=== PATIENT | male | born 1955 | race Caucasian/White ===

== ENCOUNTER 2023-04-10 15:31 | Inpatient (IN) | payer MEDICARE, SELFPAY ==
--- NOTE | ~2023-04-10 | CT_ITS ---
EXAMINATION: CT CHEST, ABDOMEN AND PELVIS WITHOUT CONTRAST CLINICAL INFORMATION: Reason for Exam diarrhea, urinary frequency, dyspnea. COMPARISON: Chest radiograph done on 04/10/2023. TECHNIQUE: Multidetector volumetric imaging was performed from the thoracic inlet through the pubic symphysis without intravenous contrast. Oral contrast: No Sagittal and coronal reformatted images were obtained on the technologist workstation. This CT examination was performed using dose optimization techniques as appropriate, variously including the following: *Automated exposure control. *Adjustment of mA and/or kV according to patient size (this includes techniques or standardized protocols for targeted exams where dose is matched to indication/reason for exam; i.e. extremities or head). *Use of iterative reconstruction technique. Total exam dose-length product 635 mGy-cm FINDINGS: LUNG: Mild emphysematous disease predominantly at both upper lobes. Superimposed linear peribronchiolar airspace disease is noted at right lower lobe of the lung, most consistent with pneumonia. The remainder of the lung thompson otherwise appear clear. The tracheobronchial tree is patent. PLEURA: No pleural effusion or pneumothorax. MEDIASTINUM: Normal heart size. No pericardial effusion. No hilar or mediastinal lymphadenopathy. Small air pocket is noted at the level of the thoracic inlet abutting the right posterior wall of the trachea, may represent a small tracheal diverticulum/paratracheal air cyst (8:5). VASCULAR: No thoracic aortic aneurysm. CHEST WALL/AXILLA: No axillary or internal mammary lymphadenopathy. LIVER, GALLBLADDER AND BILIARY TREE: The liver is normal in size, shape, and attenuation. No focal hepatic lesion or biliary ductal dilatation is present. The gallbladder is unremarkable with no evidence of radiopaque gallstones, gallbladder wall thickening, or obvious pericholecystic inflammatory changes. PANCREAS: Focal calcification is noted at the head of the pancreas (212:7), may represent parenchymal versus vascular calcification. No evidence of any pancreatic ductal dilatation or discrete mass. SPLEEN: Normal size. No focal lesion. ADRENAL GLANDS: Both adrenal glands shows mild diffuse thickening and appears hypodense, suggestive of hyperplastic changes without evidence of any discrete mass. KIDNEYS AND URETERS: The kidneys are normal in size, shape, and attenuation. No hydronephrosis, hydroureter, or calculi. Intrarenal arterial calcifications are present. GASTROINTESTINAL TRACT: Small sliding hiatal hernia is seen. Colonic diverticulosis related changes are present predominantly within the left-sided colon without any CT features of superimposed acute diverticulitis. Normal appendix. ABDOMINAL WALL: No significant hernia is appreciated. LYMPHOVASCULAR STRUCTURES: No lymphadenopathy. Atherosclerotic calcification of the aorta and its branches. BLADDER: No focal mass or wall thickening seen. No bladder calculi. PELVIC VISCERA: Unremarkable. OSSEOUS STRUCTURES: Moderate diffuse osteopenia. Mild compression deformity of superior endplate of T4 vertebral body, of indeterminate etiology and chronicity.. CT/CT abdomen pelvis wo IV con IMPRESSION: 1. The CT scan of the chest shows mild emphysematous disease and superimposed linear peribronchiolar airspace disease at right lower lobe of the lung, most consistent with evolving pneumonia. 2. Small sliding hiatal hernia and bilateral mild thickening of the adrenal gland showing features most consistent with hyperplastic adrenal and colonic diverticulosis without any CT features of superimposed acute diverticulitis or superimposed acute colitis. 3. Moderate diffuse osteopenia and mild compression deformity of superior endplate of T4 vertebral body, of indeterminate etiology and chronicity.
--- NOTE | ~2023-04-10 | XR_ITS ---
EXAMINATION: XR CHEST CLINICAL INFORMATION: Reason for Exam Right posterior chest R/O number COMPARISON: Chest radiograph 07/27/2018 TECHNIQUE: One view of the chest FINDINGS: Lines and tubes: None. Emphysema. Bronchial wall thickening can be seen with a small airways process such as asthma or atypical/viral infection. No pleural effusion. No pneumothorax. Unchanged cardiomediastinal silhouette. XR/XR chest 1V IMPRESSION: 1. Emphysema. 2. Bronchial wall thickening can be seen with a small airways process such as asthma or atypical/viral infection.
[2023-04-10 15:47] VITALS: BP 167/93; BP 172/80; PULSE 95; PULSE 98; RESP 18; TEMP 36.9; O2SAT 88; O2SAT 93; BMI 21.9
--- NOTE | 2023-04-10 16:09 | ED_ITS ---
HPI - General Adult General Chief complaint: General Medical Stated complaint: BOWEL INCONTINENCE Time Seen by Provider: 04/10/23 16:09 Source: patient Mode of arrival: EMS Limitations: no limitations History of Present Illness HPI narrative: 68-year-old male history of COPD, pneumonia and ETOH use disorder who presents emergency department for evaluation frequent urinating and incontinence of stool when he urinates. He states this is been happening 2 to 3 times a day for the past 3 weeks. He states that this morning he again had to urinate and became incontinent therefore he came to emergency department for evaluation. He complains of frequency but no dysuria. He is not incontinent of urine but states that he is incontinent of stool and defecates when he urinates. He states that the stool is watery and brown, he denies any blood in the stool. He has not been on antibiotics recently. He states that over the last 3 weeks he has been experiencing right posterior chest pain which is intermittent worse with coughing and with breathing. He has a cough which is productive of clear thick sputum. He feels short of breath at rest and with exertion. Patient continues to smoke 1 pack of cigarettes per day for 54 years. He also states that he uses crack cocaine and last smoked crack cocaine 1 week prior. He denied fever, chills, rhinorrhea, sore throat, nausea or vomiting. He has a cough which is productive of clear sputum, shortness of breath at rest and with exertion, he denies bloody stools or dark tarry stools. Related Data Allergies Allergy/AdvReac Type Severity Reaction Status Date / Time No Known Allergies Allergy Verified 04/10/23 15:46 Review of Systems 2 Review of Systems: Yes all other systems are reviewed and are negative [facility] Past Medical History [facility] Narrative: Past medical history: COPD, tobacco use disorder, pneumonia. Social history: He states that he lives with friends. Smokes 1 pack of cigarettes per day times 54 years. He drinks 3-424 oz beers per day. He uses crack cocaine and he last use crack cocaine 1 week prior. Medical History Pneumonia Asthma Alcohol dependence Social History Patient Tobacco Use Status: Tobacco use Unknown Smoked in Last 30 Days: Yes Use of substances other than those prescribed or required for medical reasons: No Advance Directives: No Physical Exam ED Vital Signs: Vital Signs - 24 hr 04/10/23 15:47 04/10/23 18:00 04/10/23 19:09 Temperature 98.5 F 98.1 F Pulse Rate 95 88 94 Respiratory Rate 18 22 H 26 H Blood Pressure 167/93 H 146/79 H 151/86 H Pulse Oximetry 88 L 91 L 81 L Oxygen Delivery Method Room Air Nasal Cannula Room Air Oxygen Flow Rate 04/10/23 19:23 04/10/23 23:18 Temperature 98.2 F Pulse Rate 91 91 Respiratory Rate 22 H 18 Blood Pressure 112/71 Pulse Oximetry 94 Oxygen Delivery Method Room Air Nasal Cannula Oxygen Flow Rate 4 BMI result Body Mass Index 21.9 Vital signs revealed elevated blood pressure of 167/93 and a low O2 saturation of 88% on room air Exam: General: Awake, alert , disheveled, cooperative, answers all questions appropriately Head: Normocephalic, atraumatic EENT: PERRL, Lids normal, sclera normal, conjunctiva normal, nose normal , ears normal, throat without erythema or exudates Neck: Supple, no adenopathy, no trachea midline or C-spine tenderness Lung: Diminished breath sounds but bilaterally symmetric,, no wheezing, rales or rhonchi Chest: symmetric movement, nontender Heart: regular rate and rhythm, normal S1, S2 no murmurs or rubs Abdomen: soft, non-tender, nondistended, normal bowel sounds Rectal: Patient does have some small external hemorrhoids that were nontender, he does have skin breakdown perirectal secondary to his diarrhea but no sacral ulcers. Stool was loose, brown and Hemoccult negative on my testing Back: no vertebral tenderness, no CVAT Extremities: no deformities, moves all extremities symmetrically Neuro: Awake, alert, oriented, normal speech, cranial nerves intact, moves all extremities symmetrically Psych: Pleasant, cooperative Medications Administered Generic Name Dose Route Start Last Admin Trade Name Freq PRN Reason Stop Dose Admin Enoxaparin Sodium 40 mg 04/10/23 22:00 04/10/23 22:02 Enoxaparin Sodium 40 Mg/0.4 Ml Syringe SUBCUT 40 mg Q24H VLADIMIR Administration Famotidine 20 mg 04/10/23 21:30 04/10/23 22:02 Famotidine 20 Mg Tablet PO 20 mg BID VLADIMIR Administration Azithromycin 500 mg/ Sodium 250 mls @ 125 mls/hr 04/10/23 22:00 04/11/23 00:00 Chloride IV Infused Q24H VLADIMIR Infusion Ceftriaxone Sodium 1 gm/ 50 mls @ 100 mls/hr 04/10/23 23:00 04/11/23 00:42 Sodium Chloride IV Infused Q24H VLADIMIR Infusion Phenobarbital Sodium 214 mg 04/10/23 23:00 04/10/23 23:25 Phenobarbital Sodium 130 Mg/Ml Vial Im Q3hx2 IM 04/11/23 02:01 214 mg Q3H VLADIMIR Administration Sodium Chloride 3 ml 04/11/23 00:00 04/11/23 00:07 0.9 % Sodium Chloride Flush 3 Ml Syringe IVFLUSH Not Given QSHIFT VLDAIMIR Sodium Chloride 3 ml 04/11/23 00:00 04/11/23 00:07 0.9 % Sodium Chloride Flush 3 Ml Syringe IVFLUSH Not Given QSHIFT VLADIMIR Discontinued Medications Generic Name Dose Route Start Last Admin Trade Name Danielq PRN Reason Stop Dose Admin Acetaminophen 975 mg 04/10/23 19:38 04/10/23 19:49 Acetaminophen 325 Mg Tablet PO 04/10/23 19:39 975 mg ONCE STA Administration Albuterol Sulfate 5 mg/ 0 mg 04/10/23 19:19 04/10/23 19:22 Albuterol/Ipratropium 3 ml INHALE 04/10/23 19:20 2.5 each ONCE ONE Administration Sodium Chloride 1,000 mls @ 999 mls/hr 04/10/23 16:18 04/10/23 18:20 Ns IV 04/10/23 17:18 Infused .Q1H1M STA Infusion Magnesium Hydroxide 15 ml 04/10/23 21:12 04/10/23 22:01 Milk Of Magnesia 30 Ml Oral.Susp PO 04/10/23 21:13 15 ml ONCE ONE Administration Methylprednisolone Sodium Succinate 125 mg 04/10/23 19:07 04/10/23 19:17 Methylprednisolone Sod Succ 125 Mg/2 Ml Vial IVPUSH 04/10/23 19:08 125 mg ONCE ONE Administration Phenobarbital Sodium 286 mg 04/10/23 19:15 04/10/23 19:51 Phenobarbital Sodium 130 Mg/Ml Im Once IM 04/10/23 19:16 286 mg ONCE ONE Administration Polyethylene Glycol 17 gm 04/10/23 21:15 04/10/23 22:01 Polyethylene Glycol 3350 17 Gm Powd.Pack PO 17 gm DAILY VLADIMIR Administration Medical Decision Making Medical Decision Making [facility] Narrative: 68-year-old male history of COPD, pneumonia and ETOH use disorder who presents emergency department for evaluation frequent urinating and incontinence of stool when he urinates with symptoms current 2 to 3 times a day for 3 weeks. He denied in the bloody stools or dark tarry stools. He also complained of right posterior chest pain which is intermittent worse with coughing and with breathing. He has a cough which is productive of clear thick sputum. Vital signs did reveal O2 saturation of 88% on room air-he does not use home oxygen Patient's breath sounds are diminished bilateral with no rales rhonchi or wheezing initially. Following evaluation was ordered: CBC, CMP, PT/INR, PTT, D-dimer CK, lactic acid, lipase, blood cultures x2, troponin, BNP, urinalysis, VBG, urinalysis, occult stool, COVID, RSV, influenza, blood cultures x2, chest x-ray one view 18:58 Patient's laboratory evaluation did reveal low sodium and low chloride but this is secondary to his alcohol use disorder patient's coags including the D-dimer were normal. LFTs were normal. Patient's chest x-ray did not reveal any acute findings. High sensitive troponin I was detectable at 4.6 but not elevated. BNP was elevated 166-this is most likely secondary to COPD. Twelve EKG was unremarkable. I do not have a clear etiology for the patient's urinary frequency and diarrhea but it may be related to his alcohol use disorder Patient complains of increased shortness of breath and does have wheezing chest x-ray on my interpretation was no acute disease consistent with COPD. Patient's hypoxic has gotten worse with O2 saturation of 82% on room air, he was placed on oxygen via nasal cannula. Hypoxia is caused by COPD and not by an infectious process. I ordered Solu-Medrol 125 mg IV, bronchial dilator protocol and phenobarbital protocol. At this time, I do not think that his hypoxia is due to sepsis and is related to his COPD. I will discuss admission with the covering hospitalist. 19:05 Patient was discussed with the covering hospitalist, Dr. Sood patient will be admitted for further management Differential Diagnosis Differential Diagnoses: The differential diagnosis associated with the presentation includes 18:58 Differential diagnosis includes was not limited to urinary tract infection, pneumonia, C diff, his infectious diarrhea, cardiac ischemia, myocardial infarction, CHF, alcohol related disease Admission/Observation Consideration of admission/observation: Escalation of care including admission/observation considered Consult Healthcare Provider Management of the patient was discussed with: Hospitalist Lab Data MDM Lab Attestation statement: I reviewed the patient's lab results. My interpretation patient's laboratory evaluation is as follows: CBC was normal. Sodium low 127 and chloride low 90-this is most likely secondary to his alcohol use disorder. LFTs were normal. Lipase was not elevated. COVID-19, influenza and RSV were negative . venous blood gas revealed a normal pH of 7.42 normal CO2 of 44. Occult stool was negative. Urinalysis was negative. Urine tox screen was negative. Alcohol was 49. 04/10/23 17:19 04/10/23 22:50 Labs: Lab Results 04/10/23 04/10/23 04/10/23 Range/Units 16:55 16:56 16:57 WBC (4.8-10.8) X10*3/uL RBC (4.60-5.80) X10*6/uL Hgb (14.0-18.0) g/dl Hct (42.0-52.0) % MCV (80.0-98.0) fL MCH (27.0-33.0) pg MCHC (31.0-36.0) g/dl RDW (11.0-16.0) % Plt Count (160-400) X10*3/uL MPV (9.4-12.4) fL Immature Gran % (Auto) (0.0-0.4) % Neut % (Auto) (45-73) % Lymph % (Auto) (20-40) % Archuleta % (Auto) (2-11) % Eos % (Auto) (0-4) % Baso % (Auto) (0-2) % Lymph # (Auto) (1.2-4.9) X10*3/uL [place] # (Auto) (0.1-1.2) X10*3/uL Eos # (Auto) (0.0-0.4) X10*3/uL Baso # (Auto) (0.0-0.2) X10*3/uL Abs Immat Gran (auto) (0.00-0.03) X10*3/uL Absolute Neuts (auto) (2.0-8.3) x10*3/uL Absolute Nucleated RBC (0.0-0.012) X10*3/uL Nucleated RBC % (auto) (0.0-0.2) /100WBC PT (11.1-13.3) SEC INR (0.9-1.1) APTT (26.0-36.4) SEC D-Dimer High Sensitivty NG/ML VBG pH (7.32-7.43) VBG pCO2 mmHg VBG pO2 mmHg VBG HCO3 (22-26) mmol/L VBG O2 Saturation % VBG Base Excess mmol/L Sodium (135-145) mmol/L Potassium (3.3-5.1) mmol/L Chloride (96-108) mmol/L Carbon Dioxide (22-29) mmol/L Anion Gap (12-20) BUN (9-16) mg/dL Creatinine (0.5-1.4) mg/dL Estim Creat Clear Calc Estimated GFR Random Glucose (60-115) mg/dL Lactic Acid 1.7 (0.5-2.0) mmol/L Calcium (8.4-10.2) mg/dL Magnesium (1.6-2.6) mg/dL Total Bilirubin (0.0-1.0) mg/dL AST (5-37) U/L ALT (0-40) U/L Alkaline Phosphatase (39-117) U/L Total Creatine Kinase (38-174) U/L Troponin I High Sens (<3.5-35.0) ng/L B-Natriuretic Peptide (<100) pg/mL Total Protein (6.5-8.0) g/dL Albumin (3.5-5.0) g/dL Lipase (8-78) U/L Urine Color Yellow Urine Appearance Clear Urine pH 6.0 (5.0-9.0) Ur Specific Clarence 1.015 (1.005-1.025) Urine Protein Negative (Neg-Trace) mg/dL Urine Glucose (UA) Negative (Negative) mg/dL Urine Ketones Negative (Negative) mg/dL Urine Blood Negative (Negative) Urine Nitrite Negative (Negative) Ur Leukocyte Esterase Negative (Negative) Stool Occult Blood NEGATIVE (NEGATIVE) Urine Opiates Screen Not Detected (Not Detect) Urine Fentanyl Screen Not Detected (Not Detect) Ur Barbiturates Screen Not Detected (Not Detect) Ur Phencyclidine Scrn Not Detected (Not Detect) Ur Amphetamines Screen Not Detected (Not Detect) U Benzodiazepines Scrn Not Detected (Not Detect) Urine Cocaine Screen Not Detected (Not Detect) U Marijuana (THC) Screen Not Detected (Not Detect) Ethyl Alcohol mg/dL Influenza Type A (PCR) NEGATIVE (Negative) Influenza Type B (PCR) NEGATIVE (Negative) RSV RNA Qual (PCR) NEGATIVE (Negative) SARS-CoV-2 RNA (RT-PCR) NEGATIVE (Negative) 04/10/23 04/10/23 04/10/23 Range/Units 17:14 17:16 17:19 WBC 9.2 (4.8-10.8) X10*3/uL RBC 5.39 (4.60-5.80) X10*6/uL Hgb 15.7 (14.0-18.0) g/dl Hct 46.8 (42.0-52.0) % MCV 86.8 (80.0-98.0) fL MCH 29.1 (27.0-33.0) pg MCHC 33.5 (31.0-36.0) g/dl RDW 13.2 (11.0-16.0) % Plt Count 301 (160-400) X10*3/uL MPV 8.1 L (9.4-12.4) fL Immature Gran % (Auto) 0.3 (0.0-0.4) % Neut % (Auto) 69.7 (45-73) % Lymph % (Auto) 20.6 (20-40) % Archuleta % (Auto) 8.2 (2-11) % Eos % (Auto) 0.4 (0-4) % Baso % (Auto) 0.8 (0-2) % Lymph # (Auto) 1.9 (1.2-4.9) X10*3/uL [place] # (Auto) 0.8 (0.1-1.2) X10*3/uL Eos # (Auto) 0.0 (0.0-0.4) X10*3/uL Baso # (Auto) 0.1 (0.0-0.2) X10*3/uL Abs Immat Gran (auto) 0.03 (0.00-0.03) X10*3/uL Absolute Neuts (auto) 6.4 (2.0-8.3) x10*3/uL Absolute Nucleated RBC 0.000 (0.0-0.012) X10*3/uL Nucleated RBC % (auto) 0.0 (0.0-0.2) /100WBC PT 10.1 L (11.1-13.3) SEC INR 0.8 L (0.9-1.1) APTT 37.1 H (26.0-36.4) SEC D-Dimer High Sensitivty < 150 NG/ML VBG pH (7.32-7.43) VBG pCO2 mmHg VBG pO2 mmHg VBG HCO3 (22-26) mmol/L VBG O2 Saturation % VBG Base Excess mmol/L Sodium 127 L (135-145) mmol/L Potassium 4.9 (3.3-5.1) mmol/L Chloride 90 L (96-108) mmol/L Carbon Dioxide 27 (22-29) mmol/L Anion Gap 15 (12-20) BUN 3 L (9-16) mg/dL Creatinine 0.74 (0.5-1.4) mg/dL Estim Creat Clear Calc 78.3 Estimated GFR > 60 Random Glucose 85 (60-115) mg/dL Lactic Acid (0.5-2.0) mmol/L Calcium 9.3 (8.4-10.2) mg/dL Magnesium 2.2 (1.6-2.6) mg/dL Total Bilirubin 0.3 (0.0-1.0) mg/dL AST 26 (5-37) U/L ALT 11 (0-40) U/L Alkaline Phosphatase 86 (39-117) U/L Total Creatine Kinase 113 (38-174) U/L Troponin I High Sens 4.6 (<3.5-35.0) ng/L B-Natriuretic Peptide 166 H (<100) pg/mL Total Protein 7.6 (6.5-8.0) g/dL Albumin 3.7 (3.5-5.0) g/dL Lipase 26 (8-78) U/L Urine Color Urine Appearance Urine pH (5.0-9.0) Ur Specific Clarence (1.005-1.025) Urine Protein (Neg-Trace) mg/dL Urine Glucose (UA) (Negative) mg/dL Urine Ketones (Negative) mg/dL Urine Blood (Negative) Urine Nitrite (Negative) Ur Leukocyte Esterase (Negative) Stool Occult Blood (NEGATIVE) Urine Opiates Screen (Not Detect) Urine Fentanyl Screen (Not Detect) Ur Barbiturates Screen (Not Detect) Ur Phencyclidine Scrn (Not Detect) Ur Amphetamines Screen (Not Detect) U Benzodiazepines Scrn (Not Detect) Urine Cocaine Screen (Not Detect) U Marijuana (THC) Screen (Not Detect) Ethyl Alcohol 49 mg/dL Influenza Type A (PCR) (Negative) Influenza Type B (PCR) (Negative) RSV RNA Qual (PCR) (Negative) SARS-CoV-2 RNA (RT-PCR) (Negative) 04/10/23 04/10/23 Range/Units 17:22 22:50 WBC (4.8-10.8) X10*3/uL RBC (4.60-5.80) X10*6/uL Hgb (14.0-18.0) g/dl Hct (42.0-52.0) % MCV (80.0-98.0) fL MCH (27.0-33.0) pg MCHC (31.0-36.0) g/dl RDW (11.0-16.0) % Plt Count (160-400) X10*3/uL MPV (9.4-12.4) fL Immature Gran % (Auto) (0.0-0.4) % Neut % (Auto) (45-73) % Lymph % (Auto) (20-40) % Archule[place] % (Auto) (2-11) % Eos % (Auto) (0-4) % Baso % (Auto) (0-2) % Lymph # (Auto) (1.2-4.9) X10*3/uL [place] # (Auto) (0.1-1.2) X10*3/uL Eos # (Auto) (0.0-0.4) X10*3/uL Baso # (Auto) (0.0-0.2) X10*3/uL Abs Immat Gran (auto) (0.00-0.03) X10*3/uL Absolute Neuts (auto) (2.0-8.3) x10*3/uL Absolute Nucleated RBC (0.0-0.012) X10*3/uL Nucleated RBC % (auto) (0.0-0.2) /100WBC PT (11.1-13.3) SEC INR (0.9-1.1) APTT (26.0-36.4) SEC D-Dimer High Sensitivty NG/ML VBG pH 7.42 (7.32-7.43) VBG pCO2 44 mmHg VBG pO2 43 mmHg VBG HCO3 29 H (22-26) mmol/L VBG O2 Saturation 79.0 % VBG Base Excess 4.0 mmol/L Sodium 132 L (135-145) mmol/L Potassium (3.3-5.1) mmol/L Chloride (96-108) mmol/L Carbon Dioxide (22-29) mmol/L Anion Gap (12-20) BUN (9-16) mg/dL Creatinine (0.5-1.4) mg/dL Estim Creat Clear Calc Estimated GFR Random Glucose (60-115) mg/dL Lactic Acid (0.5-2.0) mmol/L Calcium (8.4-10.2) mg/dL Magnesium (1.6-2.6) mg/dL Total Bilirubin (0.0-1.0) mg/dL AST (5-37) U/L ALT (0-40) U/L Alkaline Phosphatase (39-117) U/L Total Creatine Kinase (38-174) U/L Troponin I High Sens (<3.5-35.0) ng/L B-Natriuretic Peptide (<100) pg/mL Total Protein (6.5-8.0) g/dL Albumin (3.5-5.0) g/dL Lipase (8-78) U/L Urine Color Urine Appearance Urine pH (5.0-9.0) Ur Specific Clarence (1.005-1.025) Urine Protein (Neg-Trace) mg/dL Urine Glucose (UA) (Negative) mg/dL Urine Ketones (Negative) mg/dL Urine Blood (Negative) Urine Nitrite (Negative) Ur Leukocyte Esterase (Negative) Stool Occult Blood (NEGATIVE) Urine Opiates Screen (Not Detect) Urine Fentanyl Screen (Not Detect) Ur Barbiturates Screen (Not Detect) Ur Phencyclidine Scrn (Not Detect) Ur Amphetamines Screen (Not Detect) U Benzodiazepines Scrn (Not Detect) Urine Cocaine Screen (Not Detect) U Marijuana (THC) Screen (Not Detect) Ethyl Alcohol mg/dL Influenza Type A (PCR) (Negative) Influenza Type B (PCR) (Negative) RSV RNA Qual (PCR) (Negative) SARS-CoV-2 RNA (RT-PCR) (Negative) Independent Interpretation I performed an independent interpretation of an: Plain X-Ray Interpretation: My interpretation patient's one-view chest x-ray is as follows: COPD changes, no acute infiltrate My interpretation of the patient's 12 EKG done at 16:36 hours is as follows: Normal sinus rhythm with a rate of 96, normal MD interval, QRS duration QTC interval, no ST segment elevation, no ST segment depression, no significant T- wave abnormalities, no PACs, no PVCs-this is a normal EKG. Radiology Impression Discussion of test interpretation with radiology: I have reviewed the radiologist's reading. Radiologist Impression: XR chest 1V IMPRESSION: 1. Emphysema. 2. Bronchial wall thickening can be seen with a small airways process such as asthma or atypical/viral infection. Dictated By: Mireya De La Fuente MD Critical Care Time Critical Care Time Critical Care Time: Yes Total Critical Care Time: 45 Attestation: Critical Care: The patient was critically ill with a high probability of imminent or life threatening deterioration. I spent greater than 30 minutes of discontinuous time evaluating the patient,delivering critical care at the bedside, discussing and evaluating pertinent data with consultants. Critical care time does not include time spent performing separately billable procedures or teaching. Total time spent performing critical care was 45 minutes. Discharge Plan Discharge Patient Disposition: Admitted As Inpatient
--- NOTE | 2023-04-10 16:18 | ECG_ITS ---
Test Reason : PAIN Blood Pressure : / mmHG Vent. Rate : 096 BPM Atrial Rate : 096 BPM P-R Int : 118 ms QRS Dur : 070 ms QT Int : 354 ms P-R-T Axes : 078 076 076 degrees QTc Int : 447 ms Normal sinus rhythm Normal ECG When compared with ECG of 27-JUL-2018 18:08, No significant changes seen Referred By: Betito Oro Electronically Signed By:LEONID JARQUIN MD
[2023-04-10 17:07] LABS: OBS Int Ctl Valid YES; OBS1 NEGATIVE (NEGATIVE)
[2023-04-10 17:08] LABS: Appearance Urine Clear; Color Urine Yellow; Glucose Urine UA Negative (Negative); Leukocyte Esterase Urine Negative (Negative); Nitrite Urine Negative (Negative); Specific Gravity - Urine 1.015 (1.005-1.025); Urine Blood Negative (Negative); Urine Ketones Negative (Negative); Urine Protein Negative (Neg-Trace)
[2023-04-10 17:15] LABS: Amphetamine Screen Urine Not Detected (Not Detect); Barbiturates, Urine Not Detected (Not Detect); Benzodiazepines Screen Urine Not Detected (Not Detect); Cannabinoid Screen Urine Not Detected (Not Detect); Cocaine Screen Urine Not Detected (Not Detect); Fentanyl, urine Not Detected (Not Detect); Opiate Screen Urine Not Detected (Not Detect); Phencyclidine Screen Urine Not Detected (Not Detect)
[2023-04-10 17:17] LABS: Lactic Acid 1.7 mmol/L (0.5-2.0)
[2023-04-10] MEDS: 0.9 % Sodium Chloride 1,000 ML 999 ML IV (17:19)
[2023-04-10 17:25] LABS: Basophils Absolute Auto 0.1 X10*3/uL (0.0-0.2); Basophils Percent Auto 0.8 % (0-2); Eosinophils Percent Auto 0.4 % (0-4); Hematocrit 46.8 % (42.0-52.0); Hemoglobin 15.7 g/dl (14.0-18.0); Imm Gran Abs Auto 0.03 X10*3/uL (0.00-0.03); Imm Gran Pct Auto 0.3 % (0.0-0.4); Lymphocytes Absolute Auto 1.9 X10*3/uL (1.2-4.9); Lymphocytes Percent Auto 20.6 % (20-40); Mean Corpuscular HGB Conc 33.5 g/dl (31.0-36.0); Mean Corpuscular Hemoglobin 29.1 pg (27.0-33.0); Mean Corpuscular Volume 86.8 fL (80.0-98.0); Mean Platelet Volume 8.1 fL (9.4-12.4); Monocytes Absolute Auto 0.8 X10*3/uL (0.1-1.2); Monocytes Percent Auto 8.2 % (2-11); Neutrophils Absolute Auto 6.4 x10*3/uL (2.0-8.3); Neutrophils Percent Auto 69.7 % (45-73); Platelet Count 301 X10*3/uL (160-400); Red Blood Count 5.39 X10*6/uL (4.60-5.80); Red Cell Distribution Width 13.2 % (11.0-16.0); White Blood Count 9.2 X10*3/uL (4.8-10.8)
[2023-04-10 17:29] LABS: MANUAL DIFF FLAG NO
[2023-04-10 17:29] LABS: VBG HCO3 29 mmol/L (22-26); VBG pCO2 44 mmHg; VBG pH 7.42 (7.32-7.43); VBG pO2 43 mmHg
[2023-04-10 17:31] LABS: INTERNATIONAL NORM RATIO 0.8 (0.9-1.1); Prothrombin Time 10.1 SEC (11.1-13.3)
[2023-04-10 17:33] LABS: Partial Thromboplastin Time 37.1 SEC (26.0-36.4)
[2023-04-10 17:39] LABS: Influenza A PCR NEGATIVE (Negative); Influenza B PCR NEGATIVE (Negative); Resp Syncy Virus RNA Qual PCR NEGATIVE (Negative); SARS COV2 PCR INHOUSE NEGATIVE (Negative)
--- NOTE | 2023-04-10 17:40 | PC.NURSE ---
patient a&ox2, monitoring manager applied-nsr, iv inserted, labs drawn, bc drawn, nasal swab performed, cxr performed, vss, call garcia within reach, will continue to monitor
[2023-04-10 17:51] LABS: Alanine Aminotransferase 11 U/L (0-40); Albumin Level 3.7 g/dL (3.5-5.0); Alkaline Phosphatase 86 U/L (39-117); Anion Gap 15 (12-20); Aspartate Amino Transferase 26 U/L (5-37); B Type Natriuretic Peptide 166 pg/mL (<100); Bilirubin Total 0.3 mg/dL (0.0-1.0); Blood Urea Nitrogen 3 mg/dL (9-16); Calcium 9.3 mg/dL (8.4-10.2); Carbon Dioxide 27 mmol/L (22-29); Chloride 90 mmol/L (96-108); Creatinine Clr Calc Pharmacy 78.3; Estimated Glomerular Filt Rate > 60; Ethanol 49 mg/dL; Glucose Random 85 mg/dL (60-115); Lipase 26 U/L (8-78); Potassium 4.9 mmol/L (3.3-5.1); Sodium 127 mmol/L (135-145); Total Protein 7.6 g/dL (6.5-8.0)
[2023-04-10 17:51] LABS: Venous Blood Gas Refer to POC result
[2023-04-10 17:53] LABS: Troponin-I High Sensitivity 4.6 ng/L (<3.5-35.0)
[2023-04-10 18:00] VITALS: BP 146/79; PULSE 88; RESP 22; TEMP 36.7; O2SAT 91
[2023-04-10 18:08] LABS: D Dimer High Sensitivity < 150 NG/ML
--- NOTE | 2023-04-10 18:22 | PC.NURSE ---
patient a&ox3, cardiac monitor technician nsr 80s, vitals currently stable, call garcia within reach, will continue to monitor
[2023-04-10 19:09] VITALS: BP 151/86; PULSE 94; RESP 26; O2SAT 81
[2023-04-10] MEDS: methylPREDNISolone Sod Succ 125 MG/2 ML VIAL IVPUSH (19:17)
[2023-04-10] MEDS: Albuterol Sulfate 5 MG, Albuterol/Iprat 2.5/0.5MG 3 ML 3 ML INHALE (19:22)
[2023-04-10 19:23] VITALS: PULSE 91; RESP 22; O2SAT 97
[2023-04-10] MEDS: Acetaminophen 325 MG TABLET 975 MG PO (19:49)
[2023-04-10] MEDS: PHENobarbitaL sodium 130 MG/ML IM ONCE 286 MG IM (19:51)
--- NOTE | 2023-04-10 20:12 | P.HPHOSP_ITS ---
<Statement entered by Codey Sood MD - 04/13/23 19:18> Pt seen examined at bedside. I agree with the findings of the PA note findings and A&P for full H&P please see below History of Present Illness Date of Service: 04/10/23 Attending physician on admission: Codey Sood Chief Complaint: Incontinent of stool while urinating Pt is a 68-year-old male with a PMH significant for?COPD and alcohol use disorder who presents to the ED with?occasional incontinence of stool while urinating for the past 3 weeks. Patient states symptoms mostly occur in the morning and can occur 2-3 times daily. Describes stool as liquid. No hematochezia or melena. Denies nausea, vomiting, fever, chills, abdominal pain. Notes has experienced increased SOB, BRENNAN, and cough past 2-3 weeks occasionally productive of clear sputum. Is not on home O2 or any inhalers. Was diagnosed with COPD 4 years prior during his last admission to the hospital but never followed up with PCP or pulmonology. In fact, pt states he hasn't seen a PCP for a yearly physical since he was a kid 50+ years ago. Patient also admits to drinking daily from the moment he wakes up to when he goes to sleep. States his hands usually shake in the morning when he wakes up. Also admits to occasional crack cocaine use with last use 1 week ago. Patient apparently lives with roommates in an apartment, and he states he spends almost all day, every day just sitting in his chair smoking, drinking, and watching TV. In the ED pt was afebrile with elevated heart rate as high as 95, tachypnea to 26, and hypertensive as high as 167/93, satting as low as 81% on RA. Labs were significant for sodium of 127 and chloride 90 (same as labs on 07/27/2018), BPH mildly elevated 166, ethyl alcohol levels 49. Lactic acid WNL 1.7. Hepatic function WNL. Lipase WNL at 26. Troponin detectable but WNL at 4.6. No leukocytosis. Stable H&H of 15.7/46.8. D-dimer negative. VBG pH 7.42. UA negative for UTI. Stool negative for occult blood. Patient tested negative for influenza type a and B, RSV, COVID. CXR showed emphysema and bronchial wall thickening suggestive of asthma and or atypical/viral infection. CT? EKG demonstrated normal sinus rhythm without evidence of significant ST elevations or depressions. Pt was treated with IVF, Solu-Medrol, DuoNebs, acetaminophen, and started on phenobarb protocol. Pt will be admitted to the hospital for treatment and further evaluation of acute hypoxic respiratory failure in the setting of COPD exacerbation as well as acute alcohol withdrawal. Review of Systems 2 Review of Systems: Increased Shortness of breath, dyspnea with exertion Chronic cough Occasional incontinence of stool while urinating Daily morning upper extremity tremors Denies chest pain/pressure, palpitations No fever, chills, nausea, vomiting, abdominal pain PMFSH Medical History Pneumonia Asthma Alcohol dependence Smoked in Last 30 Days: Yes Use of substances other than those prescribed or required for medical reasons: No Advance Directives: No Meds Allergies Allergy/AdvReac Type Severity Reaction Status Date / Time No Known Allergies Allergy Verified 04/10/23 15:46 Active Medications: Current Medications Pharmacy Consult (Consult Rx Etoh Phenob Im/Po) 1 each MISCELLANE ONCE PRN; Protocol PRN Reason: Consult order Phenobarbital (Phenobarbital 15 Mg Tablet) 45 mg PO BID [facility] Stop: 04/12/23 21:01 Phenobarbital (Phenobarbital 30 Mg Tablet) 30 mg PO BID [facility] Stop: 04/14/23 21:01 Phenobarbital (Phenobarbital 15 Mg Tablet) 15 mg PO DAILY [facility] Stop: 04/16/23 09:01 Phenobarbital Sodium (Phenobarbital Sodium 130 Mg/Ml Vial Im Q3hx2) 214 mg IM Q3H [facility] Stop: 04/11/23 02:01 Physical Exam 2 Vital Signs and Narrative: Vital Signs: Last Vital Signs Temp 98.1 F 04/10/23 18:00 Pulse 91 04/10/23: Resp 22 H 04/10/23 19: BP 151/86 H 04/10/23 19:09 Pulse Ox 81 L 04/10/23 19:09 O2 Del Method Room Air 04/10/23 19:09 BMI result Body Mass Index 21.9 Constitutional: Alert, cachectic, disheveled, in no acute distress. Mental Status: Oriented to person, place and time. Eyes: Pupils are equal, round, and reactive to light. Ear, Nose, and Throat: Oropharynx clear, mucous membranes moist. Ears and nose without deformities. Trachea midline. Poor dentition. Respiratory: Clear to auscultation bilaterally though diminished bilaterally. No wheezing, rales, or rhonchi. Cardiovascular: S1, S2, tachy. No murmurs, rubs, or gallops. Gastrointestinal: Abdomen soft, non-tender, non-distended. Normal bowel sounds. Neurologic: Cranial nerves II-XII are grossly intact bilaterally. No focal neurological deficits. Moves all extremities spontaneously. Moderate upper extremity tremors noted. Skin: Warm, dry. Extremities: Trace bilateral edema. Psychiatric: Normal mood and affect. Results Labs 04/10/23 17:19 04/10/23 17:16 Labs: Laboratory Results - last 24 hr 04/10/23 04/10/23 04/10/23 16:55 16:56 16:57 MCV MCH MCHC RDW Plt Count MPV Immature Gran % (Auto) Neut % (Auto) Lymph % (Auto) Archer % (Auto) Eos % (Auto) Baso % (Auto) Lymph # (Auto) Archer # (Auto) Eos # (Auto) Baso # (Auto) Abs Immat Gran (auto) Absolute Neuts (auto) Absolute Nucleated RBC Nucleated RBC % (auto) PT INR APTT D-Dimer High Sensitivty VBG pH VBG pCO2 VBG pO2 VBG HCO3 VBG O2 Saturation VBG Base Excess Anion Gap Estim Creat Clear Calc Estimated GFR Random Glucose Lactic Acid 1.7 Calcium Total Bilirubin AST ALT Alkaline Phosphatase Total Creatine Kinase B-Natriuretic Peptide Total Protein Albumin Lipase Urine Color Yellow Urine Appearance Clear Urine pH 6.0 Ur Specific [place] 1.015 Urine Protein Negative Urine Glucose (UA) Negative Urine Ketones Negative Urine Blood Negative Urine Nitrite Negative Ur Leukocyte Esterase Negative Stool Occult Blood NEGATIVE Urine Opiates Screen Not Detected Urine Fentanyl Screen Not Detected Ur Barbiturates Screen Not Detected Ur Phencyclidine Scrn Not Detected Ur Amphetamines Screen Not Detected U Benzodiazepines Scrn Not Detected Urine Cocaine Screen Not Detected U Marijuana (THC) Screen Not Detected Ethyl Alcohol Influenza Type A (PCR) NEGATIVE Influenza Type B (PCR) NEGATIVE RSV RNA Qual (PCR) NEGATIVE SARS-CoV-2 RNA (RT-PCR) NEGATIVE 04/10/23 04/10/23 04/10/23 17:16 17:19 17:22 MCV 86.8 MCH 29.1 MCHC 33.5 RDW 13.2 Plt Count 301 MPV 8.1 L Immature Gran % (Auto) 0.3 Neut % (Auto) 69.7 Lymph % (Auto) 20.6 Archer % (Auto) 8.2 Eos % (Auto) 0.4 Baso % (Auto) 0.8 Lymph # (Auto) 1.9 Archer # (Auto) 0.8 Eos # (Auto) 0.0 Baso # (Auto) 0.1 Abs Immat Gran (auto) 0.03 Absolute Neuts (auto) 6.4 Absolute Nucleated RBC 0.000 Nucleated RBC % (auto) 0.0 PT 10.1 L INR 0.8 L APTT 37.1 H D-Dimer High Sensitivty < 150 VBG pH 7.42 VBG pCO2 44 VBG pO2 43 VBG HCO3 29 H VBG O2 Saturation 79.0 VBG Base Excess 4.0 Anion Gap 15 Estim Creat Clear Calc 78.3 Estimated GFR > 60 Random Glucose 85 Lactic Acid Calcium 9.3 Total Bilirubin 0.3 AST 26 ALT 11 Alkaline Phosphatase 86 Total Creatine Kinase 113 B-Natriuretic Peptide 166 H Total Protein 7.6 Albumin 3.7 Lipase 26 Urine Color Urine Appearance Urine pH Ur Specific [place] Urine Protein Urine Glucose (UA) Urine Ketones Urine Blood Urine Nitrite Ur Leukocyte Esterase Stool Occult Blood Urine Opiates Screen Urine Fentanyl Screen Ur Barbiturates Screen Ur Phencyclidine Scrn Ur Amphetamines Screen U Benzodiazepines Scrn Urine Cocaine Screen U Marijuana (THC) Screen Ethyl Alcohol 49 Influenza Type A (PCR) Influenza Type B (PCR) RSV RNA Qual (PCR) SARS-CoV-2 RNA (RT-PCR) Imaging Radiologist's Impressions: Impressions Chest X-Ray 04/10/23 17:03 IMPRESSION: 1. Emphysema. 2. Bronchial wall thickening can be seen with a small airways process such as asthma or atypical/viral infection. Assessment and Plan (1) Alcohol withdrawal: Status: Acute (2) Acute hypoxic respiratory failure: Status: Acute (3) COPD exacerbation: Status: Acute Plan Pt is a 68-year-old male with a PMH significant for?COPD and alcohol use disorder who presents to the ED with?occasional incontinence of stool while urinating for the past 3 weeks. Pt will be admitted to the hospital for treatment and further evaluation of acute hypoxic respiratory failure in the setting of COPD exacerbation as well as acute alcohol withdrawal. Acute hypoxic respiratory failure in the setting of COPD exacerbation Patient satting at 82% on RA, not on home O2 Smokes 1-pack daily x50+ years Patient initially diagnosed with COPD at time of last presentation to the ED in July of 2018, has not followed up outpatient or seen a clinician since Will treat with Solu-Medrol, DuoNebs, and azithromycin, started 04/10/2023 Titrate supplemental O2 >90, wean as tolerated Acute alcohol withdrawal Moderate upper extremity tremors, pt drinks daily from time he gets up to when he goes to sleep Patient started on phenobarb protocol in ED Continue Phenobarb protocol Daily multivitamin, folic acid, Thiamine Famotidine 20 mg p.o. Follow Mag wyatt, SEB CIWA scale Addiction medicine consult Monitor on telemetry Pneumonia CT of chest linear peribronchial airspace disease at right lower lobe of lung most consistent with evolving pneumonia Patient meets sepsis criteria: Tachycardia, tachypnea; lactic acid WNL at 1.7, drawn less than 6 hours ago Patient received IV fluids in the ED Will treat with ceftriaxone, azithromycin, started 04/10/2023 Hyponatremia Patient's sodium 127 at time of presentation Possibly chronic, patient's sodium also 127 over 4 years prior on 07/27/2018 Patient received 1 L of NS in ED Will check sodium levels again, and start on gentle NS if warranted Follow BMP Constipation Patient complaining of occasional incontinence of liquid stool when urinates for the past 3-4 weeks, possibly secondary to constipation CT of abd and pelvis show significant amount of stool in the colon Will give 1 dose of milk of magnesia now Will treat with MiraLax scheduled daily Nicotine dependence NRT: patch Smoking cessation counseled Full Code Attending:?Dr. Sood DVT Prophylaxis: Lovenox Pt will require a hospitalization of at least two nights for treatment of?acute hypoxic respiratory failure in setting of COPD exacerbation and acute alcohol withdrawal. Patient be treated with breathing treatments, IV steroids, phenobarb, and close monitoring. Quality Stroke Does the patient have a stroke diagnosis?: No VTE Prior VTE?: No VTE Risk Level:: Medical - moderate - high VTE Device Contraindication: Treatment Not Indicated VTE Drug Contraindication: N/A - Med Ordered
[2023-04-10 20:47] LABS: Magnesium 2.2 mg/dL (1.6-2.6)
--- NOTE | 2023-04-10 20:58 | PC.NURSE ---
Pt medicated per phenobarbital protocol. Pyxis had me pull 3 vials of medication. 2 vials had excess medication which totaled to the ordered dose. I did not have to open the third vial. Wasted the medication in the pyxis with Adri STRAUSS. I then called pharmacy as to what to do with the unopened vial. Romeo from pharmacy stated to bring vial back to pharmacy and it can be returned to stock. Spoke mahsa MARTIN as well and she agreed to the plan. Medication handed to pharmacy by this RN at approx 20:35.
--- NOTE | 2023-04-10 21:29 | PC.NURSE ---
Pt cleaned and given new linens. Condom catheter applied as pt struggles to control his bladder. Pt resting comfortably at this time.
[2023-04-10] MEDS: Milk of Magnesia 30 ML ORAL.SUSP 15 ML PO (22:01)
[2023-04-10] MEDS: polyethylene glycoL 3350 17 GM POWD.PACK PO (22:01)
[2023-04-10] MEDS: Enoxaparin Sodium 40 MG/0.4 ML SYRINGE SUBCUT (22:02)
[2023-04-10] MEDS: Famotidine 20 MG TABLET PO (22:02)
[2023-04-10] MEDS: Azithromycin 500 MG in 0.9 % Sodium Chloride 250 ML 125 MG IV (22:03)
[2023-04-10 23:01] LABS: Sodium 132 mmol/L (135-145)
[2023-04-10 23:18] VITALS: BP 112/71; PULSE 91; RESP 18; TEMP 36.8; O2SAT 94
[2023-04-10] MEDS: PHENobarbitaL sodium 130 MG/ML VIAL IM Q3Hx2 214 MG IM (23:25)
[2023-04-10] MEDS: cefTRIAXone sodium 1 GM in 0.9 % Sodium Chloride 50 ML IV (23:59)
[2023-04-11] VITALS (8 sets, daily range): BP systolic 102–160; BP diastolic 53–97; PULSE 80–108; RESP 15–20; TEMP 36.3–36.6; O2SAT 92–98; BMI 21.6
[2023-04-11] MEDS: PHENobarbitaL sodium 130 MG/ML VIAL IM Q3Hx2 214 MG IM (02:19)
[2023-04-11 06:27] LABS: Anion Gap 13 (12-20); Blood Urea Nitrogen 6 mg/dL (9-16); Calcium 8.6 mg/dL (8.4-10.2); Carbon Dioxide 29 mmol/L (22-29); Chloride 97 mmol/L (96-108); Creatinine Clr Calc Pharmacy 69.8; Estimated Glomerular Filt Rate > 60; Glucose Random 147 mg/dL (60-115); Magnesium 2.4 mg/dL (1.6-2.6); Potassium 5.3 mmol/L (3.3-5.1); Sodium 134 mmol/L (135-145)
--- NOTE | 2023-04-11 07:28 | PHA.MEDREC ---
Pharmacy Consult ? Medication Reconciliation Pharmacy has completed the medication reconciliation.
[2023-04-11] MEDS: polyethylene glycoL 3350 17 GM POWD.PACK PO (09:10)
[2023-04-11] MEDS: PHENobarbitaL 15 MG TABLET 45 MG PO ×2 (09:10→20:49)
[2023-04-11] MEDS: Thiamine HCL 100 MG TABLET PO (09:10)
[2023-04-11] MEDS: Famotidine 20 MG TABLET PO ×2 (09:11→19:19)
[2023-04-11] MEDS: methylPREDNISolone Sod Succ 40 MG/ML VIAL IVPUSH ×2 (09:11→19:19)
[2023-04-11] MEDS: Folic Acid 1 MG TABLET PO (09:11)
[2023-04-11] MEDS: Nicotine 21 MG PATCH.TD24 TRANSDERMA (09:11)
[2023-04-11] MEDS: Multivitamin TABLET 1 TAB PO (09:11)
[2023-04-11] MEDS: 0.9 % Sodium Chloride Flush 3 ML SYRINGE IVFLUSH ×3 (09:12→23:03)
--- NOTE | 2023-04-11 09:36 | P.PNIM_ITS ---
Subjective Subjective Date of Service: 04/11/23 Interval History: sob, jittery Physical Exam 2 Vital Signs: Vital Signs: Last Vital Signs Temp 97.8 F 04/11/23 06:02 Pulse 80 04/11/23 06:02 Resp 16 04/11/23 06:02 BP 160/97 H 04/11/23 06:02 Pulse Ox 93 04/11/23 06:02 O2 Del Method Room Air 04/11/23 06:02 O2 Flow Rate 4 04/10/23 23:18 BMI result Body Mass Index 21.9 General: AO X 3, no acute distress Resp: wheezes bilateral, no accessory muscles used CVS: S1,S2,RRR GI: soft, non tender, non distended Neuro: motor grossly intact, tremor Psych: appropriate affect, appropriate insight Objective Data Active Medications Acetaminophen (Acetaminophen 325 Mg Tablet) 650 mg PO Q6H PRN PRN Reason: Pain, Mild (Pain Scale 1-3) Albuterol/Ipratropium (Albuterol/Iprat 2.5/0.5mg 3 Ml Ampul.Neb) 3 ml INHALE RQ4H WHILE AWAKE [facility] Last Admin: 04/11/23 07:50 Dose: Not Given Documented By: JIN Non-Admin Reason: Patient Asleep Docusate Sodium (Docusate Sodium 100 Mg Capsule) 100 mg PO DAILY PRN PRN Reason: Constipation Enoxaparin Sodium (Enoxaparin Sodium 40 Mg/0.4 Ml Syringe) 40 mg SUBCUT Q24H [facility] Last Admin: 04/10/23 22:02 Dose: 40 mg Documented By: ROSE Famotidine (Famotidine 20 Mg Tablet) 20 mg PO BID [facility] Last Admin: 04/11/23 09:11 Dose: 20 mg Documented By: SATHYA Folic Acid (Folic Acid 1 Mg Tablet) 1 mg PO DAILY [facility] Stop: 04/14/23 08:59 Last Admin: 04/11/23 09:11 Dose: 1 mg Documented By: SATHYA Azithromycin 500 mg/ Sodium (Chloride) 250 mls @ 125 mls/hr IV Q24H [facility] Last Infusion: 04/11/23 00:00 Dose: Infused Documented By: ROSE Ceftriaxone Sodium 1 gm/ (Sodium Chloride) 50 mls @ 100 mls/hr IV Q24H [facility] Last Infusion: 04/11/23 00:42 Dose: Infused Documented By: ROSE Methylprednisolone Sodium Succinate (Methylprednisolone Sod Succ 40 Mg/Ml Vial) 40 mg IVPUSH Q12H [facility] Last Admin: 04/11/23 09:11 Dose: 40 mg Documented By: SATHYA Multivitamins/Vitamin C (Multivitamin Tablet) 1 tab PO DAILY [facility] Stop: 04/14/23 08:59 Last Admin: 04/11/23 09:11 Dose: 1 tab Documented By: SATHYA Nicotine (Nicotine 21 Mg Patch.Td24) 21 mg TRANSDERMA DAILY [facility] Last Admin: 04/11/23 09:11 Dose: 21 mg Documented By: SATHYA Ondansetron HCl (Ondansetron Hcl 4 Mg/2 Ml Vial) 4 mg IVPUSH Q8H PRN PRN Reason: Nausea and Vomiting Pharmacy Consult (Consult Rx Etoh Phenob Im/Po) 1 each MISCELLANE ONCE PRN; Protocol PRN Reason: Consult order Phenobarbital (Phenobarbital 15 Mg Tablet) 45 mg PO BID [facility] Stop: 04/12/23 21:01 Last Admin: 04/11/23 09:10 Dose: 45 mg Documented By: SATHYA Phenobarbital (Phenobarbital 30 Mg Tablet) 30 mg PO BID [facility] Stop: 04/14/23 21:01 Phenobarbital (Phenobarbital 15 Mg Tablet) 15 mg PO DAILY [facility] Stop: 04/16/23 09:01 Polyethylene Glycol (Polyethylene Glycol 3350 17 Gm Powd.Pack) 17 gm PO DAILY [facility] Last Admin: 04/11/23 09:10 Dose: 17 gm Documented By: SATHYA Sodium Chloride (0.9 % Sodium Chloride Flush 3 Ml Syringe) [facility] Last Admin: 04/11/23 09:12 Dose: 3 ml Documented By: SATHYA Sodium Chloride (0.9 % Sodium Chloride Flush 3 Ml Syringe) 3 ml IVFLUSH [facility] Last Admin: 04/11/23 09:12 Dose: 3 ml Documented By: SATHYA Thiamine HCl (Thiamine Hcl 100 Mg Tablet) 100 mg PO DAILY [facility] Stop: 04/14/23 08:59 Last Admin: 04/11/23 09:10 Dose: 100 mg Documented By: SATHYA Labs 04/10/23 17:19 04/11/23 05:55 Labs: Laboratory Results - last 24 hr 04/10/23 04/10/23 04/10/23 16:55 16:56 16:57 MCV MCH MCHC RDW Plt Count MPV Immature Gran % (Auto) Neut % (Auto) Lymph % (Auto) Hale % (Auto) Eos % (Auto) Baso % (Auto) Lymph # (Auto) Hale # (Auto) Eos # (Auto) Baso # (Auto) Abs Immat Gran (auto) Absolute Neuts (auto) Absolute Nucleated RBC Nucleated RBC % (auto) Hold Purple Top PT INR APTT D-Dimer High Sensitivty VBG pH VBG pCO2 VBG pO2 VBG HCO3 VBG O2 Saturation VBG Base Excess Anion Gap Estim Creat Clear Calc Estimated GFR Random Glucose Lactic Acid 1.7 Calcium Magnesium Total Bilirubin AST ALT Alkaline Phosphatase Total Creatine Kinase B-Natriuretic Peptide Total Protein Albumin Lipase Urine Color Yellow Urine Appearance Clear Urine pH 6.0 Ur Specific [place] 1.015 Urine Protein Negative Urine Glucose (UA) Negative Urine Ketones Negative Urine Blood Negative Urine Nitrite Negative Ur Leukocyte Esterase Negative Stool Occult Blood NEGATIVE Urine Opiates Screen Not Detected Urine Fentanyl Screen Not Detected Ur Barbiturates Screen Not Detected Ur Phencyclidine Scrn Not Detected Ur Amphetamines Screen Not Detected U Benzodiazepines Scrn Not Detected Urine Cocaine Screen Not Detected U Marijuana (THC) Screen Not Detected Ethyl Alcohol Influenza Type A (PCR) NEGATIVE Influenza Type B (PCR) NEGATIVE RSV RNA Qual (PCR) NEGATIVE SARS-CoV-2 RNA (RT-PCR) NEGATIVE 04/10/23 04/10/23 04/10/23 17:16 17:19 17:22 MCV 86.8 MCH 29.1 MCHC 33.5 RDW 13.2 Plt Count 301 MPV 8.1 L Immature Gran % (Auto) 0.3 Neut % (Auto) 69.7 Lymph % (Auto) 20.6 Hale % (Auto) 8.2 Eos % (Auto) 0.4 Baso % (Auto) 0.8 Lymph # (Auto) 1.9 Hale # (Auto) 0.8 Eos # (Auto) 0.0 Baso # (Auto) 0.1 Abs Immat Gran (auto) 0.03 Absolute Neuts (auto) 6.4 Absolute Nucleated RBC 0.000 Nucleated RBC % (auto) 0.0 Hold Purple Top PT 10.1 L INR 0.8 L APTT 37.1 H D-Dimer High Sensitivty < 150 VBG pH 7.42 VBG pCO2 44 VBG pO2 43 VBG HCO3 29 H VBG O2 Saturation 79.0 VBG Base Excess 4.0 Anion Gap 15 Estim Creat Clear Calc 78.3 Estimated GFR > 60 Random Glucose 85 Lactic Acid Calcium 9.3 Magnesium 2.2 Total Bilirubin 0.3 AST 26 ALT 11 Alkaline Phosphatase 86 Total Creatine Kinase 113 B-Natriuretic Peptide 166 H Total Protein 7.6 Albumin 3.7 Lipase 26 Urine Color Urine Appearance Urine pH Ur Specific [place] Urine Protein Urine Glucose (UA) Urine Ketones Urine Blood Urine Nitrite Ur Leukocyte Esterase Stool Occult Blood Urine Opiates Screen Urine Fentanyl Screen Ur Barbiturates Screen Ur Phencyclidine Scrn Ur Amphetamines Screen U Benzodiazepines Scrn Urine Cocaine Screen U Marijuana (THC) Screen Ethyl Alcohol 49 Influenza Type A (PCR) Influenza Type B (PCR) RSV RNA Qual (PCR) SARS-CoV-2 RNA (RT-PCR) 04/11/23 05:55 MCV MCH MCHC RDW Plt Count MPV Immature Gran % (Auto) Neut % (Auto) Lymph % (Auto) Hale % (Auto) Eos % (Auto) Baso % (Auto) Lymph # (Auto) Hale # (Auto) Eos # (Auto) Baso # (Auto) Abs Immat Gran (auto) Absolute Neuts (auto) Absolute Nucleated RBC Nucleated RBC % (auto) Hold Purple Top SEE NOTE PT INR APTT D-Dimer High Sensitivty VBG pH VBG pCO2 VBG pO2 VBG HCO3 VBG O2 Saturation VBG Base Excess Anion Gap 13 Estim Creat Clear Calc 69.8 Estimated GFR > 60 Random Glucose 147 H Lactic Acid Calcium 8.6 D Magnesium 2.4 Total Bilirubin AST ALT Alkaline Phosphatase Total Creatine Kinase B-Natriuretic Peptide Total Protein Albumin Lipase Urine Color Urine Appearance Urine pH Ur Specific [place] Urine Protein Urine Glucose (UA) Urine Ketones Urine Blood Urine Nitrite Ur Leukocyte Esterase Stool Occult Blood Urine Opiates Screen Urine Fentanyl Screen Ur Barbiturates Screen Ur Phencyclidine Scrn Ur Amphetamines Screen U Benzodiazepines Scrn Urine Cocaine Screen U Marijuana (THC) Screen Ethyl Alcohol Influenza Type A (PCR) Influenza Type B (PCR) RSV RNA Qual (PCR) SARS-CoV-2 RNA (RT-PCR) Assessment and Plan (1) COPD exacerbation: Status: Acute Plan 68M PMH COPD, etoh dependence presented with sob Acute hypoxic respiratory failure secondary to COPD with acute decompensation IV steroids, bronchodilators, azithromycin, wean O2 as tolerated Alcohol dependence with withdrawal Phenobarb, CIWA Possible pneumonia Continue ceftriaxone, azithromycin Hyponatremia Resolved DVT prophylaxis Lovenox Full code Reason continue hospitalization: Active withdrawal Quality Stroke Does the patient have a stroke diagnosis?: No VTE Prior VTE?: No VTE Risk Level:: Medical - moderate - high VTE Device Contraindication: Treatment Not Indicated VTE Drug Contraindication: N/A - Med Ordered
--- NOTE | 2023-04-11 09:52 | MHC.CM.PN ---
IMM DELIVERED. PATIENT FROM HOME/APARTMENT WITH ROOMMATE. AMBULATES WITH [facility] PR[facility]. INDEPENDENT WITH ADL'S. NO SERVICES. +ETOH/DRUG USE - WILL NEED RECOVERY TEAM EVAL. PATIENT IS AGREEABLE TO THIS. + THRIVE - RESOURCE GUIDE GIVEN. DCP: HOME SELF CARE VIA LYFT VS RECOVERY TEAM INTERVENTION. CM WILL CONTINUE TO FOLLOW.
--- NOTE | 2023-04-11 10:24 | PC.NURSE ---
fleet technician reached out to this RN regarding C-diff stool panel that has been pending since yesterday. Provider notified; Provider would still like stool sample to be collected with any loose stools produced by pt.
[2023-04-11] MEDS: Albuterol/Iprat 2.5/0.5MG 3 ML AMPUL.NEB INHALE ×3 (10:33→19:06)
--- NOTE | 2023-04-11 15:32 | PC.NURSE ---
+ blood cultures reported to this RN from lab; Provider notified.
--- NOTE | 2023-04-11 19:24 | PC.NURSE ---
Pt is resting on stretcher, respirations even and unlabored, skin pwd, no apparent distress. Patient completed breathing treatment, medications administered per JUL. Now getting ready to sleep
--- NOTE | 2023-04-11 19:45 | PC.NURSE ---
Attempted report, nurse not available 1939
--- NOTE | 2023-04-11 20:07 | PC.NURSE ---
Kendall texted RN for report, no answer at this time
[2023-04-11] MEDS: Azithromycin 500 MG in 0.9 % Sodium Chloride 250 ML 125 MG IV (20:50)
[2023-04-11] MEDS: cefTRIAXone sodium 1 GM in 0.9 % Sodium Chloride 50 ML IV (22:58)
[2023-04-11] MEDS: Enoxaparin Sodium 40 MG/0.4 ML SYRINGE SUBCUT (23:01)
--- NOTE | 2023-04-11 23:06 | PC.NURSE ---
PT TO MED TELE FROM ER IN NO ACUTE DISTRESS. HE IS ALERT AND ORIENTED EXCEPT TO YEAR. THOUGHT IT WAS 2019. FOLLOWS COMMANDS. PIVOTED FROM STRETCHER TO BED. ABLE TO BEAR OWN WEIGHT. SLIGHTLY WEAK BUT ABLE TO PIVOT WITH 1 ASSIST. LUNGS ARE VERY DIMINISHED. O2 SAT LOW TO MID 90'S ON O2 AT 2L VIA NC. INCONTINENT OF URINE ON STRETCHER FROM ER TO FLOOR. ADMISSION ASSESSMENT DONE.
[2023-04-12] VITALS (9 sets, daily range): BP systolic 110–156; BP diastolic 62–84; PULSE 20–109; RESP 16–101; TEMP 36.2–36.8; O2SAT 92–96
[2023-04-12] MEDS: 0.9 % Sodium Chloride Flush 3 ML SYRINGE IVFLUSH ×5 (00:03→16:32)
[2023-04-12 06:56] LABS: Hematocrit 42.5 % (42.0-52.0); Hemoglobin 13.8 g/dl (14.0-18.0); Mean Corpuscular HGB Conc 32.5 g/dl (31.0-36.0); Mean Corpuscular Hemoglobin 29.1 pg (27.0-33.0); Mean Corpuscular Volume 89.7 fL (80.0-98.0); Mean Platelet Volume 8.7 fL (9.4-12.4); Platelet Count 305 X10*3/uL (160-400); Red Blood Count 4.74 X10*6/uL (4.60-5.80); Red Cell Distribution Width 13.8 % (11.0-16.0)
[2023-04-12 07:20] LABS: Anion Gap 9 (12-20); Blood Urea Nitrogen 10 mg/dL (9-16); Calcium 8.4 mg/dL (8.4-10.2); Carbon Dioxide 34 mmol/L (22-29); Chloride 96 mmol/L (96-108); Creatinine Clr Calc Pharmacy 80.7; Estimated Glomerular Filt Rate > 60; Glucose Fasting 125 mg/dL (60-99); Glucose Random 125 mg/dL (60-115); Magnesium 2.3 mg/dL (1.6-2.6); Potassium 4.8 mmol/L (3.3-5.1); Sodium 134 mmol/L (135-145)
[2023-04-12] MEDS: Albuterol/Iprat 2.5/0.5MG 3 ML AMPUL.NEB INHALE ×3 (07:24→19:04)
[2023-04-12] MEDS: methylPREDNISolone Sod Succ 40 MG/ML VIAL IVPUSH ×2 (07:39→20:43)
[2023-04-12] MEDS: Thiamine HCL 100 MG TABLET PO (07:42)
[2023-04-12] MEDS: Multivitamin TABLET 1 TAB PO (07:42)
[2023-04-12] MEDS: Folic Acid 1 MG TABLET PO (07:42)
[2023-04-12] MEDS: Famotidine 20 MG TABLET PO ×2 (07:42→20:43)
[2023-04-12] MEDS: polyethylene glycoL 3350 17 GM POWD.PACK PO (07:43)
[2023-04-12] MEDS: PHENobarbitaL 15 MG TABLET 45 MG PO ×2 (07:46→20:43)
--- NOTE | 2023-04-12 08:53 | P.PNIM_ITS ---
Subjective Subjective Date of Service: 04/12/23 Interval History: sob Physical Exam 2 Vital Signs: Vital Signs: Last Vital Signs Temp 97.2 F 04/12/23 07:44 Pulse 83 04/12/23 07:55 Resp 16 04/12/23 07:55 BP 119/72 04/12/23 08:07 Pulse Ox 93 04/12/23 07:44 O2 Del Method Nasal Cannula 04/12/23 07:44 O2 Flow Rate 2 04/12/23 07:44 BMI result Body Mass Index 21.6 General: AO X 3, no acute distress Resp: wheezes bilateral, no accessory muscles used CVS: S1,S2,RRR GI: soft, non tender, non distended Neuro: motor grossly intact, tremor Psych: appropriate affect, appropriate insight Objective Data Active Medications Acetaminophen (Acetaminophen 325 Mg Tablet) 650 mg PO Q6H PRN PRN Reason: Pain, Mild (Pain Scale 1-3) Albuterol/Ipratropium (Albuterol/Iprat 2.5/0.5mg 3 Ml Ampul.Neb) 3 ml INHALE RQ4H WHILE AWAKE [facility] Last Admin: 04/12/23 07:24 Dose: 3 ml Documented By: JIN Docusate Sodium (Docusate Sodium 100 Mg Capsule) 100 mg PO DAILY PRN PRN Reason: Constipation Enoxaparin Sodium (Enoxaparin Sodium 40 Mg/0.4 Ml Syringe) 40 mg SUBCUT Q24H [facility] Last Admin: 04/11/23 23:01 Dose: 40 mg Documented By: JOSH Famotidine (Famotidine 20 Mg Tablet) 20 mg PO BID [facility] Last Admin: 04/12/23 07:42 Dose: 20 mg Documented By: AMARA Folic Acid (Folic Acid 1 Mg Tablet) 1 mg PO DAILY [facility] Stop: 04/14/23 08:59 Last Admin: 04/12/23 07:42 Dose: 1 mg Documented By: AMARA Azithromycin 500 mg/ Sodium (Chloride) 250 mls @ 125 mls/hr IV Q24H [facility] Last Infusion: 04/11/23 23:06 Dose: Infused Documented By: JOSH Ceftriaxone Sodium 1 gm/ (Sodium Chloride) 50 mls @ 100 mls/hr IV Q24H [facility] Last Infusion: 04/12/23 00:05 Dose: Infused Documented By: SIMRAN Methylprednisolone Sodium Succinate (Methylprednisolone Sod Succ 40 Mg/Ml Vial) 40 mg IVPUSH Q12H [facility] Last Admin: 04/12/23 07:39 Dose: 40 mg Documented By: AMARA Multivitamins/Vitamin C (Multivitamin Tablet) 1 tab PO DAILY [facility] Stop: 04/14/23 08:59 Last Admin: 04/12/23 07:42 Dose: 1 tab Documented By: AMARA Nicotine (Nicotine 21 Mg Patch.Td24) 21 mg TRANSDERMA DAILY [facility] Last Admin: 04/11/23 09:11 Dose: 21 mg Documented By: SATHYA Ondansetron HCl (Ondansetron Hcl 4 Mg/2 Ml Vial) 4 mg IVPUSH Q8H PRN PRN Reason: Nausea and Vomiting Pharmacy Consult (Consult Rx Etoh Phenob Im/Po) 1 each MISCELLANE ONCE PRN; Protocol PRN Reason: Consult order Phenobarbital (Phenobarbital 15 Mg Tablet) 45 mg PO BID [facility] Stop: 04/12/23 21:01 Last Admin: 04/12/23 07:46 Dose: 45 mg Documented By: AMARA Phenobarbital (Phenobarbital 30 Mg Tablet) 30 mg PO BID [facility] Stop: 04/14/23 21:01 Phenobarbital (Phenobarbital 15 Mg Tablet) 15 mg PO DAILY [facility] Stop: 04/16/23 09:01 Polyethylene Glycol (Polyethylene Glycol 3350 17 Gm Powd.Pack) 17 gm PO DAILY [facility] Last Admin: 04/12/23 07:43 Dose: 17 gm Documented By: AMARA Sodium Chloride (0.9 % Sodium Chloride Flush 3 Ml Syringe) 3 ml IVFLUSH [facility] Last Admin: 04/12/23 07:48 Dose: 3 ml Documented By: AMARA Sodium Chloride (0.9 % Sodium Chloride Flush 3 Ml Syringe) [facility] Last Admin: 04/12/23 07:48 Dose: 3 ml Documented By: AMARA Thiamine HCl (Thiamine Hcl 100 Mg Tablet) 100 mg PO DAILY [facility] Stop: 04/14/23 08:59 Last Admin: 04/12/23 07:42 Dose: 100 mg Documented By: AMARA Labs 04/12/23 06:28 04/12/23 06:28 Labs: Laboratory Results - last 24 hr 04/12/23 06:28 MCV 89.7 MCH 29.1 MCHC 32.5 RDW 13.8 Plt Count 305 MPV 8.7 L Absolute Nucleated RBC 0.000 Nucleated RBC % (auto) 0.0 Anion Gap 9 L Estim Creat Clear Calc 80.7 Estimated GFR > 60 Random Glucose 125 H Fasting Glucose 125 H Calcium 8.4 Magnesium 2.3 Microbiology Microbiology Results: Microbiology 04/10/23 17:14 Blood Culture - Final Blood - Venous Coag negative Staphylococcus 04/10/23 16:57 Blood Culture - Preliminary Blood - Venous No growth after 24 hours. Assessment and Plan (1) COPD exacerbation: Status: Acute Plan 68M PMH COPD, etoh dependence presented with sob Acute hypoxic respiratory failure secondary to COPD with acute decompensation IV steroids, bronchodilators, azithromycin, wean O2 as tolerated Alcohol dependence with withdrawal Phenobarb, CIWA Possible pneumonia Continue ceftriaxone, azithromycin Hyponatremia Resolved DVT prophylaxis Lovenox Full code Reason continue hospitalization: Active withdrawal Quality Stroke Does the patient have a stroke diagnosis?: No VTE Prior VTE?: No VTE Risk Level:: Medical - moderate - high VTE Device Contraindication: Treatment Not Indicated VTE Drug Contraindication: N/A - Med Ordered
[2023-04-12] MEDS: Acetaminophen 325 MG TABLET 650 MG PO (12:54)
[2023-04-12] MEDS: guaiFENesin 200 MG/10 ML 10 ML LIQUID PO (13:24)
--- NOTE | 2023-04-12 13:32 | MHC.RECOVRN ---
Met with pt in 445 after consult placed to Addiction Medicine for alcohol use. Per triage note, pt comes from home/lives with a friend had defecated himself multiple times and has been incontinent x2 weeks, pt chronic etoh- drinking 1/2 case of 24 oz cans per day, also 1.5 pk smoker, pt c/o productive cough, lungs diminished throughout. Upon ED evaluation, pt admitted for COPD exacerbation, hypoxia, and tx of alcohol withdrawal. Pt sitting in bed, awake, alert, easily engages in conversation, slightly tremulous but appears comfortable otherwise. Pt reports alcohol use, 3-4 24 ounce beers daily, unsure how long he has been drinking that amount. Pt reports ATS admissions x3, denies other tx for AUD. In regards to current alcohol use, pt states I look forward to it every day. Pt is not interested in reducing or abstaining at this time. Pt provided with written recovery resources/information as well as t/w contact information if he would like to speak about alcohol use further. Denies questions or concerns.
[2023-04-12] MEDS: PHENobarbitaL sodium 130 MG/ML VIAL 65 MG IM (17:00)
[2023-04-12] MEDS: Azithromycin 500 MG in 0.9 % Sodium Chloride 250 ML 125 MG IV (20:42)
[2023-04-12] MEDS: Enoxaparin Sodium 40 MG/0.4 ML SYRINGE SUBCUT (20:43)
[2023-04-13] VITALS (10 sets, daily range): BP systolic 132–164; BP diastolic 75–95; PULSE 81–97; RESP 16–21; TEMP 36.3–36.9; O2SAT 89–99
[2023-04-13] MEDS: cefTRIAXone sodium 1 GM in 0.9 % Sodium Chloride 50 ML IV ×2 (00:20→23:19)
[2023-04-13 07:51] LABS: Anion Gap 11 (12-20); Blood Urea Nitrogen 12 mg/dL (9-16); Calcium 8.3 mg/dL (8.4-10.2); Carbon Dioxide 34 mmol/L (22-29); Chloride 97 mmol/L (96-108); Creatinine Clr Calc Pharmacy 81.9; Estimated Glomerular Filt Rate > 60; Glucose Random 101 mg/dL (60-115); Magnesium 2.3 mg/dL (1.6-2.6); Potassium 4.5 mmol/L (3.3-5.1); Sodium 137 mmol/L (135-145)
[2023-04-13] MEDS: methylPREDNISolone Sod Succ 40 MG/ML VIAL IVPUSH ×2 (07:52→19:52)
[2023-04-13] MEDS: 0.9 % Sodium Chloride Flush 3 ML SYRINGE IVFLUSH ×5 (07:53→19:53)
[2023-04-13] MEDS: PHENobarbitaL 30 MG TABLET PO ×2 (07:54→19:52)
[2023-04-13] MEDS: polyethylene glycoL 3350 17 GM POWD.PACK PO (07:54)
[2023-04-13] MEDS: Thiamine HCL 100 MG TABLET PO (07:55)
[2023-04-13] MEDS: Famotidine 20 MG TABLET PO ×2 (07:55→19:52)
[2023-04-13] MEDS: Folic Acid 1 MG TABLET PO (07:56)
[2023-04-13] MEDS: Multivitamin TABLET 1 TAB PO (07:57)
[2023-04-13] MEDS: Acetaminophen 325 MG TABLET 650 MG PO ×2 (08:00→16:17)
--- NOTE | 2023-04-13 08:41 | P.PNIM_ITS ---
Subjective Subjective Date of Service: 04/13/23 Interval History: sob Physical Exam 2 Vital Signs: Vital Signs: Last Vital Signs Temp 97.4 F 04/13/23 07:16 Pulse 81 04/13/23 07:16 Resp 18 04/13/23 07:16 BP 136/75 04/13/23 07:29 Pulse Ox 95 04/13/23 07:16 O2 Del Method Nasal Cannula 04/13/23 07:16 O2 Flow Rate 2 04/13/23 04:00 BMI result Body Mass Index 21.6 General: AO X 3, no acute distress Resp: wheezes bilateral, no accessory muscles used CVS: S1,S2,RRR GI: soft, non tender, non distended Neuro: motor grossly intact, tremor Psych: appropriate affect, appropriate insight Objective Data Active Medications Acetaminophen (Acetaminophen 325 Mg Tablet) 650 mg PO Q6H PRN PRN Reason: Pain, Mild (Pain Scale 1-3) Last Admin: 04/13/23 08:00 Dose: 650 mg Documented By: AMARA Albuterol/Ipratropium (Albuterol/Iprat 2.5/0.5mg 3 Ml Ampul.Neb) 3 ml INHALE RQ4H WHILE AWAKE [facility] Last Admin: 04/12/23 19:04 Dose: 3 ml Documented By: ESTELA Docusate Sodium (Docusate Sodium 100 Mg Capsule) 100 mg PO DAILY PRN PRN Reason: Constipation Enoxaparin Sodium (Enoxaparin Sodium 40 Mg/0.4 Ml Syringe) 40 mg SUBCUT Q24H [facility] Last Admin: 04/12/23 20:43 Dose: 40 mg Documented By: BUTCH Famotidine (Famotidine 20 Mg Tablet) 20 mg PO BID [facility] Last Admin: 04/13/23 07:55 Dose: 20 mg Documented By: AMARA Folic Acid (Folic Acid 1 Mg Tablet) 1 mg PO DAILY [facility] Stop: 04/14/23 08:59 Last Admin: 04/13/23 07:56 Dose: 1 mg Documented By: AMARA Guaifenesin (Guaifenesin 200 Mg/10 Ml 10 Ml Liquid) 10 ml PO Q4H PRN PRN Reason: Cough Last Admin: 04/12/23 13:24 Dose: 10 ml Documented By: AMARA Azithromycin 500 mg/ Sodium (Chloride) 250 mls @ 125 mls/hr IV Q24H [facility] Last Infusion: 04/12/23 23:02 Dose: Infused Documented By: BUTCH Ceftriaxone Sodium 1 gm/ (Sodium Chloride) 50 mls @ 100 mls/hr IV Q24H [facility] Last Infusion: 04/13/23 01:04 Dose: Infused Documented By: BUTCH Methylprednisolone Sodium Succinate (Methylprednisolone Sod Succ 40 Mg/Ml Vial) 40 mg IVPUSH Q12H [facility] Last Admin: 04/13/23 07:52 Dose: 40 mg Documented By: AMARA Multivitamins/Vitamin C (Multivitamin Tablet) 1 tab PO DAILY [facility] Stop: 04/14/23 08:59 Last Admin: 04/13/23 07:57 Dose: 1 tab Documented By: AMARA Nicotine (Nicotine 21 Mg Patch.Td24) 21 mg TRANSDERMA DAILY [facility] Last Admin: 04/13/23 07:54 Dose: Not Given Documented By: AMARA Non-Admin Reason: Patient Refused Ondansetron HCl (Ondansetron Hcl 4 Mg/2 Ml Vial) 4 mg IVPUSH Q8H PRN PRN Reason: Nausea and Vomiting Pharmacy Consult (Consult Rx Etoh Phenob Im/Po) 1 each MISCELLANE ONCE PRN; Protocol PRN Reason: Consult order Phenobarbital (Phenobarbital 30 Mg Tablet) 30 mg PO BID [facility] Stop: 04/14/23 21:01 Last Admin: 04/13/23 07:54 Dose: 30 mg Documented By: AMARA Phenobarbital (Phenobarbital 15 Mg Tablet) 15 mg PO DAILY [facility] Stop: 04/16/23 09:01 Polyethylene Glycol (Polyethylene Glycol 3350 17 Gm Powd.Pack) 17 gm PO DAILY [facility] Last Admin: 04/13/23 07:54 Dose: 17 gm Documented By: AMARA Sodium Chloride (0.9 % Sodium Chloride Flush 3 Ml Syringe) 3 ml IVFLUSH QSHIFT [facility] Last Admin: 04/13/23 07:53 Dose: 3 ml Documented By: AMARA Sodium Chloride (0.9 % Sodium Chloride Flush 3 Ml Syringe) 3 ml IVFLUSH QSHIFT [facility] Last Admin: 04/13/23 07:53 Dose: 3 ml Documented By: AMARA Thiamine HCl (Thiamine Hcl 100 Mg Tablet) 100 mg PO DAILY [facility] Stop: 04/14/23 08:59 Last Admin: 04/13/23 07:55 Dose: 100 mg Documented By: AMARA Labs 04/12/23 06:28 04/13/23 06:31 Labs: Laboratory Results - last 24 hr 04/13/23 06:31 Anion Gap 11 L Estim Creat Clear Calc 81.9 Estimated GFR > 60 Random Glucose 101 Calcium 8.3 L Magnesium 2.3 Microbiology Microbiology Results: Microbiology 04/10/23 16:57 Blood Culture - Preliminary Blood - Venous No growth after 48 hours. 04/10/23 17:14 Blood Culture - Final Blood - Venous Coag negative Staphylococcus Assessment and Plan (1) COPD exacerbation: Status: Acute Plan 68M PMH COPD, etoh dependence presented with sob Acute hypoxic respiratory failure secondary to COPD with acute decompensation improving, continue IV steroids, bronchodilators, azithromycin, wean O2 as tolerated Alcohol dependence with withdrawal still with tremor, required extra phenobarb dose 04/12, continue Phenobarb, CIWA Possible pneumonia Continue ceftriaxone, azithromycin Hyponatremia Resolved DVT prophylaxis Lovenox Full code Reason continue hospitalization: Active withdrawal Quality Stroke Does the patient have a stroke diagnosis?: No VTE Prior VTE?: No VTE Risk Level:: Medical - moderate - high VTE Device Contraindication: Treatment Not Indicated VTE Drug Contraindication: N/A - Med Ordered
[2023-04-13] MEDS: Albuterol/Iprat 2.5/0.5MG 3 ML AMPUL.NEB INHALE ×3 (10:59→20:41)
[2023-04-13] MEDS: guaiFENesin 200 MG/10 ML 10 ML LIQUID PO (19:52)
[2023-04-13] MEDS: Azithromycin 500 MG in 0.9 % Sodium Chloride 250 ML 125 MG IV (21:06)
[2023-04-13] MEDS: Enoxaparin Sodium 40 MG/0.4 ML SYRINGE SUBCUT (23:19)
[2023-04-14] VITALS (12 sets, daily range): BP systolic 107–184; BP diastolic 59–98; PULSE 82–175; RESP 18–24; TEMP 36–37; O2SAT 90–94
--- NOTE | 2023-04-14 | ECG_ITS ---
Test Reason : Rapid a fib Blood Pressure : / mmHG Vent. Rate : 096 BPM Atrial Rate : 096 BPM P-R Int : 112 ms QRS Dur : 080 ms QT Int : 344 ms P-R-T Axes : 066 064 068 degrees QTc Int : 434 ms Sinus rhythm with Premature atrial complexes Nonspecific ST abnormality Abnormal ECG When compared with ECG of 10-APR-2023 16:36, Premature atrial complexes are now Present Referred By: Ole Borjas Electronically Signed By:LEONID JARUQIN MD
--- NOTE | 2023-04-14 | ECG_ITS ---
Test Reason : afib Blood Pressure : / mmHG Vent. Rate : 178 BPM Atrial Rate : 000 BPM P-R Int : 000 ms QRS Dur : 066 ms QT Int : 220 ms P-R-T Axes : 000 060 067 degrees QTc Int : 378 ms Atrial fibrillation with rapid ventricular response Nonspecific ST abnormality Abnormal ECG When compared with ECG of 14-APR-2023 12:36, Atrial fibrillation has replaced Sinus rhythm Vent. rate has increased BY [address] now depressed in Inferior leads ST now depressed in Anterolateral leads Referred By: Ole Borjas Electronically Signed By:LEONID JARQUIN MD
--- NOTE | 2023-04-14 07:00 | CA_ITS ---
Transthoracic Echocardiogram Patient (Last, First, Middle): Heriberto Cho, Gender: Male Date of : 1955 Age: 68 Procedure Date: 04/14/2023 Procedure Type: Transthoracic Echocardiogram [place] [facility] [place]: 165.1 cm Weight: 58.97 kg BSA: 1.65 m2 Heart Rate: bpm BP: 166 / 95 mmHg Vice President Education: Referring MD: Ole Borjas MD Deodorizer Operator: Jatin Riggs MD Symptoms: afib Study Quality: Technically Difficult ECG Rhythm: Sinus Conclusions: - 1. Technically limited study due to off axis views and limited endocardial definition 2. Normal LV ejection fraction 60 65% with impaired relaxation filling pattern 3. Limited visualization cardiac valves with cardiac valvular Dopplers within normal limits Findings Left Ventricle The left ventricle was not well visualized. The left ventricular systolic function is normal. The visually estimated ejection fraction is between 60 65%. Regional wall motion abnormalities can not be excluded due to suboptimal endocardial definition. Spectral Doppler is indicative of an impaired relaxation filling pattern. E/E prime ratio is between 8 and 15 consistent with indeterminate filling pressures. Right Ventricle The right ventricle was not well visualized. Atria The left atrium was not well visualized. Interatrial shunt cannot be excluded. The right atrium was not well visualized. Aortic Valve The aortic valve was not well visualized. There is no aortic valve stenosis. There is no aortic valve regurgitation. Mitral Valve The mitral valve was not well visualized. There is no mitral valve regurgitation. There is no mitral valve stenosis. Pulmonic Valve The pulmonic valve was not well visualized. There is trace pulmonic valve regurgitation. Tricuspid Valve The tricuspid valve was not well visualized. There is trace tricuspid valve regurgitation. The right ventricular systolic pressure is normal. Normal right atrial pressure. Great Vessels The aorta was not well visualized. The pulmonary artery was not well visualized. Venous The inferior vena cava is normal in size and collapses greater than 50% with inspiration. Pericardium/Pleural The pericardium was not well visualized. Prior Study Comparison No prior study available for comparison. Measurements 2D Linear Measurements IVSd: 1.06 0.6-0.9/0.6-1.0 cm LVIDd: 3.84 3.9-5.3/4.2-5.9 cm LVIDd Index: 2.33 2.4-3.2/2.2-3.1 cm/m2 LVIDs: 2.65 2.0-3.6 cm LVPWd: 1.09 0.7-1.1 cm Ao Root: 3.30 2.1-3.5 cm LA Diam: 3.40 2.7-3.8/3.0-4.0 cm LAIDs Index: 2.06 1.5-2.3 cm/m2 LV Mass: 164.63 67-162/88-224 g LV Mass Index: 99.78 43-95/49-115 g/m2 LVOT Diam: 2.00 3.0+(-)1.3 cm 2D Systolic Function EF 4C: 57.80 >55% EF 2C: 66.60 >55% EF BiP: 61.60 >55% Mitral Valve MV Pk E: 0.46 MV PK A: 0.86 MV Decel Time: 125.00 E/A: 0.50 E'Lateral: 4.46 E'Medial: 5.33 E/E' Med: 8.70 E/E' Lat: 10.40 PHT: 37.00 MVA PHT: 5.95 Decel Platte: 3.70 Aortic Valve AoV Pk Omar: 0.95 AoV Mn Omar: 0.59 AoV VTI: 0.19 AoV Pk Grad: 4.00 Aov Mn Grad: 2.00 KEI Cont.VTI: 2.56 LVOT LVOT Pk Omar: 0.73 LVOT Mn Omar: 0.46 LVOT VTI: 0.15 LVOT Pk Grad: 2.00 LVOT Mn Grad: 1.00 LVOT Diam: 2.00 LVOT Area: 3.14 Diastolic Function MV Pk E: 0.46 MV Pk A: 0.86 E/A: 0.50 E'Medial: 5.33 E/E' Med: 8.70 E' Laterial: 4.46 E/E' Lat: 10.40 Right Ventricle TAPSE (mm): 23.00 TVS' Omar: 18.00 Tricuspid Valve TR Pk Omar: 1.49 TR Pk Grad: 9.00 RA Press: 3.00 RVSP: 12.00 Great Vessels Aorta Ao Root-2D: 3.30 2.0-3.7 cm Ao Asc: 3.40 2.1-3.4 cm Pulmonary Valve PV Pk Omar: 0.77 Peak PV Grad: 2.00 Updated in Other Vendor System with Status of Final Jatin Riggs MD electronically signed on 04/14/2023 3:56:47 PM with status of Final
[2023-04-14] MEDS: 0.9 % Sodium Chloride Flush 3 ML SYRINGE IVFLUSH ×6 (08:58→22:44)
[2023-04-14] MEDS: methylPREDNISolone Sod Succ 40 MG/ML VIAL IVPUSH ×2 (08:58→20:23)
[2023-04-14] MEDS: PHENobarbitaL 30 MG TABLET PO ×2 (08:58→20:22)
[2023-04-14] MEDS: Famotidine 20 MG TABLET PO ×2 (08:58→20:22)
[2023-04-14] MEDS: Nicotine 21 MG PATCH.TD24 TRANSDERMA (08:58)
[2023-04-14] MEDS: polyethylene glycoL 3350 17 GM POWD.PACK PO (08:59)
--- NOTE | 2023-04-14 10:18 | P.EN_ITS ---
Event Note Date of Service: 04/14/23 Event Note: Addiction consult placed for Alcohol use Seen by residential tech on 04/12. Patient precontemplation stage of change. Declines any intervention Time Spent With Patient Time: Total time managing care of this patient today ____ minutes.
--- NOTE | 2023-04-14 10:27 | P.PNIM_ITS ---
Subjective Subjective Date of Service: 04/14/23 Interval History: sob, tremulous but wants to go home Physical Exam 2 Vital Signs: Vital Signs: Last Vital Signs Temp 97.6 F 04/14/23 07:17 Pulse 82 04/14/23 07:17 Resp 18 04/14/23 07:17 BP 166/95 H 04/14/23 07:17 Pulse Ox 92 04/14/23 07:17 O2 Del Method Room Air 04/14/23 07:17 O2 Flow Rate 2 04/14/23 03:42 BMI result Body Mass Index 21.6 General: AO X 3, no acute distress Resp: wheezes bilateral, no accessory muscles used CVS: S1,S2,RRR GI: soft, non tender, non distended Neuro: motor grossly intact, tremor Psych: appropriate affect, appropriate insight Objective Data Active Medications Acetaminophen (Acetaminophen 325 Mg Tablet) 650 mg PO Q6H PRN PRN Reason: Pain, Mild (Pain Scale 1-3) Last Admin: 04/13/23 16:17 Dose: 650 mg Documented By: AMARA Albuterol/Ipratropium (Albuterol/Iprat 2.5/0.5mg 3 Ml Ampul.Neb) 3 ml INHALE RQ4H WHILE AWAKE [facility] Last Admin: 04/14/23 07:45 Dose: Not Given Documented By: ZULEMA Non-Admin Reason: pt verbally abusive to rt Docusate Sodium (Docusate Sodium 100 Mg Capsule) 100 mg PO DAILY PRN PRN Reason: Constipation Enoxaparin Sodium (Enoxaparin Sodium 40 Mg/0.4 Ml Syringe) 40 mg SUBCUT Q24H [facility] Last Admin: 04/13/23 23:19 Dose: 40 mg Documented By: OBED Famotidine (Famotidine 20 Mg Tablet) 20 mg PO BID [facility] Last Admin: 04/14/23 08:58 Dose: 20 mg Documented By: LEE Guaifenesin (Guaifenesin 200 Mg/10 Ml 10 Ml Liquid) 10 ml PO Q4H PRN PRN Reason: Cough Last Admin: 04/13/23 19:52 Dose: 10 ml Documented By: OBED Azithromycin 500 mg/ Sodium (Chloride) 250 mls @ 125 mls/hr IV Q24H [facility] Last Infusion: 04/13/23 23:06 Dose: Infused Documented By: OBED Ceftriaxone Sodium 1 gm/ (Sodium Chloride) 50 mls @ 100 mls/hr IV Q24H [facility] Last Infusion: 04/13/23 23:49 Dose: Infused Documented By: OBED Methylprednisolone Sodium Succinate (Methylprednisolone Sod Succ 40 Mg/Ml Vial) 40 mg IVPUSH Q12H [facility] Last Admin: 04/14/23 08:58 Dose: 40 mg Documented By: LEE Nicotine (Nicotine 21 Mg Patch.Td24) 21 mg TRANSDERMA DAILY [facility] Last Admin: 04/14/23 08:58 Dose: 21 mg Documented By: LEE Ondansetron HCl (Ondansetron Hcl 4 Mg/2 Ml Vial) 4 mg IVPUSH Q8H PRN PRN Reason: Nausea and Vomiting Pharmacy Consult (Consult Rx Etoh Phenob Im/Po) 1 each MISCELLANE ONCE PRN; Protocol PRN Reason: Consult order Phenobarbital (Phenobarbital 30 Mg Tablet) 30 mg PO BID [facility] Stop: 04/14/23 21:01 Last Admin: 04/14/23 08:58 Dose: 30 mg Documented By: LEE Phenobarbital (Phenobarbital 15 Mg Tablet) 15 mg PO DAILY [facility] Stop: 04/16/23 09:01 Polyethylene Glycol (Polyethylene Glycol 3350 17 Gm Powd.Pack) 17 gm PO DAILY [facility] Last Admin: 04/14/23 08:59 Dose: 17 gm Documented By: LEE Sodium Chloride (0.9 % Sodium Chloride Flush 3 Ml Syringe) 3 ml IVFLUSH QSHIFT [facility] Last Admin: 04/14/23 08:58 Dose: 3 ml Documented By: LEE Sodium Chloride (0.9 % Sodium Chloride Flush 3 Ml Syringe) 3 ml IVFLUSH QSHIFT [facility] Last Admin: 04/14/23 09:03 Dose: 3 ml Documented By: LEE Labs 04/12/23 06:28 04/13/23 06:31 Assessment and Plan (1) COPD exacerbation: Status: Acute Plan 68M PMH COPD, etoh dependence presented with sob Acute hypoxic respiratory failure secondary to COPD with acute decompensation improving but still with wheezing, continue IV steroids, bronchodilators, azithromycin, on room air at rest Alcohol dependence with withdrawal still with tremor, required extra phenobarb dose 04/12, continue Phenobarb, CIWA intermittent tachyarrythmia ?brief afib vs MAT monitor Possible pneumonia Continue ceftriaxone, azithromycin Hyponatremia Resolved DVT prophylaxis Lovenox Full code Reason continue hospitalization: Active withdrawal Quality Stroke Does the patient have a stroke diagnosis?: No VTE Prior VTE?: No VTE Risk Level:: Medical - moderate - high VTE Device Contraindication: Treatment Not Indicated VTE Drug Contraindication: N/A - Med Ordered
--- NOTE | 2023-04-14 10:49 | MHC.CM.PN ---
Per ROUNDS discussion, Patient will need a home O2 eval prior to dc. Patient did go into A-Fib with [facility] and has not yet been medically cleared for dc. Home vs Recovery Team intervention(ETOH) is the tentative plan and CM will continue to follow.
[2023-04-14] MEDS: Albuterol/Iprat 2.5/0.5MG 3 ML AMPUL.NEB INHALE ×2 (12:11→19:46)
--- NOTE | 2023-04-14 12:37 | ECG_ITS ---
Test Reason : afib Blood Pressure : / mmHG Vent. Rate : 098 BPM Atrial Rate : 098 BPM P-R Int : 108 ms QRS Dur : 072 ms QT Int : 334 ms P-R-T Axes : 059 061 068 degrees QTc Int : 426 ms Sinus rhythm with short PA with Premature atrial complexes Nonspecific ST abnormality Abnormal ECG When compared with ECG of 14-APR-2023 10:06, No significant change was found Referred By: Ole Borjas Electronically Signed By:LEONID JARQUIN MD
--- NOTE | 2023-04-14 16:03 | ECG_ITS ---
Test Reason : afib Blood Pressure : / mmHG Vent. Rate : 192 BPM Atrial Rate : 178 BPM P-R Int : 000 ms QRS Dur : 068 ms QT Int : 264 ms P-R-T Axes : 000 061 054 degrees QTc Int : 472 ms Atrial fibrillation with occasional Premature ventricular complexes or aberrantcy Nonspecific ST abnormality Abnormal ECG Premature ventricular complexes are new Referred By: Ole Borjas Electronically Signed By:LEONID JARQUIN MD
[2023-04-14] MEDS: dilTIAZem HCL 50 MG/10 ML VIAL 10 MG IVPUSH (16:09)
[2023-04-14] MEDS: 0.9 % Sodium Chloride 500 ML IV (16:09)
[2023-04-14] MEDS: Acetaminophen 325 MG TABLET 650 MG PO (16:18)
[2023-04-14] MEDS: guaiFENesin 200 MG/10 ML 10 ML LIQUID PO (20:22)
[2023-04-14] MEDS: Azithromycin 500 MG in 0.9 % Sodium Chloride 250 ML 125 MG IV (20:22)
[2023-04-14] MEDS: Enoxaparin Sodium 40 MG/0.4 ML SYRINGE SUBCUT (20:23)
[2023-04-14] MEDS: cefTRIAXone sodium 1 GM in 0.9 % Sodium Chloride 50 ML IV (22:44)
[2023-04-15] VITALS (9 sets, daily range): BP systolic 144–166; BP diastolic 82–92; PULSE 79–107; RESP 16–18; TEMP 36.7–36.8; O2SAT 85–97
[2023-04-15] MEDS: Albuterol/Iprat 2.5/0.5MG 3 ML AMPUL.NEB INHALE ×3 (08:31→15:57)
[2023-04-15] MEDS: Nicotine 21 MG PATCH.TD24 TRANSDERMA (08:52)
[2023-04-15] MEDS: Acetaminophen 325 MG TABLET 650 MG PO ×2 (08:53→16:46)
[2023-04-15] MEDS: 0.9 % Sodium Chloride Flush 3 ML SYRINGE IVFLUSH ×3 (08:53→16:46)
[2023-04-15] MEDS: methylPREDNISolone Sod Succ 40 MG/ML VIAL IVPUSH (08:53)
[2023-04-15] MEDS: polyethylene glycoL 3350 17 GM POWD.PACK PO (08:54)
[2023-04-15] MEDS: PHENobarbitaL 15 MG TABLET PO (08:54)
[2023-04-15] MEDS: Famotidine 20 MG TABLET PO (08:54)
--- NOTE | 2023-04-15 11:02 | P.DS_ITS ---
DS: Providers Provider Date of Service: 04/15/23 Date of admission: 04/10/23 22:44 Primary care physician: None Physician Consults: 04/10/23 21:26 Addiction Medicine Routine Consulting Provider: Addiction Covering Reason for consultation: Alcohol withdrawal DS: Diagnosis Discharge Diagnosis (1) COPD exacerbation: Status: Acute DS: Summary Hospital Course Hospital Course: from initial hpi: 68-year-old male with a PMH significant for COPD and alcohol use disorder who presents to the ED with occasional incontinence of stool while urinating for the past 3 weeks. Patient states symptoms mostly occur in the morning and can occur 2-3 times daily. Describes stool as liquid. No hematochezia or melena. Denies nausea, vomiting, fever, chills, abdominal pain. Notes has experienced increased SOB, BRENNAN, and cough past 2-3 weeks occasionally productive of clear sputum. Is not on home O2 or any inhalers. Was diagnosed with COPD 4 years prior during his last admission to the hospital but never followed up with PCP or pulmonology. In fact, pt states he hasn't seen a PCP for a yearly physical since he was a kid 50+ years ago. Patient also admits to drinking daily from the moment he wakes up to when he goes to sleep. States his hands usually shake in the morning when he wakes up. Also admits to occasional crack cocaine use with last use 1 week ago. Patient apparently lives with roommates in an apartment, and he states he spends almost all day, every day just sitting in his chair smoking, drinking, and watching TV. In the ED pt was afebrile with elevated heart rate as high as 95, tachypnea to 26, and hypertensive as high as 167/93, satting as low as 81% on RA. Labs were significant for sodium of 127 and chloride 90 (same as labs on 07/27/2018), BPH mildly elevated 166, ethyl alcohol levels 49. Lactic acid WNL 1.7. Hepatic function WNL. Lipase WNL at 26. Troponin detectable but WNL at 4.6. No leukocytosis. Stable H&H of 15.7/46.8. D-dimer negative. VBG pH 7.42. UA negative for UTI. Stool negative for occult blood. Patient tested negative for influenza type a and B, RSV, COVID. CXR showed emphysema and bronchial wall thickening suggestive of asthma and or atypical/viral infection. CT EKG demonstrated normal sinus rhythm without evidence of significant ST elevations or depressions. Pt was treated with IVF, Solu-Medrol, DuoNebs, acetaminophen, and started on phenobarb protocol. Pt will be admitted to the hospital for treatment and further evaluation of acute hypoxic respiratory failure in the setting of COPD exacerbation as well as acute alcohol withdrawal. hospital course: Patient was admitted for acute hypoxic respiratory failure secondary to COPD with acute decompensation. He was treated with IV steroids, DuoNebs, azithromycin. Shortness of breath significantly improved. Wheezing improved. On discharge he was noted to require 1 L at rest and 3 L with ambulation, he will be sent home with home oxygen. He will be discharged on 5 more days of pete thromycin and prednisone. For alcohol dependence with withdrawal he was treated with phenobarbital and withdrawal symptoms improved. Patient had intermittent brief episodes of atrial fibrillation. Likely related to withdrawal and COPD exacerbation, will avoid specific treatment for now, patient poor candidate for anticoagulation due to alcohol use and risk for falls and bleeds. Possible pneumonia patient was treated ceftriaxone azithromycin. For hyponatremia due to alcohol this resolved. Time Attestation Discharge coordination time: Greater than 30 minutes Quality: Safe Use of Opioids Does Pt have an Active Cancer Diagnosis on the Problem List?: No Quality: Stroke Does the patient have a stroke diagnosis?: No Physical Exam Vital Signs: Vital Signs: Last Vital Signs Temp 98.3 F 04/15/23 07:21 Pulse 80 04/15/23 08:43 Resp 16 04/15/23 08:43 BP 166/90 H 04/15/23 07:21 Pulse Ox 92 04/15/23 07:21 O2 Del Method Nasal Cannula 04/15/23 07:21 O2 Flow Rate 1 04/15/23 07:21 BMI result Body Mass Index 21.6 General: AO X 3, no acute distress Resp: poor air movement bilateral, no accessory muscles used CVS: S1,S2,RRR GI: soft, non tender, non distended Neuro: motor grossly intact, alert, mild tremor Psych: appropriate affect, appropriate insight DS: Data Data Completed and Pending Labs on day of discharge: Preliminary micro results at discharge 04/10/23 16:57 Blood Culture - Preliminary Blood - Venous No growth after 48 hours. Discharge Plan Discharge Anticipated Discharge Date/Time: 04/14/23 10:06 Patient Disposition: Home, Self-Care Discharge Diagnosis: copd, etoh Referrals: Physician,None [Primary Care Provider] - 1 Week Discharge Medications: New prednisone 20 mg tablet 40 mg PO DAILY Qty: 10 0RF azithromycin 500 mg tablet 500 mg PO DAILY 5 Days Qty: 5 0RF Discharge Orders: Discharge Order (Routine); Ordered 04/15/23 Ordered By: Ole Borjas Diet: Advance to usual diet Activity on Discharge: As tolerated Stand Alone Forms: Patient Portal Discharge page Care Plan Goals: recovery Health Concerns: etoh, copd, Plan of Treatment: no etoh, stop smoking, 5 days prednsione and azithro, follow up with a doctor, no smoking near oxygen Assessment: see above
--- NOTE | 2023-04-15 11:16 | MHC.CM.PN ---
Patient has been medically cleared for dc to home today, self care. CM met with Patient at bedside and addressed IMM with him(original was given to Patient and a copy has been placed on the chart). Per Patient, his Friend will provide transportation to home. RT has arranged for Patient's new home O2.
--- NOTE | 2023-04-15 12:57 | MHC.CM.PN ---
Patient will dc to home with new O2 today at 5PM, via [place].
== END 2023-04-15 17:48 | disposition home or self-care (01) | DRG 193 ==
LOC: HO.ED 04-11 01:39 → HO.EDOVER 04-11 02:08 → HO.IMC 04-11 19:32
PROVIDERS: Admitting Provider Student in an Organized Health Care Education/Training Program; Emergency Provider Emergency Medicine Emergency Medical Services; Visit Provider Internal Medicine
DX: J18.9 Pneumonia, unspecified organism (principal); J96.01 Acute respiratory failure with hypoxia; J44.0 Chronic obstructive pulmonary disease with (acute) lower respiratory infection; F10.239 Alcohol dependence with withdrawal, unspecified; J44.1 Chronic obstructive pulmonary disease with (acute) exacerbation; K59.00 Constipation, unspecified; F17.210 Nicotine dependence, cigarettes, uncomplicated; Z20.822 Contact with and (suspected) exposure to COVID-19; Y90.2 Blood alcohol level of 40-59 mg/100 ml; E78.1 Pure hyperglyceridemia; Z71.6 Tobacco abuse counseling
CPT/HCPCS: 0241U; 36415; 71045; 71250; 74176; 80048; 80053; 80307; 81003; 82272; 82550; 82803; 83605; 83690; 83735; 83880; 84295; 84484; 85025; 85027; 85379; 85610; 85730; 87040; 87147; 87205; 93005; 93306; 94640; 99285; J0456; J0696; J1650; J2560; J2920; J2930

== ENCOUNTER 2023-04-10 22:44 | Outpatient (BNV) | payer MEDICARE, SELFPAY | END 2023-04-14 07:00 | PROVIDERS: Admitting Provider Student in an Organized Health Care Education/Training Program; Emergency Provider Emergency Medicine Emergency Medical Services; Visit Provider Internal Medicine Cardiovascular Disease | DX: I48.91 Unspecified atrial fibrillation (principal) | CPT/HCPCS: 93306 ==

== ENCOUNTER → 2023-04-10 22:44 | Outpatient (BNV) | payer MEDICARE, SELFPAY | PROVIDERS: Admitting Provider Student in an Organized Health Care Education/Training Program; Emergency Provider Emergency Medicine Emergency Medical Services; Visit Provider Internal Medicine | DX: J44.1 Chronic obstructive pulmonary disease with (acute) exacerbation (principal) | CPT/HCPCS: 99223; 99232; 99233; 99239 ==

== ENCOUNTER 2023-07-19 | Inpatient (IN) | payer MEDICARE, OTHER, SELFPAY ==
[2023-07-19] VITALS (18 sets, daily range): BP systolic 81–155; BP diastolic 57–96; PULSE 72–190; RESP 14–35; TEMP 36–36.6; O2SAT 84–99; BMI 20.9
--- NOTE | 2023-07-19 | ECG_ITS ---
Test Reason : TACYCARDIA Blood Pressure : / mmHG Vent. Rate : 139 BPM Atrial Rate : 366 BPM P-R Int : 000 ms QRS Dur : 070 ms QT Int : 314 ms P-R-T Axes : 000 066 049 degrees QTc Int : 477 ms Atrial fibrillation with rapid ventricular response Abnormal ECG When compared with ECG of 19-JUL-2023 00:23, Rhythm change Referred By: Jignesh Ding Electronically Signed By:RADU HENDERSON
--- NOTE | ~2023-07-19 | XR_ITS ---
EXAMINATION: XR CHEST CLINICAL INFORMATION: Shortness of breath COMPARISON: Previous chest x-ray 07/19/2023 TECHNIQUE: Frontal view of the chest was obtained. FINDINGS: No significant abnormality is noted involving the heart, lungs, mediastinum, bony thorax or soft tissues. XR/XR chest 1V IMPRESSION: Unremarkable examination.
--- NOTE | ~2023-07-19 | XR_ITS ---
EXAMINATION: XR CHEST CLINICAL INFORMATION: Shortness of breath COMPARISON: 04/10/2023 TECHNIQUE: Frontal view of the chest was obtained. FINDINGS: The lungs are clear with no focal consolidation. No evidence of pneumothorax, pulmonary edema, or pleural effusions. Cardiac size is within normal limits. Calcification is present at the aortic arch. No acute osseous findings are seen. XR/XR chest 1V IMPRESSION: No acute cardiopulmonary findings.
--- NOTE | 2023-07-19 00:08 | ED.GENADULT ---
HPI - General Adult General Chief complaint: Failure to Thrive Stated complaint: WEAK,UNABLE TO GET UP X4 DAYS,INCONT BOWEL/URINE Time Seen by Provider: 07/19/23 00:01 Source: patient and EMS Mode of arrival: EMS Limitations: no limitations History of Present Illness HPI narrative: Patient with COPD alcohol use disorder on oxygen 1-3 L as needed brought by EMS for patient not able to take care of himself for last 3 days has not eaten any food lying in the bed saturating 91% at room air on arrival patient is status does not have any food at home and he can not take care of himself patient is confused at his baseline alert oriented x2 came in unkept condition salt in urine and stool Related Data Home Medications Medication Instructions Recorded Confirmed No Known Home Meds 07/19/23 07/19/23 Allergies Allergy/AdvReac Type Severity Reaction Status Date / Time No Known Allergies Allergy Verified 07/19/23 00:08 Review of Systems Review of Systems: Yes all other systems are reviewed and are negative [facility] Past Medical History Medical History Pneumonia Asthma Alcohol dependence Social History Social History Household Members: Other Household Members Other:: 3 ROOMATES Housing: House Do you presently have visiting nurse or other home services: No Alcohol intake: former Patient Tobacco Use Status: Former Tobacco user Tobacco use type: Cigarette Cigarette Packs Per Day: 1 Cigarettes Per Day: 55 Smoked in Last 30 Days: No Use of substances other than those prescribed or required for medical reasons: No Substance Use Type: Crack/Cocaine Advance Directives: No Advance Directives Information Provided: Yes Nutrition Risks: No Nutritional Risk service: No Physical Exam ED Vital Signs: Vital Signs - 24 hr 07/19/23 00:09 07/19/23 00:48 07/19/23 00:58 Temperature 97.6 F Pulse Rate 120 H 104 H Respiratory Rate 18 20 Blood Pressure 136/83 Pulse Oximetry 94 87 L Oxygen Delivery Method Room Air Room Air Oxygen Flow Rate 07/19/23 02:36 07/19/23 04:12 07/19/23 04:23 Temperature 97.9 F Pulse Rate 92 158 H 103 H Respiratory Rate 14 19 17 Blood Pressure 136/90 H 151/89 H 144/75 H Pulse Oximetry 93 97 95 Oxygen Delivery Method Nasal Cannula Nasal Cannula Nasal Cannula Oxygen Flow Rate 2 2 07/19/23 04:23 Temperature Pulse Rate Respiratory Rate Blood Pressure Pulse Oximetry 94 Oxygen Delivery Method Nasal Cannula Oxygen Flow Rate BMI result Body Mass Index 20.9 Appearance: Alert. Oriented X2. No acute distress. Emaciated Soiled in urine and stool unkept condition Eyes: Pallor+ ENT: Pharynx normal. Oral Mucosa dry Neck: Normal inspection. Neck supple. CVS: Normal heart rate and rhythm. Pulses normal. Respiratory: No respiratory distress. Equal air entry bilateral, bilateral prolonged expiration no rales Abdomen: Soft and nontender. Bowel sounds are present, no mass palpable, no CVA tenderness Skin: Skin warm and dry. Normal skin color. Normal skin turgor. Extremities: No lower extremity edema. No calf tenderness Neuro: Oriented X 3. No motor deficit. Medications Administered Generic Name Dose Route Start Last Admin Trade Name Freq PRN Reason Stop Dose Admin Enoxaparin Sodium 40 mg 07/19/23 05:00 07/19/23 05:15 Enoxaparin Sodium 40 Mg/0.4 Ml Syringe SUBCUT 40 mg Q24H VLADIMIR Administration Discontinued Medications Generic Name Dose Route Start Last Admin Trade Name Freq PRN Reason Stop Dose Admin Albuterol/Ipratropium 3 ml 07/19/23 00:36 07/19/23 00:47 Albuterol/Iprat 2.5/0.5mg 3 Ml Ampul.Neb INHALE 07/19/23 00:37 3 ml ONCE ONE Administration Aspirin 81 mg 07/19/23 04:15 07/19/23 04:28 Aspirin 81 Mg Tab.Chew PO 07/19/23 04:16 81 mg ONCE ONE Administration Diltiazem HCl 20 mg 07/19/23 04:09 07/19/23 04:16 Diltiazem Hcl 50 Mg/10 Ml Vial IVPUSH 07/19/23 04:10 20 mg STAT STA Administration Sodium Chloride 1,000 mls @ 999 mls/hr 07/19/23 00:12 07/19/23 01:50 Ns IV 07/19/23 01:12 Infused .Q1H1M ONE Infusion Sodium Chloride 1,000 mls @ 999 mls/hr 07/19/23 02:26 07/19/23 04:17 Ns IV 07/19/23 03:26 Infused .Q1H1M ONE Infusion Medical Decision Making Medical Decision Making [facility] Narrative: Patient with failure to thrive with stable labs confused at baseline no signs of trauma will get case management for placement, IV fluids were given 4 am patient noted to be tachycardia in 150s does have history of AFib/MAT in 04/10 when he was admitted Patient received IV Cardizem had normal sinus rhythm for short time return to atrial flutter/fib. Was given aspirin chads vascular score of 1 Differential Diagnosis Differential Diagnoses: The differential diagnosis associated with the presentation includes Metabolic encephalopathy/failure to thrive/COPD Admission/Observation Consideration of admission/observation: Escalation of care including admission/observation considered Consult Healthcare Provider Management of the patient was discussed with: Hospitalist Lab Data [facility] Lab Attestation statement: I reviewed the patient's lab results. 07/19/23 05:10 07/19/23 05:10 Labs: Lab Results 07/19/23 07/19/23 07/19/23 Range/Units 00:23 00:32 00:38 WBC 11.9 H (4.8-10.8) X10*3/uL RBC 6.21 H D (4.60-5.80) X10*6/uL Hgb 17.9 D (14.0-18.0) g/dl Hct 54.3 H D (42.0-52.0) % MCV 87.4 (80.0-98.0) fL MCH 28.8 (27.0-33.0) pg MCHC 33.0 (31.0-36.0) g/dl RDW 11.9 (11.0-16.0) % Plt Count 371 (160-400) X10*3/uL MPV 8.2 L (9.4-12.4) fL Immature Gran % (Auto) 0.5 H (0.0-0.4) % Neut % (Auto) 71.8 (45-73) % Lymph % (Auto) 15.8 L (20-40) % [place] % (Auto) 10.0 (2-11) % Eos % (Auto) 1.1 (0-4) % Baso % (Auto) 0.8 (0-2) % Lymph # (Auto) 1.9 (1.2-4.9) X10*3/uL [place] # (Auto) 1.2 (0.1-1.2) X10*3/uL Eos # (Auto) 0.1 (0.0-0.4) X10*3/uL Baso # (Auto) 0.1 (0.0-0.2) X10*3/uL Abs Immat Gran (auto) 0.06 H (0.00-0.03) X10*3/uL Absolute Neuts (auto) 8.5 H (2.0-8.3) x10*3/uL Absolute Nucleated RBC 0.000 (0.0-0.012) X10*3/uL Nucleated RBC % (auto) 0.0 (0.0-0.2) /100WBC VBG pH 7.38 (7.32-7.43) VBG pCO2 57 mmHg VBG pO2 36 mmHg VBG HCO3 34 H (22-26) mmol/L VBG O2 Saturation 50.0 % VBG Base Excess 6.5 mmol/L Sodium 137 (135-145) mmol/L Potassium 4.3 (3.3-5.1) mmol/L Chloride 87 L (96-108) mmol/L Carbon Dioxide 35 H (22-29) mmol/L Anion Gap 19 (12-20) BUN 19 H (9-16) mg/dL Creatinine 0.90 (0.5-1.4) mg/dL Estim Creat Clear Calc 57.6 Estimated GFR > 60 Random Glucose 107 (60-115) mg/dL Calcium 10.2 D (8.4-10.2) mg/dL Magnesium 2.2 (1.6-2.6) mg/dL Total Bilirubin 0.5 (0.0-1.0) mg/dL AST 21 (5-37) U/L ALT 18 (0-40) U/L Alkaline Phosphatase 81 (39-117) U/L Total Creatine Kinase 38 (38-174) U/L Troponin I High Sens 32.2 D (<3.5-35.0) ng/L Total Protein 7.9 (6.5-8.0) g/dL Albumin 4.0 (3.5-5.0) g/dL Urine Color Urine Appearance Urine pH (5.0-9.0) Ur Specific [place] (1.005-1.025) Urine Protein (Neg-Trace) mg/dL Urine Glucose (UA) (Negative) mg/dL Urine Ketones (Negative) mg/dL Urine Blood (Negative) Urine Nitrite (Negative) Ur Leukocyte Esterase (Negative) Urine Opiates Screen (Not Detect) Urine Fentanyl Screen (Not Detect) Ur Barbiturates Screen (Not Detect) Ur Phencyclidine Scrn (Not Detect) Ur Amphetamines Screen (Not Detect) U Benzodiazepines Scrn (Not Detect) Urine Cocaine Screen (Not Detect) U Marijuana (THC) Screen (Not Detect) Ethyl Alcohol < 10 mg/dL COVID-19 (YASMIN) Negative (Negative) COVID-19 Clin Com See Note 07/19/23 Range/Units 02:51 WBC (4.8-10.8) X10*3/uL RBC (4.60-5.80) X10*6/uL Hgb (14.0-18.0) g/dl Hct (42.0-52.0) % MCV (80.0-98.0) fL MCH (27.0-33.0) pg MCHC (31.0-36.0) g/dl RDW (11.0-16.0) % Plt Count (160-400) X10*3/uL MPV (9.4-12.4) fL Immature Gran % (Auto) (0.0-0.4) % Neut % (Auto) (45-73) % Lymph % (Auto) (20-40) % [place] % (Auto) (2-11) % Eos % (Auto) (0-4) % Baso % (Auto) (0-2) % Lymph # (Auto) (1.2-4.9) X10*3/uL [place] # (Auto) (0.1-1.2) X10*3/uL Eos # (Auto) (0.0-0.4) X10*3/uL Baso # (Auto) (0.0-0.2) X10*3/uL Abs Immat Gran (auto) (0.00-0.03) X10*3/uL Absolute Neuts (auto) (2.0-8.3) x10*3/uL Absolute Nucleated RBC (0.0-0.012) X10*3/uL Nucleated RBC % (auto) (0.0-0.2) /100WBC VBG pH (7.32-7.43) VBG pCO2 mmHg VBG pO2 mmHg VBG HCO3 (22-26) mmol/L VBG O2 Saturation % VBG Base Excess mmol/L Sodium (135-145) mmol/L Potassium (3.3-5.1) mmol/L Chloride (96-108) mmol/L Carbon Dioxide (22-29) mmol/L Anion Gap (12-20) BUN (9-16) mg/dL Creatinine (0.5-1.4) mg/dL Estim Creat Clear Calc Estimated GFR Random Glucose (60-115) mg/dL Calcium (8.4-10.2) mg/dL Magnesium (1.6-2.6) mg/dL Total Bilirubin (0.0-1.0) mg/dL AST (5-37) U/L ALT (0-40) U/L Alkaline Phosphatase (39-117) U/L Total Creatine Kinase (38-174) U/L Troponin I High Sens (<3.5-35.0) ng/L Total Protein (6.5-8.0) g/dL Albumin (3.5-5.0) g/dL Urine Color Dark Yellow Urine Appearance Clear Urine pH 6.0 (5.0-9.0) Ur Specific [place] 1.020 (1.005-1.025) Urine Protein Trace (Neg-Trace) mg/dL Urine Glucose (UA) Negative (Negative) mg/dL Urine Ketones 40 (Negative) mg/dL Urine Blood Negative (Negative) Urine Nitrite Negative (Negative) Ur Leukocyte Esterase Negative (Negative) Urine Opiates Screen Not Detected (Not Detect) Urine Fentanyl Screen Not Detected (Not Detect) Ur Barbiturates Screen Not Detected (Not Detect) Ur Phencyclidine Scrn POSITIVE H (Not Detect) Ur Amphetamines Screen Not Detected (Not Detect) U Benzodiazepines Scrn Not Detected (Not Detect) Urine Cocaine Screen Not Detected (Not Detect) U Marijuana (THC) Screen Not Detected (Not Detect) Ethyl Alcohol mg/dL COVID-19 (YASMIN) (Negative) COVID-19 Clin Com Independent Interpretation I performed an independent interpretation of an: EKG and Plain X-Ray Interpretation: Sinus tachycardia with heart rate 123 beats per minute biatrial enlargement no acute ST T wave changes no acute ischemia Radiology Impression Discussion of test interpretation with radiology: I have reviewed the radiologist's reading. Critical Care Time Critical Care Time Critical Care Time: Yes Total Critical Care Time: 60 Attestation: The patient was critically ill with a high probability of imminent or life threatening deterioration. I spent greater than 65???minutes of discontinuous time evaluating the patient,delivering critical care at the bedside, discussing and evaluating pertinent data with consultants. Critical care time does not include time spent performing separately billable procedures or teaching. Total time spent performing critical care was 60???minutes. Discharge Plan Discharge Clinical Impression: Adult failure to thrive, Paroxysmal atrial fibrillation with RVR Patient Disposition: Admitted As Inpatient
--- NOTE | 2023-07-19 00:12 | ECG_ITS ---
Test Reason : WEAKNESS Blood Pressure : / mmHG Vent. Rate : 123 BPM Atrial Rate : 123 BPM P-R Int : 124 ms QRS Dur : 062 ms QT Int : 320 ms P-R-T Axes : 082 082 077 degrees QTc Int : 458 ms Sinus tachycardia Biatrial enlargement Abnormal ECG When compared with ECG of 14-APR-2023 15:53, Sinus rhythm has replaced Atrial fibrillation Vent. rate has decreased BY 69 BPM Referred By: Jignesh Ding Electronically Signed By:RADU HENDERSON
[2023-07-19] MEDS: 0.9 % Sodium Chloride 1,000 ML 999 ML IV ×2 (00:25→02:44)
[2023-07-19 00:33] LABS: MANUAL DIFF FLAG NO
[2023-07-19 00:34] LABS: Basophils Absolute Auto 0.1 X10*3/uL (0.0-0.2); Basophils Percent Auto 0.8 % (0-2); Eosinophils Absolute Auto 0.1 X10*3/uL (0.0-0.4); Eosinophils Percent Auto 1.1 % (0-4); Hematocrit 54.3 % (42.0-52.0); Hemoglobin 17.9 g/dl (14.0-18.0); Imm Gran Abs Auto 0.06 X10*3/uL (0.00-0.03); Imm Gran Pct Auto 0.5 % (0.0-0.4); Lymphocytes Absolute Auto 1.9 X10*3/uL (1.2-4.9); Lymphocytes Percent Auto 15.8 % (20-40); Mean Corpuscular Hemoglobin 28.8 pg (27.0-33.0); Mean Corpuscular Volume 87.4 fL (80.0-98.0); Mean Platelet Volume 8.2 fL (9.4-12.4); Monocytes Absolute Auto 1.2 X10*3/uL (0.1-1.2); Neutrophils Absolute Auto 8.5 x10*3/uL (2.0-8.3); Neutrophils Percent Auto 71.8 % (45-73); Platelet Count 371 X10*3/uL (160-400); Red Blood Count 6.21 X10*6/uL (4.60-5.80); Red Cell Distribution Width 11.9 % (11.0-16.0); White Blood Count 11.9 X10*3/uL (4.8-10.8)
[2023-07-19 00:37] LABS: Venous Blood Gas Refer to POC result
[2023-07-19 00:39] LABS: VBG Base Excess 6.5 mmol/L; VBG HCO3 34 mmol/L (22-26); VBG pCO2 57 mmHg; VBG pH 7.38 (7.32-7.43); VBG pO2 36 mmHg
--- NOTE | 2023-07-19 00:45 | PC.NURSE ---
Pt A&Ox3, unsure about date. Pt denied any pain, reports being very weak and unable to get up from couch x few days. States he lived with roommates and they called EMS. Pt very unkept, soiled and feces all over clothing. Pt reports he has not been able to walk. Redness noted to buttock with a few of open areas.
[2023-07-19] MEDS: Albuterol/Iprat 2.5/0.5MG 3 ML AMPUL.NEB INHALE (00:47)
[2023-07-19 00:49] LABS: Alanine Aminotransferase 18 U/L (0-40); Alkaline Phosphatase 81 U/L (39-117); Anion Gap 19 (12-20); Aspartate Amino Transferase 21 U/L (5-37); Bilirubin Total 0.5 mg/dL (0.0-1.0); Blood Urea Nitrogen 19 mg/dL (9-16); Calcium 10.2 mg/dL (8.4-10.2); Carbon Dioxide 35 mmol/L (22-29); Chloride 87 mmol/L (96-108); Creatinine Clr Calc Pharmacy 57.6; Estimated Glomerular Filt Rate > 60; Glucose Random 107 mg/dL (60-115); Potassium 4.3 mmol/L (3.3-5.1); Sodium 137 mmol/L (135-145); Total Protein 7.9 g/dL (6.5-8.0)
[2023-07-19 00:53] LABS: Troponin-I High Sensitivity 32.2 ng/L (<3.5-35.0)
--- NOTE | 2023-07-19 01:00 | PC.NURSE ---
Pt SpO2 91% on RA, Pt destate to 87% on RA, Pt placed on 2L via NC. Pt reports hx of COPD.
[2023-07-19 01:04] LABS: COVID-19 Test Negative (Negative); IDNOW Serial# 6674DD1D
[2023-07-19 01:47] LABS: Ethanol < 10 mg/dL
[2023-07-19 03:00] LABS: Appearance Urine Clear; Color Urine Dark Yellow; Glucose Urine UA Negative (Negative); Leukocyte Esterase Urine Negative (Negative); Nitrite Urine Negative (Negative); Urine Blood Negative (Negative); Urine Ketones 40 mg/dL (Negative); Urine Protein Trace mg/dL (Neg-Trace)
[2023-07-19 03:07] LABS: Amphetamine Screen Urine Not Detected (Not Detect); Barbiturates, Urine Not Detected (Not Detect); Benzodiazepines Screen Urine Not Detected (Not Detect); Cannabinoid Screen Urine Not Detected (Not Detect); Cocaine Screen Urine Not Detected (Not Detect); Fentanyl, urine Not Detected (Not Detect); Opiate Screen Urine Not Detected (Not Detect); Phencyclidine Screen Urine POSITIVE (Not Detect)
[2023-07-19] MEDS: dilTIAZem HCL 50 MG/10 ML VIAL 20 MG IVPUSH (04:16)
--- NOTE | 2023-07-19 04:20 | PC.NURSE ---
Pt HR in the 150's-160, EKG obtained and reviewed by provider. Pt denies CP, . Pt medicated per JUL.
--- NOTE | 2023-07-19 04:25 | P.HPHOSP_ITS ---
History of Present Illness Date of Service: 07/19/23 Chief Complaint: Tachycardia This is a 68-year-old male with pertinent history of chronic hypoxemic respiratory failure due to COPD who presents to the emergency department for weakness and inability to take care of himself. Patient states he presents to the ER at the behest of his roommate. As per EMS, patient was covered in stool and urine. States he uses 1-3 L oxygen as needed and lately has not been able to take care of himself. States he does not have food at home and has not eaten much in the last 1 week. He denies fever, chills, chest discomfort, palpitations, shortness of breath, abdominal pain, cough, changes in urinary or bowel habits. He denies illicit drug use. Denies significant alcohol use. In the emergency department, he was noted to be in atrial flutter with RVR with heart rate up to 158. Review of Systems 2 Constitutional: Constitutional: Reports lethargy, Reports malaise, Reports poor appetite and Reports weakness Cardiovascular: Cardiovascular: Reports no additional cardiovascular complaints Respiratory: Respiratory: Reports no additional respiratory complaints Gastrointestinal: Gastrointestinal: Reports no additional gastrointestinal complaints Genitourinary: Genitourinary: Reports no additional male genitourinary complaints Neurologic: Reports weakness PMFSH Medical History Pneumonia Asthma Alcohol dependence Pertinent family history: No family history of early CAD Social History Household Members: Other Household Members Other:: 3 ROOMATES Housing: House Do you presently have visiting nurse or other home services: No Patient Tobacco Use Status: Current someday Tobacco user Tobacco use type: Cigarette Cigarette Packs Per Day: 1 Cigarettes Per Day: 55 Substance Use Type: Crack/Cocaine Advance Directives: No Advance Directives Information Provided: Yes service: No Meds Allergies Allergy/AdvReac Type Severity Reaction Status Date / Time No Known Allergies Allergy Verified 07/19/23 00:08 Physical Exam 2 Vital Signs and Narrative: Vital Signs: Last Vital Signs Temp 97.9 F 07/19/23 02:36 Pulse 103 H 07/19/23 04:23 Resp 17 07/19/23 04:23 BP 144/75 H 07/19/23 04:23 Pulse Ox 95 07/19/23 04:23 O2 Del Method Nasal Cannula 07/19/23 04:23 O2 Flow Rate 2 07/19/23 04:23 BMI result Body Mass Index 20.9 Middle-aged poorly kempt male lying in bed in no distress Neck supple, no JVD Irregularly irregular, S1-S2 heard Regular breath sounds bilaterally, no wheezing or crackles appreciated Abdomen soft nontender, no guarding, no rigidity Patient is awake, alert and oriented to self, place ; no focal motor deficit Psych: Normal mood No pedal edema Results Labs 07/19/23 00:23 07/19/23 00:23 Labs: Laboratory Results - last 24 hr 07/19/23 07/19/23 07/19/23 00:23 00:32 00:38 MCV 87.4 MCH 28.8 MCHC 33.0 RDW 11.9 Plt Count 371 MPV 8.2 L Immature Gran % (Auto) 0.5 H Neut % (Auto) 71.8 Lymph % (Auto) 15.8 L [place] % (Auto) 10.0 Eos % (Auto) 1.1 Baso % (Auto) 0.8 Lymph # (Auto) 1.9 [place] # (Auto) 1.2 Eos # (Auto) 0.1 Baso # (Auto) 0.1 Abs Immat Gran (auto) 0.06 H Absolute Neuts (auto) 8.5 H Absolute Nucleated RBC 0.000 Nucleated RBC % (auto) 0.0 VBG pH 7.38 VBG pCO2 57 VBG pO2 36 VBG HCO3 34 H VBG O2 Saturation 50.0 VBG Base Excess 6.5 Anion Gap 19 Estim Creat Clear Calc 57.6 Estimated GFR > 60 Random Glucose 107 Calcium 10.2 D Total Bilirubin 0.5 AST 21 ALT 18 Alkaline Phosphatase 81 Total Creatine Kinase 38 Troponin I High Sens 32.2 D Total Protein 7.9 Albumin 4.0 Urine Color Urine Appearance Urine pH Ur Specific [place] Urine Protein Urine Glucose (UA) Urine Ketones Urine Blood Urine Nitrite Ur Leukocyte Esterase Urine Opiates Screen Urine Fentanyl Screen Ur Barbiturates Screen Ur Phencyclidine Scrn Ur Amphetamines Screen U Benzodiazepines Scrn Urine Cocaine Screen U Marijuana (THC) Screen Ethyl Alcohol < 10 COVID-19 (YASMIN) Negative COVID-19 Clin Com See Note 07/19/23 02:51 MCV MCH MCHC RDW Plt Count MPV Immature Gran % (Auto) Neut % (Auto) Lymph % (Auto) [place] % (Auto) Eos % (Auto) Baso % (Auto) Lymph # (Auto) [place] # (Auto) Eos # (Auto) Baso # (Auto) Abs Immat Gran (auto) Absolute Neuts (auto) Absolute Nucleated RBC Nucleated RBC % (auto) VBG pH VBG pCO2 VBG pO2 VBG HCO3 VBG O2 Saturation VBG Base Excess Anion Gap Estim Creat Clear Calc Estimated GFR Random Glucose Calcium Total Bilirubin AST ALT Alkaline Phosphatase Total Creatine Kinase Troponin I High Sens Total Protein Albumin Urine Color Dark Yellow Urine Appearance Clear Urine pH 6.0 Ur Specific [place] 1.020 Urine Protein Trace Urine Glucose (UA) Negative Urine Ketones 40 Urine Blood Negative Urine Nitrite Negative Ur Leukocyte Esterase Negative Urine Opiates Screen Not Detected Urine Fentanyl Screen Not Detected Ur Barbiturates Screen Not Detected Ur Phencyclidine Scrn POSITIVE H Ur Amphetamines Screen Not Detected U Benzodiazepines Scrn Not Detected Urine Cocaine Screen Not Detected U Marijuana (THC) Screen Not Detected Ethyl Alcohol COVID-19 (YASMIN) COVID-19 Clin Com Imaging Radiologist's Impressions: Impressions Chest X-Ray 07/19/23 00:42 IMPRESSION: No acute cardiopulmonary findings. Assessment and Plan (1) Atrial flutter with rapid ventricular response: Status: Acute Plan This is a 68-year-old male with pertinent history of chronic hypoxemic respiratory failure due to COPD who presents to the emergency department for weakness and inability to take care of himself. #. Atrial flutter with RVR: Will admit patient with cardiac monitoring. Obtaining TSH. Rate controlled with IV diltiazem push in the ER, initiating p.o. diltiazem. Consulted Cardiology, appreciate assistance. Chads Vasc score 1 #. Chronic hypoxemic respiratory failure due to COPD: No exacerbation during admission. Is on home 1-3 L oxygen baseline p.r.n. #. Polysubstance use disorder: UDS positive for phencyclidine. Consulted Addiction Team #. Inability to take care of himself: Consulted case management #. Generalized weakness in the setting of debility: Consulted physical therapy to evaluate and treat DVT prophylaxis: Lovenox Full code Admit as inpatient and will require two night minimum hospital stay for evaluation and management of atrial flutter with RVR with close monitoring of hemodynamics (as above), which is not possible in a lesser acute setting. Quality Stroke Does the patient have a stroke diagnosis?: No VTE Prior VTE?: No VTE Risk Level:: Medical - moderate - high VTE Device Contraindication: Treatment Not Indicated VTE Drug Contraindication: N/A - Med Ordered
[2023-07-19] MEDS: Aspirin 81 MG TAB.CHEW PO (04:28)
[2023-07-19 04:32] LABS: Magnesium 2.2 mg/dL (1.6-2.6)
--- NOTE | 2023-07-19 04:36 | PC.NURSE ---
Med rec done, Pt confirms he does not take any prescribed home meds.
[2023-07-19] MEDS: Enoxaparin Sodium 40 MG/0.4 ML SYRINGE SUBCUT (05:15)
[2023-07-19 05:18] LABS: MANUAL DIFF FLAG NO
[2023-07-19 05:23] LABS: Basophils Absolute Auto 0.1 X10*3/uL (0.0-0.2); Basophils Percent Auto 0.7 % (0-2); Eosinophils Percent Auto 0.3 % (0-4); Hematocrit 47.6 % (42.0-52.0); Hemoglobin 15.8 g/dl (14.0-18.0); Imm Gran Abs Auto 0.05 X10*3/uL (0.00-0.03); Imm Gran Pct Auto 0.6 % (0.0-0.4); Lymphocytes Absolute Auto 1.1 X10*3/uL (1.2-4.9); Lymphocytes Percent Auto 12.3 % (20-40); Mean Corpuscular HGB Conc 33.2 g/dl (31.0-36.0); Mean Corpuscular Hemoglobin 29.2 pg (27.0-33.0); Mean Corpuscular Volume 87.8 fL (80.0-98.0); Mean Platelet Volume 8.3 fL (9.4-12.4); Monocytes Absolute Auto 0.8 X10*3/uL (0.1-1.2); Monocytes Percent Auto 8.8 % (2-11); Neutrophils Absolute Auto 6.8 x10*3/uL (2.0-8.3); Neutrophils Percent Auto 77.3 % (45-73); Platelet Count 301 X10*3/uL (160-400); Red Blood Count 5.42 X10*6/uL (4.60-5.80); Red Cell Distribution Width 11.8 % (11.0-16.0); White Blood Count 8.8 X10*3/uL (4.8-10.8)
[2023-07-19 05:37] LABS: Anion Gap 14 (12-20); Blood Urea Nitrogen 15 mg/dL (9-16); Calcium 8.5 mg/dL (8.4-10.2); Carbon Dioxide 30 mmol/L (22-29); Chloride 98 mmol/L (96-108); Creatinine Clr Calc Pharmacy 73.1; Estimated Glomerular Filt Rate > 60; Glucose Random 105 mg/dL (60-115); Potassium 3.9 mmol/L (3.3-5.1); Sodium 138 mmol/L (135-145)
--- NOTE | 2023-07-19 07:50 | PHA.MEDREC ---
Pharmacy Consult ? Medication Reconciliation Pharmacy has completed the medication reconciliation. reviewed med rec done by nursing
[2023-07-19] MEDS: 0.9 % Sodium Chloride Flush 3 ML SYRINGE IVFLUSH ×2 (07:53→15:12)
[2023-07-19] MEDS: dilTIAZem HCL 30 MG TABLET PO ×2 (07:54→15:11)
--- NOTE | 2023-07-19 07:57 | PC.NURSE ---
patient tremulous, reports he used to be a drinker and would drink a lot of beer throughout the day. states that he hasn't drank in over a week at this time. medicated per the MAR, offering no complaints. call garcia is within reach.
[2023-07-19] MEDS: PHENobarbitaL sodium 130 MG/ML IM ONCE 208 MG IM (09:45)
--- NOTE | 2023-07-19 10:40 | MHC.CM.PN ---
PT REPORTS HE LIVES WITH A ROOMMATE AND HAS BEEN INDEPENDENT WITH CARE HE REPORTS HE DOES FEEL HE COULD USE SOME ASSISTANCE AND IS INTERESTED IN A [facility] REFERRAL PT REPORTS HE HAS A CANE AND HOME O2, HE DOES NOT KNOW THE SUPPLIER BUT REPORTS HE DOES HAVE A NUMBER AT HOME TO CALL WHEN HE NEEDS MORE. CM ENCOURAGED HIM TO CALL AHEAD AND NOT WAIT UNTIL HE IS OUT OF O2. PT DOES NOT HAVE A PCP OR A HCP RESOURCE BOOKLET AND PCP LIST PROVIDED IMM DELIVERED DCP: HOME WITH [facility] REFERRAL PT WILL NEED SHUTTLE VS LYFT ARRANGED
--- NOTE | 2023-07-19 11:17 | HO.PM.IMPN ---
Subjective Subjective Date of Service: 07/19/23 Interval History: tremulous Physical Exam Vital Signs: Vital Signs: Last Vital Signs Temp 97.8 F 07/19/23 07:55 Pulse 122 H 07/19/23 07:55 Resp 20 07/19/23 07:55 BP 155/77 H 07/19/23 07:55 Pulse Ox 95 07/19/23 07:55 O2 Del Method Nasal Cannula 07/19/23 07:55 O2 Flow Rate 2 07/19/23 07:55 Oxygen Flow Rate 2 07/19/23 04:23 BMI result Body Mass Index 20.9 tremor, alert, poor air movement, rapid irregular. Objective Data Active Medications Acetaminophen (Acetaminophen 325 Mg Tablet) 650 mg PO Q6H PRN PRN Reason: Pain, Mild (Pain Scale 1-3) Diltiazem HCl (Diltiazem Hcl 30 Mg Tablet) 30 mg PO QID [facility]; Protocol Last Admin: 07/19/23 07:54 Dose: 30 mg Documented By: JEFFREY Enoxaparin Sodium (Enoxaparin Sodium 40 Mg/0.4 Ml Syringe) 40 mg SUBCUT Q24H [facility] Last Admin: 07/19/23 05:15 Dose: 40 mg Documented By: CLARITA Melatonin (Melatonin 3 Mg Tablet) 6 mg PO BEDTIME PRN PRN Reason: Insomnia Ondansetron HCl (Ondansetron Hcl 4 Mg/2 Ml Vial) 4 mg IVPUSH Q8H PRN PRN Reason: Nausea and Vomiting Pharmacy Consult (Consult Rx Etoh Phenob Im/Po) 1 each MISCELLANE ONCE PRN; Protocol PRN Reason: Consult order Phenobarbital (Phenobarbital 15 Mg Tablet) 45 mg PO BID [facility]; Protocol Stop: 07/21/23 09:01 Phenobarbital (Phenobarbital 30 Mg Tablet) 30 mg PO BID [facility]; Protocol Stop: 07/23/23 09:01 Phenobarbital (Phenobarbital 30 Mg Tablet) 30 mg PO DAILY [facility]; Protocol Stop: 07/25/23 09:01 Phenobarbital Sodium (Phenobarbital Sodium 65 Mg/Ml Vial Q3hx2) 160 mg IM Q3H [facility]; Protocol Stop: 07/19/23 16:01 Sodium Chloride (0.9 % Sodium Chloride Flush 3 Ml Syringe) 3 ml IVFLUSH QSHIFT [facility] Last Admin: 07/19/23 07:53 Dose: 3 ml Documented By: JEFFREY Labs 07/19/23 05:10 07/19/23 05:10 Labs: Laboratory Results - last 24 hr 07/19/23 07/19/23 07/19/23 00:23 00:32 00:38 MCV 87.4 MCH 28.8 MCHC 33.0 RDW 11.9 Plt Count 371 MPV 8.2 L Immature Gran % (Auto) 0.5 H Neut % (Auto) 71.8 Lymph % (Auto) 15.8 L [place] % (Auto) 10.0 Eos % (Auto) 1.1 Baso % (Auto) 0.8 Lymph # (Auto) 1.9 [place] # (Auto) 1.2 Eos # (Auto) 0.1 Baso # (Auto) 0.1 Abs Immat Gran (auto) 0.06 H Absolute Neuts (auto) 8.5 H Absolute Nucleated RBC 0.000 Nucleated RBC % (auto) 0.0 VBG pH 7.38 VBG pCO2 57 VBG pO2 36 VBG HCO3 34 H VBG O2 Saturation 50.0 VBG Base Excess 6.5 Anion Gap 19 Estim Creat Clear Calc 57.6 Estimated GFR > 60 Random Glucose 107 Calcium 10.2 D Magnesium 2.2 Total Bilirubin 0.5 AST 21 ALT 18 Alkaline Phosphatase 81 Total Creatine Kinase 38 Troponin I High Sens 32.2 D Total Protein 7.9 Albumin 4.0 Urine Color Urine Appearance Urine pH Ur Specific [place] Urine Protein Urine Glucose (UA) Urine Ketones Urine Blood Urine Nitrite Ur Leukocyte Esterase Urine Opiates Screen Urine Fentanyl Screen Ur Barbiturates Screen Ur Phencyclidine Scrn Ur Amphetamines Screen U Benzodiazepines Scrn Urine Cocaine Screen U Marijuana (THC) Screen Ethyl Alcohol < 10 COVID-19 (YASMIN) Negative COVID-19 Clin Com See Note 07/19/23 07/19/23 02:51 05:10 MCV 87.8 MCH 29.2 MCHC 33.2 RDW 11.8 Plt Count 301 MPV 8.3 L Immature Gran % (Auto) 0.6 H Neut % (Auto) 77.3 H Lymph % (Auto) 12.3 L [place] % (Auto) 8.8 Eos % (Auto) 0.3 Baso % (Auto) 0.7 Lymph # (Auto) 1.1 L [place] # (Auto) 0.8 Eos # (Auto) 0.0 Baso # (Auto) 0.1 Abs Immat Gran (auto) 0.05 H Absolute Neuts (auto) 6.8 Absolute Nucleated RBC 0.000 Nucleated RBC % (auto) 0.0 VBG pH VBG pCO2 VBG pO2 VBG HCO3 VBG O2 Saturation VBG Base Excess Anion Gap 14 Estim Creat Clear Calc 73.1 Estimated GFR > 60 Random Glucose 105 Calcium 8.5 D Magnesium Total Bilirubin AST ALT Alkaline Phosphatase Total Creatine Kinase Troponin I High Sens Total Protein Albumin Urine Color Dark Yellow Urine Appearance Clear Urine pH 6.0 Ur Specific [place] 1.020 Urine Protein Trace Urine Glucose (UA) Negative Urine Ketones 40 Urine Blood Negative Urine Nitrite Negative Ur Leukocyte Esterase Negative Urine Opiates Screen Not Detected Urine Fentanyl Screen Not Detected Ur Barbiturates Screen Not Detected Ur Phencyclidine Scrn POSITIVE H Ur Amphetamines Screen Not Detected U Benzodiazepines Scrn Not Detected Urine Cocaine Screen Not Detected U Marijuana (THC) Screen Not Detected Ethyl Alcohol COVID-19 (YASMIN) COVID-19 Clin Com Assessment and Plan (1) Paroxysmal atrial fibrillation with RVR: Status: Acute Plan 68M PMH chronic hypoxic respiratory failure secondary to COPD, alcohol dependence, paroxysmal atrial fibrillation not on AC, presented with failure to thrive noted to be in a flutter with RVR Paroxysmal atrial fibrillation/atrial flutter with RVR Now appears to be in sinus Continue diltiazem Follow-up cardiology Not a good candidate for anticoagulation due to poor compliance, continuous alcohol use, fall risk Alcohol dependence with withdrawal Phenobarbital protocol Chronic hypoxic respiratory failure secondary to COPD Continue baseline O2 Polysubstance dependence Addiction team eval Failure to thrive Case management eval, PT DVT prophylaxis with Lovenox Full Code reason for continued hospitalization: Actively withdrawing Quality Stroke Does the patient have a stroke diagnosis?: No VTE Prior VTE?: No VTE Risk Level:: Medical - moderate - high VTE Device Contraindication: Treatment Not Indicated VTE Drug Contraindication: N/A - Med Ordered
--- NOTE | 2023-07-19 11:42 | PM.CNCAR ---
History of Present Illness History of Present Illness Date of Service: 07/19/23 Chief complaint: Tachycardia Narrative: This is a cardiology consultation regarding atrial flutter. Patient has chronic respiratory failure/COPD admitted for weakness/inability take care of himself. Per EMS, he was covered in urine and stool. Apparently, could not take care of himself. He has not eaten much as well as there is no food. From the cardiac standpoint, found to be in atrial flutter and hence we are consulted. He is describing some vague discomfort in the sternal area that is nonspecific but otherwise nothing clear-cut cardiac. Denies any previous cardiac history. His answers are also very variable. Review of Systems Review of Systems: Yes all other systems are reviewed and are negative Constitutional: Constitutional: Reports as per HPI and Reports no additional constitutional complaints Eyes: Eyes: Reports as per HPI and Denies no additional eye complaints ENT: Denies system reviewed and no additional complaints, except as documented and Reports as per HPI Cardiovascular: Cardiovascular: Reports as per HPI, Reports no additional cardiovascular complaints, Denies acrocyanosis, Denies cool extremities, Denies chest pain, Denies leg edema, Denies lightheadedness, Denies palpitations and Denies dyspnea Respiratory: Respiratory: Reports as per HPI, Denies no additional respiratory complaints and Denies dyspnea Gastrointestinal: Gastrointestinal: Reports as per HPI and Denies no additional gastrointestinal complaints Genitourinary: Genitourinary: Reports no additional male genitourinary complaints and Reports as per HPI Musculoskeletal: Musculoskeletal: Reports no additional musculoskeletal complaints and Reports as per HPI Integumentary/Breasts: Skin/Breast: Reports system reviewed and no additional complaints, except as docu Neurologic: Reports system reviewed and no additional complaints, except as documented and Reports as per HPI Psychiatric: Psychiatric: Reports no additional psychiatric complaints and Reports as per HPI Endocrine: Endocrine: Reports no additional endocrine complaints, Reports as per HPI and Denies palpitations Hematologic/Lymphatic: Hematologic/Lymphatic: Reports no additional hematologic/lymphatic complaints and Reports as per HPI Allergic/Immunologic: Allergic/Immunologic: Reports no additional allergic/immunologic complaints and Reports as per HPI [facility] Past Medical History Medical History Pneumonia Asthma Alcohol dependence Family History Pertinent family history: No pertinent family history Social History Social History Household Members: Other Household Members Other:: 3 ROOMATES Housing: House Do you presently have visiting nurse or other home services: No Alcohol intake: former Patient Tobacco Use Status: Former Tobacco user Tobacco use type: Cigarette Cigarette Packs Per Day: 1 Cigarettes Per Day: 55 Smoked in Last 30 Days: No Use of substances other than those prescribed or required for medical reasons: No Substance Use Type: Crack/Cocaine Advance Directives: No Advance Directives Information Provided: Yes Nutrition Risks: No Nutritional Risk service: No Meds Allergies Allergy/AdvReac Type Severity Reaction Status Date / Time No Known Allergies Allergy Verified 07/19/23 00:08 Active Medications: Current Medications Acetaminophen (Acetaminophen 325 Mg Tablet) 650 mg PO Q6H PRN PRN Reason: Pain, Mild (Pain Scale 1-3) Diltiazem HCl (Diltiazem Hcl 30 Mg Tablet) 30 mg PO QID [facility]; Protocol Last Admin: 07/19/23 07:54 Dose: 30 mg Enoxaparin Sodium (Enoxaparin Sodium 40 Mg/0.4 Ml Syringe) 40 mg SUBCUT Q24H [facility] Last Admin: 07/19/23 05:15 Dose: 40 mg Melatonin (Melatonin 3 Mg Tablet) 6 mg PO BEDTIME PRN PRN Reason: Insomnia Ondansetron HCl (Ondansetron Hcl 4 Mg/2 Ml Vial) 4 mg IVPUSH Q8H PRN PRN Reason: Nausea and Vomiting Pharmacy Consult (Consult Rx Etoh Phenob Im/Po) 1 each MISCELLANE ONCE PRN; Protocol PRN Reason: Consult order Phenobarbital (Phenobarbital 15 Mg Tablet) 45 mg PO BID [facility]; Protocol Stop: 07/21/23 09:01 Phenobarbital (Phenobarbital 30 Mg Tablet) 30 mg PO BID [facility]; Protocol Stop: 07/23/23 09:01 Phenobarbital (Phenobarbital 30 Mg Tablet) 30 mg PO DAILY [facility]; Protocol Stop: 07/25/23 09:01 Phenobarbital Sodium (Phenobarbital Sodium 65 Mg/Ml Vial Q3hx2) 160 mg IM Q3H [facility]; Protocol Stop: 07/19/23 16:01 Sodium Chloride (0.9 % Sodium Chloride Flush 3 Ml Syringe) 3 ml IVFLUSH QSHIFT [facility] Last Admin: 07/19/23 07:53 Dose: 3 ml Home Medications Medication Instructions Recorded Confirmed Last Taken Type No Known Home Meds 07/19/23 07/19/23 Unknown History Physical Exam Vital Signs: Vital Signs: Last Vital Signs Temp 97.8 F 07/19/23 07:55 Pulse 95 07/19/23 10:36 Resp 20 07/19/23 07:55 BP 140/80 H 07/19/23 10:36 Pulse Ox 94 07/19/23 10:36 O2 Del Method Nasal Cannula 07/19/23 07:55 O2 Flow Rate 2 07/19/23 07:55 Oxygen Flow Rate 2 07/19/23 04:23 BMI result Body Mass Index 20.9 Const: General: comfortable, no acute distress, ill appearing and poor hygiene Nutritional Appearance: cachectic, malnourished and underweight Orientation/consciousness: patient oriented x3 HEENT: Other: Unremarkable Head: Yes normal to inspection Neck: Neck: Yes normal visual inspection Chest: Chest palpation & inspection: normal inspection of the chest Resp: Auscultation: clear to auscultation bilaterally Cardio: Palpation: normal PMI Heart sounds: S1 normal heart sound present, S2 normal heart sound present, no gallops, no murmurs and no rubs GI: Palpation (GI): Soft to palpation Back/Spine/Pelvis: Other: unremarkable Skin: General skin exam: no rashes or lesions noted Neuro: General: patient oriented x3 Extrem: General: Yes normal to inspection Psych: Mental Status: mental status grossly normal Objective Labs and Meds 07/19/23 05:10 07/19/23 05:10 Lab results: Laboratory Results - last 24 hr 07/19/23 07/19/23 07/19/23 00:23 00:32 00:38 WBC 11.9 H RBC 6.21 H D Hgb 17.9 D Hct 54.3 H D MCV 87.4 MCH 28.8 MCHC 33.0 RDW 11.9 Plt Count 371 MPV 8.2 L Immature Gran % (Auto) 0.5 H Neut % (Auto) 71.8 Lymph % (Auto) 15.8 L [place] % (Auto) 10.0 Eos % (Auto) 1.1 Baso % (Auto) 0.8 Lymph # (Auto) 1.9 [place] # (Auto) 1.2 Eos # (Auto) 0.1 Baso # (Auto) 0.1 Abs Immat Gran (auto) 0.06 H Absolute Neuts (auto) 8.5 H Absolute Nucleated RBC 0.000 Nucleated RBC % (auto) 0.0 VBG pH 7.38 VBG pCO2 57 VBG pO2 36 VBG HCO3 34 H VBG O2 Saturation 50.0 VBG Base Excess 6.5 Sodium 137 Potassium 4.3 Chloride 87 L Carbon Dioxide 35 H Anion Gap 19 BUN 19 H Creatinine 0.90 Estim Creat Clear Calc 57.6 Estimated GFR > 60 Random Glucose 107 Calcium 10.2 D Magnesium 2.2 Total Bilirubin 0.5 AST 21 ALT 18 Alkaline Phosphatase 81 Total Creatine Kinase 38 Troponin I High Sens 32.2 D Total Protein 7.9 Albumin 4.0 Urine Color Urine Appearance Urine pH Ur Specific [place] Urine Protein Urine Glucose (UA) Urine Ketones Urine Blood Urine Nitrite Ur Leukocyte Esterase Urine Opiates Screen Urine Fentanyl Screen Ur Barbiturates Screen Ur Phencyclidine Scrn Ur Amphetamines Screen U Benzodiazepines Scrn Urine Cocaine Screen U Marijuana (THC) Screen Ethyl Alcohol < 10 COVID-19 (YASMIN) Negative COVID-19 Clin Com See Note 07/19/23 07/19/23 02:51 05:10 WBC 8.8 RBC 5.42 Hgb 15.8 Hct 47.6 MCV 87.8 MCH 29.2 MCHC 33.2 RDW 11.8 Plt Count 301 MPV 8.3 L Immature Gran % (Auto) 0.6 H Neut % (Auto) 77.3 H Lymph % (Auto) 12.3 L [place] % (Auto) 8.8 Eos % (Auto) 0.3 Baso % (Auto) 0.7 Lymph # (Auto) 1.1 L [place] # (Auto) 0.8 Eos # (Auto) 0.0 Baso # (Auto) 0.1 Abs Immat Gran (auto) 0.05 H Absolute Neuts (auto) 6.8 Absolute Nucleated RBC 0.000 Nucleated RBC % (auto) 0.0 VBG pH VBG pCO2 VBG pO2 VBG HCO3 VBG O2 Saturation VBG Base Excess Sodium 138 Potassium 3.9 Chloride 98 Carbon Dioxide 30 H Anion Gap 14 BUN 15 Creatinine 0.71 Estim Creat Clear Calc 73.1 Estimated GFR > 60 Random Glucose 105 Calcium 8.5 D Magnesium Total Bilirubin AST ALT Alkaline Phosphatase Total Creatine Kinase Troponin I High Sens Total Protein Albumin Urine Color Dark Yellow Urine Appearance Clear Urine pH 6.0 Ur Specific [place] 1.020 Urine Protein Trace Urine Glucose (UA) Negative Urine Ketones 40 Urine Blood Negative Urine Nitrite Negative Ur Leukocyte Esterase Negative Urine Opiates Screen Not Detected Urine Fentanyl Screen Not Detected Ur Barbiturates Screen Not Detected Ur Phencyclidine Scrn POSITIVE H Ur Amphetamines Screen Not Detected U Benzodiazepines Scrn Not Detected Urine Cocaine Screen Not Detected U Marijuana (THC) Screen Not Detected Ethyl Alcohol COVID-19 ([facility]) COVID-19 Clin Com ECG Interpretation: EKG with sinus tachycardia at 01:23/Min; biatrial enlargement. Subsequent EKG shows probably atrial fibrillation at 01:39/Min. Imaging Radiologist's impression: Impressions Chest X-Ray 07/19/23 00:42 IMPRESSION: No acute cardiopulmonary findings. Assessment and Plan (1) Paroxysmal atrial fibrillation with RVR: Status: Acute (2) Adult failure to thrive: Status: Acute Plan Drug screen positive for phencyclidine. Overall, malnourished, disheveled gentleman with atrial fibrillation rapid rate episode but now back in normal sinus rhythm. Unknown cardiac function or coronary status. Overall, main issues seem to be rather social. Diltiazem seems reasonable. We can monitor the heart rates on that. Poor candidate for anticoagulation as little or no insight. Make an echocardiogram on Friday. Discussed with Dr. Borjas. Procedures Date of Service Date of Service: 07/19/23
--- NOTE | 2023-07-19 15:00 | PC.NURSE ---
incontinent of urine, complete change done for patient. patient upset with changing linens, initially stating he did not wish to be changed - however, able to complete bed change. refusing a pillow under his bottom. stating that he just wishes to sleep as he has not slept in the past 2 days.
[2023-07-19] MEDS: PHENobarbitaL sodium 65 MG/ML VIAL Q3Hx2 160 MG IM (15:12)
--- NOTE | 2023-07-19 15:29 | PC.NURSE ---
patient remains tremulous, ciwa at 8. stating the month is january or february, able to state his name and . HR between 140-160, provider aware. medicated patient with PO scheduled cardizem, plan from provider to monitor hr s/p medication administration.
[2023-07-19] MEDS: dilTIAZem HCL 125 MG in 0.9 % Sodium Chloride 100 ML 10 MG IVCONT ×2 (17:10→23:00)
--- NOTE | 2023-07-19 17:12 | PC.NURSE ---
started on cardizem drip 10mg/hr. hr 140-170's. patient continues to be confused, pulling medical equipment.
--- NOTE | 2023-07-19 19:32 | PC.NURSE ---
paused cardizem drip/held pheno IM d/t patient's blood pressure, hypotensive at this time.
[2023-07-19] MEDS: Lactated Ringers 1,000 ML 999 ML IV (19:58)
--- NOTE | 2023-07-19 20:13 | PC.NURSE ---
bp improved ivf bolus infusing. cardizem drip and phenobarb im held as well as po cardizem per Dr. Gardner. nsr on monitor hr ranging 86-95 bpm. pt denies cp/sob at this time. per Dr. Gardner resume cardizem drip if hr sustains in 140s. verbal report given to Noah STRAUSS.
[2023-07-19] MEDS: PHENobarbitaL 15 MG TABLET 45 MG PO (22:12)
--- NOTE | 2023-07-19 22:48 | ECG_ITS ---
Test Reason : cp Blood Pressure : / mmHG Vent. Rate : 094 BPM Atrial Rate : 094 BPM P-R Int : 108 ms QRS Dur : 068 ms QT Int : 360 ms P-R-T Axes : 061 071 073 degrees QTc Int : 450 ms Sinus rhythm with short IA Otherwise normal ECG When compared with ECG of 19-JUL-2023 04:05, rhythm change Referred By: Ole Borjas Electronically Signed By:RADU HENDERSON
[2023-07-20] VITALS (9 sets, daily range): BP systolic 100–166; BP diastolic 60–99; PULSE 77–145; RESP 16–20; TEMP 36–36.7; O2SAT 92–98
[2023-07-20] MEDS: Enoxaparin Sodium 40 MG/0.4 ML SYRINGE SUBCUT (05:53)
[2023-07-20] MEDS: Metoprolol Tartrate 5 MG/5 ML VIAL IVPUSH (05:53)
[2023-07-20 07:15] LABS: Hematocrit 42.8 % (42.0-52.0); Hemoglobin 14.1 g/dl (14.0-18.0); Mean Corpuscular HGB Conc 32.9 g/dl (31.0-36.0); Mean Corpuscular Hemoglobin 29.6 pg (27.0-33.0); Mean Corpuscular Volume 89.7 fL (80.0-98.0); Mean Platelet Volume 8.7 fL (9.4-12.4); Platelet Count 290 X10*3/uL (160-400); Red Blood Count 4.77 X10*6/uL (4.60-5.80); Red Cell Distribution Width 11.9 % (11.0-16.0); White Blood Count 9.7 X10*3/uL (4.8-10.8)
[2023-07-20 07:40] LABS: Alanine Aminotransferase 14 U/L (0-40); Alkaline Phosphatase 51 U/L (39-117); Anion Gap 13 (12-20); Aspartate Amino Transferase 21 U/L (5-37); Bilirubin Direct 0.2 mg/dL (0.0-0.5); Bilirubin Total 0.4 mg/dL (0.0-1.0); Blood Urea Nitrogen 16 mg/dL (9-16); Calcium 8.7 mg/dL (8.4-10.2); Carbon Dioxide 31 mmol/L (22-29); Chloride 99 mmol/L (96-108); Creatinine Clr Calc Pharmacy 94.3; Estimated Glomerular Filt Rate > 60; Glucose Fasting 103 mg/dL (60-99); Sodium 139 mmol/L (135-145); Total Protein 5.9 g/dL (6.5-8.0)
[2023-07-20] MEDS: PHENobarbitaL 15 MG TABLET 45 MG PO ×2 (08:22→21:11)
[2023-07-20] MEDS: dilTIAZem HCL 30 MG TABLET PO ×4 (08:22→21:11)
--- NOTE | 2023-07-20 10:25 | HO.PM.IMPN ---
Subjective Subjective Date of Service: 07/20/23 Interval History: tremor improved Physical Exam Vital Signs: Vital Signs: Last Vital Signs Temp 98.0 F 07/20/23 08:00 Pulse 92 07/20/23 08:00 Resp 16 07/20/23 08:00 BP 119/66 07/20/23 08:00 Pulse Ox 98 07/20/23 08:00 O2 Del Method Nasal Cannula 07/20/23 08:00 O2 Flow Rate 2 07/20/23 08:00 Oxygen Flow Rate 2 07/19/23 04:23 BMI result Body Mass Index 20.9 Const: General: comfortable, no acute distress, ill appearing and poor hygiene Nutritional Appearance: cachectic, malnourished and underweight Orientation/consciousness: patient oriented x3 HEENT: Other: Unremarkable Head: Yes normal to inspection Neck: Neck: Yes normal visual inspection Chest: Chest palpation & inspection: normal inspection of the chest Resp: Auscultation: clear to auscultation bilaterally Cardio: Palpation: normal PMI Heart sounds: S1 normal heart sound present, S2 normal heart sound present, no gallops, no murmurs and no rubs GI: Palpation (GI): Soft to palpation Back/Spine/Pelvis: Other: unremarkable Skin: General skin exam: no rashes or lesions noted Neuro: General: patient oriented x3 Extrem: General: Yes normal to inspection Psych: Mental Status: mental status grossly normal Objective Data Active Medications Acetaminophen (Acetaminophen 325 Mg Tablet) 650 mg PO Q6H PRN PRN Reason: Pain, Mild (Pain Scale 1-3) Diltiazem HCl (Diltiazem Hcl 30 Mg Tablet) 30 mg PO QID [facility]; Protocol Last Admin: 07/20/23 08:22 Dose: 30 mg Documented By: MARTINA Enoxaparin Sodium (Enoxaparin Sodium 40 Mg/0.4 Ml Syringe) 40 mg SUBCUT Q24H [facility] Last Admin: 07/20/23 05:53 Dose: 40 mg Documented By: GUERO Diltiazem HCl 125 mg/ Sodium (Chloride) 125 mls @ 0 mls/hr IVCONT .Q0M [facility]; Protocol Last Titration: 07/20/23 08:01 Dose: 5 mg/hr, 5 mls/hr Documented By: MARTINA Melatonin (Melatonin 3 Mg Tablet) 6 mg PO BEDTIME PRN PRN Reason: Insomnia Ondansetron HCl (Ondansetron Hcl 4 Mg/2 Ml Vial) 4 mg IVPUSH Q8H PRN PRN Reason: Nausea and Vomiting Pharmacy Consult (Consult Rx Etoh Phenob Im/Po) 1 each MISCELLANE ONCE [facility]; Protocol PRN Reason: Consult order Phenobarbital (Phenobarbital 15 Mg Tablet) 45 mg PO BID [facility]; Protocol Stop: 07/21/23 09:01 Last Admin: 07/20/23 08:22 Dose: 45 mg Documented By: MARTINA Phenobarbital (Phenobarbital 30 Mg Tablet) 30 mg PO BID [facility]; Protocol Stop: 07/23/23 09:01 Phenobarbital (Phenobarbital 30 Mg Tablet) 30 mg PO DAILY [facility]; Protocol Stop: 07/25/23 09:01 Sodium Chloride (0.9 % Sodium Chloride Flush 3 Ml Syringe) 3 ml IVFLUSH QSHIFT [facility] Last Admin: 07/20/23 08:28 Dose: Not Given Documented By: MARTINA Non-Admin Reason: IV Running Labs 07/20/23 06:44 07/20/23 06:44 Labs: Laboratory Results - last 24 hr 07/20/23 06:44 MCV 89.7 MCH 29.6 MCHC 32.9 RDW 11.9 Plt Count 290 MPV 8.7 L Absolute Nucleated RBC 0.000 Nucleated RBC % (auto) 0.0 Anion Gap 13 Estim Creat Clear Calc 94.3 Estimated GFR > 60 Fasting Glucose 103 H Calcium 8.7 Magnesium 2.0 Total Bilirubin 0.4 Direct Bilirubin 0.2 AST 21 ALT 14 Alkaline Phosphatase 51 Total Protein 5.9 L Albumin 3.0 L TSH 3.20 Assessment and Plan (1) Paroxysmal atrial fibrillation with RVR: Status: Acute Plan 68M PMH chronic hypoxic respiratory failure secondary to COPD, alcohol dependence, paroxysmal atrial fibrillation not on AC, presented with failure to thrive noted to be in a flutter with RVR Paroxysmal atrial fibrillation/atrial flutter with RVR Continue diltiazem echo cardiology following Not a good candidate for anticoagulation due to poor compliance, continuous alcohol use, fall risk Alcohol dependence with withdrawal Phenobarbital protocol Chronic hypoxic respiratory failure secondary to COPD Continue baseline O2 Polysubstance dependence Addiction team eval Failure to thrive Case management eval, PT DVT prophylaxis with Lovenox Full Code reason for continued hospitalization: Actively withdrawing, rvr Quality Stroke Does the patient have a stroke diagnosis?: No VTE Prior VTE?: No VTE Risk Level:: Medical - moderate - high VTE Device Contraindication: Treatment Not Indicated VTE Drug Contraindication: N/A - Med Ordered
[2023-07-20] MEDS: 0.9 % Sodium Chloride Flush 3 ML SYRINGE IVFLUSH ×2 (16:59→21:11)
--- NOTE | 2023-07-20 17:49 | PC.NURSE ---
Patient refused to get out of bed stating he is too weak to get up, moderate tremors, having difficulty swallowing but denies trouble when asked if there is issue.
[2023-07-21] VITALS (12 sets, daily range): BP systolic 78–140; BP diastolic 46–84; PULSE 81–180; RESP 16–20; TEMP 36.2–36.6; O2SAT 94–100
[2023-07-21 06:31] LABS: Hematocrit 41.5 % (42.0-52.0); Hemoglobin 13.2 g/dl (14.0-18.0); Mean Corpuscular HGB Conc 31.8 g/dl (31.0-36.0); Mean Corpuscular Hemoglobin 29.3 pg (27.0-33.0); Mean Platelet Volume 8.7 fL (9.4-12.4); Platelet Count 310 X10*3/uL (160-400); Red Blood Count 4.51 X10*6/uL (4.60-5.80); White Blood Count 9.7 X10*3/uL (4.8-10.8)
--- NOTE | 2023-07-21 07:00 | CA_ITS ---
Transthoracic Echocardiogram Patient (Last, First, Middle): Heriberto Cho, Gender: Male Date of : 1955 Age: 68 Procedure Date: 07/21/2023 Procedure Type: Transthoracic Echocardiogram Location: [facility] [place] Height: 160.02 cm Weight: 53.07 kg BSA: 1.54 m2 Heart Rate: bpm BP: 126 / 66 mmHg Pipe Buffer: Referring MD: Vaibhav Valdes MD Symptoms: Atrial fibrillation Study Quality: Technically Difficult ECG Rhythm: Sinus Conclusions: - Limited echo. - Normal left ventricular size and systolic function. The visually estimated ejection fraction is between 55-60%. - Moderately increased right ventricular cavity size. There is mildly decreased right ventricular systolic function. Findings Left Ventricle Normal left ventricular size and systolic function. The visually estimated ejection fraction is between 55-60%. Limited Echo due to patient uncooporation. Right Ventricle Moderately increased right ventricular cavity size. There is mildly decreased right ventricular systolic function. Measurements 2D Linear Measurements IVSd: 0.85 0.6-0.9/0.6-1.0 cm LVIDd: 3.91 3.9-5.3/4.2-5.9 cm LVIDd Index: 2.54 2.4-3.2/2.2-3.1 cm/m2 LVIDs: 2.81 2.0-3.6 cm LVPWd: 0.89 0.7-1.1 cm LA Diam: 2.30 2.7-3.8/3.0-4.0 cm LAIDs Index: 1.49 1.5-2.3 cm/m2 LV Mass: 125.31 67-162/88-224 g LV Mass Index: 81.37 43-95/49-115 g/m2 2D Systolic Function EF 4C: 42.60 >55% Updated in Other Vendor System with Status of Final Giancarlo Girard MD electronically signed on 07/22/2023 1:35:08 PM with status of Final
[2023-07-21 07:03] LABS: Alanine Aminotransferase 15 U/L (0-40); Albumin Level 3.2 g/dL (3.5-5.0); Alkaline Phosphatase 58 U/L (39-117); Anion Gap 9 (12-20); Aspartate Amino Transferase 21 U/L (5-37); Bilirubin Direct 0.2 mg/dL (0.0-0.5); Bilirubin Total 0.3 mg/dL (0.0-1.0); Blood Urea Nitrogen 14 mg/dL (9-16); Calcium 8.7 mg/dL (8.4-10.2); Carbon Dioxide 36 mmol/L (22-29); Chloride 100 mmol/L (96-108); Creatinine Clr Calc Pharmacy 85.1; Estimated Glomerular Filt Rate > 60; Glucose Fasting 108 mg/dL (60-99); Potassium 3.9 mmol/L (3.3-5.1); Sodium 141 mmol/L (135-145); Total Protein 5.9 g/dL (6.5-8.0)
[2023-07-21] MEDS: dilTIAZem HCL 30 MG TABLET PO (08:45)
[2023-07-21] MEDS: PHENobarbitaL 15 MG TABLET 45 MG PO (08:46)
[2023-07-21] MEDS: 0.9 % Sodium Chloride Flush 3 ML SYRINGE IVFLUSH ×3 (08:48→21:00)
--- NOTE | 2023-07-21 09:12 | P.PNIM_ITS ---
Subjective Subjective Date of Service: 07/21/23 Interval History: tremor improved Physical Exam 2 Vital Signs: Vital Signs: Last Vital Signs Temp 97.1 F 07/21/23 08:00 Pulse 180 H 07/21/23 09:07 Resp 20 07/21/23 08:00 BP 114/74 07/21/23 09:07 Pulse Ox 94 07/21/23 08:00 O2 Del Method Nasal Cannula 07/21/23 08:00 O2 Flow Rate 2 07/21/23 08:00 Oxygen Flow Rate 2 07/19/23 04:23 BMI result Body Mass Index 20.9 Const: General: comfortable, no acute distress, ill appearing and poor hygiene Nutritional Appearance: cachectic, malnourished and underweight O rientation/consciousness: patient oriented x3 HEENT: Other: Unremarkable Head: Yes normal to inspection Neck: Neck: Yes normal visual inspection Chest: Chest palpation & inspection: normal inspection of the chest Resp: Auscultation: clear to auscultation bilaterally Cardio: Palpation: normal PMI Heart sounds: S1 normal heart sound present, S2 normal heart sound present, no gallops, no murmurs and no rubs GI: Palpation (GI): Soft to palpation Back/Spine/Pelvis: Other: unremarkable Skin: General skin exam: no rashes or lesions noted Neuro: General: patient oriented x3 Extrem: General: Yes normal to inspection Psych: Mental Status: mental status grossly normal Objective Data Active Medications Acetaminophen (Acetaminophen 325 Mg Tablet) 650 mg PO Q6H PRN PRN Reason: Pain, Mild (Pain Scale 1-3) Diltiazem HCl (Diltiazem Hcl 30 Mg Tablet) 30 mg PO QID [facility]; Protocol Last Admin: 07/21/23 08:45 Dose: 30 mg Documented By: EFE Enoxaparin Sodium (Enoxaparin Sodium 40 Mg/0.4 Ml Syringe) 40 mg SUBCUT Q24H [facility] Last Admin: 07/21/23 06:11 Dose: Not Given Documented By: ELAINE Non-Admin Reason: Patient Refused Diltiazem HCl 125 mg/ Sodium (Chloride) 125 mls @ 0 mls/hr IVCONT .Q0M [facility]; Protocol Last Titration: 07/21/23 09:08 Dose: 15 mg/hr, 15 mls/hr Documented By: EFE Melatonin (Melatonin 3 Mg Tablet) 6 mg PO BEDTIME PRN PRN Reason: Insomnia Ondansetron HCl (Ondansetron Hcl 4 Mg/2 Ml Vial) 4 mg IVPUSH Q8H PRN PRN Reason: Nausea and Vomiting Pharmacy Consult (Consult Rx Etoh Phenob Im/Po) 1 each MISCELLANE ONCE PRN; Protocol PRN Reason: Consult order Phenobarbital (Phenobarbital 30 Mg Tablet) 30 mg PO BID [facility]; Protocol Stop: 07/23/23 09:01 Phenobarbital (Phenobarbital 30 Mg Tablet) 30 mg PO DAILY [facility]; Protocol Stop: 07/25/23 09:01 Sodium Chloride (0.9 % Sodium Chloride Flush 3 Ml Syringe) 3 ml IVFLUSH QSHIFT [facility] Last Admin: 07/21/23 08:48 Dose: 3 ml Documented By: EFE Labs 07/21/23 05:52 07/21/23 05:52 Labs: Laboratory Results - last 24 hr 07/21/23 05:52 MCV 92.0 MCH 29.3 MCHC 31.8 RDW 12.0 Plt Count 310 MPV 8.7 L Absolute Nucleated RBC 0.000 Nucleated RBC % (auto) 0.0 Anion Gap 9 L Estim Creat Clear Calc 85.1 Estimated GFR > 60 Fasting Glucose 108 H Calcium 8.7 Magnesium 2.0 Total Bilirubin 0.3 Direct Bilirubin 0.2 AST 21 ALT 15 Alkaline Phosphatase 58 Total Protein 5.9 L Albumin 3.2 L Assessment and Plan (1) Paroxysmal atrial fibrillation with RVR: Status: Acute Plan 68M PMH chronic hypoxic respiratory failure secondary to COPD, alcohol dependence, paroxysmal atrial fibrillation not on AC, presented with failure to thrive noted to be in a flutter with RVR Paroxysmal atrial fibrillation/atrial flutter with RVR Continue diltiazem, has been going in and out of sinus echo cardiology following Not a good candidate for anticoagulation due to poor compliance, continuous alcohol use, fall risk Alcohol dependence with withdrawal Phenobarbital protocol Chronic hypoxic respiratory failure secondary to COPD Continue baseline O2 Polysubstance dependence stable Failure to thrive ?home with vna vs str DVT prophylaxis with Lovenox Full Code reason for continued hospitalization: rvr Quality Stroke Does the patient have a stroke diagnosis?: No VTE Prior VTE?: No VTE Risk Level:: Medical - moderate - high VTE Device Contraindication: Treatment Not Indicated VTE Drug Contraindication: N/A - Med Ordered
[2023-07-21] MEDS: 0.9 % Sodium Chloride 500 ML 999 ML IV (09:24)
--- NOTE | 2023-07-21 11:24 | MHC.CM.PN ---
EMR REVIEWED, PER HOSPITALIST PT NOT READY FOR DC, OF THIS AM PT RECEIVING IV FLUIDS, IV CARDIZEM HOWEVER THAT HAS BEEN DC'D AND PT STILL ON PHENOBARB PROTOCOL, CM WILL CONT TO FOLLOW DC NEEDS.
--- NOTE | 2023-07-21 11:31 | PM.PNCARD ---
Subjective Subjective Date of Service: 07/21/23 Interval history: Seen examined at bedside. In and out of atrial flutter. Currently off Cardizem because of hypotension. Any significant issues. Physical Exam Vital Signs: Last Vital Signs Temp 97.5 F 07/21/23 11:19 Pulse 90 07/21/23 11:19 Resp 20 07/21/23 11:19 BP 99/59 L 07/21/23 11:19 Pulse Ox 97 07/21/23 11:19 O2 Del Method Nasal Cannula 07/21/23 11:19 O2 Flow Rate 2 07/21/23 11:19 Oxygen Flow Rate 2 07/19/23 04:23 BMI result Body Mass Index 20.9 GENERAL APPEARANCE: in no acute distress, thin/cachectic. NECK: no carotid bruit, no jugular venous distention. SKIN: no suspicious lesions, warm and dry. HEART: no murmurs, irregular rate and rhythm. LUNGS: clear to auscultation bilaterally. ABDOMEN: soft, nontender. EXTREMITIES: no edema. PERIPHERAL PULSES: equal. Objective Labs and Meds 07/21/23 05:52 07/21/23 05:52 Lab results: Laboratory Results - last 24 hr 07/21/23 05:52 WBC 9.7 RBC 4.51 L Hgb 13.2 L Hct 41.5 L MCV 92.0 MCH 29.3 MCHC 31.8 RDW 12.0 Plt Count 310 MPV 8.7 L Absolute Nucleated RBC 0.000 Nucleated RBC % (auto) 0.0 Sodium 141 Potassium 3.9 Chloride 100 Carbon Dioxide 36 H Anion Gap 9 L BUN 14 Creatinine 0.61 Estim Creat Clear Calc 85.1 Estimated GFR > 60 Fasting Glucose 108 H Calcium 8.7 Magnesium 2.0 Total Bilirubin 0.3 Direct Bilirubin 0.2 AST 21 ALT 15 Alkaline Phosphatase 58 Total Protein 5.9 L Albumin 3.2 L Progress Note: A&P Assessment and plan (1) Paroxysmal atrial fibrillation with RVR: Status: Acute (2) Atrial flutter with rapid ventricular response: Status: Acute (3) Adult failure to thrive: Status: Acute Plan 68-year-old gentleman with background history of alcoholism presenting with COPD exacerbation and atrial fibrillation/atrial flutter. He is on [facility] protocol for alcohol withdrawal. He had fairly fast atrial flutter episode today and was started on Cardizem drip with known significant improvement in heart rate and actually developed hypotension. Would favor using metoprolol in him given atrial flutter. If electrolytes stays stable then digoxin can be an option to specially if he develops flutter and fib and does not break out of it. If he stays in sinus rhythm then digoxin has no role. Would avoid Cardizem for now. Gentle hydration. Echocardiography. Discussion with the patient about complete abstinence from alcohol. Thank you for allowing me to participate in the care of your patient. Please feel free to contact me if you have any questions. Time Spent With Patient Time: Total time managing care of this patient today ____ minutes. Progress Note: Quality Stroke Does the patient have a stroke diagnosis?: No Procedures Date of Service Date of Service: 07/21/23
[2023-07-21] MEDS: Metoprolol Tartrate 25 MG TABLET PO ×2 (15:16→20:59)
--- NOTE | 2023-07-21 17:21 | PC.NURSE ---
Addendum entered by Niyah Shabazz RN 07/21/23 19:04: Pt continued to flip afib/flutter and SR throughout the day denying any symptoms Original Note: Pt heart rhythm SR in morning, then flipped to a fib/a flutter HR to 170-180s. Assessed pt. Pt states feels normal, no heart racing palpitations, dizziness or any changes. BP 140/84. MD notified. Pt PO cardizem given and drip restarted 10m/hr at 8:51. HR sustaining 180s. Drip titrated up per protocol with BP 114/74 at 9:07. BP 78/46. MD notified, cardizem drip stopped- 500ml bolus NS. PT still remained asymptomatic. BP trended up to SBP 100s (see VS doc). Cardio saw pt and adjusted meds.
[2023-07-21] MEDS: Acetaminophen 325 MG TABLET 650 MG PO (20:58)
[2023-07-21] MEDS: Melatonin 3 MG TABLET 6 MG PO (20:58)
[2023-07-21] MEDS: PHENobarbitaL 30 MG TABLET PO (20:59)
[2023-07-22 03:14] VITALS: BP 106/62; PULSE 77; RESP 16; TEMP 36.8; O2SAT 96
[2023-07-22 07:59] VITALS: BP 106/62; BP 119/72; PULSE 77; PULSE 87; RESP 18; TEMP 36.3; O2SAT 100; O2SAT 96
[2023-07-22] MEDS: 0.9 % Sodium Chloride Flush 3 ML SYRINGE IVFLUSH ×2 (08:18→16:30)
[2023-07-22] MEDS: Metoprolol Tartrate 25 MG TABLET PO ×3 (08:19→20:52)
[2023-07-22] MEDS: PHENobarbitaL 30 MG TABLET PO ×2 (08:19→20:52)
[2023-07-22 08:24] LABS: Hematocrit 41.6 % (42.0-52.0); Mean Corpuscular HGB Conc 31.3 g/dl (31.0-36.0); Mean Corpuscular Hemoglobin 29.3 pg (27.0-33.0); Mean Corpuscular Volume 93.9 fL (80.0-98.0); Mean Platelet Volume 8.6 fL (9.4-12.4); Platelet Count 285 X10*3/uL (160-400); Red Blood Count 4.43 X10*6/uL (4.60-5.80); Red Cell Distribution Width 11.9 % (11.0-16.0); White Blood Count 8.6 X10*3/uL (4.8-10.8)
[2023-07-22 08:26] LABS: Venous Blood Gas Refer to POC result
[2023-07-22 08:27] LABS: VBG Base Excess 13.1 mmol/L; VBG HCO3 42 mmol/L (22-26); VBG pCO2 77 mmHg; VBG pH 7.34 (7.32-7.43); VBG pO2 29 mmHg
[2023-07-22] MEDS: Acetaminophen 325 MG TABLET 650 MG PO (08:27)
[2023-07-22 08:45] LABS: Anion Gap 9 (12-20); Blood Urea Nitrogen 15 mg/dL (9-16); Calcium 8.7 mg/dL (8.4-10.2); Carbon Dioxide 38 mmol/L (22-29); Chloride 99 mmol/L (96-108); Creatinine Clr Calc Pharmacy 77.4; Estimated Glomerular Filt Rate > 60; Glucose Fasting 110 mg/dL (60-99); Sodium 142 mmol/L (135-145)
--- NOTE | 2023-07-22 09:55 | P.PNIM_ITS ---
Subjective Subjective Date of Service: 07/22/23 Interval History: feels weak Physical Exam 2 Vital Signs: Vital Signs: Last Vital Signs Temp 97.3 F 07/22/23 07:59 Pulse 87 07/22/23 07:59 Resp 18 07/22/23 07:59 BP 119/72 07/22/23 07:59 Pulse Ox 100 07/22/23 07:59 O2 Del Method Nasal Cannula 07/22/23 07:59 O2 Flow Rate 2 07/22/23 07:59 Oxygen Flow Rate 2 07/19/23 04:23 BMI result Body Mass Index 20.9 Const: General: comfortable, no acute distress, ill appearing and poor hygiene Nutritional Appearance: cachectic, malnourished and underweight O rientation/consciousness: patient oriented x3 HEENT: Other: Unremarkable Head: Yes normal to inspection Neck: Neck: Yes normal visual inspection Chest: Chest palpation & inspection: normal inspection of the chest Resp: Auscultation: clear to auscultation bilaterally Cardio: Palpation: normal PMI Heart sounds: S1 normal heart sound present, S2 normal heart sound present, no gallops, no murmurs and no rubs GI: Palpation (GI): Soft to palpation Back/Spine/Pelvis: Other: unremarkable Skin: General skin exam: no rashes or lesions noted Neuro: General: patient oriented x3 Extrem: General: Yes normal to inspection Psych: Mental Status: mental status grossly normal Objective Data Active Medications Acetaminophen (Acetaminophen 325 Mg Tablet) 650 mg PO Q6H PRN PRN Reason: Pain, Mild (Pain Scale 1-3) Last Admin: 07/22/23 08:27 Dose: 650 mg Documented By: NIKOLAI Enoxaparin Sodium (Enoxaparin Sodium 40 Mg/0.4 Ml Syringe) 40 mg SUBCUT Q24H [facility] Last Admin: 07/22/23 05:14 Dose: Not Given Documented By: ELAINE Non-Admin Reason: Patient Refused Melatonin (Melatonin 3 Mg Tablet) 6 mg PO BEDTIME PRN PRN Reason: Insomnia Last Admin: 07/21/23 20:58 Dose: 6 mg Documented By: ELAINE Metoprolol Tartrate (Metoprolol Tartrate 25 Mg Tablet) 25 mg PO TID [facility]; Protocol Last Admin: 07/22/23 08:19 Dose: 25 mg Documented By: NIKOLAI Ondansetron HCl (Ondansetron Hcl 4 Mg/2 Ml Vial) 4 mg IVPUSH Q8H PRN PRN Reason: Nausea and Vomiting Pharmacy Consult (Consult Rx Etoh Phenob Im/Po) 1 each MISCELLANE ONCE PRN; Protocol PRN Reason: Consult order Phenobarbital (Phenobarbital 30 Mg Tablet) 30 mg PO BID [facility]; Protocol Stop: 07/23/23 09:01 Last Admin: 07/22/23 08:19 Dose: 30 mg Documented By: NIKOLAI Phenobarbital (Phenobarbital 30 Mg Tablet) 30 mg PO DAILY [facility]; Protocol Stop: 07/25/23 09:01 Sodium Chloride (0.9 % Sodium Chloride Flush 3 Ml Syringe) 3 ml IVFLUSH QSHIFT [facility] Last Admin: 07/22/23 08:18 Dose: 3 ml Documented By: NIKOLAI Labs 07/22/23 08:16 07/22/23 08:16 Labs: Laboratory Results - last 24 hr 07/22/23 07/22/23 08:16 08:20 MCV 93.9 MCH 29.3 MCHC 31.3 RDW 11.9 Plt Count 285 MPV 8.6 L Absolute Nucleated RBC 0.000 Nucleated RBC % (auto) 0.0 VBG pH 7.34 VBG pCO2 77 VBG pO2 29 VBG HCO3 42 H VBG O2 Saturation 44.0 VBG Base Excess 13.1 Anion Gap 9 L Estim Creat Clear Calc 77.4 Estimated GFR > 60 Fasting Glucose 110 H Calcium 8.7 Assessment and Plan (1) Paroxysmal atrial fibrillation with RVR: Status: Acute Plan 68M PMH chronic hypoxic respiratory failure secondary to COPD, alcohol dependence, paroxysmal atrial fibrillation not on AC, presented with failure to thrive noted to be in a flutter with RVR Paroxysmal atrial fibrillation/atrial flutter with RVR changed to metooprolol 25mg tid cardiology following Not a good candidate for anticoagulation due to poor compliance, continuous alcohol use, fall risk Alcohol dependence with withdrawal Phenobarbital protocol Chronic hypoxic respiratory failure secondary to COPD Continue baseline O2 Polysubstance dependence stable Failure to thrive PT recommending str DVT prophylaxis with Lovenox Full Code reason for continued hospitalization: rvr Quality Stroke Does the patient have a stroke diagnosis?: No VTE Prior VTE?: No VTE Risk Level:: Medical - moderate - high VTE Device Contraindication: Treatment Not Indicated VTE Drug Contraindication: N/A - Med Ordered
--- NOTE | 2023-07-22 11:10 | MHC.RECOVRN ---
Met with pt in 476 after consult placed to Addiction Medicine for PCP use. Pt had presented to the ED for failure to thrive, had not moved from the couch in one week, had not had food or drink for 3 days, was incontinent of urine and feces, confused at baseline. Upon evaluation, pt admitted for atrial flutter with rapid ventricular response. Pt sitting in bed, awake, alert, attempts to engage in conversation however is very difficult to understand/mumbling. Pt denies recent alcohol use, states It's been awhile now. Unable to articulate how long since last use. Pt denies other substance use, including PCP. Pt states I wanted to smoke. When asked further, pt reports desire to smoke a cigarette. Pt declines need for recovery support/services. Denies other questions for t/w. Discussed with Deirdre Holcomb APRN.
[2023-07-22 11:15] VITALS: BP 101/65; PULSE 84; RESP 20; TEMP 36.7; O2SAT 96
[2023-07-22] MEDS: Multivitamin TABLET 1 TAB PO (11:27)
--- NOTE | 2023-07-22 12:57 | PM.PNCARD ---
Subjective Subjective Date of Service: 07/22/23 Interval history: Seen examined at bedside. He received phenobarbital and was quite sleepy. Physical Exam Vital Signs: Last Vital Signs Temp 98.1 F 07/22/23 11:15 Pulse 84 07/22/23 11:15 Resp 20 07/22/23 11:15 BP 101/65 07/22/23 11:15 Pulse Ox 96 07/22/23 11:15 O2 Del Method Nasal Cannula 07/22/23 11:15 O2 Flow Rate 2 07/22/23 11:15 Oxygen Flow Rate 2 07/19/23 04:23 BMI result Body Mass Index 20.9 GENERAL APPEARANCE: Sleepy. Thin. NECK: no carotid bruit, no jugular venous distention. SKIN: no suspicious lesions, warm and dry. HEART: no murmurs, irregular rate and rhythm. LUNGS: clear to auscultation bilaterally. ABDOMEN: soft, nontender. EXTREMITIES: no edema. PERIPHERAL PULSES: equal. Objective Labs and Meds 07/22/23 08:16 07/22/23 08:16 Lab results: Laboratory Results - last 24 hr 07/22/23 07/22/23 08:16 08:20 WBC 8.6 RBC 4.43 L Hgb 13.0 L Hct 41.6 L MCV 93.9 MCH 29.3 MCHC 31.3 RDW 11.9 Plt Count 285 MPV 8.6 L Absolute Nucleated RBC 0.000 Nucleated RBC % (auto) 0.0 VBG pH 7.34 VBG pCO2 77 VBG pO2 29 VBG HCO3 42 H VBG O2 Saturation 44.0 VBG Base Excess 13.1 Sodium 142 Potassium 4.0 Chloride 99 Carbon Dioxide 38 H Anion Gap 9 L BUN 15 Creatinine 0.67 Estim Creat Clear Calc 77.4 Estimated GFR > 60 Fasting Glucose 110 H Calcium 8.7 Progress Note: A&P Assessment and plan (1) Paroxysmal atrial fibrillation with RVR: Status: Acute (2) Atrial flutter with rapid ventricular response: Status: Acute Plan [age] year gentleman with background of alcoholism presenting with AFib/atrial flutter in the setting of COPD exacerbation. Better with beta-casey currently and not developing recurrent atrial fibrillation/flutter at this point. Quite sleepy and could be due to phenobarbital versus CO2 retention. ECHO reviewed which is showing moderate RV dilation with mild RV dysfunction. He could not tolerate ECHO and was quite limited. Thank you for allowing me to participate in the care of your patient. Please feel free to contact me if you have any questions. Time Spent With Patient Time: Total time managing care of this patient today ____ minutes. Progress Note: Quality Stroke Does the patient have a stroke diagnosis?: No Procedures Date of Service Date of Service: 07/22/23
--- NOTE | 2023-07-22 13:47 | MHC.CM.PN ---
Recommendation from PT is STR for pt. he is in agreement to this, he said that he does not have anyone that he can name as HCP, so that is not included in referral, referrals to area SNF's have been submitted.
[2023-07-22] MEDS: Thiamine HCL 100 MG in 0.9 % Sodium Chloride 100 ML 202 MG IV (14:13)
[2023-07-22 15:56] VITALS: BP 108/66; PULSE 74; RESP 18; TEMP 36.4; O2SAT 100
[2023-07-22 19:39] VITALS: BP 102/59; PULSE 88; RESP 20; TEMP 36.9; O2SAT 100
[2023-07-22 23:15] VITALS: BP 139/78; PULSE 79; RESP 12; TEMP 36.6; O2SAT 100
[2023-07-23] VITALS (7 sets, daily range): BP systolic 119–148; BP diastolic 64–89; PULSE 74–87; RESP 15–20; TEMP 36.3–36.6; O2SAT 96–100
[2023-07-23] MEDS: 0.9 % Sodium Chloride Flush 3 ML SYRINGE IVFLUSH ×4 (00:58→20:13)
[2023-07-23 08:34] LABS: Venous Blood Gas Refer to POC result
[2023-07-23 08:35] LABS: VBG Base Excess 11.5 mmol/L; VBG HCO3 39 mmol/L (22-26); VBG pCO2 67 mmHg; VBG pH 7.37 (7.32-7.43); VBG pO2 100 mmHg
[2023-07-23] MEDS: Multivitamin TABLET 1 TAB PO (08:43)
[2023-07-23] MEDS: PHENobarbitaL 30 MG TABLET PO (08:43)
[2023-07-23] MEDS: Metoprolol Tartrate 25 MG TABLET PO ×3 (08:43→20:13)
[2023-07-23] MEDS: Thiamine HCL 100 MG in 0.9 % Sodium Chloride 100 ML 202 MG IV (08:44)
--- NOTE | 2023-07-23 09:29 | P.PNIM_ITS ---
Subjective Subjective Date of Service: 07/23/23 Interval History: no complaints, confused, hallucinating Review of Systems Review of Systems: Yes all other systems are reviewed and are negative Physical Exam 2 Vital Signs: Vital Signs: Last Vital Signs Temp 97.5 F 07/23/23 07:42 Pulse 87 07/23/23 07:42 Resp 20 07/23/23 07:42 BP 119/64 07/23/23 07:42 Pulse Ox 100 07/23/23 07:42 O2 Del Method Nasal Cannula 07/23/23 07:42 O2 Flow Rate 2.5 07/23/23 07:42 Oxygen Flow Rate 2 07/19/23 04:23 BMI result Body Mass Index 20.9 General: AO X 2, frail appearing Resp: diminished bilateral, no accessory muscles used CVS: S1,S2,RRR GI: soft, non tender, non distended Neuro: motor grossly intact, alert Psych: impaired insight, confused, hallucinations Objective Data Active Medications Acetaminophen (Acetaminophen 325 Mg Tablet) 650 mg PO Q6H PRN PRN Reason: Pain, Mild (Pain Scale 1-3) Last Admin: 07/22/23 08:27 Dose: 650 mg Documented By: NIKOLAI Enoxaparin Sodium (Enoxaparin Sodium 40 Mg/0.4 Ml Syringe) 40 mg SUBCUT Q24H [facility] Last Admin: 07/23/23 06:16 Dose: Not Given Documented By: SIMRAN Non-Admin Reason: Patient Refused Thiamine HCl 100 mg/ Sodium (Chloride) 101 mls @ 202 mls/hr IV DAILY [facility] Last Infusion: 07/23/23 09:20 Dose: Infused Documented By: DANN Melatonin (Melatonin 3 Mg Tablet) 6 mg PO BEDTIME PRN PRN Reason: Insomnia Last Admin: 07/21/23 20:58 Dose: 6 mg Documented By: ELAINE Metoprolol Tartrate (Metoprolol Tartrate 25 Mg Tablet) 25 mg PO TID [facility]; Protocol Last Admin: 07/23/23 08:43 Dose: 25 mg Documented By: DANN Multivitamins/Vitamin C (Multivitamin Tablet) 1 tab PO DAILY [facility] Last Admin: 07/23/23 08:43 Dose: 1 tab Documented By: DANN Ondansetron HCl (Ondansetron Hcl 4 Mg/2 Ml Vial) 4 mg IVPUSH Q8H PRN PRN Reason: Nausea and Vomiting Pharmacy Consult (Consult Rx Etoh Phenob Im/Po) 1 each MISCELLANE ONCE [facility]; Protocol PRN Reason: Consult order Phenobarbital (Phenobarbital 30 Mg Tablet) 30 mg PO DAILY [facility]; Protocol Stop: 07/25/23 09:01 Potassium Chloride (Potassium Chloride Er 20 Meq Tab.Er.Prt) 20 meq PO ONCE ONE Stop: 07/23/23 09:28 Sodium Chloride (0.9 % Sodium Chloride Flush 3 Ml Syringe) 3 ml IVFLUSH QSHIFT [facility] Last Admin: 07/23/23 08:43 Dose: 3 ml Documented By: DANN Labs 07/22/23 08:16 07/22/23 08:16 Labs: Laboratory Results - last 24 hr 07/23/23 08:29 VBG pH 7.37 VBG pCO2 67 VBG pO2 100 VBG HCO3 39 H VBG O2 Saturation 99.0 VBG Base Excess 11.5 Assessment and Plan (1) Paroxysmal atrial fibrillation with RVR: Status: Acute Plan 68M PMH chronic hypoxic respiratory failure secondary to COPD, alcohol dependence, paroxysmal atrial fibrillation not on AC, presented with failure to thrive noted to be in a flutter with RVR Paroxysmal atrial fibrillation/atrial flutter with RVR changed to metooprolol 25mg tid now in sinus cardiology following Not a good candidate for anticoagulation due to poor compliance, continuous alcohol use, fall risk Alcohol dependence with withdrawal Phenobarbital protocol 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 reorienting strategies thiamine, mvi Chronic hypoxic, hypercapnceic respiratory failure secondary to COPD Continue baseline O2 for goal 91-94% Polysubstance dependence stable Failure to thrive PT recommending str DVT prophylaxis with Lovenox Full Code reason for continued hospitalization: acutely confused, awaiting SNF Quality Stroke Does the patient have a stroke diagnosis?: No VTE Prior VTE?: No VTE Risk Level:: Medical - moderate - high VTE Device Contraindication: Treatment Not Indicated VTE Drug Contraindication: N/A - Med Ordered
[2023-07-23] MEDS: Potassium Chloride ER 20 MEQ TAB.ER.PRT PO (12:25)
--- NOTE | 2023-07-23 15:12 | MHC.CM.PN ---
EMR reviewed and per MD rounds, pt is not medically cleared for D/C due to pt with delirium.
--- NOTE | 2023-07-23 20:28 | PM.EVENT ---
Event Note Date of Service: 07/23/23 Event Note: 8:20 PM - pt c/o shortness of breath. On 2L/min via NC. Normal O2 sats. No tachycardia or secere resp distress. He was evaluated. Lungs auscultation is remarkable for bilat inspiratory and expiratory wheezing. Will get CXR stat and start tx w/ DuoNeb and Solu-Medrol 125 mg IV stat. Time Spent With Patient Time: Total time managing care of this patient today ____ minutes.
[2023-07-23] MEDS: Albuterol/Iprat 2.5/0.5MG 3 ML AMPUL.NEB INHALE (20:41)
[2023-07-23] MEDS: methylPREDNISolone Sod Succ 125 MG/2 ML VIAL IVPUSH (20:50)
[2023-07-23] MEDS: Acetaminophen 325 MG TABLET 650 MG PO (20:54)
[2023-07-23] MEDS: Melatonin 3 MG TABLET 6 MG PO (20:55)
[2023-07-24] VITALS (10 sets, daily range): BP systolic 91–161; BP diastolic 58–97; PULSE 75–97; RESP 16–20; TEMP 35.8–37.1; O2SAT 95–100
[2023-07-24] MEDS: Enoxaparin Sodium 40 MG/0.4 ML SYRINGE SUBCUT (06:06)
[2023-07-24] MEDS: methylPREDNISolone Sod Succ 40 MG/ML VIAL IVPUSH ×2 (06:07→16:53)
[2023-07-24] MEDS: Acetaminophen 325 MG TABLET 650 MG PO ×2 (06:16→21:52)
[2023-07-24 06:19] LABS: Venous Blood Gas Refer to POC result
[2023-07-24 06:20] LABS: VBG HCO3 41 mmol/L (22-26); VBG pCO2 72 mmHg; VBG pH 7.36 (7.32-7.43); VBG pO2 55 mmHg
[2023-07-24 06:37] LABS: Hematocrit 40.4 % (42.0-52.0); Hemoglobin 12.6 g/dl (14.0-18.0); Mean Corpuscular HGB Conc 31.2 g/dl (31.0-36.0); Mean Corpuscular Volume 92.9 fL (80.0-98.0); Mean Platelet Volume 9.2 fL (9.4-12.4); Platelet Count 302 X10*3/uL (160-400); Red Blood Count 4.35 X10*6/uL (4.60-5.80); Red Cell Distribution Width 11.8 % (11.0-16.0); White Blood Count 5.1 X10*3/uL (4.8-10.8)
[2023-07-24 07:26] LABS: Anion Gap 9 (12-20); Blood Urea Nitrogen 12 mg/dL (9-16); Calcium 8.9 mg/dL (8.4-10.2); Carbon Dioxide 40 mmol/L (22-29); Chloride 95 mmol/L (96-108); Creatinine Clr Calc Pharmacy 89.5; Estimated Glomerular Filt Rate > 60; Glucose Fasting 126 mg/dL (60-99); Potassium 4.9 mmol/L (3.3-5.1); Sodium 139 mmol/L (135-145)
[2023-07-24] MEDS: Metoprolol Tartrate 25 MG TABLET PO ×3 (08:30→21:46)
[2023-07-24] MEDS: PHENobarbitaL 30 MG TABLET PO (08:30)
[2023-07-24] MEDS: Multivitamin TABLET 1 TAB PO (08:30)
[2023-07-24] MEDS: 0.9 % Sodium Chloride Flush 3 ML SYRINGE IVFLUSH ×3 (08:30→21:46)
[2023-07-24] MEDS: Thiamine HCL 100 MG in 0.9 % Sodium Chloride 100 ML 202 MG IV (08:30)
--- NOTE | 2023-07-24 10:54 | PM.PNCARD ---
Subjective Subjective Date of Service: 07/24/23 Interval history: Had episode of respiratory distress last night. Chest x-ray was normal. Unclear whether he had an aspiration event. Physical Exam Vital Signs: Last Vital Signs Temp 96.4 F L 07/24/23 07:25 Pulse 84 07/24/23 07:55 Resp 18 07/24/23 07:25 BP 139/84 07/24/23 07:55 Pulse Ox 96 07/24/23 07:55 O2 Del Method Oxymask 07/24/23 07:25 O2 Flow Rate 1 07/24/23 07:25 Oxygen Flow Rate 2 07/19/23 04:23 BMI result Body Mass Index 20.9 GENERAL APPEARANCE: Pleasant in no distress. NECK: no carotid bruit, no jugular venous distention. SKIN: no suspicious lesions, warm and dry. HEART: no murmurs, regular rate and rhythm. LUNGS: clear to auscultation bilaterally. ABDOMEN: soft, nontender. EXTREMITIES: no edema. PERIPHERAL PULSES: equal. Objective Labs and Meds 07/24/23 06:08 07/24/23 06:09 Lab results: Laboratory Results - last 24 hr 07/24/23 07/24/23 07/24/23 06:08 06:09 06:15 WBC 5.1 RBC 4.35 L Hgb 12.6 L Hct 40.4 L MCV 92.9 MCH 29.0 MCHC 31.2 RDW 11.8 Plt Count 302 MPV 9.2 L Absolute Nucleated RBC 0.000 Nucleated RBC % (auto) 0.0 VBG pH 7.36 VBG pCO2 72 VBG pO2 55 VBG HCO3 41 H VBG O2 Saturation 84.0 VBG Base Excess 13.0 Sodium 139 Potassium 4.9 D Chloride 95 L Carbon Dioxide 40 H* Anion Gap 9 L BUN 12 Creatinine 0.58 Estim Creat Clear Calc 89.5 Estimated GFR > 60 Fasting Glucose 126 H Calcium 8.9 Imaging Radiologist's impression: Impressions Chest X-Ray 07/23/23 20:45 IMPRESSION: Unremarkable examination. Progress Note: A&P Assessment and plan (1) Paroxysmal atrial fibrillation with RVR: Status: Acute Plan [age] year gentleman with background of alcoholism and COPD who presented with COPD exacerbation. He was noticed to have AFib and atrial flutter on telemetry in the setting of alcohol withdrawal. He was changed from Cardizem to metoprolol and since then he has been stable. He had limited echocardiogram yesterday which showed moderately increased right ventricular cavity size with mildly decreased right ventricle systolic function. When he is more cooperative repeat echocardiography should be done maybe as outpatient. Given his history of smoking and COPD, RV dysfunction is likely due to COPD. This potentially is the reason he could not tolerate Cardizem also. Would continue beta-casey. Thank you for allowing me to participate in the care of your patient. Please feel free to contact me if you have any questions. Time Spent With Patient Time: Total time managing care of this patient today ____ minutes. Progress Note: Quality Stroke Does the patient have a stroke diagnosis?: No Procedures Date of Service Date of Service: 07/24/23
[2023-07-24] MEDS: polyethylene glycoL 3350 17 GM POWD.PACK PO (11:57)
--- NOTE | 2023-07-24 12:05 | P.PNIM_ITS ---
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 Review of Systems All other system reviewed and negative. Physical Exam 2 Vital Signs: Vital Signs: Last Vital Signs Temp 97.4 F 07/24/23 11:23 Pulse 79 07/24/23 11:23 Resp 20 07/24/23 11:23 BP 107/66 07/24/23 11:23 Pulse Ox 99 07/24/23 11:23 O2 Del Method Nasal Cannula 07/24/23 11:23 O2 Flow Rate 2 07/24/23 11:23 Oxygen Flow Rate 2 07/19/23 04:23 BMI result Body Mass Index 20.9 Const: Other: General: Awake alert x3 in no acute distress Neck no JVD Resp: diminished bilateral, no expiratory wheeze, no respiratory distress CVS: S1,S2,RRR GI: soft, non tender, non distended Extremities no edema Neuro: motor grossly intact, alert Psych: impaired insight Objective Data Active Medications Acetaminophen (Acetaminophen 325 Mg Tablet) 650 mg PO Q6H PRN PRN Reason: Pain, Mild (Pain Scale 1-3) Last Admin: 07/24/23 06:16 Dose: 650 mg Documented By: REED Albuterol/Ipratropium (Albuterol/Iprat 2.5/0.5mg 3 Ml Ampul.Neb) 3 ml INHALE RQ4H WHILE AWAKE PRN PRN Reason: Shortness of Breath/Wheezing Enoxaparin Sodium (Enoxaparin Sodium 40 Mg/0.4 Ml Syringe) 40 mg SUBCUT Q24H [facility] Last Admin: 07/24/23 06:06 Dose: 40 mg Documented By: REED Melatonin (Melatonin 3 Mg Tablet) 6 mg PO BEDTIME PRN PRN Reason: Insomnia Last Admin: 07/23/23 20:55 Dose: 6 mg Documented By: REED Methylprednisolone Sodium Succinate (Methylprednisolone Sod Succ 40 Mg/Ml Vial) 40 mg IVPUSH Q12H [facility] Last Admin: 07/24/23 06:07 Dose: 40 mg Documented By: REED Metoprolol Tartrate (Metoprolol Tartrate 25 Mg Tablet) 25 mg PO TID [facility]; Protocol Last Admin: 07/24/23 08:30 Dose: 25 mg Documented By: DANN Multivitamins/Vitamin C (Multivitamin Tablet) 1 tab PO DAILY [facility] Last Admin: 07/24/23 08:30 Dose: 1 tab Documented By: DANN Ondansetron HCl (Ondansetron Hcl 4 Mg/2 Ml Vial) 4 mg IVPUSH Q8H PRN PRN Reason: Nausea and Vomiting Pharmacy Consult (Consult Rx Etoh Phenob Im/Po) 1 each MISCELLANE ONCE PRN; Protocol PRN Reason: Consult order Phenobarbital (Phenobarbital 30 Mg Tablet) 30 mg PO DAILY [facility]; Protocol Stop: 07/25/23 09:01 Last Admin: 07/24/23 08:30 Dose: 30 mg Documented By: DANN Polyethylene Glycol (Polyethylene Glycol 3350 17 Gm Powd.Pack) 17 gm PO DAILY [facility] Last Admin: 07/24/23 11:57 Dose: 17 gm Documented By: DANN Sodium Chloride (0.9 % Sodium Chloride Flush 3 Ml Syringe) 3 ml IVFLUSH QSHIFT [facility] Last Admin: 07/24/23 08:30 Dose: 3 ml Documented By: DANN Thiamine HCl (Thiamine Hcl 100 Mg Tablet) 100 mg PO DAILY [facility] Last Admin: 07/24/23 10:59 Dose: Not Given Documented By: DANN Non-Admin Reason: IV THIMAINE GIVEN BEFORE ORDER CHANGE Labs 07/24/23 06:08 07/24/23 06:09 Labs: Laboratory Results - last 24 hr 07/24/23 07/24/23 07/24/23 06:08 06:09 06:15 MCV 92.9 MCH 29.0 MCHC 31.2 RDW 11.8 Plt Count 302 MPV 9.2 L Absolute Nucleated RBC 0.000 Nucleated RBC % (auto) 0.0 VBG pH 7.36 VBG pCO2 72 VBG pO2 55 VBG HCO3 41 H VBG O2 Saturation 84.0 VBG Base Excess 13.0 Anion Gap 9 L Estim Creat Clear Calc 89.5 Estimated GFR > 60 Fasting Glucose 126 H Calcium 8.9 Assessment and Plan (1) Paroxysmal atrial fibrillation with RVR: Status: Acute Plan 68M PMH chronic hypoxic respiratory failure secondary to COPD, alcohol dependence, paroxysmal atrial fibrillation not on AC, presented with failure to thrive noted to be in a flutter with RVR Paroxysmal atrial fibrillation/atrial flutter with RVR Now in normal sinus rhythm, Continue metooprolol 25mg tid Not a good candidate for anticoagulation due to poor compliance, continuous alcohol use, fall risk Echo showed EF 55-60%, moderately increased right ventricular cavity size and mildly decreased right ventricular systolic function, likely due to COPD Being followed by Cardiology they recommend to continue beta-casey, and recommend outpatient repeat echocardiogram Alcohol dependence with withdrawal Phenobarbital protocol 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 reorienting strategies Continue thiamine, change from IV to po, mvi Chronic hypoxic, hypercapnceic respiratory failure secondary to COPD Continue baseline O2 for goal 91-94%/stable ABG Acute COPD exacerbation Noted to have shortness of breath last night place on IV Solu-Medrol and DuoNeb, continue current treatment gradually wean steroids Question aspiration will obtain speech therapy consult Chest x-ray showed no infiltrate Polysubstance dependence stable Failure to thrive PT recommending str DVT prophylaxis with Lovenox Full Code reason for continued hospitalization: acutely confused, awaiting SNF Quality Stroke Does the patient have a stroke diagnosis?: No VTE Prior VTE?: No VTE Risk Level:: Medical - moderate - high VTE Device Contraindication: Treatment Not Indicated VTE Drug Contraindication: N/A - Med Ordered
[2023-07-24] MEDS: acetaZOLAMIDE 250 MG TABLET PO ×2 (14:18→21:46)
[2023-07-24 14:46] LABS: Magnesium 2.1 mg/dL (1.6-2.6)
--- NOTE | 2023-07-24 15:42 | HO.WOUND ---
Wound Consult: Initial 68yr old?M admitted to [facility] on 07/19/23 - See progress notes and H&P for detailed history.? Wound consult placed for Buttock wound - POA.? Patient agreeable to assessment and photo documentation.? Buttocks assessed and detailed below. Buttocks and Left Ischium Left Ischium Etiology: ??Stage 2 pressure Injury Present on Admission Measurements: see charting for detailed measurements Wound Bed: pink red moist tissue Drainage / Odor: None noted Edges: ? attached Harleen wound: Chronic MASD - Red maroon, hyperpigmented remains blanchable throughout - consistent with chronic Moisture - ? No Induration, Fluctuance or Warmth noted Pain: Patient reports significant pinpoint pain to Left ischium site when palpated - the open wound is noted to be directly over his bony prominence Goals of Treatment: ? Triad to protect from friction and allow for moist wound healing - off load pressure Recommendations: 1. Turn and Reposition every 2 hours and as needed for patient comfort.? Use pillows or wedges to support off loading positions. 2. Off Load all bony prominences with use of pillows and heel boots if needed.? Apply Preventative foams where needed. ? 3. Monitor for incontinence and moisture control, use barrier creams when needed for prevention and treatment. 4. Provide adequate and supplemental nutrition.? Nutrition consult placed. 5. Order or Continue low air loss mattress. 6. When applicable maintain blood glucose levels per Providers order. 7. Buttock and Left Ischium - Off Load Pressure - Cleanse with PH balance spray or wipes, pat dry. ?Apply thin layer of Triad to wound bed - only pat and dab no scrub and rub when soiling occurs. Reapply thin layer PRN after each episode of incontinence. Re-consult wound care Nurse for wound deterioration or wound changes.
[2023-07-24] MEDS: levalbuterol HCL 1.25 MG/3 ML VIAL.NEB INHALE (19:55)
[2023-07-24] MEDS: Melatonin 3 MG TABLET 6 MG PO (21:46)
[2023-07-25] VITALS (8 sets, daily range): BP systolic 87–141; BP diastolic 60–91; PULSE 72–85; RESP 16–20; TEMP 36.1–37.6; O2SAT 91–100; BMI 20.9
[2023-07-25] MEDS: methylPREDNISolone Sod Succ 40 MG/ML VIAL IVPUSH ×2 (04:26→17:40)
[2023-07-25] MEDS: Enoxaparin Sodium 40 MG/0.4 ML SYRINGE SUBCUT (04:26)
[2023-07-25 06:37] LABS: Anion Gap 8 (12-20); Blood Urea Nitrogen 16 mg/dL (9-16); Carbon Dioxide 36 mmol/L (22-29); Chloride 100 mmol/L (96-108); Creatinine Clr Calc Pharmacy 73.1; Estimated Glomerular Filt Rate > 60; Glucose Random 103 mg/dL (60-115); Sodium 140 mmol/L (135-145)
[2023-07-25] MEDS: PHENobarbitaL 30 MG TABLET PO (09:32)
[2023-07-25] MEDS: polyethylene glycoL 3350 17 GM POWD.PACK PO (09:32)
[2023-07-25] MEDS: Metoprolol Tartrate 25 MG TABLET PO ×3 (09:32→20:31)
[2023-07-25] MEDS: Thiamine HCL 100 MG TABLET PO (09:32)
[2023-07-25] MEDS: Multivitamin TABLET 1 TAB PO (09:32)
[2023-07-25] MEDS: acetaZOLAMIDE 250 MG TABLET PO ×2 (09:32→20:31)
[2023-07-25] MEDS: 0.9 % Sodium Chloride Flush 3 ML SYRINGE IVFLUSH ×3 (09:36→20:31)
--- NOTE | 2023-07-25 11:01 | HO.PM.IMPN ---
Subjective Subjective Date of Service: 07/25/23 Interval History: Patient offers no acute complaints oxygenation stable on 2 L, evaluated by speech therapy and they recommend chopped diet, thin liquids with crushed pills, denies shortness of breath, no chest pain, no palpitations, no lightheadedness or dizziness, eating breakfast, no events overnight. Review of Systems All other system reviewed and negative. Physical Exam Vital Signs: Vital Signs: Last Vital Signs Temp 98.4 F 07/25/23 07:35 Pulse 82 07/25/23 07:35 Resp 20 07/25/23 07:35 BP 125/68 07/25/23 07:35 Pulse Ox 99 07/25/23 07:35 O2 Del Method Oxymask 07/25/23 07:35 O2 Flow Rate 2 07/25/23 07:35 Oxygen Flow Rate 2 07/19/23 04:23 BMI result Body Mass Index 20.9 Const: Other: General: Awake alert x3, in no acute distress Neck no JVD Resp: Bilateral diminished breath sounds , no expiratory wheeze, no respiratory distress. CVS: S1,S2,RRR GI: soft, non tender, non distended. Extremities no edema. Neuro: motor grossly intact, alert. Psych: impaired insight. Objective Data Active Medications Acetaminophen (Acetaminophen 325 Mg Tablet) 650 mg PO Q6H PRN PRN Reason: Pain, Mild (Pain Scale 1-3) Last Admin: 07/24/23 21:52 Dose: 650 mg Documented By: REED Acetazolamide (Acetazolamide 250 Mg Tablet) 250 mg PO BID [facility] Stop: 07/26/23 21:01 Last Admin: 07/25/23 09:32 Dose: 250 mg Documented By: OJSSELINE Albuterol/Ipratropium (Albuterol/Iprat 2.5/0.5mg 3 Ml Ampul.Neb) 3 ml INHALE RQ4H WHILE AWAKE PRN PRN Reason: Shortness of Breath/Wheezing Enoxaparin Sodium (Enoxaparin Sodium 40 Mg/0.4 Ml Syringe) 40 mg SUBCUT Q24H [facility] Last Admin: 07/25/23 04:26 Dose: 40 mg Documented By: REED Levalbuterol HCl (Levalbuterol Hcl 1.25 Mg/3 Ml Vial.Neb) 1.25 mg INHALE RTID [facility] Last Admin: 07/25/23 07:25 Dose: Not Given Documented By: SONDRA Non-Admin Reason: Patient Asleep Melatonin (Melatonin 3 Mg Tablet) 6 mg PO BEDTIME PRN PRN Reason: Insomnia Last Admin: 07/24/23 21:46 Dose: 6 mg Documented By: REED Methylprednisolone Sodium Succinate (Methylprednisolone Sod Succ 40 Mg/Ml Vial) 40 mg IVPUSH Q12H [facility] Last Admin: 07/25/23 04:26 Dose: 40 mg Documented By: REED Metoprolol Tartrate (Metoprolol Tartrate 25 Mg Tablet) 25 mg PO TID [facility]; Protocol Last Admin: 07/25/23 09:32 Dose: 25 mg Documented By: JOSSELINE Multivitamins/Vitamin C (Multivitamin Tablet) 1 tab PO DAILY [facility] Last Admin: 07/25/23 09:32 Dose: 1 tab Documented By: JOSSELINE Ondansetron HCl (Ondansetron Hcl 4 Mg/2 Ml Vial) 4 mg IVPUSH Q8H PRN PRN Reason: Nausea and Vomiting Pharmacy Consult (Consult Rx Etoh Phenob Im/Po) 1 each MISCELLANE ONCE PRN; Protocol PRN Reason: Consult order Polyethylene Glycol (Polyethylene Glycol 3350 17 Gm Powd.Pack) 17 gm PO DAILY [facility] Last Admin: 07/25/23 09:32 Dose: 17 gm Documented By: JOSSELINE Sodium Chloride (0.9 % Sodium Chloride Flush 3 Ml Syringe) 3 ml IVFLUSH QSHIFT [facility] Last Admin: 07/25/23 09:36 Dose: 3 ml Documented By: JOSSELINE Thiamine HCl (Thiamine Hcl 100 Mg Tablet) 100 mg PO DAILY [facility] Last Admin: 07/25/23 09:32 Dose: 100 mg Documented By: JOSSELINE Labs 07/24/23 06:08 07/25/23 06:07 Labs: Laboratory Results - last 24 hr 07/24/23 07/25/23 06:09 06:07 Hold Purple Top SEE NOTE Anion Gap 8 L Estim Creat Clear Calc 73.1 Estimated GFR > 60 Random Glucose 103 Calcium 9.0 Magnesium 2.1 Assessment and Plan (1) Paroxysmal atrial fibrillation with RVR: Status: Acute Plan 68M PMH chronic hypoxic respiratory failure secondary to COPD, alcohol dependence, paroxysmal atrial fibrillation not on AC, presented with failure to thrive noted to be in a flutter with RVR Paroxysmal atrial fibrillation/atrial flutter with RVR Had a transient episode of SVT that broke by itself patient remained asymptomatic, Now in normal sinus rhythm, Continue metoprolol 25mg tid Not a good candidate for anticoagulation due to poor compliance, continuous alcohol use, fall risk Echo showed EF 55-60%, moderately increased right ventricular cavity size and mildly decreased right ventricular systolic function, likely due to COPD Being followed by Cardiology they recommend to continue beta-casey, and recommend outpatient repeat echocardiogram Alcohol dependence with withdrawal on Phenobarbital protocol 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 Delirium resolved Continue thiamine, mvi Chronic hypoxic, hypercapnceic respiratory failure secondary to COPD Continue baseline 2 L O2 for goal 91-94%/stable ABG Acute COPD exacerbation Noted to have shortness of breath 07/22 20:28 likely due to aspiration, chest x-ray unremarkable Continue IV Solu-Medrol and Xopenex , gradually wean steroids Seen by speech therapy they recommend chopped diet and thin liquids Polysubstance dependence stable Failure to thrive PT recommending str DVT prophylaxis with Lovenox Full Code reason for continued hospitalization: COPD exacerbation, awaiting SNF Quality Stroke Does the patient have a stroke diagnosis?: No VTE Prior VTE?: No VTE Risk Level:: Medical - moderate - high VTE Device Contraindication: Treatment Not Indicated VTE Drug Contraindication: N/A - Med Ordered
--- NOTE | 2023-07-25 12:02 | MHC.SL.SWA ---
Speech Pathologist Impression: Risk of aspiration, oral phase dysphagia Risk of Aspiration Due to: History of Pneumonia Dysphasia Diet Status: DOWNGRADE to NDD3 Liquid Consistency and Strategies for Safe Swallow: Liquid Intake Recommendation: Thin Liquid Intake Strategies: Small Sips No Straws Solid Food Consistency: Dietary Recommendations: Chopped/Advanced (NDD3) Additional Modifications to Solid Foods: Patient is edentulous, does not have dentures, presents with slowed oral phase and oral residuals on harder solids. No overt s/s of aspiration observed. Recommend CHOPPED/ADVANCED (NDD3) solids for ease of mastication with THIN liquids. Nursing reported patient had choked on pills. Recommend pills be CRUSHED in PUREE. Ensure direct supervision during meals and aspiration precautions. Oral Medication Intake: Crushed with Puree Please contact the pharmacy regarding appropriate crushable or liquid drug formulations that are available whenever modified delivery is recommended. Compensatory Strategies and Precautions to be Taken for Safe Swallow: Sitting Upright (90 deg) Double Swallow No Straw Small Bites and Sips Alternate Liquids/Solids Rate of Ingestion Change Avoid Specific Foods Supervision While Eating and Drinking for Safe Swallow: Total Supervision (1:1) Foods to Avoid: Hard, sticky, dry, or crunchy foods; mixed textures Swallowing Recommended Treatments: Compens. Strategy Educat. Recommendation for Speech: Inpatient Speech Therapy Comment: 1-2 f/u Frequency/Duration: M-F Date Range for Service Req: Timeline to reassess: Quality Control Head Clinican/Clinical Fellow: No Supervisory Statement: I have reviewed and agree with the student/clinical fellow's documentation: N/A Speech Language Pathologist: Winter Lan M.A., CCC-GEAR SHAVER SET UP OPERATOR
--- NOTE | 2023-07-25 13:23 | MHC.CLN ---
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
[2023-07-25] MEDS: levalbuterol HCL 1.25 MG/3 ML VIAL.NEB INHALE ×2 (13:31→20:04)
--- NOTE | 2023-07-25 13:50 | MHC.CM.PN ---
Pt has not been medically cleared for DC, Plan is for him to go to STR at [facility] when DC.
[2023-07-25] MEDS: Acetaminophen 325 MG TABLET 650 MG PO (20:31)
[2023-07-25] MEDS: Melatonin 3 MG TABLET 6 MG PO (20:31)
[2023-07-26] VITALS (11 sets, daily range): BP systolic 100–180; BP diastolic 56–100; PULSE 71–97; RESP 18–20; TEMP 35.8–36.4; O2SAT 94–99
[2023-07-26] MEDS: Enoxaparin Sodium 40 MG/0.4 ML SYRINGE SUBCUT (04:53)
[2023-07-26] MEDS: methylPREDNISolone Sod Succ 40 MG/ML VIAL IVPUSH ×2 (04:59→17:09)
[2023-07-26] MEDS: levalbuterol HCL 1.25 MG/3 ML VIAL.NEB INHALE ×3 (08:12→19:35)
[2023-07-26] MEDS: Multivitamin TABLET 1 TAB PO (09:18)
[2023-07-26] MEDS: Metoprolol Tartrate 25 MG TABLET PO ×3 (09:18→21:51)
[2023-07-26] MEDS: Thiamine HCL 100 MG TABLET PO (09:18)
[2023-07-26] MEDS: acetaZOLAMIDE 250 MG TABLET PO ×2 (09:18→21:51)
[2023-07-26] MEDS: 0.9 % Sodium Chloride Flush 3 ML SYRINGE IVFLUSH ×3 (09:19→21:51)
--- NOTE | 2023-07-26 10:37 | P.PNIM_ITS ---
Subjective Subjective Date of Service: 07/26/23 Interval History: Noted to be tremulous, with small dark stool, no roberto blood, denies nausea, vomiting, hematemesis, abdominal pain or diarrhea, denies chest pain, no shortness of breath, no palpitation. Noted to have 30 sec. run of atrial fibrillation with RVR. Review of Systems All other system reviewed and negative. Physical Exam 2 Vital Signs: Vital Signs: Last Vital Signs Temp 97.0 F 07/26/23 08:00 Pulse 89 07/26/23 08:15 Resp 18 07/26/23 08:15 BP 180/100 H 07/26/23 08:00 Pulse Ox 98 07/26/23 08:00 O2 Del Method Nasal Cannula 07/26/23 08:00 O2 Flow Rate 2 07/26/23 08:00 Oxygen Flow Rate 2 07/19/23 04:23 BMI result Body Mass Index 20.9 Const: Other: General: Awake alert x3, in no acute distress Neck no JVD Resp: Bilateral diminished breath sounds , no expiratory wheeze, no respiratory distress. CVS: S1,S2,RRR GI: soft, non tender, non distended. Extremities no edema. Neuro: motor grossly intact, alert, tremulous, speech clear. Psych: impaired insight. Objective Data Active Medications Acetaminophen (Acetaminophen 325 Mg Tablet) 650 mg PO Q6H PRN PRN Reason: Pain, Mild (Pain Scale 1-3) Last Admin: 07/25/23 20:31 Dose: 650 mg Documented By: REED Acetazolamide (Acetazolamide 250 Mg Tablet) 250 mg PO BID [facility] Stop: 07/26/23 21:01 Last Admin: 07/26/23 09:18 Dose: 250 mg Documented By: ROSITAARSylvia Albuterol/Ipratropium (Albuterol/Iprat 2.5/0.5mg 3 Ml Ampul.Neb) 3 ml INHALE RQ4H WHILE AWAKE PRN PRN Reason: Shortness of Breath/Wheezing Enoxaparin Sodium (Enoxaparin Sodium 40 Mg/0.4 Ml Syringe) 40 mg SUBCUT Q24H [facility] Last Admin: 07/26/23 04:53 Dose: 40 mg Documented By: REED Levalbuterol HCl (Levalbuterol Hcl 1.25 Mg/3 Ml Vial.Neb) 1.25 mg INHALE RTID [facility] Last Admin: 07/26/23 08:12 Dose: 1.25 mg Documented By: ALISHA Melatonin (Melatonin 3 Mg Tablet) 6 mg PO BEDTIME PRN PRN Reason: Insomnia Last Admin: 07/25/23 20:31 Dose: 6 mg Documented By: REED Methylprednisolone Sodium Succinate (Methylprednisolone Sod Succ 40 Mg/Ml Vial) 40 mg IVPUSH Q12H [facility] Last Admin: 07/26/23 04:59 Dose: 40 mg Documented By: REED Metoprolol Tartrate (Metoprolol Tartrate 25 Mg Tablet) 25 mg PO TID [facility]; Protocol Last Admin: 07/26/23 09:18 Dose: 25 mg Documented By: MARYELLEN Multivitamins/Vitamin C (Multivitamin Tablet) 1 tab PO DAILY [facility] Last Admin: 07/26/23 09:18 Dose: 1 tab Documented By: MARYELLEN Ondansetron HCl (Ondansetron Hcl 4 Mg/2 Ml Vial) 4 mg IVPUSH Q8H PRN PRN Reason: Nausea and Vomiting Pharmacy Consult (Consult Rx Etoh Phenob Im/Po) 1 each MISCELLANE ONCE PRN; Protocol PRN Reason: Consult order Polyethylene Glycol (Polyethylene Glycol 3350 17 Gm Powd.Pack) 17 gm PO DAILY [facility] Last Admin: 07/26/23 09:02 Dose: Not Given Documented By: MARYELLEN Non-Admin Reason: Diarrhea Sodium Chloride (0.9 % Sodium Chloride Flush 3 Ml Syringe) 3 ml IVFLUSH QSHIFT [facility] Last Admin: 07/26/23 09:19 Dose: 3 ml Documented By: MARYELLEN Thiamine HCl (Thiamine Hcl 100 Mg Tablet) 100 mg PO DAILY [facility] Last Admin: 07/26/23 09:18 Dose: 100 mg Documented By: MARYELLEN Labs 07/24/23 06:08 07/25/23 06:07 Assessment and Plan (1) Paroxysmal atrial fibrillation with RVR: Status: Acute Plan 68M PMH chronic hypoxic respiratory failure secondary to COPD, alcohol dependence, paroxysmal atrial fibrillation not on AC, presented with failure to thrive noted to be in a flutter with RVR Paroxysmal atrial fibrillation/atrial flutter with RVR Had transient episode of AFib with RVR that lasted for 30 seconds Now in normal sinus rhythm, Continue metoprolol 25mg tid Not a good candidate for anticoagulation due to poor compliance, continuous alcohol use, fall risk Echo showed EF 55-60%, moderately increased right ventricular cavity size and mildly decreased right ventricular systolic function, likely due to COPD Being followed by Cardiology they recommend to continue beta-casey, and recommend outpatient repeat echocardiogram Alcohol dependence with withdrawal Finished Phenobarbital protocol, continue thiamine and folic acid 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 Delirium resolved Continue thiamine, mvi Chronic hypoxic, hypercapnceic respiratory failure secondary to COPD Continue baseline 2 L O2 for goal 91-94%/stable ABG Acute COPD exacerbation Persistent diminished breath sound/encourage out of bed to chair and incentive spirometry Noted to have shortness of breath 07/22 20:28 likely due to aspiration, chest x- ray unremarkable Continue IV Solu-Medrol times 24 hours and transition to by mouth steroids and Xopenex , gradually wean steroids Seen by speech therapy they recommend chopped diet and thin liquids Polysubstance dependence stable Dark stools will check CBC and stool guaiac Failure to thrive PT recommending str DVT prophylaxis with Lovenox Full Code reason for continued hospitalization: COPD exacerbation, awaiting SNF Quality Stroke Does the patient have a stroke diagnosis?: No VTE Prior VTE?: No VTE Risk Level:: Medical - moderate - high VTE Device Contraindication: Treatment Not Indicated VTE Drug Contraindication: N/A - Med Ordered
[2023-07-26 11:24] LABS: Hemoglobin 12.7 g/dl (14.0-18.0); Mean Corpuscular Hemoglobin 28.9 pg (27.0-33.0); Mean Corpuscular Volume 93.4 fL (80.0-98.0); Mean Platelet Volume 9.2 fL (9.4-12.4); Platelet Count 352 X10*3/uL (160-400); Red Blood Count 4.39 X10*6/uL (4.60-5.80); Red Cell Distribution Width 12.1 % (11.0-16.0); White Blood Count 5.5 X10*3/uL (4.8-10.8)
[2023-07-26 11:43] LABS: Anion Gap 10 (12-20); Blood Urea Nitrogen 18 mg/dL (9-16); Carbon Dioxide 30 mmol/L (22-29); Chloride 102 mmol/L (96-108); Estimated Glomerular Filt Rate > 60; Glucose Random 138 mg/dL (60-115); Potassium 4.1 mmol/L (3.3-5.1); Sodium 138 mmol/L (135-145)
[2023-07-26] MEDS: Melatonin 3 MG TABLET 6 MG PO (21:51)
[2023-07-27] VITALS (8 sets, daily range): BP systolic 102–138; BP diastolic 64–82; PULSE 75–86; RESP 17–20; TEMP 35.9–36.6; O2SAT 93–98
[2023-07-27] MEDS: Enoxaparin Sodium 40 MG/0.4 ML SYRINGE SUBCUT (05:09)
[2023-07-27] MEDS: methylPREDNISolone Sod Succ 40 MG/ML VIAL IVPUSH (05:09)
[2023-07-27] MEDS: levalbuterol HCL 1.25 MG/3 ML VIAL.NEB INHALE ×3 (07:57→20:05)
[2023-07-27] MEDS: Metoprolol Tartrate 25 MG TABLET PO ×3 (08:45→20:21)
[2023-07-27] MEDS: Folic Acid 1 MG TABLET PO (08:45)
[2023-07-27] MEDS: polyethylene glycoL 3350 17 GM POWD.PACK PO (08:45)
[2023-07-27] MEDS: Multivitamin TABLET 1 TAB PO (08:45)
[2023-07-27] MEDS: 0.9 % Sodium Chloride Flush 3 ML SYRINGE IVFLUSH ×3 (08:45→20:22)
[2023-07-27] MEDS: Thiamine HCL 100 MG TABLET PO (08:45)
[2023-07-27 10:18] LABS: OBS Int Ctl Valid YES; OBS1 POSITIVE (NEGATIVE)
--- NOTE | 2023-07-27 13:52 | P.PNIM_ITS ---
Subjective Subjective Date of Service: 07/27/23 Interval History: Feeling better, feels he is at his baseline with chronic tremors and shortness of breath, on 2-3 L of home oxygen, no acute events overnight, no fevers, no chills Hemodynamically stable. Tolerating diet no nausea, no vomiting, or abdominal pain. Review of Systems All other system reviewed and negative. Physical Exam 2 Vital Signs: Vital Signs: Last Vital Signs Temp 96.8 F 07/27/23 10:59 Pulse 77 07/27/23 10:59 Resp 20 07/27/23 10:59 BP 136/76 07/27/23 10:59 Pulse Ox 93 07/27/23 10:59 O2 Del Method Nasal Cannula 07/27/23 10:59 O2 Flow Rate 2 07/27/23 10:59 Oxygen Flow Rate 2 07/19/23 04:23 BMI result Body Mass Index 20.9 Const: Other: General: Awake alert x3, in no acute distress Neck no JVD Resp: Bilateral diminished breath sounds unchanged , no expiratory wheeze, no respiratory distress. CVS: S1,S2,RRR GI: soft, non tender, non distended. Extremities no edema. Neuro: motor grossly intact, alert, tremulous, speech clear. Psych: impaired insight. Objective Data Active Medications Acetaminophen (Acetaminophen 325 Mg Tablet) 650 mg PO Q6H PRN PRN Reason: Pain, Mild (Pain Scale 1-3) Last Admin: 07/25/23 20:31 Dose: 650 mg Documented By: REED Albuterol/Ipratropium (Albuterol/Iprat 2.5/0.5mg 3 Ml Ampul.Neb) 3 ml INHALE RQ4H WHILE AWAKE PRN PRN Reason: Shortness of Breath/Wheezing Enoxaparin Sodium (Enoxaparin Sodium 40 Mg/0.4 Ml Syringe) [address] [facility] Last Admin: 07/27/23 05:09 Dose: 40 mg Documented By: VEDA Folic Acid (Folic Acid 1 Mg Tablet) [address] [facility] Last Admin: 07/27/23 08:45 Dose: 1 mg Documented By: JUAN Levalbuterol HCl (Levalbuterol Hcl 1.25 Mg/3 Ml Vial.Neb) 1.[address] [facility] Last Admin: 07/27/23 07:57 Dose: 1.25 mg Documented By: SISI Melatonin (Melatonin 3 Mg Tablet) 6 mg PO BEDTIME PRN PRN Reason: Insomnia Last Admin: 07/26/23 21:51 Dose: 6 mg Documented By: VEDA Methylprednisolone Sodium Succinate (Methylprednisolone Sod Succ 40 Mg/Ml Vial) [address] [facility] Last Admin: 07/27/23 05:09 Dose: 40 mg Documented By: VEDA Metoprolol Tartrate (Metoprolol Tartrate 25 Mg Tablet) [address] [facility]; Protocol Last Admin: 07/27/23 08:45 Dose: 25 mg Documented By: JUAN Multivitamins/Vitamin C (Multivitamin Tablet) [address] [facility] Last Admin: 07/27/23 08:45 Dose: 1 tab Documented By: JUAN Ondansetron HCl (Ondansetron Hcl 4 Mg/2 Ml Vial) 4 mg IVPUSH Q8H PRN PRN Reason: Nausea and Vomiting Pharmacy Consult (Consult Rx Etoh Phenob Im/Po) 1 each MISCELLANE ONCE PRN; Protocol PRN Reason: Consult order Polyethylene Glycol (Polyethylene Glycol 3350 17 Gm Powd.Pack) [address] [facility] Last Admin: 07/27/23 08:45 Dose: 17 gm Documented By: JUAN Sodium Chloride (0.9 % Sodium Chloride Flush 3 Ml Syringe) [address] [facility] Last Admin: 07/27/23 08:45 Dose: 3 ml Documented By: JUAN Thiamine HCl (Thiamine Hcl 100 Mg Tablet) [address] [facility] Last Admin: 07/27/23 08:45 Dose: 100 mg Documented By: JUAN Labs 07/26/23 11:15 07/26/23 11:08 Labs: Laboratory Results - last 24 hr 07/27/23 10:00 Stool Occult Blood POSITIVE Assessment and Plan (1) Paroxysmal atrial fibrillation with RVR: Status: Acute Plan 68M PMH chronic hypoxic respiratory failure secondary to COPD, alcohol dependence, paroxysmal atrial fibrillation not on AC, presented with failure to thrive noted to be in a flutter with RVR Paroxysmal atrial fibrillation/atrial flutter with RVR Noted to have intermittent transient episodes of SVT/AFib, patient remains asymptomatic. Now in normal sinus rhythm, Continue metoprolol 25mg tid Not a good candidate for anticoagulation due to poor compliance, continuous alcohol use, fall risk Echo showed EF 55-60%, moderately increased right ventricular cavity size and mildly decreased right ventricular systolic function, likely due to COPD Being followed by Cardiology they recommend to continue beta-casey, and recommend outpatient repeat echocardiogram Alcohol dependence with withdrawal Finished Phenobarbital protocol, continue thiamine and folic acid 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 Delirium resolved Continue thiamine, mvi, chronic tremors. Chronic hypoxic, hypercapnceic respiratory failure secondary to COPD Continue baseline 2 L O2 for goal 91-94%/stable ABG Acute COPD exacerbation Persistent diminished breath sound as per patient he is at his baseline chest x-ray unremarkable Will DC IV Solu-Medrol , continue Xopenex , will add Breo and Spiriva. Seen by speech therapy they recommend chopped diet and thin liquids. Polysubstance dependence stable Dark stools , heme + positive stool, stable hematocrit will DC Lovenox placed on Prilosec Seen by Addiction Team patient declined need for recovery support or services Failure to thrive PT recommending str DVT prophylaxis compression boots Full Code reason for continued hospitalization: COPD exacerbation, awaiting SNF Quality Stroke Does the patient have a stroke diagnosis?: No VTE Prior VTE?: No VTE Risk Level:: Medical - moderate - high VTE Device Contraindication: Treatment Not Indicated VTE Drug Contraindication: N/A - Med Ordered
[2023-07-27] MEDS: Omeprazole 20 MG CAPSULE.DR PO (15:49)
[2023-07-28] VITALS (10 sets, daily range): BP systolic 99–137; BP diastolic 54–80; PULSE 70–92; RESP 17–20; TEMP 36–36.4; O2SAT 94–99
[2023-07-28] MEDS: Omeprazole 20 MG CAPSULE.DR PO ×2 (05:55→15:42)
[2023-07-28 06:46] LABS: Hematocrit 37.3 % (42.0-52.0); Mean Corpuscular HGB Conc 32.2 g/dl (31.0-36.0); Mean Corpuscular Hemoglobin 29.1 pg (27.0-33.0); Mean Corpuscular Volume 90.5 fL (80.0-98.0); Mean Platelet Volume 9.5 fL (9.4-12.4); Platelet Count 318 X10*3/uL (160-400); Red Blood Count 4.12 X10*6/uL (4.60-5.80); Red Cell Distribution Width 12.2 % (11.0-16.0); White Blood Count 5.4 X10*3/uL (4.8-10.8)
[2023-07-28] MEDS: levalbuterol HCL 1.25 MG/3 ML VIAL.NEB INHALE ×3 (07:41→20:04)
[2023-07-28] MEDS: Tiotropium Bromide 2.5 mcg 1 PUFF/2.5 MCG MIST.INHAL 2 PUFF INHALE (07:41)
[2023-07-28] MEDS: Fluticasone/Vilanterol 100/25 BLST.W.DEV 1 PUFF INHALE (07:42)
[2023-07-28] MEDS: 0.9 % Sodium Chloride Flush 3 ML SYRINGE IVFLUSH ×3 (08:07→20:02)
[2023-07-28] MEDS: Metoprolol Tartrate 25 MG TABLET PO ×3 (08:07→20:01)
[2023-07-28] MEDS: Thiamine HCL 100 MG TABLET PO (08:07)
[2023-07-28] MEDS: Multivitamin TABLET 1 TAB PO (08:07)
[2023-07-28] MEDS: Folic Acid 1 MG TABLET PO (08:07)
[2023-07-28] MEDS: Acetaminophen 325 MG TABLET 650 MG PO (08:18)
--- NOTE | 2023-07-28 11:54 | MHC.SL.SWA ---
Speech Pathologist Impression: Mild oral phase dysphagia Risk of Aspiration Due to: History of Pneumonia Dysphasia Diet Status: No changes Liquid Consistency and Strategies for Safe Swallow: Liquid Intake Recommendation: Thin Liquid Intake Strategies: Small Sips No Straws Solid Food Consistency: Dietary Recommendations: Chopped/Advanced (NDD3) Additional Modifications to Solid Foods: Patient has been tolerating chopped diet (NDD3) and has no difficulties with liquids. Recommend continue on modified diet for ease of mastication given pt's lack of dentition. Further ST intervention is no longer warranted as this appears to be the safest, least restrictive diet for pt. If needed, please re-refer. Oral Medication Intake: Crushed with Puree Please contact the pharmacy regarding appropriate crushable or liquid drug formulations that are available whenever modified delivery is recommended. Compensatory Strategies and Precautions to be Taken for Safe Swallow: Sitting Upright (90 deg) Double Swallow No Straw Small Bites and Sips Alternate Liquids/Solids Rate of Ingestion Change Avoid Specific Foods Supervision While Eating and Drinking for Safe Swallow: Intermittent Supervision Foods to Avoid: Hard, sticky, dry, or crunchy foods; mixed textures Swallowing Recommended Treatments: Compens. Strategy Educat. Recommendation for Speech: D/C Launch Steward Clinican/Clinical Fellow: No Supervisory Statement: I have reviewed and agree with the student/clinical fellow's documentation: N/A Speech Language Pathologist: Winter Lan M.A., CCC-T[employer]INE SUBASSEMBLER
--- NOTE | 2023-07-28 12:26 | MHC.CLN ---
F/U PO INTAKE 75-100% DIET RX: CHOPPED-APPROPRIATE PT RECEIVING ENSURE BID TO PROMOTE WOUND HEALING SUPP TO PROVIDE 700KCALS, 40G PROTEIN MONITOR PO INTAKE AND ENCOURAGE SUPPLEMENT
--- NOTE | 2023-07-28 12:44 | MHC.CM.PN ---
EMR REVIEWED, PER HOSPITALIST PT WILL HAVE WORK UP FOR ANEMIA AND LIKELY BE CLEARED FOR DC TOMORROW, [facility] FOLLOWING AND UPDATED HOWEVER THEY WILL NOT HAVE MALE BED FOR TOMORROW, SNF REF EXPANDED AND [facility] FOLLOWING, CM WILL CONT TO FOLLOW DC NEEDS.
--- NOTE | 2023-07-28 13:57 | HO.PM.IMPN ---
Subjective Subjective Date of Service: 07/28/23 Interval History: Sitting comfortably offers no acute complaints, tolerating diet, no nausea, no vomiting, no abdominal pain, no acute events overnight. Review of Systems All other system reviewed and negative. Physical Exam Vital Signs: Vital Signs: Last Vital Signs Temp 96.8 F 07/28/23 11:18 Pulse 73 07/28/23 13:22 Resp 18 07/28/23 13:22 BP 99/60 07/28/23 11:18 Pulse Ox 98 07/28/23 11:18 O2 Del Method Nasal Cannula 07/28/23 11:18 O2 Flow Rate 2 07/28/23 11:18 Oxygen Flow Rate 2 07/19/23 04:23 BMI result Body Mass Index 20.9 Const: Other: General: Awake alert x3, in no acute distress Neck no JVD Resp: Bilateral diminished breath sounds , no expiratory wheeze, no respiratory distress. CVS: S1,S2,RRR GI: soft, non tender, non distended. Extremities no edema. Neuro: motor grossly intact, alert, tremulous, speech clear. Psych: impaired insight. Objective Data Active Medications Acetaminophen (Acetaminophen 325 Mg Tablet) 650 mg PO Q6H PRN PRN Reason: Pain, Mild (Pain Scale 1-3) Last Admin: 07/28/23 08:18 Dose: 650 mg Documented By: JOHN Albuterol/Ipratropium (Albuterol/Iprat 2.5/0.5mg 3 Ml Ampul.Neb) 3 ml INHALE RQ4H WHILE AWAKE PRN PRN Reason: Shortness of Breath/Wheezing Fluticasone/Vilanterol (Fluticasone/Vilanterol 100/25 Blst.W.Dev) 1 puff INHALE RDAILY [facility] Last Admin: 07/28/23 07:42 Dose: 1 puff Documented By: SONDRA Folic Acid (Folic Acid 1 Mg Tablet) 1 mg PO DAILY [facility] Last Admin: 07/28/23 08:07 Dose: 1 mg Documented By: JOHN Levalbuterol HCl (Levalbuterol Hcl 1.25 Mg/3 Ml Vial.Neb) 1.25 mg INHALE RTID [facility] Last Admin: 07/28/23 13:16 Dose: 1.25 mg Documented By: SONDRA Melatonin (Melatonin 3 Mg Tablet) 6 mg PO BEDTIME PRN PRN Reason: Insomnia Last Admin: 07/26/23 21:51 Dose: 6 mg Documented By: VEDA Metoprolol Succinate (Metoprolol Succinate Er 25 Mg Tab.Er.24h) 75 mg PO DAILY [facility]; Protocol Metoprolol Tartrate (Metoprolol Tartrate 25 Mg Tablet) 25 mg PO TID [facility]; Protocol Stop: 07/29/23 23:59 Last Admin: 07/28/23 08:07 Dose: 25 mg Documented By: JOHN Multivitamins/Vitamin C (Multivitamin Tablet) 1 tab PO DAILY [facility] Last Admin: 07/28/23 08:07 Dose: 1 tab Documented By: JOHN Omeprazole (Omeprazole 20 Mg Capsule.Dr) 20 mg PO BID@0630,1630 [facility] Last Admin: 07/28/23 05:55 Dose: 20 mg Documented By: SPARKLE Ondansetron HCl (Ondansetron Hcl 4 Mg/2 Ml Vial) 4 mg IVPUSH Q8H PRN PRN Reason: Nausea and Vomiting Pharmacy Consult (Consult Rx Etoh Phenob Im/Po) 1 each MISCELLANE ONCE PRN; Protocol PRN Reason: Consult order Polyethylene Glycol (Polyethylene Glycol 3350 17 Gm Powd.Pack) 17 gm PO DAILY [facility] Last Admin: 07/28/23 08:10 Dose: Not Given Documented By: JOHN Non-Admin Reason: Patient Refused Sodium Chloride (0.9 % Sodium Chloride Flush 3 Ml Syringe) 3 ml IVFLUSH QSHIFT [facility] Last Admin: 07/28/23 08:07 Dose: 3 ml Documented By: JOHN Thiamine HCl (Thiamine Hcl 100 Mg Tablet) 100 mg PO DAILY [facility] Last Admin: 07/28/23 08:07 Dose: 100 mg Documented By: JOHN Tiotropium [place] (Tiotropium [place] 2.5 Mcg 1 Puff/2.5 Mcg Mist.Inhal) 2 puff INHALE RDAILY [facility] Last Admin: 07/28/23 07:41 Dose: 2 puff Documented By: SONDRA Labs 07/28/23 05:50 07/26/23 11:08 Labs: Laboratory Results - last 24 hr 07/28/23 05:50 MCV 90.5 MCH 29.1 MCHC 32.2 RDW 12.2 Plt Count 318 MPV 9.5 Absolute Nucleated RBC 0.000 Nucleated RBC % (auto) 0.0 Assessment and Plan (1) Paroxysmal atrial fibrillation with RVR: Status: Acute Plan 68M PMH chronic hypoxic respiratory failure secondary to COPD, alcohol dependence, paroxysmal atrial fibrillation not on AC, presented with failure to thrive noted to be in a flutter with RVR Paroxysmal atrial fibrillation/atrial flutter with RVR Noted to have intermittent transient episodes of SVT/AFib, patient remains asymptomatic. Now in normal sinus rhythm, on metoprolol 25mg tid, will transition to Toprol-XL 75 mg daily at a.m. Not a good candidate for anticoagulation due to poor compliance, continuous alcohol use, fall risk Echo showed EF 55-60%, moderately increased right ventricular cavity size and mildly decreased right ventricular systolic function, likely due to COPD Being followed by Cardiology they recommend to continue beta-casey, and recommend outpatient repeat echocardiogram Alcohol dependence with withdrawal Finished Phenobarbital protocol, continue thiamine and folic acid 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 Delirium resolved Continue thiamine, mvi, chronic tremors. Chronic hypoxic, hypercapnceic respiratory failure secondary to COPD Continue baseline 2 L O2 for goal 91-94%/stable ABG Acute COPD exacerbation Persistent diminished breath sound as per patient he is at his baseline chest x-ray unremarkable Will DC IV Solu-Medrol , hold steroids, continue Xopenex , Breo and Spiriva. Seen by speech therapy they recommend chopped diet and thin liquids. Polysubstance dependence stable Dark stools , no acute GI bleed noted, heme + positive , follow hematocrit Continue Prilosec, iron studies repeat stool guaiac and CBC Seen by Addiction Team patient declined need for recovery support or services Failure to thrive continue supplements PT recommending str DVT prophylaxis compression boots Full Code reason for continued hospitalization: COPD exacerbation, awaiting SNF Quality Stroke Does the patient have a stroke diagnosis?: No VTE Prior VTE?: No VTE Risk Level:: Medical - moderate - high VTE Device Contraindication: Treatment Not Indicated VTE Drug Contraindication: N/A - Med Ordered
[2023-07-28] MEDS: Melatonin 3 MG TABLET 6 MG PO (20:02)
[2023-07-29] VITALS (10 sets, daily range): BP systolic 100–148; BP diastolic 56–89; PULSE 76–93; RESP 15–20; TEMP 36.2–36.9; O2SAT 95–100
[2023-07-29] MEDS: Omeprazole 20 MG CAPSULE.DR PO ×2 (05:28→15:45)
[2023-07-29 05:50] LABS: OBS Int Ctl Valid YES; OBS1 POSITIVE (NEGATIVE)
[2023-07-29 07:06] LABS: Hematocrit 37.7 % (42.0-52.0); Mean Corpuscular HGB Conc 31.8 g/dl (31.0-36.0); Mean Corpuscular Hemoglobin 28.8 pg (27.0-33.0); Mean Corpuscular Volume 90.4 fL (80.0-98.0); Mean Platelet Volume 9.2 fL (9.4-12.4); Platelet Count 306 X10*3/uL (160-400); Red Blood Count 4.17 X10*6/uL (4.60-5.80); Red Cell Distribution Width 12.3 % (11.0-16.0); White Blood Count 6.2 X10*3/uL (4.8-10.8)
[2023-07-29 07:28] LABS: Iron 83 mcg/dL (45-160); Percent Iron Saturation 34 % (15-50); Total Iron Binding Capacity 244 mcg/dL (228-428); Unsaturated Iron Binding 161 ug/dL
[2023-07-29 07:43] LABS: Ferritin 235 ng/mL (20-250)
[2023-07-29] MEDS: Fluticasone/Vilanterol 100/25 BLST.W.DEV 1 PUFF INHALE (08:17)
[2023-07-29] MEDS: Tiotropium Bromide 2.5 mcg 1 PUFF/2.5 MCG MIST.INHAL 2 PUFF INHALE (08:17)
[2023-07-29] MEDS: levalbuterol HCL 1.25 MG/3 ML VIAL.NEB INHALE ×3 (08:17→19:33)
[2023-07-29] MEDS: Folic Acid 1 MG TABLET PO (08:49)
[2023-07-29] MEDS: Thiamine HCL 100 MG TABLET PO (08:49)
[2023-07-29] MEDS: Multivitamin TABLET 1 TAB PO (08:49)
[2023-07-29] MEDS: 0.9 % Sodium Chloride Flush 3 ML SYRINGE IVFLUSH ×3 (08:50→19:37)
[2023-07-29] MEDS: Acetaminophen 325 MG TABLET 650 MG PO (11:27)
--- NOTE | 2023-07-29 13:47 | P.PNIM_ITS ---
Subjective Subjective Date of Service: 07/29/23 Interval History: Complaining of sinus congestion, no shortness of breath, tolerating diet no nausea, no vomiting, no abdominal pain, no lightheadedness, no dizziness. Review of Systems No acute issues overnight, Physical Exam 2 Vital Signs: Vital Signs: Last Vital Signs Temp 98.5 F 07/29/23 11:08 Pulse 93 07/29/23 11:08 Resp 18 07/29/23 11:08 BP 107/56 L 07/29/23 11:08 Pulse Ox 98 07/29/23 11:08 O2 Del Method Room Air 07/29/23 11:08 O2 Flow Rate 2 07/29/23 11:08 Oxygen Flow Rate 2 07/19/23 04:23 BMI result Body Mass Index 20.9 Const: Other: General: Awake alert x3, in no acute distress Neck no JVD Resp: Bilateral diminished breath sounds , no expiratory wheeze, no respiratory distress. CVS: S1,S2,RRR GI: soft, non tender, non distended. Extremities no edema. Neuro: motor grossly intact, alert, tremulous, speech clear. Psych: impaired insight. Objective Data Active Medications Acetaminophen (Acetaminophen 325 Mg Tablet) 650 mg PO Q6H PRN PRN Reason: Pain, Mild (Pain Scale 1-3) Last Admin: 07/29/23 11:27 Dose: 650 mg Documented By: LEE Albuterol/Ipratropium (Albuterol/Iprat 2.5/0.5mg 3 Ml Ampul.Neb) 3 ml INHALE RQ4H WHILE AWAKE PRN PRN Reason: Shortness of Breath/Wheezing Fluticasone/Vilanterol (Fluticasone/Vilanterol 100/25 Blst.W.Dev) 1 puff INHALE RDAILY [facility] Last Admin: 07/29/23 08:17 Dose: 1 puff Documented By: SISI Folic Acid (Folic Acid 1 Mg Tablet) 1 mg PO DAILY [facility] Last Admin: 07/29/23 08:49 Dose: 1 mg Documented By: LEE Levalbuterol HCl (Levalbuterol Hcl 1.25 Mg/3 Ml Vial.Neb) 1.25 mg INHALE RTID [facility] Last Admin: 07/29/23 08:17 Dose: 1.25 mg Documented By: SISI Melatonin (Melatonin 3 Mg Tablet) 6 mg PO BEDTIME PRN PRN Reason: Insomnia Last Admin: 07/28/23 20:02 Dose: 6 mg Documented By: VEDA Metoprolol Succinate (Metoprolol Succinate Er 25 Mg Tab.Er.24h) 75 mg PO DAILY [facility]; Protocol Multivitamins/Vitamin C (Multivitamin Tablet) 1 tab PO DAILY [facility] Last Admin: 07/29/23 08:49 Dose: 1 tab Documented By: LEE Omeprazole (Omeprazole 20 Mg Capsule.Dr) 20 mg PO BID@0630,1630 [facility] Last Admin: 07/29/23 05:28 Dose: 20 mg Documented By: VEDA Ondansetron HCl (Ondansetron Hcl 4 Mg/2 Ml Vial) 4 mg IVPUSH Q8H PRN PRN Reason: Nausea and Vomiting Pharmacy Consult (Consult Rx Etoh Phenob Im/Po) 1 each MISCELLANE ONCE PRN; Protocol PRN Reason: Consult order Polyethylene Glycol (Polyethylene Glycol 3350 17 Gm Powd.Pack) 17 gm PO DAILY [facility] Last Admin: 07/29/23 08:50 Dose: Not Given Documented By: LEE Non-Admin Reason: Patient Refused Sodium Chloride (0.9 % Sodium Chloride Flush 3 Ml Syringe) 3 ml IVFLUSH QSHIFT [facility] Last Admin: 07/29/23 08:50 Dose: 3 ml Documented By: LEE Thiamine HCl (Thiamine Hcl 100 Mg Tablet) 100 mg PO DAILY [facility] Last Admin: 07/29/23 08:49 Dose: 100 mg Documented By: LEE Tiotropium [place] (Tiotropium [place] 2.5 Mcg 1 Puff/2.5 Mcg Mist.Inhal) 2 puff INHALE RDAILY [facility] Last Admin: 07/29/23 08:17 Dose: 2 puff Documented By: SISI Labs 07/29/23 06:47 07/26/23 11:08 Labs: Laboratory Results - last 24 hr 07/29/23 07/29/23 05:25 06:47 MCV 90.4 MCH 28.8 MCHC 31.8 RDW 12.3 Plt Count 306 MPV 9.2 L Absolute Nucleated RBC 0.000 Nucleated RBC % (auto) 0.0 Iron 83 TIBC 244 % Saturation 34 Unsat Iron Binding 161 Ferritin 235 Stool Occult Blood POSITIVE Assessment and Plan (1) Paroxysmal atrial fibrillation with RVR: Status: Acute Plan 68M PMH chronic hypoxic respiratory failure secondary to COPD, alcohol dependence, paroxysmal atrial fibrillation not on AC, presented with failure to thrive noted to be in a flutter with RVR, Paroxysmal atrial fibrillation/atrial flutter with RVR Noted to have intermittent transient episodes of SVT/AFib, patient remained asymptomatic, no episode in last several days. Continue Toprol-XL 75 mg daily at a.m. Not a good candidate for anticoagulation due to poor compliance, continuous alcohol use, fall risk Echo showed EF 55-60%, moderately increased right ventricular cavity size and mildly decreased right ventricular systolic function, likely due to COPD Being followed by Cardiology they recommend to continue beta-casey, and recommend outpatient repeat echocardiogram Alcohol dependence with withdrawal Finished Phenobarbital protocol, continue thiamine and folic acid 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 Delirium resolved Continue thiamine, mvi, chronic tremors. Chronic hypoxic, hypercapnceic respiratory failure secondary to COPD Continue baseline 2 L O2 for goal 91-94%/stable ABG Acute COPD exacerbation diminished breath sound , feels he is at baseline chest x-ray unremarkable s/p IV Solu-Medrol , continue Xopenex , Breo and Spiriva . Seen by speech therapy they recommend chopped diet and thin liquids. Polysubstance dependence stable Seen by Addiction Team patient declined need for recovery support or services Failure to thrive continue supplements Dark stools , no acute GI bleed noted, heme + positive stools,hematocrit stable, iron studies within normal range Continue Prilosec, avoid NSAIDs PT recommending str DVT prophylaxis compression boots Full Code reason for continued hospitalization: COPD exacerbation, awaiting Quality Stroke Does the patient have a stroke diagnosis?: No VTE Prior VTE?: No VTE Risk Level:: Medical - moderate - high VTE Device Contraindication: Treatment Not Indicated VTE Drug Contraindication: N/A - Med Ordered
--- NOTE | 2023-07-29 13:56 | MHC.CM.PN ---
EMR REVIEWED, SNF REFERRAL EXPANDED PT HAS HAD NO BED OFFERS D/T HIGHLY LIKELY TO TRANSITION TO LTC AND PT HAS NO PAYOR FOR LTC, PER FS PT HAS A [facility] THAT HAS BEEN SUBMITTED HOWEVER THEY WERE UNAWARE PT WOULD NEED LTC, CM WILL CONT TO FOLLOW.
[2023-07-30] VITALS (10 sets, daily range): BP systolic 92–149; BP diastolic 58–91; PULSE 74–86; RESP 16–20; TEMP 36.1–36.7; O2SAT 94–99
[2023-07-30] MEDS: Omeprazole 20 MG CAPSULE.DR PO ×2 (06:04→17:13)
[2023-07-30] MEDS: levalbuterol HCL 1.25 MG/3 ML VIAL.NEB INHALE ×3 (07:46→19:21)
[2023-07-30] MEDS: Tiotropium Bromide 2.5 mcg 1 PUFF/2.5 MCG MIST.INHAL 2 PUFF INHALE (07:46)
[2023-07-30] MEDS: Fluticasone/Vilanterol 100/25 BLST.W.DEV 1 PUFF INHALE (07:46)
[2023-07-30] MEDS: polyethylene glycoL 3350 17 GM POWD.PACK PO (08:59)
[2023-07-30] MEDS: Folic Acid 1 MG TABLET PO (08:59)
[2023-07-30] MEDS: Multivitamin TABLET 1 TAB PO (08:59)
[2023-07-30] MEDS: Thiamine HCL 100 MG TABLET PO (08:59)
[2023-07-30] MEDS: Metoprolol Succinate ER 25 MG TAB.ER.24H 75 MG PO (10:34)
--- NOTE | 2023-07-30 11:45 | MHC.CM.PN ---
EMR REVIEWED, PER HOSPITLIST PT NOW W/AFIB, NOT READY FOR, CM ALSO RECEVIED MESSAGE FROM [facility] AND THEY ARE NOW UNABLE TO OFFER PT A BED, SNF REFERRAL REBROADCASTED, CM WILL CONT TO FOLLOW DC NEEDS.
--- NOTE | 2023-07-30 12:28 | MHC.CLN ---
F/U PO INTAKE EXCELLENT DIET RX: CHOPPED-APPROPRIATE PT RECEIVING ENSURE BID PROVIDES 700KCALS, 40G PROTEIN CONTINUE TO MONITOR PO INTAKE AND ENCOURAGE SUPPLEMENT FOR WOUND HEALING
--- NOTE | 2023-07-30 14:56 | HO.PM.IMPN ---
Subjective Subjective Date of Service: 07/30/23 Interval History: at times AF/RVR as high as 140s-170s with some palpitations otherwise no complaints- no chest pain or dyspnea Physical Exam Vital Signs: Vital Signs: Last Vital Signs Temp 97.1 F 07/30/23 11:14 Pulse 85 07/30/23 14:12 Resp 20 07/30/23 14:12 BP 92/61 07/30/23 11:14 Pulse Ox 98 07/30/23 11:14 O2 Del Method Nasal Cannula 07/30/23 11:14 O2 Flow Rate 2 07/30/23 11:14 Oxygen Flow Rate 2 07/19/23 04:23 BMI result Body Mass Index 20.9 Gen: in no acute distress HEENT: sclera anicteric, moist mucus membranes Neck: supple Lungs: clear to auscultation bilaterally Heart: irregular, no murmurs Abd: soft, non-tender, non-distended Ext: no edema Skin: warm/well-perfused Neuro: alert and oriented x3, no focal findings Psych: appropriate affect Objective Data Active Medications Acetaminophen (Acetaminophen 325 Mg Tablet) 650 mg PO Q6H PRN PRN Reason: Pain, Mild (Pain Scale 1-3) Last Admin: 07/29/23 11:27 Dose: 650 mg Documented By: LEE Albuterol/Ipratropium (Albuterol/Iprat 2.5/0.5mg 3 Ml Ampul.Neb) 3 ml INHALE RQ4H WHILE AWAKE PRN PRN Reason: Shortness of Breath/Wheezing Fluticasone/Vilanterol (Fluticasone/Vilanterol 100/25 Blst.W.Dev) 1 puff INHALE RDAILY [facility] Last Admin: 07/30/23 07:46 Dose: 1 puff Documented By: MAX Folic Acid (Folic Acid 1 Mg Tablet) 1 mg PO DAILY [facility] Last Admin: 07/30/23 08:59 Dose: 1 mg Documented By: LANDRY Levalbuterol HCl (Levalbuterol Hcl 1.25 Mg/3 Ml Vial.Neb) 1.25 mg INHALE RTID [facility] Last Admin: 07/30/23 14:12 Dose: 1.25 mg Documented By: MAX Melatonin (Melatonin 3 Mg Tablet) 6 mg PO BEDTIME PRN PRN Reason: Insomnia Last Admin: 07/28/23 20:02 Dose: 6 mg Documented By: VEDA Metoprolol Succinate (Metoprolol Succinate Er 25 Mg Tab.Er.24h) 75 mg PO DAILY [facility]; Protocol Last Admin: 07/30/23 10:34 Dose: 75 mg Documented By: LANDRY Comments: given per MD instructions Multivitamins/Vitamin C (Multivitamin Tablet) 1 tab PO DAILY [facility] Last Admin: 07/30/23 08:59 Dose: 1 tab Documented By: LANDRY Omeprazole (Omeprazole 20 Mg Capsule.Dr) 20 mg PO BID@0630,1630 [facility] Last Admin: 07/30/23 06:04 Dose: 20 mg Documented By: VEDA Ondansetron HCl (Ondansetron Hcl 4 Mg/2 Ml Vial) 4 mg IVPUSH Q8H PRN PRN Reason: Nausea and Vomiting Pharmacy Consult (Consult Rx Etoh Phenob Im/Po) 1 each MISCELLANE ONCE PRN; Protocol PRN Reason: Consult order Polyethylene Glycol (Polyethylene Glycol 3350 17 Gm Powd.Pack) 17 gm PO DAILY [facility] Last Admin: 07/30/23 08:59 Dose: 17 gm Documented By: LANDRY Sodium Chloride (0.9 % Sodium Chloride Flush 3 Ml Syringe) 3 ml IVFLUSH QSHIFT [facility] Last Admin: 07/29/23 19:37 Dose: 3 ml Documented By: VEDA Sodium Chloride (Sodium Chloride 0.65 % Nasal 44 Ml Sprbtl) 1 spray NOSTRIL-B Q1H PRN PRN Reason: Dry Nasal Passages Thiamine HCl (Thiamine Hcl 100 Mg Tablet) 100 mg PO DAILY [facility] Last Admin: 07/30/23 08:59 Dose: 100 mg Documented By: LANDRY Tiotropium [place] (Tiotropium [place] 2.5 Mcg 1 Puff/2.5 Mcg Mist.Inhal) 2 puff INHALE RDAILY [facility] Last Admin: 07/30/23 07:46 Dose: 2 puff Documented By: MAX Labs 07/29/23 06:47 07/26/23 11:08 Assessment and Plan (1) Paroxysmal atrial fibrillation with RVR: Status: Acute Plan d12 68yo M with chronic hypoxic resp failure due to COPD, alcohol use disorder with dementia, paroxysmal AF not on AC presented with FTT, noted to have atrial flutter with RVR paroxysmal AF with RVR - resume metoprolol succinate [had been on hold] - not a good AC candidate given poor compliance, EtOH use, fall risk - TTE 07/21/23: - Normal left ventricular size and systolic function. The visually estimated ejection fraction is between 55-60%. - Moderately increased right ventricular cavity size. There is mildly decreased right ventricular systolic function. 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 Quality Stroke Does the patient have a stroke diagnosis?: No VTE Prior VTE?: No VTE Risk Level:: Medical - moderate - high VTE Device Contraindication: Treatment Not Indicated VTE Drug Contraindication: N/A - Med Ordered
[2023-07-30] MEDS: 0.9 % Sodium Chloride Flush 3 ML SYRINGE IVFLUSH (21:10)
[2023-07-31] VITALS (8 sets, daily range): BP systolic 98–147; BP diastolic 60–81; PULSE 76–85; RESP 18–20; TEMP 36.1–36.3; O2SAT 93–100
[2023-07-31] MEDS: Omeprazole 20 MG CAPSULE.DR PO ×2 (05:55→17:01)
[2023-07-31] MEDS: Tiotropium Bromide 2.5 mcg 1 PUFF/2.5 MCG MIST.INHAL 2 PUFF INHALE (07:58)
[2023-07-31] MEDS: levalbuterol HCL 1.25 MG/3 ML VIAL.NEB INHALE ×3 (07:58→19:19)
[2023-07-31] MEDS: Fluticasone/Vilanterol 100/25 BLST.W.DEV 1 PUFF INHALE (07:58)
[2023-07-31] MEDS: Folic Acid 1 MG TABLET PO (08:11)
[2023-07-31] MEDS: 0.9 % Sodium Chloride Flush 3 ML SYRINGE IVFLUSH ×2 (08:11→17:01)
[2023-07-31] MEDS: Metoprolol Succinate ER 25 MG TAB.ER.24H 75 MG PO (08:11)
[2023-07-31] MEDS: Multivitamin TABLET 1 TAB PO (08:11)
[2023-07-31] MEDS: Thiamine HCL 100 MG TABLET PO (08:11)
--- NOTE | 2023-07-31 10:10 | P.PNIM_ITS ---
Subjective Subjective Date of Service: 07/31/23 Interval History: rate control improved no palpitations no chest pain no dyspnea Review of Systems Review of Systems: Yes all other systems are reviewed and are negative Physical Exam 2 Vital Signs: Vital Signs: Last Vital Signs Temp 96.9 F 07/31/23 07:33 Pulse 76 07/31/23 08:02 Resp 20 07/31/23 08:02 BP 141/81 H 07/31/23 07:33 Pulse Ox 97 07/31/23 07:33 O2 Del Method Nasal Cannula 07/31/23 07:33 O2 Flow Rate 2 07/31/23 07:33 Oxygen Flow Rate 2 07/19/23 04:23 BMI result Body Mass Index 20.9 Gen: in no acute distress HEENT: sclera anicteric, moist mucus membranes Neck: supple Lungs: clear to auscultation bilaterally Heart: irregular, no murmurs Abd: soft, non-tender, non-distended Ext: no edema Skin: warm/well-perfused Neuro: alert and oriented x3, no focal findings Psych: appropriate affect Objective Data Active Medications Acetaminophen (Acetaminophen 325 Mg Tablet) 650 mg PO Q6H PRN PRN Reason: Pain, Mild (Pain Scale 1-3) Last Admin: 07/29/23 11:27 Dose: 650 mg Documented By: LEE Fluticasone/Vilanterol (Fluticasone/Vilanterol 100/25 Blst.W.Dev) 1 puff INHALE RDAILY [facility] Last Admin: 07/31/23 07:58 Dose: 1 puff Documented By: LINCOLN Folic Acid (Folic Acid 1 Mg Tablet) 1 mg PO DAILY [facility] Last Admin: 07/31/23 08:11 Dose: 1 mg Documented By: ANTHONY Levalbuterol HCl (Levalbuterol Hcl 1.25 Mg/3 Ml Vial.Neb) 1.25 mg INHALE RTID [facility] Last Admin: 07/31/23 07:58 Dose: 1.25 mg Documented By: LINCOLN Melatonin (Melatonin 3 Mg Tablet) 6 mg PO BEDTIME PRN PRN Reason: Insomnia Last Admin: 07/28/23 20:02 Dose: 6 mg Documented By: VEDA Metoprolol Succinate (Metoprolol Succinate Er 25 Mg Tab.Er.24h) 75 mg PO DAILY [facility]; Protocol Last Admin: 07/31/23 08:11 Dose: 75 mg Documented By: ANTHONY Multivitamins/Vitamin C (Multivitamin Tablet) 1 tab PO DAILY [facility] Last Admin: 07/31/23 08:11 Dose: 1 tab Documented By: ANTHONY Omeprazole (Omeprazole 20 Mg Capsule.Dr) 20 mg PO BID@0630,1630 [facility] Last Admin: 07/31/23 05:55 Dose: 20 mg Documented By: OBED Ondansetron HCl (Ondansetron Hcl 4 Mg/2 Ml Vial) 4 mg IVPUSH Q8H PRN PRN Reason: Nausea and Vomiting Pharmacy Consult (Consult Rx Etoh Phenob Im/Po) 1 each MISCELLANE ONCE PRN; Protocol PRN Reason: Consult order Polyethylene Glycol (Polyethylene Glycol 3350 17 Gm Powd.Pack) 17 gm PO DAILY [facility] Last Admin: 07/31/23 08:12 Dose: Not Given Documented By: ANTHONY Non-Admin Reason: bowel movement 07/31/23 Sodium Chloride (0.9 % Sodium Chloride Flush 3 Ml Syringe) 3 ml IVFLUSH QSHIFT [facility] Last Admin: 07/31/23 08:11 Dose: 3 ml Documented By: ANTHONY Sodium Chloride (Sodium Chloride 0.65 % Nasal 44 Ml Sprbtl) 1 spray NOSTRIL-B Q1H PRN PRN Reason: Dry Nasal Passages Thiamine HCl (Thiamine Hcl 100 Mg Tablet) 100 mg PO DAILY [facility] Last Admin: 07/31/23 08:11 Dose: 100 mg Documented By: ANTHONY Tiotropium [place] (Tiotropium [place] 2.5 Mcg 1 Puff/2.5 Mcg Mist.Inhal) 2 puff INHALE RDAILY [facility] Last Admin: 07/31/23 07:58 Dose: 2 puff Documented By: LINCOLN Labs 07/29/23 06:47 07/26/23 11:08 Assessment and Plan (1) Paroxysmal atrial fibrillation with RVR: Status: Acute Plan d13 68yo M with chronic hypoxic resp failure due to COPD, alcohol use disorder with dementia, paroxysmal AF not on AC presented with FTT, noted to have atrial flutter with RVR paroxysmal AF with RVR - resumed metoprolol succinate [had been on hold] - not a good AC candidate given poor compliance, EtOH use, fall risk - TTE 07/21/23: - Normal left ventricular size and systolic function. The visually estimated ejection fraction is between 55-60%. - Moderately increased right ventricular cavity size. There is mildly decreased right ventricular systolic function. 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 Quality Stroke Does the patient have a stroke diagnosis?: No VTE Prior VTE?: No VTE Risk Level:: Medical - moderate - high VTE Device Contraindication: Treatment Not Indicated VTE Drug Contraindication: N/A - Med Ordered
--- NOTE | 2023-07-31 11:43 | MHC.CM.PN ---
[facility] REVIEWED, CM RECEIVED MESSAGE FROM [facility] YESTERDAY REPORTING THEY WILL REVIEW PT, CM HAS SENT MESSAGE THIS AM TO SEE IF THEY HAVE REVIEWED AND AWAITING RESPONSE, [facility] ALSO UPDATED AND CM AWAITING RESPONSE FROM THEM WELL, CM WILL CONT TO FOLLOW DC NEEDS.
[2023-08-01] VITALS (7 sets, daily range): BP systolic 93–138; BP diastolic 60–84; PULSE 69–81; RESP 16–20; TEMP 36.3–37.7; O2SAT 94–99
[2023-08-01] MEDS: 0.9 % Sodium Chloride Flush 3 ML SYRINGE IVFLUSH ×3 (01:09→18:40)
[2023-08-01] MEDS: Omeprazole 20 MG CAPSULE.DR PO ×2 (06:21→18:40)
[2023-08-01] MEDS: Tiotropium Bromide 2.5 mcg 1 PUFF/2.5 MCG MIST.INHAL 2 PUFF INHALE (07:50)
[2023-08-01] MEDS: Fluticasone/Vilanterol 100/25 BLST.W.DEV 1 PUFF INHALE (07:50)
[2023-08-01] MEDS: Thiamine HCL 100 MG TABLET PO (09:36)
[2023-08-01] MEDS: Multivitamin TABLET 1 TAB PO (09:36)
[2023-08-01] MEDS: polyethylene glycoL 3350 17 GM POWD.PACK PO (09:37)
[2023-08-01] MEDS: Folic Acid 1 MG TABLET PO (09:38)
--- NOTE | 2023-08-01 10:11 | MHC.CM.PN ---
DP STR via BLS. A clinical update has been sent. PT note today, is still pending. [facility] does not have a bed today; but will next week. They request CM to follow up Friday for bed availability. [facility] not have a bed today; but will contact CM if a bed becomes available later today. CM will follow.
[2023-08-01] MEDS: Metoprolol Succinate ER 25 MG TAB.ER.24H 75 MG PO (10:19)
--- NOTE | 2023-08-01 11:46 | P.PNIM_ITS ---
Subjective Subjective Date of Service: 08/01/23 Interval History: ventricular rate well-controlled no dyspnea or chest pain awaiting placement Review of Systems Review of Systems: Yes all other systems are reviewed and are negative Physical Exam 2 Vital Signs: Vital Signs: Last Vital Signs Temp 99.9 F 08/01/23 11:09 Pulse 81 08/01/23 11:09 Resp 18 08/01/23 11:09 BP 93/60 08/01/23 11:09 Pulse Ox 99 08/01/23 11:09 O2 Del Method Nasal Cannula 08/01/23 11:09 O2 Flow Rate 2 08/01/23 11:09 Oxygen Flow Rate 2 07/19/23 04:23 BMI result Body Mass Index 20.9 Gen: in no acute distress HEENT: sclera anicteric, moist mucus membranes Neck: supple Lungs: clear to auscultation bilaterally Heart: irregular, no murmurs Abd: soft, non-tender, non-distended Ext: no edema Skin: warm/well-perfused Neuro: alert and oriented x3, no focal findings Psych: appropriate affect Objective Data Active Medications Acetaminophen (Acetaminophen 325 Mg Tablet) 650 mg PO Q6H PRN PRN Reason: Pain, Mild (Pain Scale 1-3) Last Admin: 07/29/23 11:27 Dose: 650 mg Documented By: LEE Fluticasone/Vilanterol (Fluticasone/Vilanterol 100/25 Blst.W.Dev) 1 puff INHALE RDAILY [facility] Last Admin: 08/01/23 07:50 Dose: 1 puff Documented By: MAX Folic Acid (Folic Acid 1 Mg Tablet) 1 mg PO DAILY [facility] Last Admin: 08/01/23 09:38 Dose: 1 mg Documented By: KAYDEN Melatonin (Melatonin 3 Mg Tablet) 6 mg PO BEDTIME PRN PRN Reason: Insomnia Last Admin: 07/28/23 20:02 Dose: 6 mg Documented By: VEDA Metoprolol Succinate (Metoprolol Succinate Er 25 Mg Tab.Er.24h) 75 mg PO DAILY [facility]; Protocol Last Admin: 08/01/23 10:19 Dose: 75 mg Documented By: KAYDEN Multivitamins/Vitamin C (Multivitamin Tablet) 1 tab PO DAILY [facility] Last Admin: 08/01/23 09:36 Dose: 1 tab Documented By: KAYDEN Omeprazole (Omeprazole 20 Mg Capsule.Dr) 20 mg PO BID@0630,1680 [facility] Last Admin: 08/01/23 06:21 Dose: 20 mg Documented By: JOSE Ondansetron HCl (Ondansetron Hcl 4 Mg/2 Ml Vial) 4 mg IVPUSH Q8H PRN PRN Reason: Nausea and Vomiting Pharmacy Consult (Consult Rx Etoh Phenob Im/Po) 1 each MISCELLANE ONCE PRN; Protocol PRN Reason: Consult order Polyethylene Glycol (Polyethylene Glycol 3350 17 Gm Powd.Pack) 17 gm PO DAILY [facility] Last Admin: 08/01/23 09:37 Dose: 17 gm Documented By: KAYDEN Sodium Chloride (0.9 % Sodium Chloride Flush 3 Ml Syringe) 3 ml IVFLUSH QSHIFT [facility] Last Admin: 08/01/23 09:42 Dose: 3 ml Documented By: KAYDEN Sodium Chloride (Sodium Chloride 0.65 % Nasal 44 Ml Sprbtl) 1 spray NOSTRIL-B Q1H PRN PRN Reason: Dry Nasal Passages Thiamine HCl (Thiamine Hcl 100 Mg Tablet) 100 mg PO DAILY [facility] Last Admin: 08/01/23 09:36 Dose: 100 mg Documented By: KAYDEN Tiotropium [place] (Tiotropium [place] 2.5 Mcg 1 Puff/2.5 Mcg Mist.Inhal) 2 puff INHALE RDAILY [facility] Last Admin: 08/01/23 07:50 Dose: 2 puff Documented By: LILLIANAM Labs 07/29/23 06:47 07/26/23 11:08 Assessment and Plan (1) Paroxysmal atrial fibrillation with RVR: Status: Acute Plan d14 68yo M with chronic hypoxic resp failure due to COPD, alcohol use disorder with dementia, paroxysmal AF not on AC presented with FTT, noted to have atrial flutter with RVR paroxysmal AF with RVR - resumed metoprolol succinate [had been on hold] and ventricular rate is well- controlled - not a good AC candidate given poor compliance, EtOH use, fall risk - TTE 07/21/23: - Normal left ventricular size and systolic function. The visually estimated ejection fraction is between 55-60%. - Moderately increased right ventricular cavity size. There is mildly decreased right ventricular systolic function. 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 Quality Stroke Does the patient have a stroke diagnosis?: No VTE Prior VTE?: No VTE Risk Level:: Medical - moderate - high VTE Device Contraindication: Treatment Not Indicated VTE Drug Contraindication: N/A - Med Ordered
--- NOTE | 2023-08-01 12:50 | MHC.CLN ---
F/U PO INTAKE REMAINS EXCELLENT DIET RX: CHOPPED-APPROPRIATE PT RECEIVING ENSURE BID PROVIDES 700KCALS, 40G PROTEIN CONTINUE TO MONITOR PO INTAKE AND ENCOURAGE SUPPLEMENT FOR WOUND HEALING
[2023-08-02] VITALS (7 sets, daily range): BP systolic 111–178; BP diastolic 59–91; PULSE 72–89; RESP 16–20; TEMP 36.4–37.1; O2SAT 95–99
[2023-08-02] MEDS: Acetaminophen 325 MG TABLET 650 MG PO ×3 (06:29→23:59)
[2023-08-02] MEDS: Omeprazole 20 MG CAPSULE.DR PO ×2 (06:30→16:10)
[2023-08-02] MEDS: Tiotropium Bromide 2.5 mcg 1 PUFF/2.5 MCG MIST.INHAL 2 PUFF INHALE (08:00)
[2023-08-02] MEDS: Fluticasone/Vilanterol 100/25 BLST.W.DEV 1 PUFF INHALE (08:00)
--- NOTE | 2023-08-02 08:46 | HO.PM.IMPN ---
Subjective Subjective Date of Service: 08/02/23 Interval History: no complaints BP high this AM 1 episode of RVR yesterday morning- 160s, asymptomatic Review of Systems Review of Systems: Yes all other systems are reviewed and are negative Physical Exam Vital Signs: Vital Signs: Last Vital Signs Temp 98.6 F 08/02/23 07:55 Pulse 87 08/02/23 08:03 Resp 16 08/02/23 08:03 BP 178/91 H 08/02/23 07:55 Pulse Ox 99 08/02/23 07:55 O2 Del Method Nasal Cannula 08/02/23 07:55 O2 Flow Rate 2 08/02/23 07:55 Oxygen Flow Rate 2 07/19/23 04:23 BMI result Body Mass Index 20.9 Gen: in no acute distress HEENT: sclera anicteric, moist mucus membranes Neck: supple Lungs: clear to auscultation bilaterally Heart: irregular, no murmurs Abd: soft, non-tender, non-distended Ext: no edema Skin: warm/well-perfused Neuro: alert and oriented x3, no focal findings Psych: appropriate affect Objective Data Active Medications Acetaminophen (Acetaminophen 325 Mg Tablet) 650 mg PO Q6H PRN PRN Reason: Pain, Mild (Pain Scale 1-3) Last Admin: 08/02/23 06:29 Dose: 650 mg Documented By: GUERO Fluticasone/Vilanterol (Fluticasone/Vilanterol 100/25 Blst.W.Dev) 1 puff INHALE RDAILY [facility] Last Admin: 08/02/23 08:00 Dose: 1 puff Documented By: ALISHA Folic Acid (Folic Acid 1 Mg Tablet) 1 mg PO DAILY [facility] Last Admin: 08/01/23 09:38 Dose: 1 mg Documented By: KAYDEN Melatonin (Melatonin 3 Mg Tablet) 6 mg PO BEDTIME PRN PRN Reason: Insomnia Last Admin: 07/28/23 20:02 Dose: 6 mg Documented By: VEDA Metoprolol Succinate (Metoprolol Succinate Er 25 Mg Tab.Er.24h) 75 mg PO DAILY [facility]; Protocol Last Admin: 08/01/23 10:19 Dose: 75 mg Documented By: KAYDEN Multivitamins/Vitamin C (Multivitamin Tablet) 1 tab PO DAILY [facility] Last Admin: 08/01/23 09:36 Dose: 1 tab Documented By: KAYDEN Omeprazole (Omeprazole 20 Mg Capsule.Dr) 20 mg PO BID@0630,5850 [facility] Last Admin: 08/02/23 06:30 Dose: 20 mg Documented By: GUERO Ondansetron HCl (Ondansetron Hcl 4 Mg/2 Ml Vial) 4 mg IVPUSH Q8H PRN PRN Reason: Nausea and Vomiting Pharmacy Consult (Consult Rx Etoh Phenob Im/Po) 1 each MISCELLANE ONCE PRN; Protocol PRN Reason: Consult order Polyethylene Glycol (Polyethylene Glycol 3350 17 Gm Powd.Pack) 17 gm PO DAILY [facility] Last Admin: 08/01/23 09:37 Dose: 17 gm Documented By: KAYDEN Sodium Chloride (0.9 % Sodium Chloride Flush 3 Ml Syringe) 3 ml IVFLUSH QSHIFT [facility] Last Admin: 08/02/23 01:45 Dose: Not Given Documented By: GUERO Non-Admin Reason: Previously Administered Sodium Chloride (Sodium Chloride 0.65 % Nasal 44 Ml Sprbtl) 1 spray NOSTRIL-B Q1H PRN PRN Reason: Dry Nasal Passages Thiamine HCl (Thiamine Hcl 100 Mg Tablet) 100 mg PO DAILY [facility] Last Admin: 08/01/23 09:36 Dose: 100 mg Documented By: KAYDEN Tiotropium [place] (Tiotropium [place] 2.5 Mcg 1 Puff/2.5 Mcg Mist.Inhal) 2 puff INHALE RDAILY [facility] Last Admin: 08/02/23 08:00 Dose: 2 puff Documented By: ALISHA Labs 07/29/23 06:47 07/26/23 11:08 Assessment and Plan (1) Paroxysmal atrial fibrillation with RVR: Status: Acute Plan d15 68yo M with chronic hypoxic resp failure due to COPD, alcohol use disorder with dementia, paroxysmal AF not on AC presented with FTT, noted to have atrial flutter with RVR paroxysmal AF with RVR - will increase metoprolol succinate from 75 to 100 mg daily for better rate and BP control - not a good AC candidate given poor compliance, EtOH use, fall risk - TTE 07/21/23: - Normal left ventricular size and systolic function. The visually estimated ejection fraction is between 55-60%. - Moderately increased right ventricular cavity size. There is mildly decreased right ventricular systolic function. 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 Quality Stroke Does the patient have a stroke diagnosis?: No VTE Prior VTE?: No VTE Risk Level:: Medical - moderate - high VTE Device Contraindication: Treatment Not Indicated VTE Drug Contraindication: N/A - Med Ordered
[2023-08-02] MEDS: 0.9 % Sodium Chloride Flush 3 ML SYRINGE IVFLUSH ×2 (09:34→16:11)
[2023-08-02] MEDS: Thiamine HCL 100 MG TABLET PO (09:34)
[2023-08-02] MEDS: Multivitamin TABLET 1 TAB PO (09:35)
[2023-08-02] MEDS: Metoprolol Succinate ER 100 MG TAB.ER.24H PO (09:35)
[2023-08-02] MEDS: Folic Acid 1 MG TABLET PO (09:35)
[2023-08-03] VITALS (8 sets, daily range): BP systolic 87–147; BP diastolic 58–89; PULSE 66–80; RESP 16–20; TEMP 36.7–37.7; O2SAT 93–98
[2023-08-03] MEDS: Omeprazole 20 MG CAPSULE.DR PO ×2 (06:07→16:20)
[2023-08-03] MEDS: Fluticasone/Vilanterol 100/25 BLST.W.DEV 1 PUFF INHALE (07:45)
[2023-08-03] MEDS: Tiotropium Bromide 2.5 mcg 1 PUFF/2.5 MCG MIST.INHAL 2 PUFF INHALE (07:45)
[2023-08-03] MEDS: Multivitamin TABLET 1 TAB PO (09:50)
[2023-08-03] MEDS: Thiamine HCL 100 MG TABLET PO (09:51)
[2023-08-03] MEDS: Folic Acid 1 MG TABLET PO (09:51)
[2023-08-03] MEDS: Metoprolol Succinate ER 100 MG TAB.ER.24H PO (09:51)
[2023-08-03] MEDS: 0.9 % Sodium Chloride Flush 3 ML SYRINGE IVFLUSH ×2 (09:51→20:24)
--- NOTE | 2023-08-03 11:43 | P.PNIM_ITS ---
Subjective Subjective Date of Service: 08/03/23 Interval History: no complaints AF/RVR under control no dyspnea Review of Systems Review of Systems: Yes all other systems are reviewed and are negative Physical Exam 2 Vital Signs: Vital Signs: Last Vital Signs Temp 99.9 F 08/03/23 11:10 Pulse 80 08/03/23 11:10 Resp 20 08/03/23 11:10 BP 87/58 L 08/03/23 11:10 Pulse Ox 97 08/03/23 11:10 O2 Del Method Nasal Cannula 08/03/23 11:10 O2 Flow Rate 2 08/03/23 11:10 Oxygen Flow Rate 2 07/19/23 04:23 BMI result Body Mass Index 20.9 Gen: in no acute distress HEENT: sclera anicteric, moist mucus membranes Neck: supple Lungs: clear to auscultation bilaterally Heart: irregular, no murmurs Abd: soft, non-tender, non-distended Ext: no edema Skin: warm/well-perfused Neuro: alert and oriented x3, no focal findings Psych: appropriate affect Objective Data Active Medications Acetaminophen (Acetaminophen 325 Mg Tablet) 650 mg PO Q6H PRN PRN Reason: Pain, Mild (Pain Scale 1-3) Last Admin: 08/02/23 23:59 Dose: 650 mg Documented By: GUERO Fluticasone/Vilanterol (Fluticasone/Vilanterol 100/25 Blst.W.Dev) 1 puff INHALE RDAILY [facility] Last Admin: 08/03/23 07:45 Dose: 1 puff Documented By: JIN Folic Acid (Folic Acid 1 Mg Tablet) 1 mg PO DAILY [facility] Last Admin: 08/03/23 09:51 Dose: 1 mg Documented By: AMARA Melatonin (Melatonin 3 Mg Tablet) 6 mg PO BEDTIME PRN PRN Reason: Insomnia Last Admin: 07/28/23 20:02 Dose: 6 mg Documented By: VEDA Metoprolol Succinate (Metoprolol Succinate Er 100 Mg Tab.Er.24h) 100 mg PO DAILY [facility]; Protocol Last Admin: 08/03/23 09:51 Dose: 100 mg Documented By: AMARA Multivitamins/Vitamin C (Multivitamin Tablet) 1 tab PO DAILY [facility] Last Admin: 08/03/23 09:50 Dose: 1 tab Documented By: AMARA Omeprazole (Omeprazole 20 Mg Capsule.Dr) 20 mg PO BID@0630,7830 [facility] Last Admin: 08/03/23 06:07 Dose: 20 mg Documented By: GUERO Ondansetron HCl (Ondansetron Hcl 4 Mg/2 Ml Vial) 4 mg IVPUSH Q8H PRN PRN Reason: Nausea and Vomiting Pharmacy Consult (Consult Rx Etoh Phenob Im/Po) 1 each MISCELLANE ONCE PRN; Protocol PRN Reason: Consult order Polyethylene Glycol (Polyethylene Glycol 3350 17 Gm Powd.Pack) 17 gm PO DAILY [facility] Last Admin: 08/03/23 09:51 Dose: Not Given Documented By: AMARA Non-Admin Reason: Patient Refused Sodium Chloride (0.9 % Sodium Chloride Flush 3 Ml Syringe) 3 ml IVFLUSH QSHIFT [facility] Last Admin: 08/03/23 09:51 Dose: 3 ml Documented By: AMARA Sodium Chloride (Sodium Chloride 0.65 % Nasal 44 Ml Sprbtl) 1 spray NOSTRIL-B Q1H PRN PRN Reason: Dry Nasal Passages Thiamine HCl (Thiamine Hcl 100 Mg Tablet) 100 mg PO DAILY [facility] Last Admin: 08/03/23 09:51 Dose: 100 mg Documented By: AMARA Tiotropium Marked Tree (Tiotropium Marked Tree 2.5 Mcg 1 Puff/2.5 Mcg Mist.Inhal) 2 puff INHALE RDAILY [facility] Last Admin: 08/03/23 07:45 Dose: 2 puff Documented By: JIN Labs 07/29/23 06:47 07/26/23 11:08 Assessment and Plan (1) Paroxysmal atrial fibrillation with RVR: Status: Acute Plan d16 68yo M with chronic hypoxic resp failure due to COPD, alcohol use disorder with dementia, paroxysmal AF not on AC presented with FTT, noted to have atrial flutter with RVR paroxysmal AF with RVR - better-controlled on higher dose of metoprolol succinate - not a good AC candidate given poor compliance, EtOH use, fall risk - TTE 07/21/23: - Normal left ventricular size and systolic function. The visually estimated ejection fraction is between 55-60%. - Moderately increased right ventricular cavity size. There is mildly decreased right ventricular systolic function. 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 Quality Stroke Does the patient have a stroke diagnosis?: No VTE Prior VTE?: No VTE Risk Level:: Medical - moderate - high VTE Device Contraindication: Treatment Not Indicated VTE Drug Contraindication: N/A - Med Ordered
--- NOTE | 2023-08-03 12:12 | MHC.CM.PN ---
cm received message from hospitalist looking for a contact # [phone] for pt's sister Leisa Chawla the one on file was not in working order, cm did find another #[phone] however this number also not in working order. cm contacted pt's roommate Kavita to see if he could bring in pt's phone however kavita reports has a phone but it was never set up (prepaid phone), kavita does have other siblings and the only names he knows are Leisa and Kaleb, cm found a # for Kaleb Cho [phone] however no answer and cm unable to leave message as voicemail is full, hospitalist updated.
[2023-08-03] MEDS: Acetaminophen 325 MG TABLET 650 MG PO (12:21)
[2023-08-03] MEDS: 0.9 % Sodium Chloride 500 ML 100 ML IVCONT (13:29)
--- NOTE | 2023-08-03 18:55 | P.CDIM_ITS ---
PROVIDER RESPONSE TEXT: To clarify, the appropriate diagnosis supported by the clinical indicators: Pressure (decubitus) ulcer stage 2 left ischium QUERY TEXT: PHYSICIAN'S DOCUMENTATION REQUEST Date of Query: 07/31/2023 10:39 AM EDT Patient Name: Heriberto Cho Admit Date: 07/19/2023 Dear Tina Kessler, A review of the medical record indicates additional documentation may be needed. Please review below and update the documentation accordingly. Clinical Indicators: Per Wound Note 07/24/23: Left Ischium Etiology: Stage 2 pressure Injury Present on Admission Patient reports significant pinpoint pain to Left ischium site when palpated - the open wound is note d to be directly over his bony prominence Goals of Treatment: Triad to protect from friction and allow for moist wound healing - off load press ure Based on the above, could you please provide further information regarding the ulcer/wound: Pressure (decubitus) ulcer stage 2 left ischium Traumatic wound Please specify the location and laterality of the ulcer/wound Other (explain) Clinically unable to determine (explain) Thank you, Maritza Jarrett RN Use of terms such as suspected, likely, concern for, or probable (associated with a specific diagnosi s that is being evaluated, monitored, or treated as if it exists) are acceptable and can be coded in the inpatient se tting, when documented at the time of discharge. Please use your independent medical judgment in providing your response. THIS QUERY IS PART OF THE PERMANENT MEDICAL RECORD
[2023-08-04 04:00] VITALS: PULSE 77; RESP 18; TEMP 36.8; O2SAT 97
[2023-08-04] MEDS: Omeprazole 20 MG CAPSULE.DR PO (05:54)
[2023-08-04 07:29] VITALS: BP 170/76; PULSE 78; RESP 20; TEMP 36.7; O2SAT 96
[2023-08-04] MEDS: Tiotropium Bromide 2.5 mcg 1 PUFF/2.5 MCG MIST.INHAL 2 PUFF INHALE (07:59)
[2023-08-04] MEDS: Fluticasone/Vilanterol 100/25 BLST.W.DEV 1 PUFF INHALE (07:59)
[2023-08-04 08:00] VITALS: PULSE 68; RESP 18; O2SAT 90
[2023-08-04] MEDS: Metoprolol Succinate ER 25 MG TAB.ER.24H 75 MG PO (08:07)
[2023-08-04] MEDS: Folic Acid 1 MG TABLET PO (08:11)
[2023-08-04] MEDS: Multivitamin TABLET 1 TAB PO (08:11)
[2023-08-04] MEDS: Sodium Chloride 0.65 % Nasal 44 ML SPRBTL 1 SPRAY NOSTRIL-B (08:11)
[2023-08-04] MEDS: Thiamine HCL 100 MG TABLET PO (08:11)
[2023-08-04] MEDS: 0.9 % Sodium Chloride Flush 3 ML SYRINGE IVFLUSH (08:12)
[2023-08-04 10:34] VITALS: PULSE 68
--- NOTE | 2023-08-04 11:25 | MHC.CM.PN ---
Addendum entered by Estela Reza 08/04/23 16:24: Patient discharged to home via BLS. He refused bed offers from [facility] and [facility]. Original Note: IMM 08/04/23 Per MD rounds, patient is discharged today. He has [facility] offering a bed this afternoon. [facility] is scheduled to meet with the patient today. He ambulated with his nurse using a walker 30ft. He did well. Patient does not want to go to [facility]. He wants to go home.
[2023-08-04 11:47] VITALS: BP 114/70; PULSE 79; RESP 20; TEMP 37; O2SAT 93
[2023-08-04 15:19] VITALS: BP 141/70; PULSE 75; RESP 20; TEMP 36.9; O2SAT 90
--- NOTE | 2023-08-04 15:20 | P.DS_ITS ---
DS: Providers Provider Date of Service: 08/04/23 Date of admission: 07/19/23 04:34 Date of discharge: 08/04/23 Primary care physician: None Physician Consults: 07/19/23 01:33 Consult to Case Management Stat Comment: 07/19/23 04:23 Addiction Medicine Routine Consulting Provider: Addiction Covering Reason for consultation: phencyclidine use disorder 07/19/23 04:25 Consult to Cardiology Routine Consulting Provider: [facility] Reason for consultation: atrial flutter with rvr Has provider been notified: Yes 07/23/23 12:08 Consult to Wound Care Routine Reason for consultation: ? MASD vs DTI DS: Diagnosis Discharge Diagnosis (1) Paroxysmal atrial fibrillation with RVR: Status: Acute (2) Alcohol dependence: Status: Acute (3) Asthma exacerbation in COPD: Status: Acute DS: Summary Hospital Course Hospital Course: 68yo M with chronic hypoxic resp failure due to COPD, alcohol use disorder with dementia, paroxysmal AF not on AC presented with FTT, noted to have atrial flutter with RVR paroxysmal AF with RVR - better-controlled on higher dose of metoprolol succinate - not a good AC candidate given poor compliance, EtOH use, fall risk - TTE 07/21/23: - Normal left ventricular size and systolic function. The visually estimated ejection fraction is between 55-60%. - Moderately increased right ventricular cavity size. There is mildly decreased right ventricular systolic function. 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 Walk length the hallway with nurse prior to discharge without issue. Believe he is medically competent to make his own decisions and he knows the consequences of returning home and resuming alcohol consumption. He is able to repeat these to me yet still requests discharge. He will be discharged home to hopefully find a PCP Time Attestation Discharge Coordination Time (in mins): 35 Quality: Safe Use of Opioids Does Pt have an Active Cancer Diagnosis on the Problem List?: No Quality: Stroke Does the patient have a stroke diagnosis?: No Physical Exam Vital Signs: Vital Signs: Last Vital Signs Temp 98.6 F 08/04/23 11:47 Pulse 79 08/04/23 11:47 Resp 20 08/04/23 11:47 BP 114/70 08/04/23 11:47 Pulse Ox 93 08/04/23 11:47 O2 Del Method Nasal Cannula 08/04/23 11:47 O2 Flow Rate 2 08/04/23 11:47 Oxygen Flow Rate 2 07/19/23 04:23 BMI result Body Mass Index 20.9 Const: Other: Awake alert no acute distress Resp: Other: Clear to auscultation bilaterally no rales rhonchi or wheezes Cardio: Other: No S4; positive S1-S2; no S3 murmurs rubs or gallops GI: Other: Soft nontender nondistended normoactive bowel sounds Extrem: Other: No edema bilaterally Discharge Plan Discharge Anticipated Discharge Date/Time: 08/04/23 15:14 Patient Disposition: Home, Self-Care Discharge Diagnosis: Atrial fibrillation with rapid ventricular response Referrals: Physician,None [Primary Care Provider] - 1 Week Discharge Medications: New folic acid 1 mg Tablet 1 mg PO DAILY Qty: 30 0RF thiamine mononitrate (vit B1) 100 mg Tablet 100 mg PO DAILY Qty: 30 0RF Spiriva Respimat 2.5 mcg/actuation Mist 2 puff inhalation RDAILY Qty: 4 0RF fluticasone furoate-vilanterol [Breo Ellipta] 100-25 mcg/dose Blister With Device 1 inh inhalation RDAILY Qty: 1 0RF multivitamin [Daily-Gonzalo] Tablet 1 tab PO DAILY Qty: 30 0RF omeprazole 20 mg Capsule,Delayed Release(Dr/Ec) 20 mg PO BID@0630,1630 Qty: 60 0RF metoprolol succinate 25 mg Tablet Extended Release 24 Hr 75 mg PO DAILY Qty: 30 0RF Protocol: Hold for SBP/HR < HOLD for SBP < : 90 HOLD for HR < : 60 Discharge Orders: Discharge Order (Routine); Ordered 08/04/23 Ordered By: Jonah Wood Diet: Advance to usual diet Activity on Discharge: As tolerated Stand Alone Forms: Patient Portal Discharge page Care Plan Goals: Your medical regimen has been adjusted. All new medications have been added at your pharmacy. Take as outlined Health Concerns: You need to find a primary care physician. Follow-up at next available Plan of Treatment: No alcohol Assessment: See discharge summary
== END 2023-08-04 17:00 | disposition home or self-care (01) | DRG 309 ==
LOC: HO.ED 04:39 → HO.EDOVER 04:40 → HO.IMC 17:57
PROVIDERS: Hospitalist; Internal Medicine; Admitting Provider Student in an Organized Health Care Education/Training Program; Emergency Provider Internal Medicine; Visit Provider Hospitalist
DX: I48.0 Paroxysmal atrial fibrillation (principal); F05 Delirium due to known physiological condition; J44.1 Chronic obstructive pulmonary disease with (acute) exacerbation; F10.239 Alcohol dependence with withdrawal, unspecified; F10.27 Alcohol dependence with alcohol-induced persisting dementia; F19.20 Other psychoactive substance dependence, uncomplicated; J96.11 Chronic respiratory failure with hypoxia; J96.12 Chronic respiratory failure with hypercapnia; I48.92 Unspecified atrial flutter; I95.9 Hypotension, unspecified; R19.5 Other fecal abnormalities; R62.7 Adult failure to thrive; L89.322 Pressure ulcer of left buttock, stage 2; Z68.20 Body mass index [BMI] 20.0-20.9, adult; F17.210 Nicotine dependence, cigarettes, uncomplicated; Z20.822 Contact with and (suspected) exposure to COVID-19; Z99.81 Dependence on supplemental oxygen; Z71.6 Tobacco abuse counseling; Z79.51 Long term (current) use of inhaled steroids; Z79.899 Other long term (current) drug therapy
CPT/HCPCS: 36415; 71045; 80048; 80053; 80076; 80307; 81003; 82272; 82550; 82728; 82803; 83540; 83735; 84443; 84484; 85025; 85027; 87635; 92526; 92610; 93005; 93308; 94640; 97110; 97116; 97162; 99285; J1650; J2560; J2920; J2930; J3411; J7120; Q9957

== ENCOUNTER → 2023-07-19 01:05 | Outpatient (BNV) | payer MEDICARE, SELFPAY | PROVIDERS: Emergency Provider Internal Medicine; Visit Provider Student in an Organized Health Care Education/Training Program | DX: I48.0 Paroxysmal atrial fibrillation (principal); F10.20 Alcohol dependence, uncomplicated; J44.1 Chronic obstructive pulmonary disease with (acute) exacerbation; J45.901 Unspecified asthma with (acute) exacerbation | CPT/HCPCS: 99222; 99232; 99233; 99239; 99499 ==

== ENCOUNTER 2023-07-19 04:34 | Outpatient (BNV) | payer MEDICARE, SELFPAY | END 2023-07-21 07:00 | PROVIDERS: Admitting Provider Student in an Organized Health Care Education/Training Program; Emergency Provider Internal Medicine; Visit Provider Internal Medicine Cardiovascular Disease | DX: I48.0 Paroxysmal atrial fibrillation (principal) | CPT/HCPCS: 93308 ==

== ENCOUNTER → 2023-07-19 04:34 | Outpatient (BNV) | payer MEDICARE, SELFPAY | PROVIDERS: Admitting Provider Student in an Organized Health Care Education/Training Program; Emergency Provider Internal Medicine; Visit Provider Internal Medicine | DX: I48.0 Paroxysmal atrial fibrillation (principal) | CPT/HCPCS: 93010; 99222; 99232 ==

== ENCOUNTER 2023-11-02 09:56 | Inpatient (IN) | payer MEDICARE, OTHER, SELFPAY ==
[2023-11-02] VITALS (11 sets, daily range): BP systolic 100–161; BP diastolic 57–100; PULSE 56–161; RESP 13–25; TEMP 36.2–36.8; O2SAT 93–98; BMI 16.5; BMI 18.2
--- NOTE | 2023-11-02 | ECG_ITS ---
Test Reason : TACHYCARDIA Blood Pressure : / mmHG Vent. Rate : 109 BPM Atrial Rate : 110 BPM P-R Int : 108 ms QRS Dur : 066 ms QT Int : 314 ms P-R-T Axes : 084 080 079 degrees QTc Int : 422 ms Sinus tachycardia Otherwise normal ECG When compared with ECG of 19-JUL-2023 22:48, Vent. rate has increased Referred By: Generic ED Physician Electronically Signed By:FRANCIS MERIDA MD
--- NOTE | ~2023-11-02 | US_ITS ---
EXAMINATION: US RETROPERITONEAL LIMITED (RENAL ONLY) CLINICAL INFORMATION: Acute kidney injury. COMPARISON: CT abdomen pelvis 04/10/2023 TECHNIQUE: Real-time imaging of the kidneys. FINDINGS: RIGHT KIDNEY: 9.7 x 5.5 x 5.5 cm (SAG x AP x TRV). The kidney is normal in size, contour, and echogenicity. Renal cortical thickness is normal. No calculi or focal parenchymal lesions. No hydronephrosis. LEFT KIDNEY: 9.3 x 5.4 x 4.6 cm (SAG x AP x TRV). The kidney is normal in size, contour, and echogenicity. Renal cortical thickness is normal. No calculi or focal parenchymal lesions. No hydronephrosis. US/US renal BI IMPRESSION: Normal-appearing kidneys. No superimposed cause would be contributing to the patient's worsening renal function.
--- NOTE | ~2023-11-02 | US_ITS ---
EXAMINATION: US EXTRACRANIAL CAROTID DUPLEX, BILATERAL CLINICAL INFORMATION: Evaluate for stenosis COMPARISON: None available. TECHNIQUE: Real-time ultrasound and Doppler techniques (integrating B-mode 2-D vascular images, Doppler spectral analysis and color-flow Doppler imaging) were utilized to interrogate the extracranial carotid arteries, the vertebral arteries and proximal subclavian arteries bilaterally. The degree of stenosis is determined by criteria similar to NASCET. FINDINGS: Right Side: 1. There is mild atherosclerotic plaque seen in the bifurcation/proximal ICA region. 2. The common carotid artery PSV proximally is 92 cm/s and distally 85 cm/s. 3. The proximal internal carotid artery velocities are 103 cm/s systolic and 13 cm/s diastolic. 4. The proximal external carotid artery PSV is 110 cm/s. 5. The vertebral artery shows antegrade flow. 6. The subclavian artery waveforms are normal. Left Side: 1. There is mild atherosclerotic plaque seen in the bifurcation/proximal ICA region. 2. The common carotid artery PSV proximally is 119 cm/s and distally 93 cm/s. 3. The proximal internal carotid artery velocities are 63 cm/s systolic and 15 cm/s diastolic. 4. The proximal external carotid artery PSV is 110 cm/s. 5. The vertebral artery shows antegrade flow. 6. The subclavian artery waveforms are normal. US/US carotid duplex BI IMPRESSION: 1. RIGHT: Minimal, non-hemodynamically significant stenosis of the proximal right internal carotid artery corresponding to a 0-49% stenosis by velocity criteria. 2. LEFT: Minimal, non-hemodynamically significant stenosis of the proximal left internal carotid artery corresponding to a 0-49% stenosis by velocity criteria.
--- NOTE | ~2023-11-02 | XR_ITS ---
EXAMINATION: XR CHEST CLINICAL INFORMATION: Tachycardia. COMPARISON: Chest radiograph 07/23/2023. TECHNIQUE: Frontal view of the chest was obtained. FINDINGS: Normal heart size. Slightly increased reticular markings in the lower lungs. Questionable nodular-like opacity projecting over the left lower lobe. No consolidation. No pleural effusion or pneumothorax. No acute osseous findings. XR/XR chest 1V IMPRESSION: 1. Mildly increased interstitial in the lower lungs suggesting subsegmental atelectasis, less likely aspiration or infiltrates. 2. Equivocal nodular opacity versus volume averaging in the left lower lobe. Recommend follow-up with CT chest in 3 months.
--- NOTE | ~2023-11-02 | XR_ITS ---
EXAMINATION: XR CHEST CLINICAL INFORMATION: Shortness of breath COMPARISON: 11/02/2023 TECHNIQUE: Frontal view of the chest was obtained. FINDINGS: The heart and pulmonary vessels appear normal. There is mild volume loss in the right hemithorax. No infiltrates, pleural effusions or lung masses are seen. Bibasilar atelectasis is noted. XR/XR chest 1V IMPRESSION: No acute intrathoracic disease.
--- NOTE | ~2023-11-02 | CT_ITS ---
EXAMINATION: CT HEAD WITHOUT CONTRAST CT CERVICAL SPINE WITHOUT CONTRAST CLINICAL INFORMATION: Fall, pain. COMPARISON: None. TECHNIQUE: Contiguous axial imaging was performed from the skull base to vertex without intravenous administration of contrast. Contiguous axial imaging was performed from the upper chest through the skull base without intravenous administration of contrast. Coronal and sagittal reformats were obtained at the acquisition workstation. This CT examination was performed using dose optimization techniques as appropriate, variously including the following: *Automated exposure control *Adjustment of mA and/or kV according to patient size (this includes techniques or standardized protocols for targeted exams where dose is matched to indication/reason for exam; i.e. extremities or head) *Use of iterative reconstruction technique DLP: 1535 mGy-cm FINDINGS: Head: Limited evaluation secondary to motion. There is no evidence of acute intracranial hemorrhage or edematous territorial infarction. Scattered hypoattenuation in the periventricular and deep white matter are consistent with moderate microangiopathy. Robbins-white matter differentiation is preserved. Proportional prominence of the ventricles and sulcal spaces. No evidence for obstructive hydrocephalus. No abnormal mass effect or midline shift. No extra-axial fluid collections. No acute soft tissue or osseous abnormalities. Complete opacification of the right mastoid and right middle ear cavities. Paranasal sinuses are clear. Cervical Spine: Limited evaluation secondary to motion. The atlantooccipital and atlantoaxial articulations remain well aligned. No evidence of acute compression deformity or traumatic subluxation. Moderate multilevel cervical spondylosis with intervertebral disc height loss, facet/uncovertebral hypertrophy and various degrees of neural foraminal encroachment. There is no prevertebral soft tissue swelling. Right posterolateral tracheal diverticulum (5:267). Severe calcifications of the right greater than left carotid bulbs. Remaining cervical soft tissues are normal in appearance. The lung apices demonstrate emphysematous changes. CT/CT cervical spine wo IV con IMPRESSION: 1. Examination is very limited by motion, although accounting for this limitation, no discrete acute intracranial abnormality or cervical spinal fractures/subluxations are seen. 2. Moderate chronic microangiopathy with volume loss. 3. Moderate cervical spondylosis. 4. Complete opacification of the right mastoid and right middle ear cavities. Correlate clinically for mastoiditis and otitis media. 5. Severe calcifications of the right greater than left carotid bulbs. Recommend correlation with a nonemergent carotid ultrasound. 6. Emphysema.
[2023-11-02 10:42] LABS: MANUAL DIFF FLAG NO
[2023-11-02 10:49] LABS: Basophils Percent Auto 0.3 % (0-2); Eosinophils Absolute Auto 0.1 X10*3/uL (0.0-0.4); Eosinophils Percent Auto 0.7 % (0-4); Hematocrit 39.9 % (42.0-52.0); Hemoglobin 14.5 g/dl (14.0-18.0); Imm Gran Abs Auto 0.06 X10*3/uL (0.00-0.03); Imm Gran Pct Auto 0.7 % (0.0-0.4); Lymphocytes Absolute Auto 0.9 X10*3/uL (1.2-4.9); Lymphocytes Percent Auto 10.5 % (20-40); Mean Corpuscular HGB Conc 36.3 g/dl (31.0-36.0); Mean Corpuscular Hemoglobin 30.8 pg (27.0-33.0); Mean Corpuscular Volume 84.7 fL (80.0-98.0); Mean Platelet Volume 8.3 fL (9.4-12.4); Monocytes Absolute Auto 0.6 X10*3/uL (0.1-1.2); Monocytes Percent Auto 6.7 % (2-11); Neutrophils Absolute Auto 7.2 x10*3/uL (2.0-8.3); Neutrophils Percent Auto 81.1 % (45-73); Platelet Count 400 X10*3/uL (160-400); Red Blood Count 4.71 X10*6/uL (4.60-5.80); Red Cell Distribution Width 12.5 % (11.0-16.0); White Blood Count 8.9 X10*3/uL (4.8-10.8)
[2023-11-02 10:57] LABS: Ammonia 36 umol/L (13-55)
[2023-11-02 10:58] LABS: Lactic Acid 1.5 mmol/L (0.5-2.0)
[2023-11-02 11:03] LABS: Venous Blood Gas Refer to POC result
[2023-11-02 11:03] LABS: VBG Base Excess 4.3 mmol/L; VBG HCO3 29 mmol/L (22-26); VBG pCO2 47 mmHg; VBG pO2 69 mmHg
[2023-11-02 11:08] LABS: Acetaminophen LAB < 3 mcg/mL (<30); B Type Natriuretic Peptide 254 pg/mL (<100)
[2023-11-02 11:11] LABS: Troponin-I High Sensitivity 14.1 ng/L (<3.5-35.0)
[2023-11-02 11:13] LABS: Alanine Aminotransferase 37 U/L (0-40); Alkaline Phosphatase 81 U/L (39-117); Aspartate Amino Transferase 89 U/L (5-37); Bilirubin Total 0.6 mg/dL (0.0-1.0); Blood Urea Nitrogen 4 mg/dL (9-16); Calcium 9.1 mg/dL (8.4-10.2); Creatinine Clr Calc Pharmacy 82.9; Estimated Glomerular Filt Rate > 60; Ethanol < 10 mg/dL; Glucose Random 90 mg/dL (60-115); Total Protein 7.2 g/dL (6.5-8.0)
[2023-11-02 11:19] LABS: Anion Gap 16 (12-20)
[2023-11-02 11:21] LABS: Carbon Dioxide 29 mmol/L (22-29); Chloride 78 mmol/L (96-108); Potassium 5.2 mmol/L (3.3-5.1); Sodium 118 mmol/L (135-145)
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
[2023-11-02 11:26] LABS: Free T4 (Free Thyroxine) 1.08 ng/dL (0.71-1.85); Thyroid Stimulating Hormone 1.28 uIU/mL (0.32-4.0)
[2023-11-02] MEDS: 0.9 % Sodium Chloride 1,000 ML 50 ML IV (11:43)
[2023-11-02 11:56] LABS: Osmolality, Serum 243 mosm/kg (281-305)
[2023-11-02 12:13] LABS: Appearance Urine Clear; Color Urine Dark Yellow; Glucose Urine UA 100 mg/dL (Negative); Leukocyte Esterase Urine Negative (Negative); Nitrite Urine Negative (Negative); UMIC TRIGGER UACC YES; Urine Blood Large (3+) (Negative); Urine Ketones 15 mg/dL (Negative); Urine Protein Negative (Neg-Trace)
[2023-11-02 12:22] LABS: Osmolality Urine 551 mosm/kg (373-1093)
[2023-11-02 12:28] LABS: Bacteria Urine None Seen (None Seen); Squamous Epithelial Cell Urine 0-2 /HPF (0-2); WBC Urine 0-5 /HPF (0-5)
[2023-11-02 12:29] LABS: Hyaline Casts Urine 0-2 /LPF (0-2)
[2023-11-02 12:32] LABS: INTERNATIONAL NORM RATIO 0.9 (0.9-1.1); Prothrombin Time 10.4 SEC (11.1-13.3)
--- NOTE | 2023-11-02 13:28 | PC.NURSE ---
Per provider, pt fluid rate changed to 75mls/hr. Strictly NPO, techs aware. Resting in bed, call garcia within reach.
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
[2023-11-02 15:48] LABS: Anion Gap 15 (12-20); Blood Urea Nitrogen 4 mg/dL (9-16); Calcium 8.3 mg/dL (8.4-10.2); Carbon Dioxide 23 mmol/L (22-29); Chloride 82 mmol/L (96-108); Creatinine Clr Calc Pharmacy 94.8; Estimated Glomerular Filt Rate > 60; Glucose Random 80 mg/dL (60-115); Potassium 4.7 mmol/L (3.3-5.1)
[2023-11-02 15:49] LABS: Sodium 115 mmol/L (135-145)
--- NOTE | 2023-11-02 16:38 | PHA.MEDREC ---
Pharmacy Consult ? Medication Reconciliation Pharmacy has completed the medication reconciliation. Patient tells me that he has no medication at home and only remembers taking Tylenol. Does not know of the medications prescribed on discharge during last admission.
--- NOTE | 2023-11-02 17:01 | PM.CCHP ---
History of Present Illness Date of Service: 11/02/23 <Cadence Hopkins MD - Last Filed: 11/02/23 20:13> Attending physician on admission: Cadence Hopkins <Cadence Hopkins MD - Last Filed: 11/02/23 20:13> Chief Complaint: Hyponatremia <Cadence Hopkins MD - Last Filed: 11/02/23 20:13> Patient is a 68 Y M with COPD, atrial fibrillation, alcohol misuse, and failure to thrive, initially presenting to emergency department on 11/01 d/t failure to thrive; per EMS, EMS called by patient's roommate for a lift assist; upon arrival, EMS found patient on floor, soiled; in the ED, patient was hemodynamically and clinically stable, alert to person, however was found to have hyponatremia 118, started on normal saline, though hyponatremia worsened to 115; patient admitted to ICU for further management <Cadence Hopkins MD - Last Filed: 11/02/23 20:13> Review of Systems Review of Systems: Yes all other systems are reviewed and are negative <Cadence Hopkins MD - Last Filed: 11/02/23 20:13> [facility] Past Medical History Medical History: Medical History Pneumonia Asthma Alcohol dependence <Cadence Hopkins MD - Last Filed: 11/02/23 20:13> Social History Social History: Social History Household Members: Other Household Members Other:: friends Housing: House Do you presently have visiting nurse or other home services: No Alcohol intake: current Alcohol intake frequency: 0-2 drinks per day Alcohol type: beer Patient Tobacco Use Status: Former Tobacco user Tobacco use type: Cigarette Cigarette Packs Per Day: 1 Cigarettes Per Day: 20.0 Smoked in Last 30 Days: Yes Patient Interested in Nicotine Replacement: Yes Use of substances other than those prescribed or required for medical reasons: No Substance Use Type: Crack/Cocaine Currently Displaying Signs/Symptoms of Drug Intoxication Withdrawal: No Any prior treatment program specific to substance use: No Have you been hit, kicked, punched, or otherwise hurt by someone within the past year? If so, by whom?: No Do you feel safe in your current relationship?: Yes Is there a partner from a previous relationship who is making you feel unsafe now?: No Are you made to feel afraid or neglected: No Advance Directives: No Advance Directives Information Provided: Yes Do you have a plan to hurt others: No Plan Nutrition Risks: No Nutritional Risk service: No <Cadence Hopkins MD - Last Filed: 11/02/23 20:13> Meds Allergies/Adverse reactions: Allergies Allergy/AdvReac Type Severity Reaction Status Date / Time No Known Allergies Allergy Verified 11/02/23 10:12 <Cadence Hopkins MD - Last Filed: 11/02/23 20:13> Active Medications: Current Medications Sodium Chloride (Ns) 1,000 mls @ 75 mls/hr IV .[id number] STA Stop: 11/03/23 00:45 Last Infusion: 11/02/23 13:28 Dose: 75 mls/hr Ceftriaxone Sodium 1 gm/ (Sodium Chloride) 50 mls @ 100 mls/hr IV DAILY VLADIMIR Stop: 11/05/23 16:59 <Cadence Hopkins MD - Last Filed: 11/02/23 20:13> Home medications: Home Medications ?Medication ?Instructions ?Recorded ?Confirmed ?Last Taken ?Type acetaminophen 325 mg tablet 650 mg PO Q6H PRN Pain 11/02/23 11/02/23 Unknown History (Tylenol) <Cadence Hopkins MD - Last Filed: 11/02/23 20:13> Physical Exam Vital Signs: Vital Signs: Last Vital Signs Temp 98.2 F 11/02/23 16:50 Pulse 101 H 11/02/23 16:50 Resp 25 H 11/02/23 16:50 BP 133/83 11/02/23 16:50 Pulse Ox 98 11/02/23 16:50 O2 Del Method Nasal Cannula 11/02/23 16:50 O2 Flow Rate 2 11/02/23 16:50 Oxygen Flow Rate 2 11/02/23 10:07 BMI result Body Mass Index 16.5 <Cadence Hopkins MD - Last Filed: 11/02/23 20:13> Const: General: no acute distress, alert, ill appearing and poor hygiene <Fanny Rose NP - Last Filed: 11/02/23 20:01> Nutritional Appearance: thin and underweight <Fanny Rose NP - Last Filed: 11/02/23 20:01> Orientation/consciousness: oriented to person <TAO Reyna Last Filed: 11/02/23 20:01> HEENT: Head: Yes normocephalic and Yes atraumatic <TAO Reyna Last Filed: 11/02/23 20:01> Ears: hearing grossly normal bilaterally, TM abnormal (Right) erythematous, with fluid behind the TM and not mobile and unable to visualize TM on the left (cerumen impaction) <Fanny Rose NP - Last Filed: 11/02/23 20:01> General nose exam: Normal external nose present (Nares patent, septum midline, sinuses nontender bilaterally.) <TAO Reyna Last Filed: 11/02/23 20:01> Mouth: Normal oral and palatal mucosa present (No thrush, tongue in midline.) <TAO Reyna Last Filed: 11/02/23 20:01> Teeth and gingiva: dentures (not with patient) and edentulous <Fanny Rose NP - Last Filed: 11/02/23 20:01> Throat: Yes other (No erythema, no exudate.) <TAO Reyna Last Filed: 11/02/23 20:01> Eyes: General: appearance normal, both eyes and all related structures <Fanny Rose NP - Last Filed: 11/02/23 20:01> Neck: Neck: Yes supple (no thyromegaly, trachea midline.) <TAO Reyna Last Filed: 11/02/23 20:01> Carotids: normal carotid upstroke <TAO Reyna Last Filed: 11/02/23 20:01> Resp: Effort & Inspection: normal respiratory effort, able to speak in complete sentences, no audible wheezes and no cough <TAO Reyna Last Filed: 11/02/23 20:01> Auscultation: clear to auscultation bilaterally (normal work of breathing, no accessory muscle use) <TAO Reyna Last Filed: 11/02/23 20:01> Cardio: Jugular venous distension: no JVD <Fanny Rose NP - Last Filed: 11/02/23 20:01> Rate: regular rate <Fanny Rose NP - Last Filed: 11/02/23 20:01> Rhythm: abnormal rhythm regularly irregular <Fanny Rose NP - Last Filed: 11/02/23 20:01> Heart sounds: no gallops, no murmurs and no rubs <Fanny Rose NP - Last Filed: 11/02/23 20:01> Peripheral pulses: Peripheral pulses 2+ throughout <Fanny Rose SYSTEM ADMINISTRATION MANAGER - Last Filed: 11/02/23 20:01> GI: Inspection: Yes normal to inspection <Fanny Rose NP - Last Filed: 11/02/23 20:01> Palpation (GI): Soft to palpation (nondistended.) and nontender <Fanny Rose NP - Last Filed: 11/02/23 20:01> Auscultation: normal bowel sounds <Fanny Rose NP - Last Filed: 11/02/23 20:01> Neuro: General: oriented to person <Fanny Rose NP - Last Filed: 11/02/23 20:01> Cranial nerves: Yes CN's II-XII intact bilaterally <Fanny Rose NP - Last Filed: 11/02/23 20:01> Motor exam (neuro): Tremors during motor activity present bilateral upper extremities resting tremor <Fanny Rose NP - Last Filed: 11/02/23 20:01> Pupils: Normal pupillary reactivity/response: bilateral <Fanny Rose NP - Last Filed: 11/02/23 20:01> Extrem: General: Yes full ROM, Yes capillary refill normal and Yes no clubbing, cyanosis or edema <Fanny Rose NP - Last Filed: 11/02/23 20:01> Right lower extremity: no edema <Fanny Rose NP - Last Filed: 11/02/23 20:01> Left lower extremity: no edema <Fanny Rose NP - Last Filed: 11/02/23 20:01> Psych: Appearance: disheveled <Fanny Rose NP - Last Filed: 11/02/23 20:01> Attitude: cooperative <Fanny Rose NP - Last Filed: 11/02/23 20:01> Results Labs CBC and Chem 7: 11/02/23 10:36 11/02/23 17:25 <Cadence Hopkins MD - Last Filed: 11/02/23 20:13> Labs: Laboratory Results - last 24 hr 11/02/23 11/02/23 11/02/23 10:36 10:56 12:04 MCV 84.7 MCH 30.8 MCHC 36.3 H RDW 12.5 Plt Count 400 D MPV 8.3 L Immature Gran % (Auto) 0.7 H Neut % (Auto) 81.1 H Lymph % (Auto) 10.5 L Faulk % (Auto) 6.7 Eos % (Auto) 0.7 Baso % (Auto) 0.3 Lymph # (Auto) 0.9 L Faulk # (Auto) 0.6 Eos # (Auto) 0.1 Baso # (Auto) 0.0 Abs Immat Gran (auto) 0.06 H Absolute Neuts (auto) 7.2 Absolute Nucleated RBC 0.000 Nucleated RBC % (auto) 0.0 PT 10.4 L INR 0.9 VBG pH 7.40 VBG pCO2 47 VBG pO2 69 VBG HCO3 29 H VBG O2 Saturation 94.0 VBG Base Excess 4.3 Anion Gap 16 Estim Creat Clear Calc 82.9 Estimated GFR > 60 Random Glucose 90 Osmolality 243 L Lactic Acid 1.5 Calcium 9.1 Total Bilirubin 0.6 AST 89 H ALT 37 Alkaline Phosphatase 81 Ammonia 36 Total Creatine Kinase 1726 H Troponin I High Sens 14.1 D B-Natriuretic Peptide 254 H Total Protein 7.2 Albumin 4.0 TSH 1.28 Free T4 1.08 Urine Color Dark Yellow Urine Appearance Clear Urine pH 6.0 Ur Specific [place] 1.020 Urine Protein Negative Urine Glucose (UA) 100 H Urine Ketones 15 Urine Blood Large (3+) H Urine Nitrite Negative Ur Leukocyte Esterase Negative Urine RBC 11-20 H Urine WBC 0-5 Ur Squamous Epith Cells 0-2 Urine Bacteria None Seen Hyaline Casts 0-2 Urine Osmolality 551 Ur Random Sodium 70.0 Acetaminophen < 3 Ethyl Alcohol < 10 11/02/23 15:10 MCV MCH MCHC RDW Plt Count MPV Immature Gran % (Auto) Neut % (Auto) Lymph % (Auto) Faulk % (Auto) Eos % (Auto) Baso % (Auto) Lymph # (Auto) Faulk # (Auto) Eos # (Auto) Baso # (Auto) Abs Immat Gran (auto) Absolute Neuts (auto) Absolute Nucleated RBC Nucleated RBC % (auto) PT INR VBG pH VBG pCO2 VBG pO2 VBG HCO3 VBG O2 Saturation VBG Base Excess Anion Gap 15 Estim Creat Clear Calc 94.8 Estimated GFR > 60 Random Glucose 80 Osmolality Lactic Acid Calcium 8.3 L D Total Bilirubin AST ALT Alkaline Phosphatase Ammonia Total Creatine Kinase Troponin I High Sens B-Natriuretic Peptide Total Protein Albumin TSH Free T4 Urine Color Urine Appearance Urine pH Ur Specific [place] Urine Protein Urine Glucose (UA) Urine Ketones Urine Blood Urine Nitrite Ur Leukocyte Esterase Urine RBC Urine WBC Ur Squamous Epith Cells Urine Bacteria Hyaline Casts Urine Osmolality Ur Random Sodium Acetaminophen Ethyl Alcohol <Cadence Hopkins MD - Last Filed: 11/02/23 20:13> Imaging Radiologist's Impressions: Impressions Chest X-Ray 11/02/23 11:12 IMPRESSION: 1. Mildly increased interstitial in the lower lungs suggesting subsegmental atelectasis, less likely aspiration or infiltrates. 2. Equivocal nodular opacity versus volume averaging in the left lower lobe. Recommend follow-up with CT chest in [address] 11/02/23 11:53 IMPRESSION: 1. Examination is very limited by motion, although accounting for this limitation, no discrete acute intracranial abnormality or cervical spinal fractures/subluxations are seen. 2. Moderate chronic microangiopathy with volume loss. 3. Moderate cervical spondylosis. 4. Complete opacification of the right mastoid and right middle ear cavities. Correlate clinically for mastoiditis and otitis media. 5. Severe calcifications of the right greater than left carotid bulbs. Recommend correlation with a nonemergent carotid ultrasound. 6. Emphysema. Head CT 11/02/23 11:53 IMPRESSION: 1. Examination is very limited by motion, although accounting for this limitation, no discrete acute intracranial abnormality or cervical spinal fractures/subluxations are seen. 2. Moderate chronic microangiopathy with volume loss. 3. Moderate cervical spondylosis. 4. Complete opacification of the right mastoid and right middle ear cavities. Correlate clinically for mastoiditis and otitis media. 5. Severe calcifications of the right greater than left carotid bulbs. Recommend correlation with a nonemergent carotid ultrasound. 6. Emphysema. <Cadence Hopkins MD - Last Filed: 11/02/23 20:13> Assessment and Plan (1) Hyponatremia: Status: Acute <Cadence Hopkins MD - Last Filed: 11/02/23 20:13> (2) FTT (failure to thrive) in adult: Status: Acute <Cadence Hopkins MD - Last Filed: 11/02/23 20:13> (3) COPD (chronic obstructive pulmonary disease): Qualifiers: COPD type: unspecified COPD Qualified Code(s): J44.9 - Chronic obstructive pulmonary disease, unspecified <Cadence Hopkins MD - Last Filed: 11/02/23 20:13> Status: Acute <Cadence Hopkins MD - Last Filed: 11/02/23 20:13> (4) Alcohol dependence: Qualifiers: Substance use status: uncomplicated Qualified Code(s): F10.20 - Alcohol dependence, uncomplicated <Cadence Hopkins MD - Last Filed: 11/02/23 20:13> Status: Acute <Cadence Hopkins MD - Last Filed: 11/02/23 20:13> Patient is a 68 Y M with COPD, atrial fibrillation, alcohol misuse, and failure to thrive, initially presenting to emergency department on 11/01 d/t failure to thrive, found to have hyponatremia, admitted ICU for further management N: alert, oriented to person only, though unclear baseline; possible encephalopathy d/t hyponatremia; to monitor closely CV: no acute issues R: no acute issues; COPD, NC, DuoNebs as needed GI: NPO, advance diet as tolerated; fluid restrict less than 1L per day : hyponatremia, appears to have SIADH component; to pursue slow correction w/ normal saline, goal no greater than 126 by 11/02 10:00; titrate normal saline as needed; fluid restrict less than 1L per day H: no acute issues; paroxysmal atrial fibrillation ID: possible otitis media/mastoiditis on CT H; ceftriaxone E: no acute issues; to follow AM cortisol S: c/f neglect; to involve case management; alcohol misuse, CIWA protocol <Cadence Hopkins MD - Last Filed: 11/02/23 20:13> Total time managing care of this patient today: 90 minutes. <Cadence Hopkins MD - Last Filed: 11/02/23 20:13>
[2023-11-02] MEDS: cefTRIAXone sodium 1 GM in 0.9 % Sodium Chloride 50 ML IV (17:22)
[2023-11-02 17:51] LABS: Alanine Aminotransferase 32 U/L (0-40); Albumin Level 3.4 g/dL (3.5-5.0); Alkaline Phosphatase 66 U/L (39-117); Anion Gap 14 (12-20); Aspartate Amino Transferase 73 U/L (5-37); Bilirubin Total 0.6 mg/dL (0.0-1.0); Blood Urea Nitrogen 4 mg/dL (9-16); Calcium 8.4 mg/dL (8.4-10.2); Carbon Dioxide 26 mmol/L (22-29); Chloride 82 mmol/L (96-108); Creatinine Clr Calc Pharmacy 92.9; Estimated Glomerular Filt Rate > 60; Glucose Random 73 mg/dL (60-115); Magnesium 1.7 mg/dL (1.6-2.6); Phosphorus 3.3 mg/dL (2.7-4.5); Potassium 4.4 mmol/L (3.3-5.1); Total Protein 6.1 g/dL (6.5-8.0)
[2023-11-02 17:53] LABS: Sodium 118 mmol/L (135-145)
[2023-11-02 22:03] LABS: Anion Gap 17 (12-20); Blood Urea Nitrogen 3 mg/dL (9-16); Calcium 7.9 mg/dL (8.4-10.2); Carbon Dioxide 22 mmol/L (22-29); Chloride 85 mmol/L (96-108); Creatinine Clr Calc Pharmacy 111.3; Estimated Glomerular Filt Rate > 60; Glucose Random 71 mg/dL (60-115); Potassium 4.3 mmol/L (3.3-5.1); Sodium 120 mmol/L (135-145)
[2023-11-03] VITALS (21 sets, daily range): BP systolic 92–153; BP diastolic 56–85; PULSE 75–103; RESP 11–22; TEMP 36.1–36.8; O2SAT 91–97; BMI 18.4
[2023-11-03 01:15] LABS: Anion Gap 16 (12-20); Blood Urea Nitrogen 3 mg/dL (9-16); Calcium 8.4 mg/dL (8.4-10.2); Carbon Dioxide 24 mmol/L (22-29); Chloride 84 mmol/L (96-108); Creatinine Clr Calc Pharmacy 98.5; Estimated Glomerular Filt Rate > 60; Glucose Random 73 mg/dL (60-115); Sodium 120 mmol/L (135-145)
[2023-11-03] MEDS: 0.9 % Sodium Chloride 1,000 ML 50 ML IVCONT (03:00)
[2023-11-03 05:29] LABS: MANUAL DIFF FLAG NO
[2023-11-03 05:33] LABS: Basophils Percent Auto 0.5 % (0-2); Eosinophils Percent Auto 0.4 % (0-4); Hematocrit 32.9 % (42.0-52.0); Hemoglobin 11.7 g/dl (14.0-18.0); Imm Gran Abs Auto 0.02 X10*3/uL (0.00-0.03); Imm Gran Pct Auto 0.2 % (0.0-0.4); Lymphocytes Absolute Auto 1.7 X10*3/uL (1.2-4.9); Lymphocytes Percent Auto 20.4 % (20-40); Mean Corpuscular HGB Conc 35.6 g/dl (31.0-36.0); Mean Corpuscular Hemoglobin 30.3 pg (27.0-33.0); Mean Corpuscular Volume 85.2 fL (80.0-98.0); Mean Platelet Volume 8.4 fL (9.4-12.4); Monocytes Percent Auto 12.3 % (2-11); Neutrophils Absolute Auto 5.6 x10*3/uL (2.0-8.3); Neutrophils Percent Auto 66.2 % (45-73); Platelet Count 298 X10*3/uL (160-400); Red Blood Count 3.86 X10*6/uL (4.60-5.80); Red Cell Distribution Width 12.8 % (11.0-16.0); White Blood Count 8.5 X10*3/uL (4.8-10.8)
[2023-11-03 05:52] LABS: Anion Gap 14 (12-20); Blood Urea Nitrogen 3 mg/dL (9-16); Calcium 8.2 mg/dL (8.4-10.2); Carbon Dioxide 24 mmol/L (22-29); Chloride 86 mmol/L (96-108); Creatinine Clr Calc Pharmacy 96.6; Estimated Glomerular Filt Rate > 60; Glucose Random 74 mg/dL (60-115); Potassium 4.1 mmol/L (3.3-5.1)
[2023-11-03 05:54] LABS: Sodium 120 mmol/L (135-145)
[2023-11-03 06:08] LABS: Cortisol Random 15.7 ug/dL
[2023-11-03 09:25] LABS: Anion Gap 14 (12-20); Blood Urea Nitrogen < 3 mg/dL (9-16); Carbon Dioxide 25 mmol/L (22-29); Chloride 86 mmol/L (96-108); Estimated Glomerular Filt Rate > 60; Glucose Random 79 mg/dL (60-115); Potassium 4.1 mmol/L (3.3-5.1); Sodium 121 mmol/L (135-145)
--- NOTE | 2023-11-03 10:16 | P.PNCC_ITS ---
Subjective Subjective Date of Service: 11/03/23 Interval History: 68-year-old gentleman with underlying COPD, AFib, alcohol abuse, failure to thrive admitted on 11/02/2023 with failure to thrive and subacute hyponatremia with sodium level of 118 and no neurologic symptoms. Patient was started on regular diet with improvement in his sodium level. No events overnight. Critical Care Time (minutes): 0 Physical Exam 2 Vital Signs: Vital Signs: Last Vital Signs Temp 98.1 F 11/03/23 08:00 Pulse 95 11/03/23 10:00 Resp 22 H 11/03/23 10:00 BP 126/72 11/03/23 10:00 Pulse Ox 91 L 11/03/23 10:00 O2 Del Method Room Air 11/03/23 10:00 O2 Flow Rate 2 11/03/23 07:00 Oxygen Flow Rate 2 11/02/23 10:07 BMI result Body Mass Index 18.4 Const: General: no acute distress, alert and awake Nutritional Appearance: malnourished Eyes: Sclerae: sclerae normal EOM: EOMs intact bilaterally Neck: Neck: Yes no lymphadenopathy, Yes trachea midline and Yes supple Resp: Effort & Inspection: normal respiratory effort and no respiratory distress Auscultation: clear to auscultation bilaterally Cardio: Rate: regular rate Rhythm: regular rhythm Heart sounds: no gallops, no murmurs and no rubs GI: Palpation (GI): Soft to palpation and Other GI palpation findings present ( Nontender) Auscultation: normal bowel sounds Extrem: General: Yes no pedal edema, No clubbing and No cyanosis Objective Data Labs 11/03/23 05:11 11/03/23 09:01 Labs: Laboratory Results - last 24 hr 11/02/23 11/02/23 11/02/23 10:36 10:56 12:04 WBC 8.9 RBC 4.71 Hgb 14.5 D Hct 39.9 L MCV 84.7 MCH 30.8 MCHC 36.3 H RDW 12.5 Plt Count 400 D MPV 8.3 L Immature Gran % (Auto) 0.7 H Neut % (Auto) 81.1 H Lymph % (Auto) 10.5 L [place] % (Auto) 6.7 Eos % (Auto) 0.7 Baso % (Auto) 0.3 Lymph # (Auto) 0.9 L [place] # (Auto) 0.6 Eos # (Auto) 0.1 Baso # (Auto) 0.0 Abs Immat Gran (auto) 0.06 H Absolute Neuts (auto) 7.2 Absolute Nucleated RBC 0.000 Nucleated RBC % (auto) 0.0 PT 10.4 L INR 0.9 VBG pH 7.40 VBG pCO2 47 VBG pO2 69 VBG HCO3 29 H VBG O2 Saturation 94.0 VBG Base Excess 4.3 Sodium 118 L* Potassium 5.2 H D Chloride 78 L D Carbon Dioxide 29 Anion Gap 16 BUN 4 L Creatinine 0.56 Estim Creat Clear Calc 82.9 Estimated GFR > 60 Random Glucose 90 Osmolality 243 L Lactic Acid 1.5 Calcium 9.1 Phosphorus Magnesium Total Bilirubin 0.6 AST 89 H ALT 37 Alkaline Phosphatase 81 Ammonia 36 Total Creatine Kinase 1726 H Troponin I High Sens 14.1 D B-Natriuretic Peptide 254 H Total Protein 7.2 Albumin 4.0 TSH 1.28 Free T4 1.08 Random Cortisol Urine Color Dark Yellow Urine Appearance Clear Urine pH 6.0 Ur Specific [place] 1.020 Urine Protein Negative Urine Glucose (UA) 100 H Urine Ketones 15 Urine Blood Large (3+) H Urine Nitrite Negative Ur Leukocyte Esterase Negative Urine RBC 11-20 H Urine WBC 0-5 Ur Squamous Epith Cells 0-2 Urine Bacteria None Seen Hyaline Casts 0-2 Urine Osmolality 551 Ur Random Sodium 70.0 Acetaminophen < 3 Ethyl Alcohol < 10 11/02/23 11/02/23 11/02/23 15:10 17:25 21:34 WBC RBC Hgb Hct MCV MCH MCHC RDW Plt Count MPV Immature Gran % (Auto) Neut % (Auto) Lymph % (Auto) [place] % (Auto) Eos % (Auto) Baso % (Auto) Lymph # (Auto) [place] # (Auto) Eos # (Auto) Baso # (Auto) Abs Immat Gran (auto) Absolute Neuts (auto) Absolute Nucleated RBC Nucleated RBC % (auto) PT INR VBG pH VBG pCO2 VBG pO2 VBG HCO3 VBG O2 Saturation VBG Base Excess Sodium 115 L* 118 L* 120 L* Potassium 4.7 4.4 4.3 Chloride 82 L 82 L 85 L Carbon Dioxide 23 26 22 Anion Gap 15 14 17 BUN 4 L 4 L 3 L Creatinine 0.49 L 0.50 0.46 L Estim Creat Clear Calc 94.8 92.9 111.3 Estimated GFR > 60 > 60 > 60 Random Glucose 80 73 71 Osmolality Lactic Acid Calcium 8.3 L D 8.4 7.9 L Phosphorus 3.3 Magnesium 1.7 Total Bilirubin 0.6 AST 73 H ALT 32 Alkaline Phosphatase 66 Ammonia Total Creatine Kinase Troponin I High Sens B-Natriuretic Peptide Total Protein 6.1 L Albumin 3.4 L TSH Free T4 Random Cortisol Urine Color Urine Appearance Urine pH Ur Specific [place] Urine Protein Urine Glucose (UA) Urine Ketones Urine Blood Urine Nitrite Ur Leukocyte Esterase Urine RBC Urine WBC Ur Squamous Epith Cells Urine Bacteria Hyaline Casts Urine Osmolality Ur Random Sodium Acetaminophen Ethyl Alcohol 11/03/23 11/03/23 11/03/23 00:56 05:11 09:01 WBC 8.5 RBC 3.86 L Hgb 11.7 L Hct 32.9 L MCV 85.2 MCH 30.3 MCHC 35.6 RDW 12.8 Plt Count 298 D MPV 8.4 L Immature Gran % (Auto) 0.2 Neut % (Auto) 66.2 Lymph % (Auto) 20.4 [place] % (Auto) 12.3 H Eos % (Auto) 0.4 Baso % (Auto) 0.5 Lymph # (Auto) 1.7 [place] # (Auto) 1.0 Eos # (Auto) 0.0 Baso # (Auto) 0.0 Abs Immat Gran (auto) 0.02 Absolute Neuts (auto) 5.6 Absolute Nucleated RBC 0.000 Nucleated RBC % (auto) 0.0 PT INR VBG pH VBG pCO2 VBG pO2 VBG HCO3 VBG O2 Saturation VBG Base Excess Sodium 120 L* 120 L* 121 L Potassium 4.0 4.1 4.1 Chloride 84 L 86 L 86 L Carbon Dioxide 24 24 25 Anion Gap 16 14 14 BUN 3 L 3 L < 3 L Creatinine 0.52 0.53 0.47 L Estim Creat Clear Calc 98.5 96.6 110.0 Estimated GFR > 60 > 60 > 60 Random Glucose 73 74 79 Osmolality Lactic Acid Calcium 8.4 D 8.2 L 8.0 L Phosphorus Magnesium Total Bilirubin AST ALT Alkaline Phosphatase Ammonia Total Creatine Kinase Troponin I High Sens B-Natriuretic Peptide Total Protein Albumin TSH Free T4 Random Cortisol 15.7 Urine Color Urine Appearance Urine pH Ur Specific [place] Urine Protein Urine Glucose (UA) Urine Ketones Urine Blood Urine Nitrite Ur Leukocyte Esterase Urine RBC Urine WBC Ur Squamous Epith Cells Urine Bacteria Hyaline Casts Urine Osmolality Ur Random Sodium Acetaminophen Ethyl Alcohol Progress Note: A&P Assessment and plan (1) Hyponatremia: Status: Acute (2) FTT (failure to thrive) in adult: Status: Acute (3) Paroxysmal atrial fibrillation with RVR: Status: Acute (4) COPD (chronic obstructive pulmonary disease): Status: Acute Plan Assessment: 68-year-old gentleman with underlying COPD, AFib, failure to thrive admitted with subacute hyponatremia secondary to poor solute intake improving with regular diet. Plan: Neuro: No acute issues. Cardiac: No acute issues. Pulmonary: No acute issues. Renal: Subacute hyponatremia secondary to poor solute intake, improving with regular diet. Nephrology service care appreciated. Continue to monitor sodium level. Endo: No acute issues. GI: No acute issues. ID: No acute issues Heme/Onc: No acute issues. Psych: No acute issues. Miscellaneous: No acute issues. Prophylaxis: Heparin Diet: Regular Quality Stroke Does the patient have a stroke diagnosis?: No VTE Prior VTE?: No VTE Risk Level:: Medical - moderate - high VTE Device Contraindication: N/A - Device Ordered VTE Drug Contraindication: N/A - Med Ordered
[2023-11-03] MEDS: Acetaminophen 325 MG TABLET 650 MG PO ×2 (11:42→18:00)
[2023-11-03] MEDS: Heparin Sodium,Porcine 5,000 UNIT/ML VIAL 5000 UNIT SUBCUT ×2 (11:42→22:20)
--- NOTE | 2023-11-03 12:03 | P.CDIM_ITS ---
PROVIDER RESPONSE TEXT: To clarify, the appropriate diagnosis supported by the clinical indicators: Moderate QUERY TEXT: PHYSICIAN'S DOCUMENTATION REQUEST Date of Query: 11/03/2023 11:43 AM EDT Patient Name: Heriberto Cho Admit Date: 11/02/2023 Dear Shimon Dinero MD, A review of the medical record indicates additional documentation may be needed. Please review below and update the documentation accordingly: Clinical indicators: Progress note 11/02 - Nutritional appearance: Malnourished Failure to thrive, elder neglect, disheveled, unkept, covered in feces and urine. BMI 16.5 5ft 7in 53.2kg If possible, please provide additional specificity regarding the severity of the malnutrition using t he above information: Mild Moderate Severe Other (explain) Clinically unable to determine (explain) Thank you, Caroline Murphy, CCS, CDIS Use of terms such as suspected, likely, concern for, or probable (associated with a specific diagnosi s that is being evaluated, monitored, or treated as if it exists) are acceptable and can be coded in the inpatient se tting, when documented at the time of discharge. Please use your independent medical judgment in providing your response. THIS QUERY IS PART OF THE PERMANENT MEDICAL RECORD
--- NOTE | 2023-11-03 13:01 | P.CONNP_ITS ---
History of Present Illness Reason for Consult Consult date: 11/04/23 Chief Complaint Chief complaint: Hyponatremia History of Present Illness Narrative: 68 Y M with COPD, atrial fibrillation, alcohol misuse, and failure to thrive, initially presenting to emergency department on 11/01 d/t failure to thrive; per EMS, EMS called by patient's roommate for a lift assist; upon arrival, EMS found patient on floor, soiled; in the ED, patient was hemodynamically and clinically stable, alert to person, however was found to have hyponatremia 118, started on normal saline, though hyponatremia worsened to 115; patient admitted to ICU for further management Serum sodium was 115 on admission. Currently sodium is 120 millimoles. Rate of correction acceptable. Currently on IV hydration Review of Systems Review of Systems Yes Unobtainable due to mental status PMFSH Past Medical History Medical History Pneumonia Asthma Alcohol dependence Social History Social History Household Members: Other Household Members Other:: friends Housing: House Do you presently have visiting nurse or other home services: No Alcohol intake: current Alcohol intake frequency: 0-2 drinks per day Alcohol type: beer Patient Tobacco Use Status: Former Tobacco user Tobacco use type: Cigarette Cigarette Packs Per Day: 1 Cigarettes Per Day: 20.0 Smoked in Last 30 Days: Yes Patient Interested in Nicotine Replacement: Yes Use of substances other than those prescribed or required for medical reasons: No Substance Use Type: Crack/Cocaine Currently Displaying Signs/Symptoms of Drug Intoxication Withdrawal: No Any prior treatment program specific to substance use: No Have you been hit, kicked, punched, or otherwise hurt by someone within the past year? If so, by whom?: No Do you feel safe in your current relationship?: Yes Is there a partner from a previous relationship who is making you feel unsafe now?: No Are you made to feel afraid or neglected: No Advance Directives: No Advance Directives Information Provided: Yes Do you have a plan to hurt others: No Plan Nutrition Risks: No Nutritional Risk service: No Meds Allergies Allergy/AdvReac Type Severity Reaction Status Date / Time No Known Allergies Allergy Verified 11/02/23 10:12 Active Medications: Current Medications Acetaminophen (Acetaminophen 325 Mg Tablet) 650 mg PO Q6H PRN PRN Reason: Pain Last Admin: 11/03/23 11:42 Dose: 650 mg Albuterol/Ipratropium (Albuterol/Iprat 2.5/0.5mg 3 Ml Ampul.Neb) 3 ml INHALE RQ4H WHILE AWAKE PRN PRN Reason: Wheezing Heparin Sodium (Porcine) (Heparin Sodium,Porcine 5,000 Unit/Ml Vial) 5,000 unit SUBCUT Q12H VLADIMIR Last Admin: 11/03/23 11:42 Dose: 5,000 unit Home Medications ?Medication ?Instructions ?Recorded ?Confirmed ?Last Taken ?Type acetaminophen 325 mg tablet 650 mg PO Q6H PRN Pain 11/02/23 11/02/23 Unknown History (Tylenol) Physical Exam Vital Signs: Last Vital Signs Temp 98.2 F 11/03/23 11:59 Pulse 94 11/03/23 11:59 Resp 18 11/03/23 11:59 BP 92/59 L 11/03/23 11:59 Pulse Ox 91 L 11/03/23 11:59 O2 Del Method Room Air 11/03/23 11:59 O2 Flow Rate 2 11/03/23 07:00 Oxygen Flow Rate 2 11/02/23 10:07 BMI result Body Mass Index 18.4 Awake. Comfortable. Neck is supple. Mucosa dry Lungs air entry Heart S1-S2 heard no gallop. Abdomen soft. Extremities no edema. No involuntary movements. No myoclonus. Results Lab Results 11/04/23 07:18 11/04/23 07:18 Lab results: Chemistry 11/02/23 11/02/23 11/02/23 10:36 15:10 17:25 Sodium 118 L* 115 L* 118 L* Potassium 5.2 H D 4.7 4.4 Carbon Dioxide 29 23 26 BUN 4 L 4 L 4 L Creatinine 0.56 0.49 L 0.50 Calcium 9.1 8.3 L D 8.4 Phosphorus 3.3 11/02/23 11/03/23 11/03/23 21:34 00:56 05:11 Sodium 120 L* 120 L* 120 L* Potassium 4.3 4.0 4.1 Carbon Dioxide 24 BUN 3 L 3 L 3 L Creatinine 0.46 L 0.52 0.53 Calcium 7.9 L 8.4 D 8.2 L Phosphorus 11/03/23 09:01 Sodium 121 L Potassium 4.1 Carbon Dioxide 25 BUN < 3 L Creatinine 0.47 L Calcium 8.0 L Phosphorus Hematology 11/02/23 11/03/23 10:36 05:11 WBC 8.9 8.5 Hgb 14.5 D 11.7 L Plt Count 400 D 298 D Urinalysis 11/02/23 12:04 Urine Color Dark Yellow Urine Appearance Clear Urine pH 6.0 Ur Specific [place] 1.020 Urine Protein Negative Urine Glucose (UA) 100 H Urine Ketones 15 Urine Blood Large (3+) H Urine Nitrite Negative Ur Leukocyte Esterase Negative Urine RBC 11-20 H Urine WBC 0-5 Ur Squamous Epith Cells 0-2 Hyaline Casts 0-2 Urine Studies 11/02/23 12:04 Urine Osmolality 551 Assessment and Plan (1) Hyponatremia: Status: Acute Plan 68-year-old man with COPD and poor p.o. intake with significant hyponatremia. Differential diagnosis includes hypovolemic hyponatremia versus euvolemic hyponatremia. Goal is to correct serum sodium rate of 0.5-1 millimole per L/hr and not more than 10 millimoles in a 24 hour. I will restrict oral free water intake Agree with IV normal saline at current rate. Check serum sodium every 4 hours to avoid rapid correction. Check TSH and cortisol for completion. No indication for hypertonic saline at this time. If serum sodium does not improve I would evaluate the source of non osmotic ADH release Procedures Date of Service Date of Service: 11/04/23
--- NOTE | 2023-11-03 13:22 | MHC.CLN ---
PT IS MODERATELY AMLNOURISHED PT WITH MILDLY DEPLETED SUBCUTANEOUS FAT AND MUSCLE MASS WITH BMI 18 WITH 10% SIGNIFICANT WT LOSS X 7 MONTHS DIET RX: REGULAR 1000CC FR-APPROPRIATE RECOMMEND ADDING MAGIC CUP TID WITH MEAL TO INCREASE KCALS SUPPLEMENT TO PROVIDE 870KCALS, 27G PROTEIN MONITOR PO INTAKE AND ENCOURAGE SUPPLEMENTS SEE ALSO FULL CLINICAL NUTRITION ASSESSMENT
[2023-11-03 14:33] LABS: Anion Gap 11 (12-20); Blood Urea Nitrogen 5 mg/dL (9-16); Calcium 8.3 mg/dL (8.4-10.2); Carbon Dioxide 28 mmol/L (22-29); Chloride 87 mmol/L (96-108); Creatinine Clr Calc Pharmacy 90.7; Estimated Glomerular Filt Rate > 60; Glucose Random 121 mg/dL (60-115); Potassium 3.8 mmol/L (3.3-5.1); Sodium 122 mmol/L (135-145)
--- NOTE | 2023-11-03 14:44 | PM.EVENT ---
Event Note Date of Service: 11/03/23 Event Note: Patient tx from ICU with failure to thrive, hyponatremia, copd, afib. Discussed with ICU attending Time Spent With Patient Time: Total time managing care of this patient today ____ minutes.
--- NOTE | 2023-11-03 14:53 | MHC.CM.PN ---
IMM DELIVERED. PT VERY TREMULOUS AND UNABLE TO SIGN, RIGHTS EXPLAINED AND VERBALIZES UNDERSTANDING. PT GIVES PERMISSION FOR CM TO SPEAK WITH SISTER IF NEEDED AND STATES SHE WOULD BE THE PERSON HE WOULD NAME TO MAKE HIS HEALTHCARE DECISIONS. HCP COMPLETED AND SCANNED TO RECORD. PT IS ALERT X 2, COMPLIANT WITH ASSESSMENT. PT LIVES WITH OTHER BUT FORGETS HIS ADDRESS. PT DOES NOT RECALL HAVING A PCP. PTWILL NEED TO BE SEEN BY P.T. TO DETERMINE DC DISPO. DP: P.T. EVAL TO DETERMINE DC DISPO. BLS TRANSPORT. CM WILL CONTINUE TO FOLLOW FOR ANY CHANGE TO DC PLAN.
[2023-11-03] MEDS: Albumin Human 25 % 100 ML IV (15:05)
[2023-11-03] MEDS: Albuterol/Iprat 2.5/0.5MG 3 ML AMPUL.NEB INHALE (19:53)
--- NOTE | 2023-11-04 07:24 | PC.NURSE ---
Approximately around 05:00, pt had little amount of urine in [place] Cath, pt was bladder scan for over 582ml. MD Gardner was notified of the situation. Straight cath was ordered. This RN had difficulty straight cathing the pt causing trauma and discomfort. There was lots of resistance during the straight cath. Pt had to be straight cath with an coude catheter with good effect. The coude catheter was left in place due to the previous trauma with the 1st attempt. Pt had 500ml yellow urine after being straight cath with the coude catheter. This RN reported to julian QUIÑONES RN about the situation and possible needing an [place] order and urology consult. Will continue to monitor.
[2023-11-04 07:25] VITALS: BP 138/76; PULSE 83; RESP 18; TEMP 36.1; O2SAT 94
[2023-11-04 07:35] LABS: MANUAL DIFF FLAG NO
[2023-11-04 07:43] LABS: Basophils Percent Auto 0.8 % (0-2); Eosinophils Absolute Auto 0.1 X10*3/uL (0.0-0.4); Eosinophils Percent Auto 1.1 % (0-4); Hematocrit 31.8 % (42.0-52.0); Hemoglobin 11.5 g/dl (14.0-18.0); Imm Gran Abs Auto 0.02 X10*3/uL (0.00-0.03); Imm Gran Pct Auto 0.4 % (0.0-0.4); Lymphocytes Absolute Auto 1.5 X10*3/uL (1.2-4.9); Lymphocytes Percent Auto 29.1 % (20-40); Mean Corpuscular HGB Conc 36.2 g/dl (31.0-36.0); Mean Corpuscular Hemoglobin 30.7 pg (27.0-33.0); Mean Platelet Volume 8.5 fL (9.4-12.4); Monocytes Absolute Auto 0.8 X10*3/uL (0.1-1.2); Monocytes Percent Auto 15.2 % (2-11); Neutrophils Absolute Auto 2.8 x10*3/uL (2.0-8.3); Neutrophils Percent Auto 53.4 % (45-73); Platelet Count 295 X10*3/uL (160-400); Red Blood Count 3.74 X10*6/uL (4.60-5.80); Red Cell Distribution Width 12.8 % (11.0-16.0); White Blood Count 5.3 X10*3/uL (4.8-10.8)
[2023-11-04 08:02] LABS: Albumin Level 3.4 g/dL (3.5-5.0); Anion Gap 10 (12-20); Blood Urea Nitrogen 4 mg/dL (9-16); Calcium 8.8 mg/dL (8.4-10.2); Carbon Dioxide 29 mmol/L (22-29); Chloride 87 mmol/L (96-108); Creatinine Clr Calc Pharmacy 105.5; Estimated Glomerular Filt Rate > 60; Glucose Random 97 mg/dL (60-115); Magnesium 1.8 mg/dL (1.6-2.6); Phosphorus 2.7 mg/dL (2.7-4.5); Potassium 3.3 mmol/L (3.3-5.1); Sodium 123 mmol/L (135-145)
[2023-11-04] MEDS: vancomycin HCL 1,250 MG in 0.9 % Sodium Chloride 250 ML 166.67 MG IV (08:03)
--- NOTE | 2023-11-04 08:50 | PM.PNNEP ---
Subjective Subjective Date of Service: 11/06/23 Interval history: 68-year-old gentleman with underlying COPD, AFib, alcohol abuse, failure to thrive admitted on 11/02/2023 with failure to thrive and subacute hyponatremia with sodium level of 118 and no neurologic symptoms. Patient was started on regular diet with improvement in his sodium level. No events overnight. Physical Exam Vital Signs: Vital Signs: Last Vital Signs Temp 97.0 F 11/04/23 07:25 Pulse 83 11/04/23 07:25 Resp 18 11/04/23 07:25 BP 138/76 11/04/23 07:25 Pulse Ox 94 11/04/23 07:25 O2 Del Method Room Air 11/04/23 07:25 O2 Flow Rate 2 11/03/23 07:00 Oxygen Flow Rate 2 11/02/23 10:07 BMI result Body Mass Index 18.4 Awake. Comfortable. Neck is supple. Mucosa moist. Lungs bilateral scattered rhonchi. Heart S1-S2 heard no gallop. Abdomen soft. Extremities no edema. No involuntary movements. No myoclonus. Objective Data Labs 11/04/23 07:18 11/06/23 08:32 Labs: Laboratory Results - last 24 hr 11/03/23 11/03/23 11/04/23 09:01 14:05 07:18 WBC 5.3 RBC 3.74 L Hgb 11.5 L Hct 31.8 L MCV 85.0 MCH 30.7 MCHC 36.2 H RDW 12.8 Plt Count 295 MPV 8.5 L Immature Gran % (Auto) 0.4 Neut % (Auto) 53.4 Lymph % (Auto) 29.1 [place] % (Auto) 15.2 H Eos % (Auto) 1.1 Baso % (Auto) 0.8 Lymph # (Auto) 1.5 [place] # (Auto) 0.8 Eos # (Auto) 0.1 Baso # (Auto) 0.0 Abs Immat Gran (auto) 0.02 Absolute Neuts (auto) 2.8 Absolute Nucleated RBC 0.000 Nucleated RBC % (auto) 0.0 Sodium 121 L 122 L 123 L Potassium 4.1 3.8 3.3 Chloride 86 L 87 L 87 L Carbon Dioxide 25 28 29 Anion Gap 14 11 L 10 L BUN < 3 L 5 L 4 L Creatinine 0.47 L 0.57 0.49 L Estim Creat Clear Calc 110.0 90.7 105.5 Estimated GFR > 60 > 60 > 60 Random Glucose 79 121 H 97 Calcium 8.0 L 8.3 L 8.8 D Phosphorus 2.7 Magnesium 1.8 Albumin 3.4 L Microbiology Microbiology Results: Microbiology 11/02/23 10:36 Blood - Venous Blood Culture - Preliminary Prelim: GPC Gram Stain only 11/02/23 10:45 Blood - Venous Blood Culture - Preliminary No growth after 24 hours. Procedures Date of Service Date of Service: 11/06/23 Assessment & Plan Assessment and plan (1) Hyponatremia: Status: Acute Plan 68-year-old man with COPD and poor p.o. intake with significant hyponatremia. Differential diagnosis includes hypovolemic hyponatremia versus euvolemic hyponatremia. Goal is to correct serum sodium rate of 0.5-1 millimole per L/hr and not more than 10 millimoles in a 24 hour. TSH and cortisol are normal restrict oral free water intake Check serum sodium every 12 hours to avoid rapid correction. No indication for hypertonic saline at this time. If serum sodium does not improve I would evaluate the source of non osmotic ADH release Time Spent With Patient Time: Total time managing care of this patient today ____ minutes. Progress Note: Quality Stroke Does the patient have a stroke diagnosis?: No
--- NOTE | 2023-11-04 08:52 | PHA.PROG ---
Admission Date/Time: November 02, 2023 16:46 Indication: Bacteremia Weight in k.2 kg Adjusted body weight in K.9 Serum Creatinine - Last 168 Hours 11/02/23 11/02/23 11/02/23 10:36 15:10 17:25 Creatinine 0.56 0.49 L 0.50 11/02/23 11/03/23 11/03/23 21:34 00:56 05:11 Creatinine 0.46 L 0.52 0.53 11/03/23 11/03/23 11/04/23 09:01 14:05 07:18 Creatinine 0.47 L 0.57 0.49 L Estimated CrCl and GFR - Last 168 Hours 11/02/23 11/02/23 11/02/23 10:36 15:10 17:25 Estim Creat Clear Calc 82.9 94.8 92.9 Estimated GFR > 60 > 60 > 60 11/02/23 11/03/23 11/03/23 21:34 00:56 05:11 Estim Creat Clear Calc 111.3 98.5 96.6 Estimated GFR > 60 > 60 > 60 11/03/23 11/03/23 11/04/23 09:01 14:05 07:18 Estim Creat Clear Calc 110.0 90.7 105.5 Estimated GFR > 60 > 60 > 60 Vancomycin Loading Dose: 1250mg Current Vancomycin Dosing Regimen: 100mg q12h Vancomycin Monitoring using AUC goal of 400 - 600 range with trough as surrogate marker:[id number] Date and Time for next Vancomycin Level to be drawn: 11/04 @ 0600 Pharmacist Comments on Vancomycin Plan: Getting level after 2 doses do to patient age, true CrCl could be lower so dosed conservatively for now. Vancomycin dosing will take advantage of [employer] as a clinical decision support tool that uses Bayesian modeling to calculate individual patient's pharmacokinetic parameters and forecast the patient's drug concentration time course with the target goal AUC 24 range of 400 - 600 mg/L/hr.
[2023-11-04] MEDS: Albuterol/Iprat 2.5/0.5MG 3 ML AMPUL.NEB INHALE (09:52)
[2023-11-04 09:53] VITALS: PULSE 83; RESP 18; O2SAT 96
--- NOTE | 2023-11-04 10:24 | HO.PM.IMPN ---
Subjective Subjective Date of Service: 11/04/23 Review of Systems Follow up hyponatremia, GPC bacteremia feeling well, no nausea, vomiting Physical Exam Vital Signs: Vital Signs: Last Vital Signs Temp 97.0 F 11/04/23 07:25 Pulse 83 11/04/23 09:53 Resp 18 11/04/23 09:53 BP 138/76 11/04/23 07:25 Pulse Ox 94 11/04/23 07:25 O2 Del Method Room Air 11/04/23 07:25 O2 Flow Rate 2 11/03/23 07:00 Oxygen Flow Rate 2 11/02/23 10:07 BMI result Body Mass Index 18.4 Appearing in no acute distress lung sounds are clear to auscultation heart regular rate rhythm, clear S1, S2 positive bowel sounds, abdomen is soft, nontender neuro patient is alert x3, no focal deficits Objective Data Active Medications Acetaminophen (Acetaminophen 325 Mg Tablet) 650 mg PO Q6H PRN PRN Reason: Pain Last Admin: 11/03/23 18:00 Dose: 650 mg Documented By: FERNANDO Albuterol/Ipratropium (Albuterol/Iprat 2.5/0.5mg 3 Ml Ampul.Neb) 3 ml INHALE RQ4H WHILE AWAKE PRN PRN Reason: Wheezing Last Admin: 11/04/23 09:52 Dose: 3 ml Documented By: SONDRA Heparin Sodium (Porcine) (Heparin Sodium,Porcine 5,000 Unit/Ml Vial) 5,000 unit SUBCUT Q12H [facility] Last Admin: 11/03/23 22:20 Dose: 5,000 unit Documented By: HALI Vancomycin HCl 1,000 mg/ (Sodium Chloride) 270 mls @ 270 mls/hr IV Q12H [facility] Pharmacy Consult (Consult Rx Vancomycin Dosing) 1 each MISCELLANE DAILY PRN PRN Reason: Consult order Labs 11/04/23 07:18 11/04/23 07:18 Labs: Laboratory Results - last 24 hr 11/03/23 11/04/23 14:05 07:18 MCV 85.0 MCH 30.7 MCHC 36.2 H RDW 12.8 Plt Count 295 MPV 8.5 L Immature Gran % (Auto) 0.4 Neut % (Auto) 53.4 Lymph % (Auto) 29.1 [place] % (Auto) 15.2 H Eos % (Auto) 1.1 Baso % (Auto) 0.8 Lymph # (Auto) 1.5 [place] # (Auto) 0.8 Eos # (Auto) 0.1 Baso # (Auto) 0.0 Abs Immat Gran (auto) 0.02 Absolute Neuts (auto) 2.8 Absolute Nucleated RBC 0.000 Nucleated RBC % (auto) 0.0 Anion Gap 11 L 10 L Estim Creat Clear Calc 90.7 105.5 Estimated GFR > 60 > 60 Random Glucose 121 H 97 Calcium 8.3 L 8.8 D Phosphorus 2.7 Magnesium 1.8 Albumin 3.4 L Microbiology Microbiology Results: Microbiology 11/02/23 10:36 Blood Culture - Preliminary Blood - Venous Prelim: GPC Gram Stain only 11/02/23 10:45 Blood Culture - Preliminary Blood - Venous No growth after 24 hours. Assessment and Plan (1) Hyponatremia: Status: Acute Plan 68 year old man admitted for FTT and hyponatremia. Patient was found living in [facility] and reported that he has been sleeping in the floor. Hyponatremia lowest of 115 in ICU initially TSH and cortisol normal now up to 123 with fluid restriction Nephrology following> Check sodium Q12hrs, correct na 0.5-1 M/L/H and not more than 10 in 24hrs COPD NO exacerbation albuterol as needed AFib no rvr not on rate control medication not on ac likely due to etoh alcohol use disorder CIWA no symptoms of withdrawal Failure to thrive CM to follow PT consult protein calorie malnutrition, moderate add ensure to diet DISPO will likely need STR when medically clear DVT prophylaxis with heparin Full code Quality Stroke Does the patient have a stroke diagnosis?: No VTE Prior VTE?: No VTE Risk Level:: Medical - moderate - high VTE Device Contraindication: N/A - Device Ordered VTE Drug Contraindication: N/A - Med Ordered
[2023-11-04] MEDS: Heparin Sodium,Porcine 5,000 UNIT/ML VIAL 5000 UNIT SUBCUT ×2 (11:13→21:43)
--- NOTE | 2023-11-04 12:18 | MHC.CM.PN ---
A call was received from [facility] protective services. Lisseth is the sole painter. She has requested a Geripsych/capacity eval. The patient was not able to answer any of the questions that she asked. The request was sent to the provider. DP likely STR via BLS.
--- NOTE | 2023-11-04 12:20 | MHC.RECOVRN ---
Briefly met with pt in 343 after consult placed to Addiction Medicine for alcohol use. Per triage note, pt BIBA from home where he lives with two friends. Friends called for a lift assist, when EMS arrived pt was found on the floor laying on puppy pads on top of the wood floor. Pt was covered in urine/feces. Pt on O2 with machine on but appeared to have no tubing attached. Daily drinker 2-3 drinks a day. Upon evaluation, pt admitted for hyponatremia, failure to thrive, COPD, and alcohol dependence. Pt laying in bed, asleep, wakes to voice, difficult to engage in conversation. Pt reports alcohol use, 2 24 ounce beers daily. Pt denies withdrawal symptoms, reports he felt some at the beginning of his admission but is now comfortable. Pt is not receiving medication for withdrawal management. Pt reports feeling tired, requesting to sleep. Denies questions or concerns for t/w. Discussed with Deirdre Holcomb APRN.
[2023-11-04 15:18] VITALS: BP 115/60; PULSE 97; RESP 18; TEMP 36.8; O2SAT 94
--- NOTE | 2023-11-04 15:33 | P.CDIM_ITS ---
PROVIDER RESPONSE TEXT: To clarify, the appropriate diagnosis supported by the clinical indicators: Metabolic QUERY TEXT: PHYSICIAN'S DOCUMENTATION REQUEST Date of Query: 11/04/2023 11:07 AM EDT Patient Name: Heriberto Cho Admit Date: 11/02/2023 Dear Emily Land, A review of the medical record indicates additional documentation may be needed. Please review below and update the documentation accordingly. Clinical Indicators: ICU History and Physical under the Plan: alert, oriented to person only, though unclear baseline, pos sible encephalopathy d/t hyponatremia. Initially confused, monitor Based on the above, please further specify, in the Progress Notes, the known or suspected type of the documented encephalopathy: Metabolic Toxic Toxic metabolic Encephalopathy ruled out Other (explain) Clinically unable to determine (explain) Thank you, Caroline Murphy, CCS, CDIS Use of terms such as suspected, likely, concern for, or probable (associated with a specific diagnosi s that is being evaluated, monitored, or treated as if it exists) are acceptable and can be coded in the inpatient se tting, when documented at the time of discharge. Please use your independent medical judgment in providing your response. THIS QUERY IS PART OF THE PERMANENT MEDICAL RECORD
[2023-11-04 16:22] LABS: Sodium 127 mmol/L (135-145)
[2023-11-05] VITALS: BP 130/69; PULSE 89; RESP 16; TEMP 36.4; O2SAT 94
[2023-11-05 05:42] VITALS: BMI 18.3
[2023-11-05 06:46] LABS: Anion Gap 12 (12-20); Blood Urea Nitrogen 18 mg/dL (9-16); Calcium 8.8 mg/dL (8.4-10.2); Carbon Dioxide 26 mmol/L (22-29); Chloride 93 mmol/L (96-108); Creatinine Clr Calc Pharmacy 26.7; Estimated Glomerular Filt Rate 35; Glucose Random 92 mg/dL (60-115); Potassium 3.5 mmol/L (3.3-5.1); Sodium 127 mmol/L (135-145)
[2023-11-05 07:25] VITALS: BP 126/69; PULSE 70; RESP 18; TEMP 36.2; O2SAT 95
--- NOTE | 2023-11-05 09:17 | P.PNIM_ITS ---
Subjective Subjective Date of Service: 11/05/23 Review of Systems Follow up hyponatremia, GPC bacteremia feeling well, no nausea, vomiting Physical Exam 2 Vital Signs: Vital Signs: Last Vital Signs Temp 97.2 F 11/05/23 07:25 Pulse 70 11/05/23 07:25 Resp 18 11/05/23 07:25 BP 126/69 11/05/23 07:25 Pulse Ox 95 11/05/23 07:25 O2 Del Method Room Air 11/05/23 07:25 O2 Flow Rate 2 11/03/23 07:00 Oxygen Flow Rate 2 11/02/23 10:07 BMI result Body Mass Index 18.3 Appearing in no acute distress lung sounds are clear to auscultation heart regular rate rhythm, clear S1, S2 positive bowel sounds, abdomen is soft, nontender neuro patient is alert x3, no focal deficits Objective Data Active Medications Acetaminophen (Acetaminophen 325 Mg Tablet) 650 mg PO Q6H PRN PRN Reason: Pain Last Admin: 11/03/23 18:00 Dose: 650 mg Documented By: FERNANDO Albuterol/Ipratropium (Albuterol/Iprat 2.5/0.5mg 3 Ml Ampul.Neb) 3 ml INHALE RQ4H WHILE AWAKE PRN PRN Reason: Wheezing Last Admin: 11/04/23 09:52 Dose: 3 ml Documented By: SONDRA Heparin Sodium (Porcine) (Heparin Sodium,Porcine 5,000 Unit/Ml Vial) 5,000 unit SUBCUT Q12H [facility] Last Admin: 11/04/23 21:43 Dose: 5,000 unit Documented By: ALEXANDRU Sodium Chloride (Ns) 500 mls @ 75 mls/hr IVCONT .Q6H40M [facility] Stop: 11/05/23 16:09 Labs 11/04/23 07:18 11/05/23 05:18 Labs: Laboratory Results - last 24 hr 11/05/23 05:18 Anion Gap 12 Estim Creat Clear Calc 26.7 Estimated GFR 35 Random Glucose 92 Calcium 8.8 Microbiology Microbiology Results: Microbiology 11/02/23 10:36 Blood Culture - Final Blood - Venous Coag negative Staphylococcus 11/02/23 10:45 Blood Culture - Preliminary Blood - Venous No growth after 48 hours. Assessment and Plan (1) Hyponatremia: Status: Acute Plan 68 year old man admitted for FTT and hyponatremia. Patient was found living in [facility] and reported that he has been sleeping in the floor. CR mild ATN give back some fluid 500ml ns nephrology following Hyponatremia lowest of 115 in ICU initially TSH and cortisol normal now up to 127 with fluid restriction but now in cr Nephrology following> Check sodium Q12hrs, correct na 0.5-1 M/L/H and not more than 10 in 24hrs COPD NO exacerbation albuterol as needed AFib no rvr not on rate control medication not on ac likely due to etoh alcohol use disorder CIWA no symptoms of withdrawal Failure to thrive CM to follow protein calorie malnutrition, moderate add ensure to diet DISPO will likely need STR when medically clear DVT prophylaxis with heparin Attending Dr. Krishna Full code Quality Stroke Does the patient have a stroke diagnosis?: No VTE Prior VTE?: No VTE Risk Level:: Medical - moderate - high VTE Device Contraindication: N/A - Device Ordered VTE Drug Contraindication: N/A - Med Ordered
[2023-11-05] MEDS: Heparin Sodium,Porcine 5,000 UNIT/ML VIAL 5000 UNIT SUBCUT ×2 (09:55→22:27)
[2023-11-05] MEDS: 0.9 % Sodium Chloride 500 ML 75 ML IVCONT (09:57)
--- NOTE | 2023-11-05 11:46 | MHC.CLN ---
Addendum entered by Hortensia Bettencourt, JODI 11/05/23 15:00: CONSULT FOR SKIN INTEGRITY. PANCHO=17. SKIN WITH REDNESS TO FEET, GROIN, BUTTOCKS AND HAS FOAM TO COCCYX. SKIN AREAS NOT STAGED. NO OPEN AREAS NOTED. CONTINUE CURRENT DIET AND SUPPLEMENT. Original Note: F/U DIET RX: REGULAR 1000CC FR-APPROPRIATE SUPPLEMENT CHANGED BY PROVIDER TO ENSURE BID. PROVIDES 700 KCALS, 40 G PROTEIN. INTAKE APPEARS GOOD, 50-100%. SODIUM CONTINUES LOW, 127 ON 11/04. CONTINUE CURRENT DIET AND SUPPLEMENT. FOLLOW FOR PO INTAKE AND LYTES.
--- NOTE | 2023-11-05 13:22 | P.PNNP_ITS ---
Subjective Subjective Date of Service: 11/05/23 Interval history: No events overnight. Serum creatinine gone up. Discussed with the hospitalist. All recent data reviewed Physical Exam 2 Vital Signs: Vital Signs: Last Vital Signs Temp 97.2 F 11/05/23 07:25 Pulse 70 11/05/23 07:25 Resp 18 11/05/23 07:25 BP 126/69 11/05/23 07:25 Pulse Ox 95 11/05/23 07:25 O2 Del Method Room Air 11/05/23 07:25 O2 Flow Rate 2 11/03/23 07:00 Oxygen Flow Rate 2 11/02/23 10:07 BMI result Body Mass Index 18.3 Const: General: comfortable and no acute distress O rientation/consciousness: patient oriented x3 HEENT: Head: Yes normocephalic Mouth: Normal oral and palatal mucosa present Eyes: EOM: EOMs intact bilaterally Neck: Neck: Yes supple Resp: Auscultation: clear to auscultation bilaterally Cardio: Jugular venous distension: no JVD Rate: regular rate GI: Palpation (GI): Soft to palpation Auscultation: normal bowel sounds : General: Yes no CVA tenderness Back/Spine/Pelvis: Back: no CVA tenderness Skin: General skin exam: no rashes or lesions noted Neuro: General: patient oriented x3 and moves all extremities Extrem: General: Yes no pedal edema Objective Data Labs 11/04/23 07:18 11/05/23 05:18 Labs: Laboratory Results - last 24 hr 11/04/23 11/05/23 15:43 05:18 Sodium 127 L 127 L Potassium 3.5 Chloride 93 L Carbon Dioxide 26 Anion Gap 12 BUN 18 H Creatinine 1.93 H Estim Creat Clear Calc 26.7 Estimated GFR 35 Random Glucose 92 Calcium 8.8 Microbiology Microbiology Results: Microbiology 11/02/23 10:36 Blood - Venous Blood Culture - Final Coag negative Staphylococcus 11/02/23 10:45 Blood - Venous Blood Culture - Preliminary No growth after 48 hours. Procedures Date of Service Date of Service: 11/05/23 Assessment & Plan Assessment and plan (1) Hyponatremia: Status: Acute (2) CR (acute kidney injury): Status: Acute Plan TSH and cortisol are normal. Serum sodium better. CR most likely due to tubular injury. We will need bladder scanning and renal ultrasound if serum creatinine does not settle Shall give 500 mL of normal saline back today. No recent suspect any GN or AIN. Labs AM. shall continue to follow closely Progress Note: Quality Stroke Does the patient have a stroke diagnosis?: No
--- NOTE | 2023-11-05 14:48 | MHC.CM.PN ---
per rounds today pt not ready for dc nd will likely need str when stable
--- NOTE | 2023-11-05 14:50 | MHC.CM.PN ---
pt accepted at [facility] they have submitted for ins auth still pending
[2023-11-05 15:06] VITALS: BP 132/76; PULSE 89; RESP 18; TEMP 36.6; O2SAT 93
[2023-11-05 23:37] VITALS: BP 140/78; PULSE 96; RESP 18; TEMP 36.2; O2SAT 94
[2023-11-06 06:00] VITALS: BMI 18.5
[2023-11-06 07:43] VITALS: BP 149/88; PULSE 93; RESP 18; TEMP 36.2; O2SAT 93
[2023-11-06 08:03] VITALS: BP 149/88; PULSE 93; O2SAT 93
[2023-11-06 08:58] LABS: Anion Gap 14 (12-20); Blood Urea Nitrogen 21 mg/dL (9-16); Calcium 8.9 mg/dL (8.4-10.2); Carbon Dioxide 29 mmol/L (22-29); Chloride 97 mmol/L (96-108); Creatinine Clr Calc Pharmacy 21.6; Estimated Glomerular Filt Rate 27; Glucose Random 99 mg/dL (60-115); Potassium 3.5 mmol/L (3.3-5.1); Sodium 136 mmol/L (135-145)
[2023-11-06] MEDS: Heparin Sodium,Porcine 5,000 UNIT/ML VIAL 5000 UNIT SUBCUT ×2 (09:38→23:15)
--- NOTE | 2023-11-06 13:36 | HO.PM.IMPN ---
Subjective Subjective Date of Service: 11/06/23 Interval History: Seen and examined this morning Follow-up for CR, hyponatremia Reports feeling well, no specific complaints this morning Review of Systems Review of Systems: Yes all other systems are reviewed and are negative Constitutional Constitutional: Denies chills and Denies fever(s) Cardiovascular Cardiovascular: Denies chest pain, Denies palpitations and Denies dyspnea Respiratory Respiratory: Denies dyspnea Gastrointestinal Gastrointestinal: Denies abdominal pain Endocrine Endocrine: Denies palpitations Physical Exam Vital Signs: Vital Signs: Last Vital Signs Temp 97.1 F 11/06/23 07:43 Pulse 93 11/06/23 08:03 Resp 18 11/06/23 07:43 BP 149/88 H 11/06/23 08:03 Pulse Ox 93 11/06/23 08:03 O2 Del Method Room Air 11/06/23 07:43 O2 Flow Rate 93 11/06/23 07:43 Oxygen Flow Rate 2 11/02/23 10:07 BMI result Body Mass Index 18.5 Const: General: cooperative, comfortable, no acute distress, alert and awake Nutritional Appearance: thin Resp: Effort & Inspection: normal respiratory effort, able to speak in complete sentences, no respiratory distress and no use of accessory muscles Auscultation: clear to auscultation bilaterally Cardio: Rate: regular rate GI: Inspection: No distended Palpation (GI): Soft to palpation and nontender Neuro: Other: Grossly nonfocal General: moves all extremities and CN's II-XI intact bilaterally Objective Data Active Medications Acetaminophen (Acetaminophen 325 Mg Tablet) 650 mg PO Q6H PRN PRN Reason: Pain Last Admin: 11/03/23 18:00 Dose: 650 mg Documented By: FERNANDO Albuterol/Ipratropium (Albuterol/Iprat 2.5/0.5mg 3 Ml Ampul.Neb) 3 ml INHALE RQ4H WHILE AWAKE PRN PRN Reason: Wheezing Last Admin: 11/04/23 09:52 Dose: 3 ml Documented By: SONDRA Heparin Sodium (Porcine) (Heparin Sodium,Porcine 5,000 Unit/Ml Vial) 5,000 unit SUBCUT Q12H [facility] Last Admin: 11/06/23 09:38 Dose: 5,000 unit Documented By: STEVIE Sodium Chloride (0.9 % Sodium Chloride Flush 10 Ml Syringe) 5 ml IVFLUSH QSHIFT [facility] Labs 11/04/23 07:18 11/06/23 08:32 Labs: Laboratory Results - last 24 hr 11/06/23 08:32 Hold Purple Top SEE NOTE Anion Gap 14 Estim Creat Clear Calc 21.6 Estimated GFR 27 Random Glucose 99 Calcium 8.9 Assessment and Plan (1) CR (acute kidney injury): Status: Acute (2) Hyponatremia: Status: Acute Plan 68 year old man admitted for FTT and hyponatremia. Patient was found living in [facility] and reported that he has been sleeping in the floor. CR mild ATN Renal function trending up despite receiving gentle IV fluid Will bladder scan, obtain renal ultrasound to rule out obstruction nephrology following Follow renal function Hyponatremia. resolved. lowest of 115 in ICU initially TSH and cortisol normal continue fluid restriction Nephrology following> Check sodium Q12hrs, correct na 0.5-1 M/L/H and not more than 10 in 24hrs Bacteremia Blood cultures growing coag-negative staph, likely contamination. No indication for treatment COPD NO exacerbation albuterol as needed AFib no rvr not on rate control medication not on ac likely due to etoh alcohol use disorder CIWA no symptoms of withdrawal Failure to thrive CM to follow protein calorie malnutrition, moderate add ensure to diet DISPO will likely need STR when medically clear DVT prophylaxis with heparin Attending Dr. Krishna Full code Quality Stroke Does the patient have a stroke diagnosis?: No VTE Prior VTE?: No VTE Risk Level:: Medical - moderate - high VTE Device Contraindication: N/A - Device Ordered VTE Drug Contraindication: N/A - Med Ordered
--- NOTE | 2023-11-06 14:34 | P.CNPS_ITS ---
History of Present Illness Date of Service: 11/06/23 Chief Complaint: Hyponatremia Reason for Consult: capacity Requesting physician: Emily Land Discussed with referring provider: Yes Sources of Information: patient interviewed and chart reviewed HPI Narrative: Patient is a 68 year old man admitted for FTT and hyponatremia. Patient was found living in [facility] and reported that he has been sleeping in the floor. Psychiatric consult placed for: capacity to make medical decisions T/W met with patient, pt is able to tell T/W he was brought to the hospital via EMS d/t being on the floor and could not stand on his own. When asked about understanding about current condition and need for hospitalization, pt states he has not been told why he is in the hospital. Pt reports he believes he is here d/t treatment team being concerned with his ability to walk. He reports he has been here in the hospital for the past 2 weeks- he has been here for 4 days. He is not able to report interventions while he has been in the hospital. Even when remided that he has been treated for critically low levels of sodium, but states he has not been told this information. Pt reports he has no past medical conditions. Denies having a PCP and reports he has not seen a medical provider in several years. Note that here in the hospital, he has also been dx with afib and emphysema. Pt is not oriented to month, year or situation; despite him being able to say he is at [facility]. Patient's attention is intact and does not appear delirious. Past Psychiatric History: pt denies psychiatric hx. Medical Evaluation Reviewed: Yes Review of Systems Constitutional: Reports as per HPI Eyes: Reports as per HPI Reports as per HPI Cardiovascular: Reports as per HPI Respiratory: Reports as per HPI Gastrointestinal: Reports as per HPI Genitourinary: Reports as per HPI Musculoskeletal: Reports as per HPI Skin/Breast: Reports as per HPI Reports as per HPI Psychiatric: Reports as per HPI Endocrine: Reports as per HPI Hematologic/Lymphatic: Reports as per HPI Allergic/Immunologic: Reports as per HPI [facility] Medical History Pneumonia Asthma Alcohol dependence Family History: unknown Social History: Lives with two room mates, single, no children, worked at [employer] and [employer] for many years . Substance History: pt reports he drinks alcohol daily but is unable to state amount. Trauma History: denies Diagnostics Vital Signs (24Hr): Vital Signs - 24 hr 11/05/23 15:06 11/05/23 23:37 11/06/23 07:43 Temperature 97.8 F 97.2 F 97.1 F Pulse Rate 89 96 93 Respiratory Rate 18 18 18 Blood Pressure 132/76 140/78 H 149/88 H Pulse Oximetry 93 94 93 Oxygen Delivery Method Room Air Room Air Room Air Oxygen Flow Rate 93 11/06/23 08:03 Temperature Pulse Rate 93 Respiratory Rate Blood Pressure 149/88 H Pulse Oximetry 93 Oxygen Delivery Method Oxygen Flow Rate BMI result Body Mass Index 18.5 Labs 11/04/23 07:18 11/06/23 08:32 Labs: Laboratory Results - last 48 hr 11/04/23 11/05/23 11/06/23 15:43 05:18 08:32 Hold Purple Top SEE NOTE Sodium 127 L 127 L 136 Potassium 3.5 3.5 Chloride 93 L 97 Carbon Dioxide 26 29 Anion Gap 12 14 BUN 18 H 21 H Creatinine 1.93 H 2.40 H Estim Creat Clear Calc 26.7 21.6 Estimated GFR 35 27 Random Glucose 92 99 Calcium 8.8 8.9 Imaging Radiology Impressions: ITS Impressions Chest X-Ray 11/02/23 11:12 IMPRESSION: 1. Mildly increased interstitial in the lower lungs suggesting subsegmental atelectasis, less likely aspiration or infiltrates. 2. Equivocal nodular opacity versus volume averaging in the left lower lobe. Recommend follow-up with CT chest in [address] 11/02/23 11:53 IMPRESSION: 1. Examination is very limited by motion, although accounting for this limitation, no discrete acute intracranial abnormality or cervical spinal fractures/subluxations are seen. 2. Moderate chronic microangiopathy with volume loss. 3. Moderate cervical spondylosis. 4. Complete opacification of the right mastoid and right middle ear cavities. Correlate clinically for mastoiditis and otitis media. 5. Severe calcifications of the right greater than left carotid bulbs. Recommend correlation with a nonemergent carotid ultrasound. 6. Emphysema. Head CT 11/02/23 11:53 IMPRESSION: 1. Examination is very limited by motion, although accounting for this limitation, no discrete acute intracranial abnormality or cervical spinal fractures/subluxations are seen. 2. Moderate chronic microangiopathy with volume loss. 3. Moderate cervical spondylosis. 4. Complete opacification of the right mastoid and right middle ear cavities. Correlate clinically for mastoiditis and otitis media. 5. Severe calcifications of the right greater than left carotid bulbs. Recommend correlation with a nonemergent carotid ultrasound. 6. Emphysema. Carotid Doppler Study 11/03/23 07:35 IMPRESSION: 1. RIGHT: Minimal, non-hemodynamically significant stenosis of the proximal right internal carotid artery corresponding to a 0-49% stenosis by velocity criteria. 2. LEFT: Minimal, non-hemodynamically significant stenosis of the proximal left internal carotid artery corresponding to a 0-49% stenosis by velocity criteria. Mental Status Exam Mental Status Exam Narrative: Memory/cog: alert, oriented to place, not to situation, month, year or date. May benefit from formal assessment including MOCA/ACL. It does seem that he has difficulty retaining information and processing more complex information. Patient Appearance: Appropriate Patient Orientation: Person and Place Level of Consciousness: Awake Patient Behavior: Guarded and Cooperative Mood Description: Calm Affect Description: Calm Ability to Follow Directions: Good Speech Pattern: Slurred and Garbled Medications Medications Current Medications Acetaminophen (Acetaminophen 325 Mg Tablet) 650 mg PO Q6H PRN PRN Reason: Pain Last Admin: 11/03/23 18:00 Dose: 650 mg Albuterol/Ipratropium (Albuterol/Iprat 2.5/0.5mg 3 Ml Ampul.Neb) 3 ml INHALE RQ4H WHILE AWAKE PRN PRN Reason: Wheezing Last Admin: 11/04/23 09:52 Dose: 3 ml Heparin Sodium (Porcine) (Heparin Sodium,Porcine 5,000 Unit/Ml Vial) 5,000 unit SUBCUT Q12H [facility] Last Admin: 11/06/23 09:38 Dose: 5,000 unit Sodium Chloride (0.9 % Sodium Chloride Flush 10 Ml Syringe) 5 ml IVFLUSH QSHIFT [facility] Allergies Allergies Allergy/AdvReac Type Severity Reaction Status Date / Time No Known Allergies Allergy Verified 11/02/23 10:12 Assessment & Plan Assessment & Plan (1) Encounter for assessment of decision-making capacity: Status: Acute Code(s): Z00.8 - Encounter for other general examination (2) Cognitive impairment: Status: Acute Code(s): R41.89 - Other symptoms and signs involving cognitive functions and awareness Plan Patient is not able to show understanding of his medical condition or as to why he was in the ICU and continues to be on a medical unit. Pt believes providers are only concerned with his ability to ambulate with no understanding of low sodium levels or the severity of potential complications if he had not been treated. He is unable to understand recent acute CR and need for continued treatment. Unable to verbalize treatment that he has received. His attention is fairly intact and although he is not fully oriented to month, year or situation, he is not delirious. Given these findings, pt lacks capacity to make medical decisions. I do suspect that his lack of capacity is due to an underlying neurocognitive d/o; he may not regain that capacity. I recommend for his treatment team to do a MOCA and ACL to assess extent of cognitive impairment and pattern of cognitive impairment. Total time managing care of this patient today _30___ minutes. Patient educated on: medical condition
[2023-11-06 14:46] VITALS: BP 126/78; PULSE 81; RESP 16; TEMP 36.3; O2SAT 94
--- NOTE | 2023-11-06 15:16 | P.PNNP_ITS ---
Subjective Subjective Date of Service: 11/06/23 Interval history: Events noted Had hypotensin on 11/02 Physical Exam 2 Vital Signs: Vital Signs: Last Vital Signs Temp 97.3 F 11/06/23 14:46 Pulse 81 11/06/23 14:46 Resp 16 11/06/23 14:46 BP 126/78 11/06/23 14:46 Pulse Ox 94 11/06/23 14:46 O2 Del Method Room Air 11/06/23 14:46 O2 Flow Rate 93 11/06/23 07:43 Oxygen Flow Rate 2 11/02/23 10:07 BMI result Body Mass Index 18.5 Awake. Comfortable. Neck is supple. Mucosa moist. Lungs bilateral scattered rhonchi. Heart S1-S2 heard no gallop. Abdomen soft. Extremities no edema. No involuntary movements. No myoclonus. Const: General: comfortable and no acute distress O rientation/consciousness: patient oriented x3 HEENT: Head: Yes normocephalic Mouth: Normal oral and palatal mucosa present Eyes: EOM: EOMs intact bilaterally Neck: Neck: Yes supple Resp: Auscultation: clear to auscultation bilaterally Cardio: Jugular venous distension: no JVD Rate: regular rate GI: Palpation (GI): Soft to palpation Auscultation: normal bowel sounds : General: Yes no CVA tenderness Back/Spine/Pelvis: Back: no CVA tenderness Skin: General skin exam: no rashes or lesions noted Neuro: General: patient oriented x3 and moves all extremities Extrem: General: Yes no pedal edema Objective Data Labs 11/04/23 07:18 11/06/23 08:32 Labs: Laboratory Results - last 24 hr 11/06/23 08:32 Hold Purple Top SEE NOTE Sodium 136 Potassium 3.5 Chloride 97 Carbon Dioxide 29 Anion Gap 14 BUN 21 H Creatinine 2.40 H Estim Creat Clear Calc 21.6 Estimated GFR 27 Random Glucose 99 Calcium 8.9 Microbiology Microbiology Results: Microbiology 11/02/23 10:36 Blood - Venous Blood Culture - Final Coag negative Staphylococcus 11/02/23 10:45 Blood - Venous Blood Culture - Preliminary No growth after 48 hours. Procedures Date of Service Date of Service: 11/06/23 Assessment & Plan Assessment and plan (1) Hyponatremia: Status: Acute Plan 68-year-old man with COPD and poor p.o. intake with significant hyponatremia. Now with CR euvolemic hyponatremia - resolving CR due to hypoperfusion/ tubular injury No obstruction by sonogram restrict oral free water intake Keep I > O with NS AVOID hypotension and nephrotxins including Vancomycin No indication for dialysis Watch UO Time Spent With Patient Time: Total time managing care of this patient today ____ minutes. Progress Note: Quality Stroke Does the patient have a stroke diagnosis?: No
[2023-11-06] MEDS: 0.9 % Sodium Chloride Flush 3 ML SYRINGE IVFLUSH ×3 (16:14→19:52)
--- NOTE | 2023-11-06 19:30 | PC.NURSE ---
This RN assumed care at 1900, pt is Alert and oriented, unsure of date. Pt reporting a stick neck, tylenol given per JUL. Respirations even and unlabored. Redness to coccyx with dsg foam CDI. Pt is resting calm/cooperatively in bed, with no apparent distress. Call garcia within reach.
[2023-11-06] MEDS: Acetaminophen 325 MG TABLET 650 MG PO (19:51)
[2023-11-06 23:07] VITALS: BP 141/85; PULSE 86; RESP 14; TEMP 36.9; O2SAT 92
[2023-11-07 05:59] VITALS: BMI 18.2
[2023-11-07 07:00] VITALS: BP 168/72; PULSE 87; RESP 18; TEMP 36.6; O2SAT 92
[2023-11-07 07:10] LABS: Anion Gap 13 (12-20); Blood Urea Nitrogen 23 mg/dL (9-16); Calcium 8.9 mg/dL (8.4-10.2); Carbon Dioxide 29 mmol/L (22-29); Chloride 98 mmol/L (96-108); Creatinine Clr Calc Pharmacy 22.2; Estimated Glomerular Filt Rate 28; Glucose Random 85 mg/dL (60-115); Potassium 3.4 mmol/L (3.3-5.1); Sodium 137 mmol/L (135-145)
[2023-11-07] MEDS: 0.9 % Sodium Chloride Flush 3 ML SYRINGE IVFLUSH ×3 (07:28→15:31)
[2023-11-07] MEDS: Acetaminophen 325 MG TABLET 650 MG PO ×2 (07:37→21:43)
[2023-11-07] MEDS: Albuterol/Iprat 2.5/0.5MG 3 ML AMPUL.NEB INHALE ×2 (07:55→19:48)
[2023-11-07 07:57] VITALS: PULSE 85; RESP 18; O2SAT 88
--- NOTE | 2023-11-07 09:31 | P.PNNP_ITS ---
Subjective Subjective Date of Service: 11/10/23 Interval history: Events noted Had hypotensin on 11/02 Nonoliguric. Serum creatinine is plateaued Physical Exam 2 Vital Signs: Vital Signs: Last Vital Signs Temp 97.9 F 11/07/23 07:00 Pulse 85 11/07/23 07:57 Resp 18 11/07/23 07:57 BP 168/72 H 11/07/23 07:00 Pulse Ox 92 11/07/23 07:00 O2 Del Method Room Air 11/07/23 07:00 O2 Flow Rate 93 11/06/23 07:43 Oxygen Flow Rate 2 11/02/23 10:07 BMI result Body Mass Index 18.2 Const: General: comfortable and no acute distress O rientation/consciousness: patient oriented x3 HEENT: Head: Yes normocephalic Mouth: Normal oral and palatal mucosa present Eyes: EOM: EOMs intact bilaterally Neck: Neck: Yes supple Resp: Auscultation: clear to auscultation bilaterally Cardio: Jugular venous distension: no JVD Rate: regular rate GI: Palpation (GI): Soft to palpation Auscultation: normal bowel sounds : General: Yes no CVA tenderness Back/Spine/Pelvis: Back: no CVA tenderness Skin: General skin exam: no rashes or lesions noted Neuro: General: patient oriented x3 and moves all extremities Extrem: General: Yes no pedal edema Objective Data Labs 11/04/23 07:18 11/10/23 08:12 Labs: Laboratory Results - last 24 hr 11/07/23 05:30 Sodium 137 Potassium 3.4 Chloride 98 Carbon Dioxide 29 Anion Gap 13 BUN 23 H Creatinine 2.30 H Estim Creat Clear Calc 22.2 Estimated GFR 28 Random Glucose 85 Calcium 8.9 Microbiology Microbiology Results: Microbiology 11/02/23 10:36 Blood - Venous Blood Culture - Final Coag negative Staphylococcus 11/02/23 10:45 Blood - Venous Blood Culture - Preliminary No growth after 48 hours. Procedures Date of Service Date of Service: 11/10/23 Assessment & Plan Assessment and plan (1) Hyponatremia: Status: Acute Plan 68-year-old man with COPD and poor p.o. intake with significant hyponatremia. Now with CR euvolemic hyponatremia - resolving CR due to hypoperfusion/ tubular injury No obstruction by imaging restrict oral free water intake Keep I > O with NS at 60 cc/hour x1 L AVOID hypotension and nephrotxins including Vancomycin No indication for dialysis Watch UO Time Spent With Patient Time: Total time managing care of this patient today ____ minutes. Progress Note: Quality Stroke Does the patient have a stroke diagnosis?: No
[2023-11-07] MEDS: 0.9 % Sodium Chloride 1,000 ML 50 ML IVCONT (10:35)
[2023-11-07] MEDS: Heparin Sodium,Porcine 5,000 UNIT/ML VIAL 5000 UNIT SUBCUT ×2 (10:41→21:44)
--- NOTE | 2023-11-07 13:14 | MHC.CLN ---
F/U DIET RX: REGULAR 1000 CC FR-APPROPRIATE SUPPLEMENT IF CONSUMED 100% PROVIDES APPROX 450 ML FR WATER. LABS REVIEWED AND SODIUM WITHIN NORMAL LIMITS 11/06. INTAKE AT MEALS, VARIABLE, 50-100%. CONTINUE CURRENT DIET AND SUPPLEMENT. FOLLOW FOR PO INTAKE AND LYTES.
--- NOTE | 2023-11-07 13:42 | HO.PM.IMPN ---
Subjective Subjective Date of Service: 11/07/23 Interval History: Seen and examined this morning Follow-up for hyponatremia, CR No overnight events No abdominal pain, feeling well, observed sitting up and eating breakfast Review of Systems Review of Systems: Yes all other systems are reviewed and are negative Constitutional Constitutional: Denies chills and Denies fever(s) Cardiovascular Cardiovascular: Denies chest pain Physical Exam Vital Signs: Vital Signs: Last Vital Signs Temp 97.9 F 11/07/23 07:00 Pulse 85 11/07/23 07:57 Resp 18 11/07/23 07:57 BP 168/72 H 11/07/23 07:00 Pulse Ox 92 11/07/23 07:00 O2 Del Method Room Air 11/07/23 07:00 O2 Flow Rate 93 11/06/23 07:43 Oxygen Flow Rate 2 11/02/23 10:07 BMI result Body Mass Index 18.2 Const: General: cooperative, comfortable, no acute distress, alert and awake Nutritional Appearance: thin Resp: Effort & Inspection: normal respiratory effort, able to speak in complete sentences, no respiratory distress and no use of accessory muscles Auscultation: clear to auscultation bilaterally Cardio: Rate: regular rate GI: Inspection: No distended Palpation (GI): Soft to palpation and nontender Neuro: Other: Grossly nonfocal General: moves all extremities and CN's II-XI intact bilaterally Objective Data Active Medications Acetaminophen (Acetaminophen 325 Mg Tablet) 650 mg PO Q6H PRN PRN Reason: Pain Last Admin: 11/07/23 07:37 Dose: 650 mg Documented By: STEVIE Albuterol/Ipratropium (Albuterol/Iprat 2.5/0.5mg 3 Ml Ampul.Neb) 3 ml INHALE RQ4H WHILE AWAKE PRN PRN Reason: Wheezing Last Admin: 11/07/23 07:55 Dose: 3 ml Documented By: ALISHA Heparin Sodium (Porcine) (Heparin Sodium,Porcine 5,000 Unit/Ml Vial) 5,000 unit SUBCUT Q12H [facility] Last Admin: 11/07/23 10:41 Dose: 5,000 unit Documented By: STEVIE Sodium Chloride (Ns) 1,000 mls @ 50 mls/hr IVCONT .Q20H VLADIMIR Stop: 11/08/23 05:14 Last Admin: 11/07/23 10:35 Dose: 50 mls/hr Documented By: STEVIE Sodium Chloride (0.9 % Sodium Chloride Flush 3 Ml Syringe) 3 ml IVFLUSH QSHIFT [facility] Last Admin: 11/07/23 07:28 Dose: 3 ml Documented By: STEVIE Labs 11/04/23 07:18 11/07/23 05:30 Labs: Laboratory Results - last 24 hr 11/07/23 05:30 Anion Gap 13 Estim Creat Clear Calc 22.2 Estimated GFR 28 Random Glucose 85 Calcium 8.9 Microbiology Microbiology Results: Microbiology 11/02/23 10:45 Blood Culture - Final Blood - Venous No growth after 5 days. Assessment and Plan (1) Cognitive impairment: Status: Acute Plan 68 year old man admitted for FTT and hyponatremia. Patient was found living in [facility] and reported that he has been sleeping in the floor. CR Due to hypoperfusion/tubular injury Renal ultrasound Negative for obstruction nephrology following Follow renal function Hyponatremia. resolved. lowest of 115 in ICU initially TSH and cortisol normal continue fluid restriction Nephrology following Cognitive impairment Seen by psych, OT scored 3/30 on MOCA does not have capacity to make medical decisions, HCP invoked Urinary retention Failed voiding trial Matthews replaced Urology consult ordered Bacteremia Blood cultures growing coag-negative staph, likely contamination. No indication for treatment COPD NO exacerbation albuterol as needed AFib no rvr not on rate control medication not on ac likely due to etoh alcohol use disorder CIWA no symptoms of withdrawal Failure to thrive CM to follow protein calorie malnutrition, moderate add ensure to diet DISPO will likely need STR when medically clear DVT prophylaxis with heparin Attending Dr. Krishna Full code Quality Stroke Does the patient have a stroke diagnosis?: No VTE Prior VTE?: No VTE Risk Level:: Medical - moderate - high VTE Device Contraindication: N/A - Device Ordered VTE Drug Contraindication: N/A - Med Ordered
--- NOTE | 2023-11-07 13:56 | PM.UROCN ---
History of Present Illness Consult details Consult date: 11/07/23 Narrative: Heriberto is a 68-year-old male noted to have renal insufficiency and hyponatremia. Patient is a poor historian. Called to evaluate due to failed voiding trials. Urinalysis 11/02/2023 microscopic hematuria. Currently Serrato is in place draining bryce colored urine. No gross hematuria. Recommend continued Serrato catheter, start Flomax and Proscar. Outpatient urology follow-up. Review of Systems Review of Systems: 10 point ROS negative other than [facility] Past Medical History Medical History Pneumonia Asthma Alcohol dependence Social History Social History Household Members: Other Household Members Other:: friends Housing: House Do you presently have visiting nurse or other home services: No Alcohol intake: current Alcohol intake frequency: 0-2 drinks per day Alcohol type: beer Patient Tobacco Use Status: Former Tobacco user Tobacco use type: Cigarette Cigarette Packs Per Day: 1 Cigarettes Per Day: 20.0 Smoked in Last 30 Days: Yes Patient Interested in Nicotine Replacement: Yes Use of substances other than those prescribed or required for medical reasons: No Substance Use Type: Crack/Cocaine Currently Displaying Signs/Symptoms of Drug Intoxication Withdrawal: No Any prior treatment program specific to substance use: No Have you been hit, kicked, punched, or otherwise hurt by someone within the past year? If so, by whom?: No Do you feel safe in your current relationship?: Yes Is there a partner from a previous relationship who is making you feel unsafe now?: No Are you made to feel afraid or neglected: No Advance Directives: No Advance Directives Information Provided: Yes Do you have a plan to hurt others: No Plan Nutrition Risks: No Nutritional Risk service: No Meds Allergies Allergy/AdvReac Type Severity Reaction Status Date / Time No Known Allergies Allergy Verified 11/02/23 10:12 Active Medications: Current Medications Acetaminophen (Acetaminophen 325 Mg Tablet) 650 mg PO Q6H PRN PRN Reason: Pain Last Admin: 11/07/23 07:37 Dose: 650 mg Albuterol/Ipratropium (Albuterol/Iprat 2.5/0.5mg 3 Ml Ampul.Neb) 3 ml INHALE RQ4H WHILE AWAKE PRN PRN Reason: Wheezing Last Admin: 11/07/23 07:55 Dose: 3 ml Heparin Sodium (Porcine) (Heparin Sodium,Porcine 5,000 Unit/Ml Vial) 5,000 unit SUBCUT Q12H [facility] Last Admin: 11/07/23 10:41 Dose: 5,000 unit Sodium Chloride (Ns) 1,000 mls @ 50 mls/hr IVCONT .Q20H [facility] Stop: 11/08/23 05:14 Last Admin: 11/07/23 10:35 Dose: 50 mls/hr Sodium Chloride (0.9 % Sodium Chloride Flush 3 Ml Syringe) 3 ml IVFLUSH QSHIFT [facility] Last Admin: 11/07/23 07:29 Dose: 3 ml Home Medications ?Medication ?Instructions ?Recorded ?Confirmed ?Last Taken ?Type acetaminophen 325 mg tablet 650 mg PO Q6H PRN Pain 11/02/23 11/02/23 Unknown History (Tylenol) Physical Exam Vital Signs: Vital Signs: Last Vital Signs Temp 97.9 F 11/07/23 07:00 Pulse 85 11/07/23 07:57 Resp 18 11/07/23 07:57 BP 168/72 H 11/07/23 07:00 Pulse Ox 92 11/07/23 07:00 O2 Del Method Room Air 11/07/23 07:00 O2 Flow Rate 93 11/06/23 07:43 Oxygen Flow Rate 2 11/02/23 10:07 BMI result Body Mass Index 18.2 Const: General: healthy appearing, no acute distress and well developed Orientation/consciousness: patient oriented x3 HEENT: Head: Yes normocephalic and Yes atraumatic Eyes: Conjunctivae: conjunctivae normal Neck: Neck: Yes normal visual inspection Chest: Chest palpation & inspection: normal inspection of the chest Resp: Effort & Inspection: normal respiratory effort Cardio: Rate: regular rate GI: Inspection: Yes normal to inspection Palpation (GI): Soft to palpation : Penis: normal penis Scrotum: scrotum normal Neuro: General: patient oriented x3 Psych: Appearance: grossly normal Affect: normal affect Results Labs 11/04/23 07:18 11/07/23 05:30 Labs: Abnormal lab results 11/07/23 Range/Units 05:30 BUN 23 H (9-16) mg/dL Creatinine 2.30 H (0.5-1.4) mg/dL BMP 11/07/23 05:30 Sodium 137 Potassium 3.4 Chloride 98 Carbon Dioxide 29 BUN 23 H Creatinine 2.30 H Calcium 8.9 Urine 11/02/23 Range/Units 12:04 Urine Color Dark Yellow Urine Appearance Clear Urine pH 6.0 (5.0-9.0) Ur Specific [place] 1.020 (1.005-1.025) Urine Protein Negative (Neg-Trace) mg/dL Urine Glucose (UA) 100 H (Negative) mg/dL All other labs normal. Imaging Additional studies: Date of Service: 11/06/23 EXAMINATION: US RETROPERITONEAL LIMITED (RENAL ONLY) CLINICAL INFORMATION: Acute kidney injury. COMPARISON: CT abdomen pelvis 04/10/2023 TECHNIQUE: Real-time imaging of the kidneys. FINDINGS: RIGHT KIDNEY: 9.7 x 5.5 x 5.5 cm (SAG x AP x TRV). The kidney is normal in size, contour, and echogenicity. Renal cortical thickness is normal. No calculi or focal parenchymal lesions. No hydronephrosis. LEFT KIDNEY: 9.3 x 5.4 x 4.6 cm (SAG x AP x TRV). The kidney is normal in size, contour, and echogenicity. Renal cortical thickness is normal. No calculi or focal parenchymal lesions. No hydronephrosis. IMPRESSION: Normal-appearing kidneys. No superimposed cause would be contributing to the patient's worsening renal function. Assessment and Plan (1) Urinary retention: Status: Acute (2) Hematuria: Status: Acute Plan Urinalysis 11/02/2023 microscopic hematuria. REnal US - Kidneys WNL Recommend continued Serrato catheter, start Flomax and Proscar. flomax 0.4 mg daily and proscar 5 mg daily Failed voiding trial, inset serrato Outpatient urology follow-up. Procedures Date of Service Date of Service: 11/07/23
[2023-11-07 15:19] VITALS: BP 124/70; PULSE 86; RESP 18; TEMP 36.2; O2SAT 93
--- NOTE | 2023-11-07 16:40 | HO.WOUND ---
Wound Consult: Initial 68yr old? [place] [facility] [place] - See progress notes and H&P for detailed history.? Wound consult placed for Groin and buttock redness.? Patient agreeable to assessment and photo documentation.? Sacrum Etiology: MASD (Moisture Assocaited Skin Damage)? Wound Bed: various areas of red and pink blanchable intact tissue - various areas of hyperpigmentation noted Drainage / Odor: None Edges: ? Irregular Harleen wound: ? No Induration, Fluctuance or Warmth noted Pain: denies Goals of Treatment: ? Barrier cream to protect from friction and foam dressing to aid in off loading pressure Groin assessed for resolving MASD - barrier cream in place - pink intact blanchable tissue - no new topical orders needed continue with barrier creams. Recommendations: 1. Turn and Reposition every 2 hours and as needed for patient comfort.? Use pillows or wedges to support off loading positions. 2. Off Load all bony prominences with use of pillows and heel boots if needed.? Apply Preventative foams where needed. ? 3. Monitor for incontinence and moisture control, use barrier creams when needed for prevention and treatment. 4. Provide adequate and supplemental nutrition.? 5. Order low air loss mattress. 6. When applicable maintain blood glucose levels per Providers order. 7. Sacrum - Cleanse with PH balanced wipes, pat dry. Apply foam dressing to sacrum, peel back and assess Q shift and Change every 3-5 days and PRN. 8. Groin - Cleanse with PH balanced wipes, pat dry. Apply barrier cream twice daily. Continue F/C care per policy. Re-consult wound care Nurse for wound deterioration or wound changes.
--- NOTE | 2023-11-07 16:47 | W.PM.OPN ---
Operative Note Operative Note Date of Service: 11/07/23 Narrative: PreOperative Diagnosis:?? Left UPJ stone, UTI Post Operative Diagnosis:?? ?Left UPJ stone, UTI Procedure: Cystoscopy, left retrograde stent insertion, size [] by [] Surgeon:?Dr Noel Norwood Anesthesia:? General Indications for procedure: [] Procedure: After informed consent was verified the patient was brought to the operating placed on the OR table in supine position.? General Anesthesia was administered per protocol.? The patient was placed in lithotomy position, prepped and draped in the usual sterile fashion.? Safety pause time-out and side of surgery confirmed.? Antibiotics confirmed. A 22 Maced[place] cystoscope was inserted transurethrally, [the bulbous urethra was within normal limits. The prostatic urethra was nonobstructive.] The bladder was visualized.? Both ureteric orifices were in normal position. [] The? [] ureteric orifice was cannulated? and a retrograde examination was performed, [] A hydrophilic guidewire was placed up to the level of the renal pelvis under fluoroscopy. A [] fr by [] cm ureteral stent was passed over the guide wire under fluoroscopic guidance. The guide wire was removed. The bladder was emptied.? The rigid cystoscope was removed. ? The patient tolerated the procedure well and was brought to the recovery room in stable condition. Complications: None Drains: Ureteral stent as dictated above
[2023-11-07 19:48] VITALS: PULSE 91; RESP 18; O2SAT 92
[2023-11-07 23:05] VITALS: BP 147/78; PULSE 80; RESP 17; TEMP 36.2; O2SAT 92
[2023-11-08 07:36] LABS: Anion Gap 13 (12-20); Blood Urea Nitrogen 25 mg/dL (9-16); Calcium 8.8 mg/dL (8.4-10.2); Carbon Dioxide 28 mmol/L (22-29); Chloride 102 mmol/L (96-108); Creatinine Clr Calc Pharmacy 21.8; Estimated Glomerular Filt Rate 28; Glucose Random 86 mg/dL (60-115); Potassium 3.1 mmol/L (3.3-5.1); Sodium 140 mmol/L (135-145)
[2023-11-08 08:00] VITALS: BP 160/80; PULSE 93; RESP 15; TEMP 36.6; O2SAT 92
[2023-11-08] MEDS: Potassium Chloride ER 20 MEQ TAB.ER.PRT 40 MEQ PO (08:14)
[2023-11-08] MEDS: 0.9 % Sodium Chloride Flush 3 ML SYRINGE IVFLUSH ×2 (08:16→21:04)
[2023-11-08] MEDS: Acetaminophen 325 MG TABLET 650 MG PO (08:16)
--- NOTE | 2023-11-08 09:42 | P.PNIM_ITS ---
Subjective Subjective Date of Service: 11/08/23 Interval History: Seen and examined this morning Follow-up for hyponatremia, CR No overnight events No abdominal pain, feeling well, observed sitting up and eating breakfast Review of Systems Review of Systems: Yes all other systems are reviewed and are negative Constitutional Constitutional: Denies chills and Denies fever(s) Cardiovascular Cardiovascular: Denies chest pain Physical Exam 2 Vital Signs: Vital Signs: Last Vital Signs Temp 97.8 F 11/08/23 08:00 Pulse 93 11/08/23 08:00 Resp 15 11/08/23 08:00 BP 160/80 H 11/08/23 08:00 Pulse Ox 92 11/08/23 08:00 O2 Del Method Room Air 11/08/23 08:00 O2 Flow Rate 93 11/06/23 07:43 Oxygen Flow Rate 2 11/02/23 10:07 BMI result Body Mass Index 18.2 Appearing in no acute distress lung sounds are clear to auscultation heart regular rate rhythm, clear S1, S2 positive bowel sounds, abdomen is soft, nontender neuro patient is alert x3, no focal deficits Objective Data Active Medications Acetaminophen (Acetaminophen 325 Mg Tablet) 650 mg PO Q6H PRN PRN Reason: Pain Last Admin: 11/08/23 08:16 Dose: 650 mg Documented By: ELMO Albuterol/Ipratropium (Albuterol/Iprat 2.5/0.5mg 3 Ml Ampul.Neb) 3 ml INHALE RQ4H WHILE AWAKE PRN PRN Reason: Wheezing Last Admin: 11/07/23 19:48 Dose: 3 ml Documented By: SILVIO Heparin Sodium (Porcine) (Heparin Sodium,Porcine 5,000 Unit/Ml Vial) 5,000 unit SUBCUT Q12H [facility] Last Admin: 11/07/23 21:44 Dose: 5,000 unit Documented By: LUBNA Sodium Chloride (0.9 % Sodium Chloride Flush 3 Ml Syringe) 3 ml IVFLUSH QSHIFT [facility] Last Admin: 11/08/23 08:16 Dose: 3 ml Documented By: ELMO Labs 11/04/23 07:18 11/08/23 05:20 Labs: Laboratory Results - last 24 hr 11/08/23 05:20 Hold Purple Top SEE NOTE Anion Gap 13 Estim Creat Clear Calc 21.8 Estimated GFR 28 Random Glucose 86 Calcium 8.8 Microbiology Microbiology Results: Microbiology 11/02/23 10:45 Blood Culture - Final Blood - Venous No growth after 5 days. Assessment and Plan (1) Cognitive impairment: Status: Acute Plan 68 year old man admitted for FTT and hyponatremia. Patient was found living in [facility] and reported that he has been sleeping in the floor. CR Due to hypoperfusion/tubular injury Renal ultrasound Negative for obstruction nephrology following Follow renal function Hypokalemia replace with oral potassium Hyponatremia. resolved. lowest of 115 in ICU initially TSH and cortisol normal continue fluid restriction Nephrology following Cognitive impairment Seen by psych, OT scored 3/30 on MOCA does not have capacity to make medical decisions, HCP invoked Urinary retention Failed voiding trial Matthews replaced Urology consult ordered Bacteremia Blood cultures growing coag-negative staph, likely contamination. No indication for treatment COPD NO exacerbation albuterol as needed AFib no rvr not on rate control medication not on ac likely due to etoh alcohol use disorder CIWA no symptoms of withdrawal Failure to thrive CM to follow protein calorie malnutrition, moderate add ensure to diet DISPO will likely need STR when medically clear DVT prophylaxis with heparin Attending Dr. Wood Full code Quality Stroke Does the patient have a stroke diagnosis?: No VTE Prior VTE?: No VTE Risk Level:: Medical - moderate - high VTE Device Contraindication: N/A - Device Ordered VTE Drug Contraindication: N/A - Med Ordered
[2023-11-08] MEDS: Heparin Sodium,Porcine 5,000 UNIT/ML VIAL 5000 UNIT SUBCUT ×2 (10:41→21:46)
[2023-11-08 16:00] VITALS: BP 185/96; PULSE 92; RESP 13; TEMP 36.9; O2SAT 94
[2023-11-08] MEDS: hydrALAZINE HCl 10 MG TABLET PO (16:44)
[2023-11-08 18:01] VITALS: BP 132/69
[2023-11-08] MEDS: Tamsulosin HCL 0.4 MG CAPSULE PO (21:04)
[2023-11-08 23:20] VITALS: BP 144/71; PULSE 93; RESP 17; TEMP 36.9; O2SAT 95
[2023-11-09 07:02] VITALS: BP 154/80; PULSE 86; RESP 18; TEMP 36.4; O2SAT 92
[2023-11-09 08:04] LABS: Anion Gap 12 (12-20); Blood Urea Nitrogen 22 mg/dL (9-16); Calcium 9.3 mg/dL (8.4-10.2); Carbon Dioxide 29 mmol/L (22-29); Chloride 104 mmol/L (96-108); Creatinine Clr Calc Pharmacy 22.1; Estimated Glomerular Filt Rate 28; Glucose Random 95 mg/dL (60-115); Sodium 141 mmol/L (135-145)
--- NOTE | 2023-11-09 08:46 | HO.PM.IMPN ---
Subjective Subjective Date of Service: 11/09/23 Interval History: Seen and examined this morning Follow-up for hyponatremia, CR No overnight events No abdominal pain, feeling well, observed sitting up and eating breakfast Review of Systems Review of Systems: Yes all other systems are reviewed and are negative Constitutional Constitutional: Denies chills and Denies fever(s) Cardiovascular Cardiovascular: Denies chest pain Physical Exam Vital Signs: Vital Signs: Last Vital Signs Temp 97.5 F 11/09/23 07:02 Pulse 86 11/09/23 07:02 Resp 18 11/09/23 07:02 BP 154/80 H 11/09/23 07:02 Pulse Ox 92 11/09/23 07:02 O2 Del Method Room Air 11/09/23 07:02 O2 Flow Rate 93 11/06/23 07:43 Oxygen Flow Rate 2 11/02/23 10:07 BMI result Body Mass Index 18.2 Appearing in no acute distress lung sounds are clear to auscultation heart regular rate rhythm, clear S1, S2 positive bowel sounds, abdomen is soft, nontender neuro patient is alert x3, no focal deficits Objective Data Active Medications Acetaminophen (Acetaminophen 325 Mg Tablet) 650 mg PO Q6H PRN PRN Reason: Pain Last Admin: 11/08/23 08:16 Dose: 650 mg Documented By: ELMO Albuterol/Ipratropium (Albuterol/Iprat 2.5/0.5mg 3 Ml Ampul.Neb) 3 ml INHALE RQ4H WHILE AWAKE PRN PRN Reason: Wheezing Last Admin: 11/07/23 19:48 Dose: 3 ml Documented By: SILVIO Finasteride (Finasteride 5 Mg Tablet) 5 mg PO DAILY [facility] Heparin Sodium (Porcine) (Heparin Sodium,Porcine 5,000 Unit/Ml Vial) 5,000 unit SUBCUT Q12H [facility] Last Admin: 11/08/23 21:46 Dose: 5,000 unit Documented By: LUBNA Sodium Chloride (0.9 % Sodium Chloride Flush 3 Ml Syringe) 3 ml IVFLUSH QSHIFT [facility] Last Admin: 11/08/23 21:04 Dose: 3 ml Documented By: LUBNA Tamsulosin HCl (Tamsulosin Hcl 0.4 Mg Capsule) 0.4 mg PO BEDTIME [facility] Last Admin: 11/08/23 21:04 Dose: 0.4 mg Documented By: LUBNA Labs 11/04/23 07:18 11/09/23 07:30 Labs: Laboratory Results - last 24 hr 11/09/23 07:30 Anion Gap 12 Estim Creat Clear Calc 22.1 Estimated GFR 28 Random Glucose 95 Calcium 9.3 Assessment and Plan (1) Cognitive impairment: Status: Acute Plan 68 year old man admitted for FTT and hyponatremia. Patient was found living in [facility] and reported that he has been sleeping in the floor. CR Due to hypoperfusion/tubular injury Renal ultrasound Negative for obstruction nephrology following Follow renal function Hypokalemia. Resolved replaced with oral potassium Hyponatremia. resolved. lowest of 115 in ICU initially TSH and cortisol normal continue fluid restriction Nephrology following Cognitive impairment Seen by psych, OT scored 3/30 on MOCA does not have capacity to make medical decisions, HCP invoked Urinary retention Failed voiding trial Matthews replaced Urology consult ordered Bacteremia Blood cultures growing coag-negative staph, likely contamination. No indication for treatment COPD NO exacerbation albuterol as needed AFib no rvr not on rate control medication not on ac likely due to etoh alcohol use disorder CIWA no symptoms of withdrawal Failure to thrive CM to follow protein calorie malnutrition, moderate add ensure to diet DISPO will likely need STR when medically clear DVT prophylaxis with heparin Attending Dr. Wood Full code Quality Stroke Does the patient have a stroke diagnosis?: No VTE Prior VTE?: No VTE Risk Level:: Medical - moderate - high VTE Device Contraindication: N/A - Device Ordered VTE Drug Contraindication: N/A - Med Ordered
[2023-11-09] MEDS: Finasteride 5 MG TABLET PO (09:49)
[2023-11-09] MEDS: Heparin Sodium,Porcine 5,000 UNIT/ML VIAL 5000 UNIT SUBCUT (09:49)
[2023-11-09] MEDS: 0.9 % Sodium Chloride Flush 3 ML SYRINGE IVFLUSH ×2 (09:50→15:51)
[2023-11-09] MEDS: Albuterol/Iprat 2.5/0.5MG 3 ML AMPUL.NEB INHALE (11:50)
[2023-11-09 11:51] VITALS: PULSE 86; RESP 18; O2SAT 94
[2023-11-09] MEDS: Acetaminophen 325 MG TABLET 650 MG PO (13:54)
[2023-11-09 15:54] VITALS: BP 156/85; PULSE 99; RESP 18; TEMP 36.5; O2SAT 94
[2023-11-09] MEDS: Tamsulosin HCL 0.4 MG CAPSULE PO (20:05)
[2023-11-10] VITALS: BP 148/87; PULSE 94; RESP 18; TEMP 36.2; O2SAT 93
[2023-11-10] MEDS: 0.9 % Sodium Chloride Flush 3 ML SYRINGE IVFLUSH ×2 (00:01→09:51)
[2023-11-10 06:00] VITALS: BMI 17.7
[2023-11-10 07:20] VITALS: BP 125/78; PULSE 69; RESP 18; TEMP 36.3; O2SAT 93
[2023-11-10 09:20] LABS: Anion Gap 17 (12-20); Blood Urea Nitrogen 22 mg/dL (9-16); Calcium 9.7 mg/dL (8.4-10.2); Carbon Dioxide 30 mmol/L (22-29); Chloride 99 mmol/L (96-108); Creatinine Clr Calc Pharmacy 23.7; Estimated Glomerular Filt Rate 31; Glucose Random 99 mg/dL (60-115); Potassium 3.9 mmol/L (3.3-5.1); Sodium 142 mmol/L (135-145)
--- NOTE | 2023-11-10 09:25 | P.PNNP_ITS ---
Subjective Subjective Date of Service: 11/10/23 Interval history: Seen and examined this morning Follow-up for hyponatremia, CR No overnight events No abdominal pain, feeling well, observed sitting up and eating breakfast Physical Exam 2 Vital Signs: Vital Signs: Last Vital Signs Temp 97.3 F 11/10/23 07:20 Pulse 69 11/10/23 07:20 Resp 18 11/10/23 07:20 BP 125/78 11/10/23 07:20 Pulse Ox 93 11/10/23 07:20 O2 Del Method Room Air 11/10/23 07:20 O2 Flow Rate 93 11/06/23 07:43 Oxygen Flow Rate 2 11/02/23 10:07 BMI result Body Mass Index 17.7 Const: General: comfortable and no acute distress O rientation/consciousness: patient oriented x3 HEENT: Head: Yes normocephalic Mouth: Normal oral and palatal mucosa present Eyes: EOM: EOMs intact bilaterally Neck: Neck: Yes supple Resp: Auscultation: clear to auscultation bilaterally Cardio: Jugular venous distension: no JVD Rate: regular rate GI: Palpation (GI): Soft to palpation Auscultation: normal bowel sounds : General: Yes no CVA tenderness Back/Spine/Pelvis: Back: no CVA tenderness Skin: General skin exam: no rashes or lesions noted Neuro: General: patient oriented x3 and moves all extremities Extrem: General: Yes no pedal edema Objective Data Labs 11/04/23 07:18 11/10/23 08:12 Labs: Laboratory Results - last 24 hr 11/10/23 08:12 Sodium 142 Potassium 3.9 Chloride 99 Carbon Dioxide 30 H Anion Gap 17 BUN 22 H Creatinine 2.10 H Estim Creat Clear Calc 23.7 Estimated GFR 31 Random Glucose 99 Calcium 9.7 Microbiology Microbiology Results: Microbiology 11/02/23 10:45 Blood - Venous Blood Culture - Final No growth after 5 days. 11/02/23 10:36 Blood - Venous Blood Culture - Final Coag negative Staphylococcus Procedures Date of Service Date of Service: 11/10/23 Assessment & Plan Assessment and plan (1) Hyponatremia: Status: Acute Plan 68-year-old man with COPD and poor p.o. intake with significant hyponatremia. Now with CR euvolemic hyponatremia - resolving CR due to hypoperfusion/ tubular injury No obstruction by imaging restrict oral free water intake Keep I > O AVOID hypotension and nephrotxins including Vancomycin AKA due to tubular injury with delayed recovery. Creatinine is down to 2.2 Okay to discharge and needs outpatient follow-up Time Spent With Patient Time: Total time managing care of this patient today ____ minutes. Progress Note: Quality Stroke Does the patient have a stroke diagnosis?: No
[2023-11-10] MEDS: Finasteride 5 MG TABLET PO (09:50)
--- NOTE | 2023-11-10 10:49 | HO.PM.IMPN ---
Subjective Subjective Date of Service: 11/10/23 Interval History: Seen and examined this morning Follow-up for hyponatremia, CR No overnight events No abdominal pain, feeling well, observed sitting up and eating breakfast Review of Systems Review of Systems: Yes all other systems are reviewed and are negative Constitutional Constitutional: Denies chills and Denies fever(s) Cardiovascular Cardiovascular: Denies chest pain Physical Exam Vital Signs: Vital Signs: Last Vital Signs Temp 97.3 F 11/10/23 07:20 Pulse 69 11/10/23 07:20 Resp 18 11/10/23 07:20 BP 125/78 11/10/23 07:20 Pulse Ox 93 11/10/23 07:20 O2 Del Method Room Air 11/10/23 07:20 O2 Flow Rate 93 11/06/23 07:43 Oxygen Flow Rate 2 11/02/23 10:07 BMI result Body Mass Index 17.7 Appearing in no acute distress lung sounds are clear to auscultation heart regular rate rhythm, clear S1, S2 positive bowel sounds, abdomen is soft, nontender neuro patient is alert x3, no focal deficits Objective Data Active Medications Acetaminophen (Acetaminophen 325 Mg Tablet) 650 mg PO Q6H PRN PRN Reason: Pain Last Admin: 11/09/23 13:54 Dose: 650 mg Documented By: ELMO Finasteride (Finasteride 5 Mg Tablet) 5 mg PO DAILY [facility] Last Admin: 11/10/23 09:50 Dose: 5 mg Documented By: INOCENTE Heparin Sodium (Porcine) (Heparin Sodium,Porcine 5,000 Unit/Ml Vial) 5,000 unit SUBCUT Q12H [facility] Last Admin: 11/10/23 00:00 Dose: 5,000 unit Documented By: YANCY Sodium Chloride (0.9 % Sodium Chloride Flush 3 Ml Syringe) 3 ml IVFLUSH QSHIFT [facility] Last Admin: 11/10/23 09:51 Dose: 3 ml Documented By: INOCENTE Tamsulosin HCl (Tamsulosin Hcl 0.4 Mg Capsule) 0.4 mg PO BEDTIME [facility] Last Admin: 11/09/23 20:05 Dose: 0.4 mg Documented By: YANCY Labs 11/04/23 07:18 11/10/23 08:12 Labs: Laboratory Results - last 24 hr 06/24/24 08:12 Anion Gap 17 Estim Creat Clear Calc 23.7 Estimated GFR 31 Random Glucose 99 Calcium 9.7 Assessment and Plan (1) Cognitive impairment: Status: Acute Plan 68 year old man admitted for FTT and hyponatremia. Patient was found living in [facility] and reported that he has been sleeping in the floor. SOB Albuterol updraft mucinex cxr to r/o pna CR. Creat is improving Due to hypoperfusion/tubular injury Renal ultrasound Negative for obstruction nephrology following Follow renal function Hypokalemia. Resolved replaced with oral potassium Hyponatremia. resolved. lowest of 115 in ICU initially TSH and cortisol normal continue fluid restriction Nephrology following Cognitive impairment Seen by psych, OT scored 3/30 on MOCA does not have capacity to make medical decisions, HCP invoked Urinary retention Failed voiding trial Matthews replaced Urology consult ordered Bacteremia Blood cultures growing coag-negative staph, likely contamination. No indication for treatment COPD NO exacerbation albuterol as needed AFib no rvr not on rate control medication not on ac likely due to etoh alcohol use disorder CIWA no symptoms of withdrawal Failure to thrive CM to follow protein calorie malnutrition, moderate add ensure to diet DISPO will likely need STR when medically clear DVT prophylaxis with heparin Attending Dr. Rothman Full code Quality Stroke Does the patient have a stroke diagnosis?: No VTE Prior VTE?: No VTE Risk Level:: Medical - moderate - high VTE Device Contraindication: N/A - Device Ordered VTE Drug Contraindication: N/A - Med Ordered
--- NOTE | 2023-11-10 11:05 | MHC.CM.PN ---
pt to be dcd today at 330 to [facility] attempted to call proxy
--- NOTE | 2023-11-10 11:09 | MHC.CM.PN ---
pts friend kavita notified of dc [phone]
[2023-11-10] MEDS: guaiFENesin LA 600 MG TAB.ER.12H PO (11:24)
[2023-11-10] MEDS: Acetaminophen 325 MG TABLET 650 MG PO (11:24)
[2023-11-10] MEDS: Albuterol Sulfate (0.083%) 2.5 MG/3 ML VIAL.NEB INHALE (11:25)
[2023-11-10] MEDS: Heparin Sodium,Porcine 5,000 UNIT/ML VIAL 5000 UNIT SUBCUT ×2 (11:25)
--- NOTE | 2023-11-10 13:45 | MHC.CLN ---
F/U DIET RX: REGULAR. 1000 CC FLUID RESTRICTION. SUPPLEMENT IF CONSUMED 100% PROVIDES APPROX 450 ML FREE WATER. LABS REVIEWED AND SODIUM WITHIN NORMAL LIMITS 11/09. INTAKE AT MEALS, VARIABLE, 25-100%. SHOWS WEIGHT LOSS X ONE WEEK -3.6%. CONTINUE CURRENT DIET AND SUPPLEMENT. FOLLOW FOR PO INTAKE AND LYTES.
--- NOTE | 2023-11-10 15:24 | P.DS_ITS ---
DS: Providers Provider Date of Service: 11/10/23 Date of admission: 11/02/23 16:46 Primary care physician: None Physician Consults: 11/02/23 13:39 Consult to Nephrology Stat Consulting Provider: [facility] Reason for consultation: Hyponatremia 11/02/23 18:33 Addiction Medicine Routine Consulting Provider: Addiction Covering Reason for consultation: positive screening Has provider been notified: Yes 11/04/23 15:24 Consult to Psychiatry Routine Consulting Provider: Psych Covering Reason for consultation: capacity 11/05/23 13:52 Consult to Wound Care Routine Reason for consultation: redness to groin and buttocks 11/07/23 13:43 Consult to Urology Routine Consulting Provider: Noel Norwood Reason for consultation: Urinary retention, failed voiding trial Has provider been notified: No DS: Diagnosis Discharge Diagnosis (1) Cognitive impairment: Status: Acute DS: Summary Hospital Course Hospital Course: History and physical as per admitting provider. Patient is a 68 Y M with COPD, atrial fibrillation, alcohol misuse, and failure to thrive, initially presenting to emergency department on 11/01 d/t failure to thrive; per EMS, EMS called by patient's roommate for a lift assist; upon arrival, EMS found patient on floor, soiled; in the ED, patient was hemodynamically and clinically stable, alert to person, however was found to have hyponatremia 118, started on normal saline, though hyponatremia worsened to 115; patient admitted to ICU for further management 68-year-old man treated for CR, urinary retention, hypokalemia, hyponatremia. He had Matthews catheter placed. CR was secondary to renal hypoperfusion and tubular injury, renal ultrasound negative for obstruction. Followed by Nephrology. There was an attempt to remove the Matthews catheter for a voiding trial but patient failed and therefore Matthews catheter was replaced. Patient will need to follow up with Urology outpatient to decide whether he will be keeping the Matthews catheter or whether can be discontinued. His creatinine has decreased significantly down to 2.1. Recheck BMP in 3 days. Hyponatremia. Initially 115 in the ICU, TSH and cortisol normal. He had fluid restriction which did bring his sodium up to normal limits during the hospitalization. Nephrology had been following closely as well. Hypokalemia. Resolved with oral potassium Cognitive impairment. He was seen by psychiatric provider and occupational health provider. He scored a 3/30 on [place] and was noted to not have capacity to make medical decisions, healthcare proxy invoked. COPD. No exacerbation during hospitalization. Continue albuterol Atrial fibrillation. No rapid ventricular response. Continue on home medications Alcohol use disorder. Placed on CIWA but no symptoms of withdrawal noted Failure to thrive/protein calorie malnutrition, moderate. Add ensure to diet Time Attestation Discharge Coordination Time (in mins): 35 Quality: Safe Use of Opioids Does Pt have an Active Cancer Diagnosis on the Problem List?: No Quality: Stroke Does the patient have a stroke diagnosis?: No Physical Exam Vital Signs: Vital Signs: Last Vital Signs Temp 97.3 F 11/10/23 07:20 Pulse 69 11/10/23 07:20 Resp 18 11/10/23 07:20 BP 125/78 11/10/23 07:20 Pulse Ox 93 11/10/23 07:20 O2 Del Method Room Air 11/10/23 07:20 O2 Flow Rate 93 11/06/23 07:43 Oxygen Flow Rate 2 11/02/23 10:07 BMI result Body Mass Index 17.7 Appearing in no acute distress head is normocephalic atraumatic eyes pupils are PERRLA sclera is anicteric mouth throat mucous membranes are intact and moist neck is supple no lymphadenopathy, no JVD noted lung sounds are clear to auscultation heart regular rate rhythm, clear S1, S2 positive bowel sounds, abdomen is soft, nontender neuro patient is alert x3, no focal deficits DS: Data Data Completed and Pending Completed studies during hospitalization [Text1]: Procedures Detoxification Services for Substance Abuse Treatment (07/19/23) Labs on day of discharge: Laboratory Results - last 24 hr 11/10/23 08:12 Sodium 142 Potassium 3.9 Chloride 99 Carbon Dioxide 30 H Anion Gap 17 BUN 22 H Creatinine 2.10 H Estim Creat Clear Calc 23.7 Estimated GFR 31 Random Glucose 99 Calcium 9.7 Discharge Plan Discharge Anticipated Discharge Date/Time: 11/10/23 14:56 Patient Disposition: Xfer Inpatient Rehab Fac Discharge Diagnosis: CR Hypokalemia Hyponatremia Urinary retention Referrals: [facility] [Other] - 1 Week Noel Norwood MD [Physician] - 1 Week Discharge Medications: New tamsulosin 0.4 mg Capsule 0.4 mg PO BEDTIME Qty: 30 0RF finasteride 5 mg Tablet 5 mg PO DAILY Qty: 30 0RF Continued acetaminophen [Tylenol] 325 mg Tablet 650 mg PO Q6H PRN (Reason: Pain) Discharge Orders: Discharge Order (Routine); Ordered 11/10/23 Ordered By: Emily Land Diet: Advance to usual diet Activity on Discharge: As tolerated Stand Alone Forms: Patient Portal Discharge page Print Language: Dutch Care Plan Goals: Patient has Matthews catheter secondary to urinary retention. Follow-up with Urology to determine when and if Matthews catheter can be removed Health Concerns: CR Hypokalemia Hyponatremia Urinary retention Plan of Treatment: Follow-up with primary care provider as needed Take all medications as prescribed Assessment: See discharge summary
== END 2023-11-10 17:10 | DRG 659 ==
LOC: HO.ED 13:45 → HO.EDOVER 17:23 → HO.ICU 17:24 → HO.S3 11-03 14:57
PROVIDERS: Internal Medicine Pulmonary Disease; Physician Assistant Medical; Student in an Organized Health Care Education/Training Program; Admitting Provider Internal Medicine Critical Care Medicine; Emergency Provider Emergency Medicine Emergency Medical Services; Visit Provider Nurse Practitioner Acute Care
DX: N39.0 Urinary tract infection, site not specified (principal); G93.41 Metabolic encephalopathy; N17.0 Acute kidney failure with tubular necrosis; N20.1 Calculus of ureter; E44.0 Moderate protein-calorie malnutrition; Z68.1 Body mass index [BMI] 19.9 or less, adult; E22.2 Syndrome of inappropriate secretion of antidiuretic hormone; J96.11 Chronic respiratory failure with hypoxia; T76.01XA Adult neglect or abandonment, suspected, initial encounter; R33.9 Retention of urine, unspecified; E87.6 Hypokalemia; R31.29 Other microscopic hematuria; I95.9 Hypotension, unspecified; R62.7 Adult failure to thrive; J44.9 Chronic obstructive pulmonary disease, unspecified; F10.20 Alcohol dependence, uncomplicated; Z99.81 Dependence on supplemental oxygen; Z87.891 Personal history of nicotine dependence; Z79.899 Other long term (current) drug therapy
CPT/HCPCS: 36415; 70450; 71045; 72125; 76775; 80048; 80053; 80143; 80307; 81001; 82040; 82140; 82533; 82550; 82803; 83605; 83735; 83880; 83930; 83935; 84100; 84295; 84300; 84439; 84443; 84484; 85025; 85610; 87040; 87147; 87205; 93005; 93880; 94640; 97162; 97165; 99285; C1758; J0696; J1644; J3371; P9047

== ENCOUNTER → 2023-11-02 10:36 | Outpatient (BNV) | payer MEDICARE, SELFPAY | PROVIDERS: Admitting Provider Internal Medicine Critical Care Medicine; Emergency Provider Emergency Medicine Emergency Medical Services; Visit Provider Internal Medicine Cardiovascular Disease | DX: R00.0 Tachycardia, unspecified (principal) | CPT/HCPCS: 93010 ==

== ENCOUNTER → 2023-11-02 16:46 | Outpatient (BNV) | payer MEDICARE, MEDICAID, SELFPAY | PROVIDERS: Admitting Provider Internal Medicine Critical Care Medicine; Emergency Provider Emergency Medicine Emergency Medical Services; Visit Provider Internal Medicine Pulmonary Disease | DX: E87.1 Hypo-osmolality and hyponatremia (principal); R62.7 Adult failure to thrive; I48.0 Paroxysmal atrial fibrillation; J44.9 Chronic obstructive pulmonary disease, unspecified | CPT/HCPCS: 99232 ==

== ENCOUNTER → 2023-11-02 16:46 | Outpatient (BNV) | payer MEDICARE, MEDICAID, SELFPAY | PROVIDERS: Admitting Provider Internal Medicine Critical Care Medicine; Emergency Provider Emergency Medicine Emergency Medical Services; Visit Provider Internal Medicine Critical Care Medicine | DX: E87.1 Hypo-osmolality and hyponatremia (principal); R62.7 Adult failure to thrive; J44.9 Chronic obstructive pulmonary disease, unspecified; F10.20 Alcohol dependence, uncomplicated | CPT/HCPCS: 99233 ==

== ENCOUNTER → 2023-11-02 16:46 | Outpatient (BNV) | payer MEDICARE, MEDICAID, SELFPAY | PROVIDERS: Admitting Provider Internal Medicine Critical Care Medicine; Emergency Provider Emergency Medicine Emergency Medical Services; Visit Provider Internal Medicine Hypertension Specialist | DX: E87.1 Hypo-osmolality and hyponatremia (principal) | CPT/HCPCS: 99223; 99232 ==

== ENCOUNTER → 2023-11-02 16:46 | Outpatient (BNV) | payer MEDICARE, MEDICAID, SELFPAY | PROVIDERS: Admitting Provider Internal Medicine Critical Care Medicine; Emergency Provider Emergency Medicine Emergency Medical Services; Visit Provider Registered Nurse | DX: F10.20 Alcohol dependence, uncomplicated (principal); R41.89 Other symptoms and signs involving cognitive functions and awareness | CPT/HCPCS: 99222 ==

== ENCOUNTER → 2023-11-02 16:46 | Outpatient (BNV) | payer MEDICARE, MEDICAID, SELFPAY | PROVIDERS: Admitting Provider Internal Medicine Critical Care Medicine; Emergency Provider Emergency Medicine Emergency Medical Services; Visit Provider Nurse Practitioner Acute Care | DX: R41.89 Other symptoms and signs involving cognitive functions and awareness (principal) | CPT/HCPCS: 99232; 99239; 99499 ==

== ENCOUNTER → 2023-11-02 16:46 | Outpatient (BNV) | payer MEDICARE, MEDICAID, SELFPAY | PROVIDERS: Admitting Provider Internal Medicine Critical Care Medicine; Emergency Provider Emergency Medicine Emergency Medical Services; Visit Provider Urology | DX: N20.0 Calculus of kidney (principal); N39.0 Urinary tract infection, site not specified | CPT/HCPCS: 52332; 74420; 99222 ==

== ENCOUNTER 2023-11-15 09:08 | Inpatient (IN) | payer MEDICARE, OTHER, SELFPAY ==
[2023-11-15] VITALS (9 sets, daily range): BP systolic 106–123; BP diastolic 59–84; PULSE 89–120; RESP 16–24; TEMP 36.6–37.4; O2SAT 89–97; BMI 16.6; BMI 17.6
--- NOTE | ~2023-11-15 | XR_ITS ---
EXAMINATION: XR CHEST CLINICAL INFORMATION: Chest pain shortness of breath COMPARISON: Chest radiograph from 11/10/2023 TECHNIQUE: Frontal view of the chest was obtained. FINDINGS: Streaky opacities bilateral lung bases suggesting atelectasis. No pneumothorax. Trachea is midline. Cardiac mediastinal silhouette is stable. No large pleural effusion. Dextrocurvature of the thoracic spine with multilevel degenerative change. Soft tissues are unremarkable. XR/XR chest 1V IMPRESSION: Streaky opacities bilateral lung bases suggesting atelectasis.
--- NOTE | ~2023-11-15 | CT_ITS ---
EXAMINATION: CT chest wo IV con. CLINICAL INFORMATION: Reason for Exam hypoxia, tachycardia, r/o pna COMPARISON: Prior CT March 2023 TECHNIQUE: Multidetector volumetric CT imaging of the chest was done. Axial MIP volume rendering provided. Sagittal and coronal reformatted images were obtained. This CT examination was performed using dose optimization techniques as appropriate, variously including the following: *Automated exposure control *Adjustment of mA and/or kV according to patient size (this includes techniques or standardized protocols for targeted exams where dose is matched to indication/reason for exam; i.e. extremities or head) *Use of iterative reconstruction technique CONTRAST: Noncontrasted study. DLP: 236 mGy-cm FINDINGS: INFORMATION TECHNOLOGY SPECIALIST: LINES/TUBES: Jukebox Route Driver reviewed, no lines. LUNGS: Lung parenchyma: Mild to moderate dia lobar pulmonary emphysema. Lung nodules/masses: Stable partially solid 8 mm nodule right upper lobe image 72 series 5. Mild interstitial lung markings at right lung base likely chronic mild interstitial lung disease nonspecific. Stable 4 mm nodule left lower lobe image 354 series 5. Few other smaller scattered tiny densities micronodules less than 3 mm. AIRWAYS: Trachea and bronchi are normal. PLEURA: No pleural effusion or pneumothorax. MEDIASTINUM AND REBECCA: No mediastinal, hilar or axillary lymphadenopathy. No mediastinal mass. VESSELS: HEART AND PERICARDIUM: Thoracic aorta is normal in size. Heart is normal in size. No pericardial effusion. There are coronary calcifications. Pulmonary arteries are normal in size. LOWER NECK, AXILLA: The visualized thyroid gland is unremarkable. No axillary mass or adenopathy. VISUALIZED ABDOMEN: Unremarkable CHEST WALL AND BONES: No chest wall mass. The visualized bony thorax is within normal limits. CT/CT chest wo IV con IMPRESSION: 1. No radiographic evidence of acute infiltrate pneumonia. 2. Stable subcentimeter lung nodules largest 8 mm partially solid nodule right upper lobe. According to the UPDATED 2017 Fleischner Society recommendations, the advised follow-up imaging for a single 6-8 mm solid nodule is follow-up CT at 6 to 12 months. In high-risk patients, subsequent CT follow-up at 18 to 24 months is recommended. In low-risk patients, subsequent CT follow-up at 18 to 24 months is optional. 2. Mild to moderate dia lobar pulmonary emphysema. 3. Coronary calcification. 4. Mild chronic stable interstitial lung disease at right lung base nonspecific.
--- NOTE | 2023-11-15 09:12 | ECG_ITS ---
Test Reason : CHEST PAIN Blood Pressure : / mmHG Vent. Rate : 118 BPM Atrial Rate : 118 BPM P-R Int : 130 ms QRS Dur : 070 ms QT Int : 336 ms P-R-T Axes : 080 079 089 degrees QTc Int : 470 ms Sinus tachycardia with Premature atrial complexes Biatrial enlargement Abnormal ECG When compared with ECG of 02-NOV-2023 10:36, Previous ECG has undetermined rhythm, needs review Referred By: Generic ED Physician Electronically Signed By:FRANCIS MERIDA MD
--- NOTE | 2023-11-15 09:29 | PC.NURSE ---
Pt comes from [facility] for cp/sob starting this morning. Sinus tach 110-140s on pvc monitor, hx of afib. Pt states the cp/sob subsided since arriving to ED. A/ox4, respirations even and unlabored, lung sounds cta bilaterally, S1 and S2 heard, abdomen soft and non-tender. Non blanchable area on top of coccyx. Pt states multiple episodes of diarrhea with occasional stomach cramping. O2 94% on 2L nc, 18g IV in left AC placed by EMS, 325mg of aspirin given by EMS. Resting in bed quietly, call garcia within reach, EKG obtained, awaiting further orders at this time.
--- NOTE | 2023-11-15 09:42 | ED.CHESTPAIN ---
HPI - Chest Pain General Chief Complaint: Chest Pain Stated Complaint: CP,SOB PER EMS Time Seen by Provider: 11/15/23 09:38 Source: patient and EMS Mode of arrival: EMS Limitations: no limitations History of Present Illness ED Provider: Mary Lanza APRN HPI narrative: 68-year-old male with a history of COPD, AFib, recent admit for hyponatremia with discharge on 624 to [facility] presents to the ER with complaints of shortness of breath increasing over the last few days and chest heaviness which began several hours ago which now seems improved. Patient reports chronic cough, nonproductive. No fevers, chills, leg swelling or leg pain. Related Data Home Medications ?Medication ?Instructions ?Recorded ?Confirmed acetaminophen 325 mg tablet 650 mg PO Q6H PRN Pain 11/02/23 11/02/23 (Tylenol) Previous Rx's ?Medication ?Instructions ?Recorded finasteride 5 mg tablet 5 mg PO DAILY #30 tabs 11/10/23 tamsulosin 0.4 mg capsule 0.4 mg PO BEDTIME #30 caps 11/10/23 cefuroxime axetil 250 mg tablet 250 mg PO BID #14 tabs 11/15/23 Allergies Allergy/AdvReac Type Severity Reaction Status Date / Time No Known Allergies Allergy Verified 11/15/23 09:24 Review of Systems Review of Systems: Yes all other systems are reviewed and are negative Constitutional: Constitutional: Reports no additional constitutional complaints, Denies body ache(s), Denies chills, Denies fever(s), Denies headache(s) and Denies weakness Eyes: Eyes: Reports no additional eye complaints and Denies change in vision ENT: Reports system reviewed and no additional complaints, except as documented, Denies dizziness, Denies headache(s), Denies nasal congestion, Denies nasal discharge and Denies neck pain Cardiovascular: Cardiovascular: Reports no additional cardiovascular complaints, Reports chest pain, Denies leg edema and Reports dyspnea Respiratory: Respiratory: Reports no additional respiratory complaints, Denies cough and Reports dyspnea Gastrointestinal: Gastrointestinal: Reports no additional gastrointestinal complaints, Denies abdominal pain, Denies diarrhea, Denies nausea and Denies vomiting Genitourinary: Genitourinary: Denies urinary incontinence Musculoskeletal: Musculoskeletal: Reports no additional musculoskeletal complaints, Denies back pain, Denies arthralgias, Denies joint swelling, Denies neck pain, Denies numbness and Denies tingling Integumentary/Breasts: Skin/Breast: Reports system reviewed and no additional complaints, except as docu and Denies rash Neurologic: Reports system reviewed and no additional complaints, except as documented, Denies Abnormal speech present, Denies dizziness, Denies headache(s), Denies numbness, Denies tingling and Denies weakness PMFSH Past Medical History Attestation statement: The following information was validated with the patient. Source: old records reviewed and nursing notes reviewed Medical History Pneumonia Asthma Alcohol dependence Social History Social History Household Members: Other Household Members Other:: friends Housing: House Do you presently have visiting nurse or other home services: No Alcohol intake: current Alcohol intake frequency: 0-2 drinks per day Alcohol type: beer Patient Tobacco Use Status: Former Tobacco user Tobacco use type: Cigarette Cigarette Packs Per Day: 1 Cigarettes Per Day: 20.0 Substance Use Type: Crack/Cocaine Advance Directives: Yes Advance Directives on File: Yes Advance Directives Date on File: 11/06/23 service: No Physical Exam Vital Signs: Vital Signs: Last Vital Signs Temp 98.0 F 11/15/23 09:23 Pulse 98 11/15/23 13:51 Resp 18 11/15/23 13:51 BP 117/84 11/15/23 13:51 Pulse Ox 93 11/15/23 13:51 O2 Del Method Nasal Cannula 11/15/23 13:51 O2 Flow Rate 2 11/15/23 13:51 BMI result Body Mass Index 16.6 Const: General: cooperative, healthy appearing, comfortable and no acute distress Orientation/consciousness: patient oriented x3 Limitations: no limitations HEENT: Head: Yes normal to inspection Ears: hearing grossly normal bilaterally General nose exam: Normal external nose present Face and sinus: Yes normal facial exam Mouth: Normal oral and palatal mucosa present Throat: Yes posterior oropharynx normal Eyes: General: appearance normal, both eyes and all related structures Pupils: Equal, round and reactive pupils present Neck: Neck: Yes normal visual inspection Chest: Chest palpation & inspection: normal inspection of the chest Resp: Other: Mild wheezing Tachypnea with accessory muscle use with rate of 24-26 Cardio: Rate: regular rate Rhythm: regular rhythm Peripheral pulses: Peripheral pulses 2+ throughout GI: Inspection: Yes normal to inspection Palpation (GI): Soft to palpation and nontender Auscultation: normal bowel sounds Back/Spine/Pelvis: Thoracic/Lumbar Spine: thoracic and lumbar spine normal to inspection Skin: General skin exam: no rashes or lesions noted Neuro: General: patient oriented x3, no focal motor deficits and normal sensation to monofilament Cranial nerves: Yes Equal, round and reactive pupils present Cognition (Neuro): normal cognition Speech: No Abnormal speech present Gait exam (Neuro): Normal gait present Motor exam (neuro): 5/5 motor strength present throughout Extrem: General: Yes normal to inspection, Yes no pedal edema and Yes no calf tenderness Course Course Course Narrative: Chest x-ray shows some atelectasis. Due to hypoxia, tachypnea will obtain CT chest Reevaluation(s) Reevaluation #1: 1600 Patient with oxygen saturation 88-89% room air. HR variable 100-160s. Chest x-ray shows no acute finding. EKG is nonischemic. Symptoms are likely secondary to COPD exacerbation and chronic lung disease. However patient does have a leukocytosis and a UTI. At this time infection is suspected. Antibiotics have been ordered. Patient demanding to go back to his facility. On last admission the patient's health care proxy was invoked per psychiatry notes from 11/06. I spoke to case management. They were unable to get hold of his healthcare proxy in his last admission. The person listed is not returning phone calls. He does not have a backup healthcare proxy. He does have a friend Sidney who I spoke to the patient reports that he has no legal rights to make medical decisions for the patient. Based on the patient's current status they believe it is best for him to be admitted for COPD exacerbation, UTI. Will speak to Medicine Medications Administered Discontinued Medications Generic Name Dose Route Start Last Admin Trade Name Danielq PRN Reason Stop Dose Admin Albuterol Sulfate 2.5 mg/ 0 mg 11/15/23 11:06 11/15/23 11:09 Albuterol/Ipratropium 3 ml INHALE 11/15/23 11:07 1 dose ONCE ONE Administration Magnesium Sulfate 2 gm in 50 mls @ 25 mls/hr 11/15/23 10:26 11/15/23 11:27 Magnesium Sulfate/H2o IV 11/15/23 12:25 Infused ONCE ONE Infusion Sodium Chloride 500 mls @ 999 mls/hr 11/15/23 10:26 11/15/23 11:56 Ns IV 11/15/23 10:56 Infused .Q31M STA Infusion Methylprednisolone Sodium Succinate 125 mg 11/15/23 10:26 11/15/23 10:40 Methylprednisolone Sod Succ 125 Mg/2 Ml Vial IVPUSH 11/15/23 10:27 125 mg ONCE ONE Administration Medical Decision Making Medical Decision Making MDM Narrative: 68-year-old male with a history of COPD, AFib, recent admit for hyponatremia with discharge on to [facility] presents to the ER with complaints of shortness of breath increasing over the last few days and chest heaviness which began several hours ago which now seems improved. Patient reports chronic cough, nonproductive. No fevers, chills, leg swelling or leg pain. Patient with hypoxia with room air 89% improved with several L He is tachypneic and tachycardic with heart rate 100-140 on the color television console monitor. He has some wheezing on exam. Likely secondary to chronic lung disease Will obtain labs, EKG, chest x-ray, viral testing Differential Diagnosis Differential Diagnoses: The differential diagnosis associated with the presentation includes COPD exacerbation Less likely CHF with no clinical findings concerning for CHF on exam Less likely ACS with story atypical for ACS with nonischemic EKG and 2 flat troponins Less likely PE with no clinical findings concerning for DVT, chest pain not pleuritic in nature Admission/Observation Consideration of admission/observation: Escalation of care including admission/observation considered Hypoxia requiring supplemental oxygen, tachycardia requiring fluids and rate control all requiring hospitalization Consult Healthcare Provider Management of the patient was discussed with: Hospitalist Spoke to hospitalist who accepted admission Lab Data [facility] Lab Attestation statement: I reviewed the patient's lab results. 11/15/23 09:48 11/15/23 09:48 Labs: Lab Results 11/15/23 11/15/23 11/15/23 Range/Units 09:48 10:07 10:32 WBC 16.4 H (4.8-10.8) X10*3/uL RBC 4.30 L (4.60-5.80) X10*6/uL Hgb 13.0 L (14.0-18.0) g/dl Hct 38.7 L D (42.0-52.0) % MCV 90.0 (80.0-98.0) fL MCH 30.2 (27.0-33.0) pg MCHC 33.6 (31.0-36.0) g/dl RDW 13.0 (11.0-16.0) % Plt Count 316 (160-400) X10*3/uL MPV 9.2 L (9.4-12.4) fL Immature Gran % (Auto) 0.4 (0.0-0.4) % Neut % (Auto) 82.1 H (45-73) % Lymph % (Auto) 9.2 L (20-40) % Whitman % (Auto) 7.4 (2-11) % Eos % (Auto) 0.4 (0-4) % Baso % (Auto) 0.5 (0-2) % Lymph # (Auto) 1.5 (1.2-4.9) X10*3/uL Whitman # (Auto) 1.2 (0.1-1.2) X10*3/uL Eos # (Auto) 0.1 (0.0-0.4) X10*3/uL Baso # (Auto) 0.1 (0.0-0.2) X10*3/uL Abs Immat Gran (auto) 0.06 H (0.00-0.03) X10*3/uL Absolute Neuts (auto) 13.5 H (2.0-8.3) x10*3/uL Absolute Nucleated RBC 0.000 (0.0-0.012) X10*3/uL Nucleated RBC % (auto) 0.0 (0.0-0.2) /100WBC PT 11.5 (11.1-13.3) SEC INR 0.9 (0.9-1.1) Sodium 138 (135-145) mmol/L Potassium 3.3 (3.3-5.1) mmol/L Chloride 94 L (96-108) mmol/L Carbon Dioxide 31 H (22-29) mmol/L Anion Gap 16 (12-20) BUN 32 H (9-16) mg/dL Creatinine 1.77 H (0.5-1.4) mg/dL Estim Creat Clear Calc 23.3 Estimated GFR 38 Random Glucose 100 (60-115) mg/dL Calcium 9.4 (8.4-10.2) mg/dL Magnesium 1.7 (1.6-2.6) mg/dL Total Bilirubin 0.4 (0.0-1.0) mg/dL AST 13 (5-37) U/L ALT 10 (0-40) U/L Alkaline Phosphatase 80 (39-117) U/L Troponin I High Sens 11.0 (<3.5-35.0) ng/L B-Natriuretic Peptide 198 H (<100) pg/mL Total Protein 7.3 (6.5-8.0) g/dL Albumin 3.9 (3.5-5.0) g/dL Urine Color Yellow Urine Appearance Cloudy Urine pH 5.5 (5.0-9.0) Ur Specific [place] 1.015 (1.005-1.025) Urine Protein 30 (1+) H (Neg-Trace) mg/dL Urine Glucose (UA) Negative (Negative) mg/dL Urine Ketones Negative (Negative) mg/dL Urine Blood Large (3+) H (Negative) Urine Nitrite Negative (Negative) Ur Leukocyte Esterase Large (3+) H (Negative) Urine RBC >20 H (0-2) /HPF Urine WBC >50 H (0-5) /HPF Ur Squamous Epith Cells 0-2 (0-2) /HPF Urine Bacteria 4+ (None Seen) Hyaline Casts 0-2 (0-2) /LPF Influenza Type A (PCR) NEGATIVE (Negative) Influenza Type B (PCR) NEGATIVE (Negative) RSV RNA Qual (PCR) NEGATIVE (Negative) SARS-CoV-2 RNA (RT-PCR) NEGATIVE (Negative) 11/15/23 Range/Units 13:26 WBC (4.8-10.8) X10*3/uL RBC (4.60-5.80) X10*6/uL Hgb (14.0-18.0) g/dl Hct (42.0-52.0) % MCV (80.0-98.0) fL MCH (27.0-33.0) pg MCHC (31.0-36.0) g/dl RDW (11.0-16.0) % Plt Count (160-400) X10*3/uL MPV (9.4-12.4) fL Immature Gran % (Auto) (0.0-0.4) % Neut % (Auto) (45-73) % Lymph % (Auto) (20-40) % Whitman % (Auto) (2-11) % Eos % (Auto) (0-4) % Baso % (Auto) (0-2) % Lymph # (Auto) (1.2-4.9) X10*3/uL Whitman # (Auto) (0.1-1.2) X10*3/uL Eos # (Auto) (0.0-0.4) X10*3/uL Baso # (Auto) (0.0-0.2) X10*3/uL Abs Immat Gran (auto) (0.00-0.03) X10*3/uL Absolute Neuts (auto) (2.0-8.3) x10*3/uL Absolute Nucleated RBC (0.0-0.012) X10*3/uL Nucleated RBC % (auto) (0.0-0.2) /100WBC PT (11.1-13.3) SEC INR (0.9-1.1) Sodium (135-145) mmol/L Potassium (3.3-5.1) mmol/L Chloride (96-108) mmol/L Carbon Dioxide (22-29) mmol/L Anion Gap (12-20) BUN (9-16) mg/dL Creatinine (0.5-1.4) mg/dL Estim Creat Clear Calc Estimated GFR Random Glucose (60-115) mg/dL Calcium (8.4-10.2) mg/dL Magnesium (1.6-2.6) mg/dL Total Bilirubin (0.0-1.0) mg/dL AST (5-37) U/L ALT (0-40) U/L Alkaline Phosphatase (39-117) U/L Troponin I High Sens 9.1 (<3.5-35.0) ng/L B-Natriuretic Peptide (<100) pg/mL Total Protein (6.5-8.0) g/dL Albumin (3.5-5.0) g/dL Urine Color Urine Appearance Urine pH (5.0-9.0) Ur Specific [place] (1.005-1.025) Urine Protein (Neg-Trace) mg/dL Urine Glucose (UA) (Negative) mg/dL Urine Ketones (Negative) mg/dL Urine Blood (Negative) Urine Nitrite (Negative) Ur Leukocyte Esterase (Negative) Urine RBC (0-2) /HPF Urine WBC (0-5) /HPF Ur Squamous Epith Cells (0-2) /HPF Urine Bacteria (None Seen) Hyaline Casts (0-2) /LPF Influenza Type A (PCR) (Negative) Influenza Type B (PCR) (Negative) RSV RNA Qual (PCR) (Negative) SARS-CoV-2 RNA (RT-PCR) (Negative) Independent Interpretation I performed an independent interpretation of an: EKG, Plain X-Ray and CT Scan Interpretation: I independently reviewed the EKG which shows sinus tachycardia with PACs with rate of 118 I independently reviewed the x-ray and the CT scan agree with the radiology report Radiology Impression Discussion of test interpretation with radiology: I have reviewed the radiologist's reading. Radiologist Impression: [place] [id number] CT Scan Report Signed Patient: Heriberto Cho MR#: [id number] : 1955 Acct:[id number] Age/Sex: 68 / M ADM Date: 11/15/23 Loc: .ED Attending Dr: Ordering Physician: Mary Yao NP Date of Service: 11/15/23 Procedure(s): CT chest wo IV con Accession Number(s): [id number] cc: ISMAEL GEORGE MD; Mary Yao NP~ EXAMINATION: CT chest wo IV con. CLINICAL INFORMATION: Reason for Exam hypoxia, tachycardia, r/o pna COMPARISON: Prior CT March 2023 TECHNIQUE: Multidetector volumetric CT imaging of the chest was done. Axial MIP volume rendering provided. Sagittal and coronal reformatted images were obtained. This CT examination was performed using dose optimization techniques as appropriate, variously including the following: *Automated exposure control *Adjustment of mA and/or kV according to patient size (this includes techniques or standardized protocols for targeted exams where dose is matched to indication/reason for exam; i.e. extremities or head) *Use of iterative reconstruction technique CONTRAST: Noncontrasted study. DLP: 236 mGy-cm FINDINGS: FRANCHISE SALES DIRECTOR: LINES/TUBES: Agriculture Research Director reviewed, no lines. LUNGS: Lung parenchyma: Mild to moderate dia lobar pulmonary emphysema. Lung nodules/masses: Stable partially solid 8 mm nodule right upper lobe image 72 series 5. Mild interstitial lung markings at right lung base likely chronic mild interstitial lung disease nonspecific. Stable 4 mm nodule left lower lobe image 354 series 5. Few other smaller scattered tiny densities micronodules less than 3 mm. AIRWAYS: Trachea and bronchi are normal. PLEURA: No pleural effusion or pneumothorax. MEDIASTINUM AND REBECCA: No mediastinal, hilar or axillary lymphadenopathy. No mediastinal mass. VESSELS: HEART AND PERICARDIUM: Thoracic aorta is normal in size. Heart is normal in size. No pericardial effusion. There are coronary calcifications. Pulmonary arteries are normal in size. LOWER NECK, AXILLA: The visualized thyroid gland is unremarkable. No axillary mass or adenopathy. VISUALIZED ABDOMEN: Unremarkable CHEST WALL AND BONES: No chest wall mass. The visualized bony thorax is within normal limits. CT/CT chest wo IV con IMPRESSION: 1. No radiographic evidence of acute infiltrate pneumonia. 2. Stable subcentimeter lung nodules largest 8 mm partially solid nodule right upper lobe. According to the UPDATED 2017 Fleischner Society recommendations, the advised follow-up imaging for a single 6-8 mm solid nodule is follow-up CT at 6 to 12 months. In high-risk patients, subsequent CT follow-up at 18 to 24 months is recommended. In low-risk patients, subsequent CT follow-up at 18 to 24 months is optional. 2. Mild to moderate dia lobar pulmonary emphysema. 3. Coronary calcification. 4. Mild chronic stable interstitial lung disease at right lung base nonspecific. [address] [id number] XRay Report Signed Patient: Heriberto Cho MR#: [id number] : 1955 Acct:[id number] Age/Sex: 68 / M ADM Date: 11/15/23 Loc: HO.ED Attending Dr: Ordering Physician: Gavi Hall MD Date of Service: 11/15/23 Procedure(s): XR chest 1V Accession Number(s): [id number] cc: Gavi Hall MD; ISMAEL GEORGE MD~ EXAMINATION: XR CHEST CLINICAL INFORMATION: Chest pain shortness of breath COMPARISON: Chest radiograph from 11/10/2023 TECHNIQUE: Frontal view of the chest was obtained. FINDINGS: Streaky opacities bilateral lung bases suggesting atelectasis. No pneumothorax. Trachea is midline. Cardiac mediastinal silhouette is stable. No large pleural effusion. Dextrocurvature of the thoracic spine with multilevel degenerative change. Soft tissues are unremarkable. XR/XR chest 1V IMPRESSION: Streaky opacities bilateral lung bases suggesting atelectasis. Independent Historian Clinical information obtained from an independent historian. History obtained from or confirmed by: EMS External Record Review External record reviewed: Inpatient record Critical Care Time Critical Care Time Critical Care Time: Yes Total Critical Care Time: 60 Attestation: Hypoxia, tachypnea, tachycardia requiring supplemental oxygen, IV fluids and rate control which will require admission to the hospital, discussion with hospitalist for admission Discharge Plan Discharge Clinical Impression: Acute UTI, Leukocytosis, Tachycardia COPD (chronic obstructive pulmonary disease) Qualifiers: COPD type: unspecified COPD Qualified Code(s): J44.9 - Chronic obstructive pulmonary disease, unspecified Patient Disposition: Admitted As Inpatient Print Language: Macedonian
[2023-11-15 09:53] LABS: MANUAL DIFF FLAG NO
[2023-11-15 10:00] LABS: Basophils Absolute Auto 0.1 X10*3/uL (0.0-0.2); Basophils Percent Auto 0.5 % (0-2); Eosinophils Absolute Auto 0.1 X10*3/uL (0.0-0.4); Eosinophils Percent Auto 0.4 % (0-4); Hematocrit 38.7 % (42.0-52.0); Imm Gran Abs Auto 0.06 X10*3/uL (0.00-0.03); Imm Gran Pct Auto 0.4 % (0.0-0.4); Lymphocytes Absolute Auto 1.5 X10*3/uL (1.2-4.9); Lymphocytes Percent Auto 9.2 % (20-40); Mean Corpuscular HGB Conc 33.6 g/dl (31.0-36.0); Mean Corpuscular Hemoglobin 30.2 pg (27.0-33.0); Mean Platelet Volume 9.2 fL (9.4-12.4); Monocytes Absolute Auto 1.2 X10*3/uL (0.1-1.2); Monocytes Percent Auto 7.4 % (2-11); Neutrophils Absolute Auto 13.5 x10*3/uL (2.0-8.3); Neutrophils Percent Auto 82.1 % (45-73); Platelet Count 316 X10*3/uL (160-400); White Blood Count 16.4 X10*3/uL (4.8-10.8)
[2023-11-15 10:12] LABS: INTERNATIONAL NORM RATIO 0.9 (0.9-1.1); Prothrombin Time 11.5 SEC (11.1-13.3)
[2023-11-15 10:13] LABS: Alanine Aminotransferase 10 U/L (0-40); Albumin Level 3.9 g/dL (3.5-5.0); Alkaline Phosphatase 80 U/L (39-117); Anion Gap 16 (12-20); Aspartate Amino Transferase 13 U/L (5-37); Bilirubin Total 0.4 mg/dL (0.0-1.0); Blood Urea Nitrogen 32 mg/dL (9-16); Calcium 9.4 mg/dL (8.4-10.2); Carbon Dioxide 31 mmol/L (22-29); Chloride 94 mmol/L (96-108); Creatinine Clr Calc Pharmacy 23.3; Estimated Glomerular Filt Rate 38; Glucose Random 100 mg/dL (60-115); Magnesium 1.7 mg/dL (1.6-2.6); Potassium 3.3 mmol/L (3.3-5.1); Sodium 138 mmol/L (135-145); Total Protein 7.3 g/dL (6.5-8.0)
[2023-11-15 10:19] LABS: B Type Natriuretic Peptide 198 pg/mL (<100)
[2023-11-15] MEDS: 0.9 % Sodium Chloride 500 ML 999 ML IV (10:35)
[2023-11-15 10:39] LABS: Appearance Urine Cloudy; Color Urine Yellow; Glucose Urine UA Negative (Negative); Leukocyte Esterase Urine Large (3+) (Negative); Nitrite Urine Negative (Negative); PH 5.5 (5.0-9.0); Specific Gravity - Urine 1.015 (1.005-1.025); UMIC TRIGGER UACC YES; Urine Blood Large (3+) (Negative); Urine Ketones Negative (Negative); Urine Protein 30 (1+) mg/dL (Neg-Trace)
[2023-11-15] MEDS: methylPREDNISolone Sod Succ 125 MG/2 ML VIAL IVPUSH (10:40)
[2023-11-15] MEDS: Magnesium Sulfate/H2O 2 GM/50 ML PIGGYBACK IV (10:40)
[2023-11-15 10:44] LABS: Bacteria Urine 4+ (None Seen); Hyaline Casts Urine 0-2 /LPF (0-2); RBC Urine >20 /HPF (0-2); Squamous Epithelial Cell Urine 0-2 /HPF (0-2); UACC Culture Trigger YES; WBC Urine >50 /HPF (0-5)
[2023-11-15 11:00] LABS: Influenza A PCR NEGATIVE (Negative); Influenza B PCR NEGATIVE (Negative); Resp Syncy Virus RNA Qual PCR NEGATIVE (Negative); SARS COV2 PCR INHOUSE NEGATIVE (Negative)
[2023-11-15] MEDS: Albuterol Sulfate 2.5 MG, Albuterol/Iprat 2.5/0.5MG 3 ML 3 ML INHALE (11:09)
[2023-11-15 13:58] LABS: Troponin-I High Sensitivity 9.1 ng/L (<3.5-35.0)
--- NOTE | 2023-11-15 15:28 | MHC.CM.PN ---
CM DISCUSSED PT W/ED PROVIDER D/T PROVIDER UNABLE TO GET A HOLD OF PT'S HCP, CM FOUND ADDITIONAL NUMBER IN OLD CM NOTES FOR HCP PREM ERWIN [phone] HOWEVER NUMBER ON FILE AND THIS NUMBER ARE NO LONGER WORKING NUMBERS, CM ALSO FOUND A ZAFAR CAMILA [phone] IN SAME NOTE HOWEVER CM ATTEMPTED TO CALL MULTIPLE TIMES W/NO ANSWER AND VOICEMAIL FULL. PT'S FRIEND APRYL HAS BEEN TRYING TO ASSIST W/DECISIONS FOR PT NO ONE HAS BEEN ABLE TO CONTACT PT'S HCP. OF NOTE PT'S LAST VISIT PRIOR PT WAS SEEN BY PSYCH AND [facility], HCP WAS INVOKED PER HOSPITALIST AND NOTED ON DC SUMMARY. PT WILL BE ADMITTED FOR COPD EXAC AND RETURN REFERRAL SENT TO [facility] WHERE PT WAS SENT FOR STR LAST ADMIT.
--- NOTE | 2023-11-15 15:44 | PM.IMHP ---
History of Present Illness Date of Service: 11/15/23 Chief Complaint: Shortness of breath 68-year-old gentleman with past medical history significant for COPD, atrial fibrillation, alcohol use and failure to thrive recently discharged from [facility] after a 8 day stay for treatment of acute kidney injury, urinary retention, hypokalemia, hyponatremia and failure to thrive ,he had a Matthews catheter placed, CR was likely related to renal hypoperfusion and tubular injury renal ultrasound showed no obstruction, patient failed voiding trial, his renal function improved, had significant hyponatremia required ICU admission sodium improved with fluid restriction, patient was noted to have cognitive impairment, he scored 3/30 on [place] and was felt not to have capacity to make medical decision therefore healthcare proxy was invoked, during hospitalization patient noted to have no acute exacerbation of COPD, and in regard to atrial fibrillation, he was discharged on no rate control medications or anticoagulation due to history of alcohol use patient was subsequently discharged to rehab facility due to impaired safety, standing balance and transferred ability, patient was sent to [facility] emergency room today from [facility] with complaints of shortness of breath of few days', associated with chronic nonproductive cough, no fevers, no chills, he also complained of chest heaviness that began several hours prior to presentation and improved on arrival to emergency room , workup in the emergency room showed normal troponin x2, BNP 198, albumin 3.9, creatinine 1.77 improved from discharge creatinine of 2.1, sodium 138, potassium 3.3, WBC elevated 16.4 stable hematocrit 38.7, chest CT showed no pneumonia showed chronic emphysema, patient urinalysis significantly positive with large blood and leukocyte esterase greater than 50 WBC and 4+ bacteria patient denies urinary symptoms of urgency and frequency he has very agitated not cooperative in providing detailed history and resisting examination patient will be admitted to [facility] with a diagnosis of UTI and sepsis due to tachypnea tachycardia and positive urinalysis. Review of Systems Review of Systems: Unable to obtain since patient not cooperative although denies fever, no chills, denies shortness of breath. [facility] Medical History Pneumonia Asthma Alcohol dependence Social History Household Members: None Household Members Other:: friends Housing: [facility]itentiary Do you presently have visiting nurse or other home services: No (snf) Alcohol intake: current Alcohol intake frequency: 0-2 drinks per day Alcohol type: beer Patient Tobacco Use Status: Former Tobacco user Tobacco use type: Cigarette Cigarette Packs Per Day: 1 Cigarettes Per Day: 20.0 Use of substances other than those prescribed or required for medical reasons: No Substance Use Type: Crack/Cocaine Currently Displaying Signs/Symptoms of Drug Intoxication Withdrawal: No Have you been hit, kicked, punched, or otherwise hurt by someone within the past year? If so, by whom?: No Do you feel safe in your current relationship?: No Current Relationship Is there a partner from a previous relationship who is making you feel unsafe now?: No Are you made to feel afraid or neglected: No Advance Directives: Yes Advance Directives on File: Yes Advance Directives Date on File: 11/06/23 Do you have a plan to hurt others: No Plan Recently lost weight without trying: No Nutrition Risks: No Nutritional Risk Poor oral hygiene: No (no teeth) service: No Meds Allergies Allergy/AdvReac Type Severity Reaction Status Date / Time No Known Allergies Allergy Verified 11/15/23 09:24 Active Medications: Current Medications Sodium Chloride (Ns) 1,000 mls @ 999 mls/hr IV .Q1H1M STA Stop: 11/15/23 16:00 Ceftriaxone Sodium 1 gm/ (Sodium Chloride) 50 mls @ 100 mls/hr IV Q24H VLADIMIR Home Medications ?Medication ?Instructions ?Recorded ?Confirmed ?Last Taken ?Type acetaminophen 325 mg tablet 650 mg PO Q4H PRN Fever Or Pain 11/02/23 11/15/23 Unknown History (Tylenol) bisacodyl 10 mg rectal suppository 10 mg WI DAILY PRN Constipation 11/15/23 11/15/23 Unknown History magnesium hydroxide 400 mg/5 mL 30 ml PO DAILY PRN Constipation 11/15/23 11/15/23 Unknown History oral suspension (Milk of Magnesia) sodium phosphates 19 gram-7 118 ml WI DAILY PRN Constipation 11/15/23 11/15/23 Unknown History gram/118 mL enema (Fleet Enema) Physical Exam Vital Signs and Narrative: Vital Signs: Last Vital Signs Temp 98.0 F 11/15/23 09:23 Pulse 98 11/15/23 13:51 Resp 18 11/15/23 13:51 BP 117/84 11/15/23 13:51 Pulse Ox 93 11/15/23 13:51 O2 Del Method Nasal Cannula 11/15/23 13:51 O2 Flow Rate 2 11/15/23 13:51 BMI result Body Mass Index 16.6 Const: Other: General: Awake alert , in no acute distress Anicteric sclera Neck no JVD Resp: Clear to auscultation, no respiratory distress, no expiratory wheeze, no respiratory distress. CVS: S1,S2,RRR GI: soft, non tender, non distended. Extremities no edema. Neuro: Moving all 4 extremities, speech clear, face symmetric Psych: impaired insight. Results Labs 11/16/23 05:57 11/16/23 05:57 Labs: Laboratory Results - last 24 hr 11/15/23 11/15/23 11/15/23 09:48 10:07 10:32 MCV 90.0 MCH 30.2 MCHC 33.6 RDW 13.0 Plt Count 316 MPV 9.2 L Immature Gran % (Auto) 0.4 Neut % (Auto) 82.1 H Lymph % (Auto) 9.2 L [place] % (Auto) 7.4 Eos % (Auto) 0.4 Baso % (Auto) 0.5 Lymph # (Auto) 1.5 [place] # (Auto) 1.2 Eos # (Auto) 0.1 Baso # (Auto) 0.1 Abs Immat Gran (auto) 0.06 H Absolute Neuts (auto) 13.5 H Absolute Nucleated RBC 0.000 Nucleated RBC % (auto) 0.0 PT 11.5 INR 0.9 Anion Gap 16 Estim Creat Clear Calc 23.3 Estimated GFR 38 Random Glucose 100 Calcium 9.4 Magnesium 1.7 Total Bilirubin 0.4 AST 13 ALT 10 Alkaline Phosphatase 80 Troponin I High Sens 11.0 B-Natriuretic Peptide 198 H Total Protein 7.3 Albumin 3.9 Urine Color Yellow Urine Appearance Cloudy Urine pH 5.5 Ur Specific [place] 1.015 Urine Protein 30 (1+) H Urine Glucose (UA) Negative Urine Ketones Negative Urine Blood Large (3+) H Urine Nitrite Negative Ur Leukocyte Esterase Large (3+) H Urine RBC >20 H Urine WBC >50 H Ur Squamous Epith Cells 0-2 Urine Bacteria 4+ Hyaline Casts 0-2 Influenza Type A (PCR) NEGATIVE Influenza Type B (PCR) NEGATIVE RSV RNA Qual (PCR) NEGATIVE SARS-CoV-2 RNA (RT-PCR) NEGATIVE 11/15/23 13:26 MCV MCH MCHC RDW Plt Count MPV Immature Gran % (Auto) Neut % (Auto) Lymph % (Auto) [place] % (Auto) Eos % (Auto) Baso % (Auto) Lymph # (Auto) [place] # (Auto) Eos # (Auto) Baso # (Auto) Abs Immat Gran (auto) Absolute Neuts (auto) Absolute Nucleated RBC Nucleated RBC % (auto) PT INR Anion Gap Estim Creat Clear Calc Estimated GFR Random Glucose Calcium Magnesium Total Bilirubin AST ALT Alkaline Phosphatase Troponin I High Sens 9.1 B-Natriuretic Peptide Total Protein Albumin Urine Color Urine Appearance Urine pH Ur Specific [place] Urine Protein Urine Glucose (UA) Urine Ketones Urine Blood Urine Nitrite Ur Leukocyte Esterase Urine RBC Urine WBC Ur Squamous Epith Cells Urine Bacteria Hyaline Casts Influenza Type A (PCR) Influenza Type B (PCR) RSV RNA Qual (PCR) SARS-CoV-2 RNA (RT-PCR) Imaging Radiologist's Impressions: Impressions Chest X-Ray 11/15/23 10:15 IMPRESSION: Streaky opacities bilateral lung bases suggesting atelectasis. Chest CT 11/15/23 11:58 IMPRESSION: 1. No radiographic evidence of acute infiltrate pneumonia. 2. Stable subcentimeter lung nodules largest 8 mm partially solid nodule right upper lobe. According to the UPDATED 2017 Fleischner Society recommendations, the advised follow-up imaging for a single 6-8 mm solid nodule is follow-up CT at 6 to 12 months. In high-risk patients, subsequent CT follow-up at 18 to 24 months is recommended. In low-risk patients, subsequent CT follow-up at 18 to 24 months is optional. 2. Mild to moderate dia lobar pulmonary emphysema. 3. Coronary calcification. 4. Mild chronic stable interstitial lung disease at right lung base nonspecific. Assessment and Plan (1) Leukocytosis: Status: Acute (2) Acute UTI: Status: Acute (3) Urinary retention: Status: Acute Plan 68-year-old gentleman with past medical history significant for COPD, atrial fibrillation not on anticoagulation due to alcohol use, history of failure to thrive recently discharged to [facility] after requiring treatment for management of CR, hypokalemia, hyponatremia, urinary retention required Matthews catheter placement and was subsequently discharged to rehab facility, healthcare proxy was invoked due to lack of capacity. Patient returned back to [facility] due to symptoms of shortness of breath and chest tightness and noted to have acute UTI with sepsis and hypoxia. Acute sepsis due to UTI Meets sepsis criteria due to leukocytosis, tachypnea and tachycardia Place on IV ceftriaxone follow urine and blood cultures, follow lactic acid Acute hypoxic respiratory failure likely due to mild COPD exacerbation Oxygenation 89% on room air improved to 93% on [address] on IV Solu Medrol, scheduled and as needed updraft treatment and cough medication Paroxysmal atrial fibrillation currently in normal sinus rhythm with mild tachycardia likely due to UTI Soft BP hold beta-blockers Not on anticoagulation due to history of fall and alcohol Moderate protein calorie malnutrition Add supplements Urinary retention continue Matthews catheter and home medications. Poor insight, healthcare proxy was invoked during previous hospitalization, currently residing at [facility]. DVT prophylaxis with heparin Full code In my clinical judgment patient will require 2 night inpatient hospitalization for management of sepsis with UTI requiring IV antibiotics and treatment for hypoxia. Quality Stroke Does the patient have a stroke diagnosis?: No VTE Prior VTE?: No VTE Risk Level:: Medical - moderate - high VTE Device Contraindication: Treatment Not Indicated VTE Drug Contraindication: N/A - Med Ordered
[2023-11-15] MEDS: Metoprolol Tartrate 5 MG/5 ML VIAL IVPUSH (15:48)
[2023-11-15] MEDS: cefTRIAXone sodium 1 GM in 0.9 % Sodium Chloride 50 ML IV (15:48)
[2023-11-15] MEDS: 0.9 % Sodium Chloride 1,000 ML 999 ML IV (15:49)
--- NOTE | 2023-11-15 15:50 | PC.NURSE ---
Pt s constantly repeating that he wants to go home, that he does not want to be here. Pt does not have capacity to make his own decisions, CM called at this time as no HCP is available. The decision was made he could not make his own decisions and would have to be admitted to the hospital. Pt then placed back on monitors, sepsis alert called by admitting provider. labs collected, fluids/IV antibiotics hung at this time.
[2023-11-15 16:03] LABS: Lactic Acid 1.5 mmol/L (0.5-2.0)
--- NOTE | 2023-11-15 16:39 | PHA.MEDREC ---
Pharmacy Consult ? Medication Reconciliation Pharmacy has completed the medication reconciliation. List form [facility] at [facility].
--- NOTE | 2023-11-15 18:49 | MHC.EDTECH ---
assisted patient in setting up his dinner
--- NOTE | 2023-11-15 19:25 | MHC.EDTECH ---
This tech took over care of patient at 1900,hourly rounds and vitals completed,patient is currently eating supper, call garcia in reach
[2023-11-15] MEDS: Albuterol/Iprat 2.5/0.5MG 3 ML AMPUL.NEB INHALE (20:06)
[2023-11-15] MEDS: methylPREDNISolone Sod Succ 40 MG/ML VIAL 20 MG IVPUSH (21:02)
[2023-11-15] MEDS: Acetaminophen 325 MG TABLET 650 MG PO (21:05)
[2023-11-15] MEDS: 0.9 % Sodium Chloride Flush 3 ML SYRINGE IVFLUSH (21:05)
[2023-11-15] MEDS: guaiFENesin DM 100/10/5 ML 5 ML SYRUP 10 ML PO (21:05)
[2023-11-15] MEDS: Heparin Sodium,Porcine 5,000 UNIT/ML VIAL 5000 UNIT SUBCUT (21:09)
[2023-11-16 04:00] VITALS: BP 157/89; PULSE 89; RESP 16; TEMP 36; O2SAT 96
[2023-11-16 06:57] LABS: Hematocrit 35.1 % (42.0-52.0); Hemoglobin 11.8 g/dl (14.0-18.0); Mean Corpuscular HGB Conc 33.6 g/dl (31.0-36.0); Mean Corpuscular Hemoglobin 30.2 pg (27.0-33.0); Mean Corpuscular Volume 89.8 fL (80.0-98.0); Mean Platelet Volume 9.8 fL (9.4-12.4); Platelet Count 354 X10*3/uL (160-400); Red Blood Count 3.91 X10*6/uL (4.60-5.80); Red Cell Distribution Width 13.2 % (11.0-16.0); White Blood Count 10.7 X10*3/uL (4.8-10.8)
[2023-11-16 07:01] LABS: Anion Gap 14 (12-20); Blood Urea Nitrogen 34 mg/dL (9-16); Calcium 9.5 mg/dL (8.4-10.2); Carbon Dioxide 27 mmol/L (22-29); Chloride 100 mmol/L (96-108); Creatinine Clr Calc Pharmacy 29.5; Estimated Glomerular Filt Rate 47; Glucose Random 135 mg/dL (60-115); Potassium 3.2 mmol/L (3.3-5.1); Sodium 138 mmol/L (135-145)
[2023-11-16 07:47] VITALS: BP 155/79; PULSE 91; RESP 18; TEMP 36.6; O2SAT 93
[2023-11-16] MEDS: guaiFENesin DM 100/10/5 ML 5 ML SYRUP 10 ML PO ×3 (08:54→20:58)
[2023-11-16] MEDS: 0.9 % Sodium Chloride Flush 3 ML SYRINGE IVFLUSH ×3 (08:54→21:56)
[2023-11-16] MEDS: methylPREDNISolone Sod Succ 40 MG/ML VIAL 20 MG IVPUSH ×2 (08:55→21:54)
[2023-11-16] MEDS: Finasteride 5 MG TABLET PO (08:55)
[2023-11-16] MEDS: Acetaminophen 325 MG TABLET 650 MG PO (11:13)
--- NOTE | 2023-11-16 13:10 | MHC.CM.PN ---
Addendum entered by Elsi Espinosa 11/16/23 13:12: COPY OF HCP TO BE MAILED TO PTS SISTER/HCP Original Note: PT WAS INPATIENT FROM 11/02/23 THROUGH 11/10/23, HIS HCP WAS INVOKED DURING THAT ADMISSION PT DISCHARGED TO [facility] L[facility] CM ATTEMPTED TO CONTACT PTS HCP TODAY TO REVIEW PTS MCR RIGHTS AND DCP, HOWEVER HER NUMBER APPEARS TO BE OOS IMM REVIEWED WITH PT AND LEFT BEDSIDE CM WILL CONTINUE TO TRY TO REACH PTS HCP DCP: RETURN TO [facility]IA BLS
--- NOTE | 2023-11-16 15:18 | P.PNIM_ITS ---
Subjective Subjective Date of Service: 11/16/23 Interval History: Presented with shortness of breath, chronic cough and chest heaviness, noted to have leukocytosis, positive urinalysis, chest CT showed chronic emphysema, being treated for sepsis due to UTI And mild COPD exacerbation. Patient feeling better this morning, denies shortness of breath, no urinary symptoms of urgency frequency, no fevers, no chills. Review of Systems All other system reviewed and are negative. Physical Exam 2 Vital Signs: Vital Signs: Last Vital Signs Temp 97.8 F 11/16/23 07:47 Pulse 91 11/16/23 07:47 Resp 18 11/16/23 07:47 BP 155/79 H 11/16/23 07:47 Pulse Ox 93 11/16/23 07:47 O2 Del Method Room Air 11/16/23 07:47 O2 Flow Rate 1 11/16/23 04:00 BMI result Body Mass Index 17.6 Const: Other: General: Awake alert , in no acute distress Anicteric sclera Neck no JVD Resp: coarse, no respiratory distress, no expiratory wheeze, no respiratory distress. CVS: S1,S2,RRR GI: soft, non tender, non distended. Extremities no edema. Neuro: Moving all 4 extremities, speech clear, face symmetric Psych: impaired insight. Matthews clear urine Objective Data Active Medications Acetaminophen (Acetaminophen 325 Mg Tablet) 650 mg PO Q6H PRN PRN Reason: Pain, Mild (Pain Scale 1-3), fever or headache Last Admin: 11/16/23 11:13 Dose: 650 mg Documented By: STEVIE Albuterol/Ipratropium (Albuterol/Iprat 2.5/0.5mg 3 Ml Ampul.Neb) 3 ml INHALE RQ6H WHILE AWAKE [facility] Last Admin: 11/16/23 08:46 Dose: Not Given Documented By: ALISHA Non-Admin Reason: Patient Refused Calcium Carbonate (Calcium Carbonate 750 Mg Tab.Chew) 750 mg PO Q4H PRN PRN Reason: Heartburn Finasteride (Finasteride 5 Mg Tablet) 5 mg PO DAILY [facility] Last Admin: 11/16/23 08:55 Dose: 5 mg Documented By: STEVIE Guaifenesin/Dextromethorphan (Guaifenesin Dm 100/10/5 Ml 5 Ml Syrup) 10 ml PO TID [facility] Last Admin: 11/16/23 08:54 Dose: 10 ml Documented By: STEVIE Heparin Sodium (Porcine) (Heparin Sodium,Porcine 5,000 Unit/Ml Vial) 5,000 unit SUBCUT Q12H [facility] Last Admin: 11/16/23 05:51 Dose: Not Given Documented By: TERESA Non-Admin Reason: Patient Refused Ceftriaxone Sodium 1 gm/ (Sodium Chloride) 50 mls @ 100 mls/hr IV Q24H [facility] Last Infusion: 11/15/23 16:23 Dose: Infused Documented By: DOMINGUEZ Magnesium Hydroxide (Milk Of Magnesia 30 Ml Oral.Susp) 30 ml PO DAILY PRN PRN Reason: Constipation Melatonin (Melatonin 3 Mg Tablet) 6 mg PO BEDTIME PRN PRN Reason: Insomnia Methylprednisolone Sodium Succinate (Methylprednisolone Sod Succ 40 Mg/Ml Vial) 20 mg IVPUSH Q12H [facility] Last Admin: 11/16/23 08:55 Dose: 20 mg Documented By: STEVIE Ondansetron HCl (Ondansetron Hcl 4 Mg/2 Ml Vial) 4 mg IVPUSH Q8H PRN PRN Reason: Nausea and Vomiting Polyethylene Glycol (Polyethylene Glycol 3350 17 Gm Powd.Pack) 17 gm PO DAILY PRN PRN Reason: Constipation Sodium Chloride (0.9 % Sodium Chloride Flush 3 Ml Syringe) 3 ml IVFLUSH QSHIFT [facility] Last Admin: 11/16/23 08:54 Dose: 3 ml Documented By: STEVIE Tamsulosin HCl (Tamsulosin Hcl 0.4 Mg Capsule) 0.4 mg PO BEDTIME [facility] Labs 11/16/23 05:57 11/16/23 05:57 Labs: Laboratory Results - last 24 hr 11/15/23 11/16/23 15:46 05:57 MCV 89.8 MCH 30.2 MCHC 33.6 RDW 13.2 Plt Count 354 MPV 9.8 Absolute Nucleated RBC 0.000 Nucleated RBC % (auto) 0.0 Anion Gap 14 Estim Creat Clear Calc 29.5 Estimated GFR 47 Random Glucose 135 H Lactic Acid 1.5 Calcium 9.5 Microbiology Microbiology Results: Microbiology 11/15/23 Unknown Urine Culture - Preliminary Urine Catheterized - Matthews Catheter Pseudomonas species Assessment and Plan (1) Tachycardia: Status: Acute (2) Acute UTI: Status: Acute Plan 68-year-old gentleman with past medical history significant for COPD, atrial fibrillation not on anticoagulation due to alcohol use, history of failure to thrive recently discharged to [facility] after requiring treatment for management of CR, hypokalemia, hyponatremia, urinary retention required Matthews catheter placement and was subsequently discharged to rehab facility, healthcare proxy was invoked due to lack of capacity. Patient returned back to [place] [facility] due to symptoms of shortness of breath and chest tightness and noted to have acute UTI with sepsis and hypoxia. Acute sepsis due to UTI Meets sepsis criteria due to leukocytosis, tachypnea and tachycardia, lactic acid normal Sepsis resolved continue IV ceftriaxone started on 11/05 urine and blood cultures, pending Acute hypoxic respiratory failure likely due to mild COPD exacerbation Oxygenation 89% on room air improved to 93% on 2 L Not on home oxygen, wean as tolerated Continue IV Solu Medrol, scheduled and as needed updraft treatment and cough medication Paroxysmal atrial fibrillation currently in normal sinus rhythm Tachycardia resolved was likely due to UTI Will place on low-dose beta-blockers Not on anticoagulation due to history of fall and alcohol Recent episode of acute Cr improving Mild acute hypokalemia will replace and follow Moderate protein calorie malnutrition Continue supplements Urinary retention continue Matthews catheter and home medications. Poor insight, healthcare proxy was invoked during previous hospitalization, currently residing at [facility]. DVT prophylaxis with heparin Full code In my clinical judgment patient will require 2 night inpatient hospitalization for management of sepsis with UTI requiring IV antibiotics and treatment for hypoxia. Quality Stroke Does the patient have a stroke diagnosis?: No VTE Prior VTE?: No VTE Risk Level:: Medical - moderate - high VTE Device Contraindication: Treatment Not Indicated VTE Drug Contraindication: N/A - Med Ordered
[2023-11-16] MEDS: cefTRIAXone sodium 1 GM in 0.9 % Sodium Chloride 50 ML IV (15:41)
[2023-11-16] MEDS: Potassium Chloride ER 20 MEQ TAB.ER.PRT 40 MEQ PO (15:41)
[2023-11-16 16:00] VITALS: BP 123/78; PULSE 94; RESP 22; TEMP 36.4; O2SAT 95
[2023-11-16] MEDS: Albuterol/Iprat 2.5/0.5MG 3 ML AMPUL.NEB INHALE ×2 (16:17→19:37)
[2023-11-16 16:19] VITALS: PULSE 92; RESP 16; O2SAT 98
[2023-11-16] MEDS: Metoprolol Succinate ER 25 MG TAB.ER.24H PO (16:37)
[2023-11-16] MEDS: Heparin Sodium,Porcine 5,000 UNIT/ML VIAL 5000 UNIT SUBCUT (17:39)
[2023-11-16 19:37] VITALS: PULSE 100; RESP 16; O2SAT 98
[2023-11-16 19:45] VITALS: BP 132/76; PULSE 97; RESP 20; TEMP 36.2; O2SAT 97
[2023-11-16] MEDS: Tamsulosin HCL 0.4 MG CAPSULE PO (20:58)
[2023-11-17] VITALS (8 sets, daily range): BP systolic 111–118; BP diastolic 69–79; PULSE 80–103; RESP 18–20; TEMP 36.1–36.8; O2SAT 96–98; BMI 17.6
[2023-11-17] MEDS: Heparin Sodium,Porcine 5,000 UNIT/ML VIAL 5000 UNIT SUBCUT ×2 (05:12→17:17)
[2023-11-17 06:18] LABS: Anion Gap 16 (12-20); Blood Urea Nitrogen 27 mg/dL (9-16); Calcium 9.4 mg/dL (8.4-10.2); Carbon Dioxide 30 mmol/L (22-29); Chloride 98 mmol/L (96-108); Creatinine Clr Calc Pharmacy 36.4; Estimated Glomerular Filt Rate 60; Glucose Random 133 mg/dL (60-115); Potassium 3.9 mmol/L (3.3-5.1); Sodium 140 mmol/L (135-145)
[2023-11-17] MEDS: Albuterol/Iprat 2.5/0.5MG 3 ML AMPUL.NEB INHALE ×3 (07:42→20:05)
[2023-11-17] MEDS: Finasteride 5 MG TABLET PO (08:11)
[2023-11-17] MEDS: guaiFENesin DM 100/10/5 ML 5 ML SYRUP 10 ML PO ×3 (08:11→20:18)
[2023-11-17] MEDS: Metoprolol Succinate ER 25 MG TAB.ER.24H PO (08:11)
[2023-11-17] MEDS: 0.9 % Sodium Chloride Flush 3 ML SYRINGE IVFLUSH ×3 (08:12→20:21)
[2023-11-17 08:25] LABS: MANUAL DIFF FLAG NO
[2023-11-17 08:30] LABS: Basophils Percent Auto 0.3 % (0-2); Hematocrit 34.3 % (42.0-52.0); Hemoglobin 11.1 g/dl (14.0-18.0); Imm Gran Abs Auto 0.05 X10*3/uL (0.00-0.03); Imm Gran Pct Auto 0.5 % (0.0-0.4); Lymphocytes Absolute Auto 0.7 X10*3/uL (1.2-4.9); Mean Corpuscular HGB Conc 32.4 g/dl (31.0-36.0); Mean Corpuscular Hemoglobin 29.7 pg (27.0-33.0); Mean Corpuscular Volume 91.7 fL (80.0-98.0); Monocytes Absolute Auto 0.4 X10*3/uL (0.1-1.2); Monocytes Percent Auto 4.1 % (2-11); Neutrophils Absolute Auto 9.6 x10*3/uL (2.0-8.3); Neutrophils Percent Auto 89.1 % (45-73); Platelet Count 418 X10*3/uL (160-400); Red Blood Count 3.74 X10*6/uL (4.60-5.80); Red Cell Distribution Width 13.2 % (11.0-16.0); White Blood Count 10.8 X10*3/uL (4.8-10.8)
[2023-11-17] MEDS: methylPREDNISolone Sod Succ 40 MG/ML VIAL 20 MG IVPUSH ×2 (09:07→20:18)
[2023-11-17] MEDS: levoFLOXacin 750 MG TABLET PO (09:07)
[2023-11-17] MEDS: Acetaminophen 325 MG TABLET 650 MG PO (09:17)
--- NOTE | 2023-11-17 11:36 | MHC.CLN ---
NUTRITION CONSULT FOR SKIN INTEGRITY. SKIN WITH BLANCHABLE REDNESS TO BUTTOCK. SCATTERED RASH AND BRUISES. DIET=REGULAR, CHOPPED. STATED THAT DISLIKES ENSURE SUPPLEMENT. ADDING MAGIC CUP BID. PROVIDES 580 KCALS, 18 G PROTEIN. ATE 100% OF BREAKFAST TODAY EXCEPT DISLIKED YOGURT. QUALIFIES MODERATELY MALNOURISHED IN THE CONTEXT OF CHRONIC ILLNESS. SIGNIFICANT WEIGHT LOSS, -24%, X 7 MONTHS. FOLLOW FOR INTAKE AND WEIGHT. SEE CLINICAL NUTRITION ASSESSMENT 11/17/23.
--- NOTE | 2023-11-17 13:27 | P.PNIM_ITS ---
Subjective Subjective Date of Service: 11/17/23 Interval History: urine growing Pseudomonas aeruginosa dyspnea improving, minimal cough no dysuria no fever Review of Systems Review of Systems: Yes all other systems are reviewed and are negative Physical Exam 2 Vital Signs: Vital Signs: Last Vital Signs Temp 98.3 F 11/17/23 07:55 Pulse 80 11/17/23 13:24 Resp 18 11/17/23 13:24 BP 118/79 11/17/23 08:11 Pulse Ox 98 11/17/23 03:06 O2 Del Method Nasal Cannula 11/17/23 03:06 O2 Flow Rate 1 11/17/23 03:06 BMI result Body Mass Index 17.6 Gen: in no acute distress HEENT: sclera anicteric, moist mucus membranes Neck: supple Lungs: diminished Heart: regular rate and rhythm, no murmurs Abd: soft, non-tender, non-distended Ext: no edema Skin: warm/well-perfused Neuro: alert, no focal weakness Psych: impaired insight Objective Data Active Medications Acetaminophen (Acetaminophen 325 Mg Tablet) 650 mg PO Q6H PRN PRN Reason: Pain, Mild (Pain Scale 1-3), fever or headache Last Admin: 11/17/23 09:17 Dose: 650 mg Documented By: CASE Comments: Given for 8/10 headache pain per patient request. Albuterol/Ipratropium (Albuterol/Iprat 2.5/0.5mg 3 Ml Ampul.Neb) 3 ml INHALE RQ6H WHILE AWAKE [facility] Last Admin: 11/17/23 13:24 Dose: 3 ml Documented By: SONDRA Calcium Carbonate (Calcium Carbonate 750 Mg Tab.Chew) 750 mg PO Q4H PRN PRN Reason: Heartburn Finasteride (Finasteride 5 Mg Tablet) 5 mg PO DAILY [facility] Last Admin: 11/17/23 08:11 Dose: 5 mg Documented By: CASE Guaifenesin/Dextromethorphan (Guaifenesin Dm 100/10/5 Ml 5 Ml Syrup) 10 ml PO TID [facility] Last Admin: 11/17/23 08:11 Dose: 10 ml Documented By: CASE Heparin Sodium (Porcine) (Heparin Sodium,Porcine 5,000 Unit/Ml Vial) 5,000 unit SUBCUT Q12H [facility] Last Admin: 11/17/23 05:12 Dose: 5,000 unit Documented By: KEYANA Levofloxacin (Levofloxacin 750 Mg Tablet) 750 mg PO Q48H [facility] Last Admin: 11/17/23 09:07 Dose: 750 mg Documented By: CASE Magnesium Hydroxide (Milk Of Magnesia 30 Ml Oral.Susp) 30 ml PO DAILY PRN PRN Reason: Constipation Melatonin (Melatonin 3 Mg Tablet) 6 mg PO BEDTIME PRN PRN Reason: Insomnia Methylprednisolone Sodium Succinate (Methylprednisolone Sod Succ 40 Mg/Ml Vial) 20 mg IVPUSH Q12H [facility] Last Admin: 11/17/23 09:07 Dose: 20 mg Documented By: CASE Metoprolol Succinate (Metoprolol Succinate Er 25 Mg Tab.Er.24h) 25 mg PO DAILY [facility]; Protocol Last Admin: 11/17/23 08:11 Dose: 25 mg Documented By: CASE Ondansetron HCl (Ondansetron Hcl 4 Mg/2 Ml Vial) 4 mg IVPUSH Q8H PRN PRN Reason: Nausea and Vomiting Polyethylene Glycol (Polyethylene Glycol 3350 17 Gm Powd.Pack) 17 gm PO DAILY PRN PRN Reason: Constipation Sodium Chloride (0.9 % Sodium Chloride Flush 3 Ml Syringe) 3 ml IVFLUSH QSHIFT [facility] Last Admin: 11/17/23 08:12 Dose: 3 ml Documented By: CASE Tamsulosin HCl (Tamsulosin Hcl 0.4 Mg Capsule) 0.4 mg PO BEDTIME [facility] Last Admin: 11/16/23 20:58 Dose: 0.4 mg Documented By: KEYANA Labs 11/17/23 05:37 11/17/23 05:37 Labs: Laboratory Results - last 24 hr 11/17/23 05:37 MCV 91.7 MCH 29.7 MCHC 32.4 RDW 13.2 Plt Count 418 H MPV 10.0 Immature Gran % (Auto) 0.5 H Neut % (Auto) 89.1 H Lymph % (Auto) 6.0 L [place] % (Auto) 4.1 Eos % (Auto) 0.0 Baso % (Auto) 0.3 Lymph # (Auto) 0.7 L [place] # (Auto) 0.4 Eos # (Auto) 0.0 Baso # (Auto) 0.0 Abs Immat Gran (auto) 0.05 H Absolute Neuts (auto) 9.6 H Absolute Nucleated RBC 0.000 Nucleated RBC % (auto) 0.0 Hold Purple Top SEE NOTE Anion Gap 16 Estim Creat Clear Calc 36.4 Estimated GFR 60 Random Glucose 133 H Calcium 9.4 Microbiology Microbiology Results: Microbiology 11/15/23 Unknown Urine Culture - Final Urine Catheterized - Matthews Catheter Pseudomonas aeruginosa 11/15/23 15:46 Blood Culture - Preliminary Blood - Venous No growth after 24 hours. 11/15/23 15:46 Blood Culture - Preliminary Blood - Venous No growth after 24 hours. Assessment and Plan (1) Tachycardia: Status: Acute (2) Acute UTI: Status: Acute Plan d3 68yo M with COPD, AF not on AC due to EtOH, FTT recently discharged from [facility] to [facility] after admission for CR, hypoK, hypoNa, + urinary retention requiring Matthews cathter; HCP invoked for lack of capacity returned with dyspnea, admitted for sepsis from UTI + hypoxia from COPD exac sepsis due to Pseudomonas UTI - change IV ceftriaxone 11/14-11/16 to PO levofloxacin, follow BCx to ensure not bacteremic AHRF due to COPD exac - wean O2 as tolerated, continue IV methylprednisolone -, scheduled/prnn ebs pAF - continue metoprolol succinate for rate control; currently NSR - not on AC due to hx fall/ETOH CR - continues to improve from prior admission hypoK - repleted moderate protein-calorie malnutrition - supplements chronic urinary retention - Matthews, tamsulosin + finasteride VTE ppx - UFH dispo - eventual return back to [facility] for LTC In my clinical judgment, the patient requires continued inpatient hospitalization for the following reasons: IV ABX, hypoxia Total time managing care of this patient today: 40 minutes. Quality Stroke Does the patient have a stroke diagnosis?: No VTE Prior VTE?: No VTE Risk Level:: Medical - moderate - high VTE Device Contraindication: Treatment Not Indicated VTE Drug Contraindication: N/A - Med Ordered
--- NOTE | 2023-11-17 15:19 | MHC.CM.PN ---
EMR REVIEWED AND PER MD ROUNDS, PT IS NOT MEDICALLY CLEARED FOR DC TODAY, MAYBE TOMORROW (IV ABT FOR UTI) [facility] UPDATED. CM WILL CONTINUE TO FOLLOW.
[2023-11-17] MEDS: Tamsulosin HCL 0.4 MG CAPSULE PO (20:18)
[2023-11-18] VITALS (7 sets, daily range): BP systolic 108–132; BP diastolic 57–83; PULSE 89–115; RESP 16–19; TEMP 36.1–36.3; O2SAT 96–99
[2023-11-18] MEDS: Heparin Sodium,Porcine 5,000 UNIT/ML VIAL 5000 UNIT SUBCUT (05:57)
[2023-11-18 06:36] LABS: Hematocrit 34.6 % (42.0-52.0); Hemoglobin 11.5 g/dl (14.0-18.0); Mean Corpuscular HGB Conc 33.2 g/dl (31.0-36.0); Mean Corpuscular Volume 90.3 fL (80.0-98.0); Platelet Count 358 X10*3/uL (160-400); Red Blood Count 3.83 X10*6/uL (4.60-5.80); Red Cell Distribution Width 13.2 % (11.0-16.0); White Blood Count 7.6 X10*3/uL (4.8-10.8)
[2023-11-18 06:56] LABS: Anion Gap 16 (12-20); Blood Urea Nitrogen 27 mg/dL (9-16); Calcium 9.1 mg/dL (8.4-10.2); Carbon Dioxide 27 mmol/L (22-29); Chloride 98 mmol/L (96-108); Creatinine Clr Calc Pharmacy 40.1; Estimated Glomerular Filt Rate > 60; Glucose Random 106 mg/dL (60-115); Potassium 4.3 mmol/L (3.3-5.1); Sodium 137 mmol/L (135-145)
[2023-11-18] MEDS: Albuterol/Iprat 2.5/0.5MG 3 ML AMPUL.NEB INHALE ×2 (07:41→13:49)
[2023-11-18] MEDS: Metoprolol Succinate ER 25 MG TAB.ER.24H PO (09:10)
[2023-11-18] MEDS: methylPREDNISolone Sod Succ 40 MG/ML VIAL 20 MG IVPUSH (09:10)
[2023-11-18] MEDS: 0.9 % Sodium Chloride Flush 3 ML SYRINGE IVFLUSH (09:15)
[2023-11-18] MEDS: guaiFENesin DM 100/10/5 ML 5 ML SYRUP 10 ML PO (09:17)
[2023-11-18] MEDS: Finasteride 5 MG TABLET PO (09:17)
--- NOTE | 2023-11-18 10:41 | PC.NURSE ---
F/C removed at 10:40AM on this day.
--- NOTE | 2023-11-18 11:13 | P.PNIM_ITS ---
Subjective Subjective Date of Service: 11/18/23 Interval History: denies dyspnea no dysuria Review of Systems Review of Systems: Yes all other systems are reviewed and are negative Physical Exam 2 Vital Signs: Vital Signs: Last Vital Signs Temp 96.9 F 11/18/23 07:47 Pulse 115 H 11/18/23 09:10 Resp 16 11/18/23 07:47 BP 110/57 L 11/18/23 09:10 Pulse Ox 99 11/18/23 07:47 O2 Del Method Nasal Cannula 11/18/23 07:47 O2 Flow Rate 2 11/18/23 07:47 BMI result Body Mass Index 17.6 Gen: in no acute distress HEENT: sclera anicteric, moist mucus membranes Neck: supple Lungs: diminished Heart: regular rate and rhythm, no murmurs Abd: soft, non-tender, non-distended Ext: no edema Skin: warm/well-perfused Neuro: alert, no focal weakness Psych: impaired insight Objective Data Active Medications Acetaminophen (Acetaminophen 325 Mg Tablet) 650 mg PO Q6H PRN PRN Reason: Pain, Mild (Pain Scale 1-3), fever or headache Last Admin: 11/17/23 09:17 Dose: 650 mg Documented By: CASE Comments: Given for 8/10 headache pain per patient request. Albuterol/Ipratropium (Albuterol/Iprat 2.5/0.5mg 3 Ml Ampul.Neb) 3 ml INHALE RQ6H WHILE AWAKE [facility] Last Admin: 11/18/23 07:41 Dose: 3 ml Documented By: SONDRA Calcium Carbonate (Calcium Carbonate 750 Mg Tab.Chew) 750 mg PO Q4H PRN PRN Reason: Heartburn Finasteride (Finasteride 5 Mg Tablet) 5 mg PO DAILY [facility] Last Admin: 11/18/23 09:17 Dose: 5 mg Documented By: STEVIE Guaifenesin/Dextromethorphan (Guaifenesin Dm 100/10/5 Ml 5 Ml Syrup) 10 ml PO TID [facility] Last Admin: 11/18/23 09:17 Dose: 10 ml Documented By: STEVIE Heparin Sodium (Porcine) (Heparin Sodium,Porcine 5,000 Unit/Ml Vial) 5,000 unit SUBCUT Q12H [facility] Last Admin: 11/18/23 05:57 Dose: 5,000 unit Documented By: LUBNA Levofloxacin (Levofloxacin 750 Mg Tablet) 750 mg PO Q48H [facility] Last Admin: 11/17/23 09:07 Dose: 750 mg Documented By: CASE Magnesium Hydroxide (Milk Of Magnesia 30 Ml Oral.Susp) 30 ml PO DAILY PRN PRN Reason: Constipation Melatonin (Melatonin 3 Mg Tablet) 6 mg PO BEDTIME PRN PRN Reason: Insomnia Methylprednisolone Sodium Succinate (Methylprednisolone Sod Succ 40 Mg/Ml Vial) 20 mg IVPUSH Q12H [facility] Last Admin: 11/18/23 09:10 Dose: 20 mg Documented By: STEVIE Metoprolol Succinate (Metoprolol Succinate Er 25 Mg Tab.Er.24h) 25 mg PO DAILY [facility]; Protocol Last Admin: 11/18/23 09:10 Dose: 25 mg Documented By: STEVIE Ondansetron HCl (Ondansetron Hcl 4 Mg/2 Ml Vial) 4 mg IVPUSH Q8H PRN PRN Reason: Nausea and Vomiting Polyethylene Glycol (Polyethylene Glycol 3350 17 Gm Powd.Pack) 17 gm PO DAILY PRN PRN Reason: Constipation Prednisone (Prednisone 10 Mg Tablet) 0 mg PO DAILY [facility]; Taper Stop: 11/25/23 08:59 Sodium Chloride (0.9 % Sodium Chloride Flush 3 Ml Syringe) 3 ml IVFLUSH QSHIFT [facility] Last Admin: 11/18/23 09:15 Dose: 3 ml Documented By: STEVIE Tamsulosin HCl (Tamsulosin Hcl 0.4 Mg Capsule) 0.4 mg PO BEDTIME [facility] Last Admin: 11/17/23 20:18 Dose: 0.4 mg Documented By: LUBNA Labs 11/18/23 06:02 11/18/23 06:02 Labs: Laboratory Results - last 24 hr 11/18/23 06:02 MCV 90.3 MCH 30.0 MCHC 33.2 RDW 13.2 Plt Count 358 MPV 10.0 Absolute Nucleated RBC 0.000 Nucleated RBC % (auto) 0.0 Anion Gap 16 Estim Creat Clear Calc 40.1 Estimated GFR > 60 Random Glucose 106 Calcium 9.1 Microbiology Microbiology Results: Microbiology 11/15/23 15:46 Blood Culture - Preliminary Blood - Venous No growth after 48 hours. 11/15/23 15:46 Blood Culture - Preliminary Blood - Venous No growth after 48 hours. 11/15/23 Unknown Urine Culture - Final Urine Catheterized - Matthews Catheter Pseudomonas aeruginosa Assessment and Plan (1) Tachycardia: Status: Acute (2) Acute UTI: Status: Acute Plan d4 68yo M with COPD, AF not on AC due to EtOH, FTT recently discharged from [facility] to [facility] after admission for CR, hypoK, hypoNa, + urinary retention requiring Matthews cathter; HCP invoked for lack of capacity returned with dyspnea, admitted for sepsis from UTI + hypoxia from COPD exac sepsis due to Pseudomonas UTI - changed IV ceftriaxone 11/14-11/16 to PO levofloxacin 11/16-11/30, BCx negative AHRF due to COPD exac - wean O2 as tolerated, change IV methylprednisolone 11/14-11/17 to prednisone taper, scheduled/prnn ebs pAF - continue metoprolol succinate for rate control; currently NSR - not on AC due to hx fall/ETOH CR - continues to improve from prior admission hypoK - repleted moderate protein-calorie malnutrition - supplements chronic urinary retention - Matthews, tamsulosin + finasteride VTE ppx - UFH dispo - return back to LTC In my clinical judgment, the patient requires continued inpatient hospitalization for the following reasons: placement; currently being declined by [facility]; CM working on this Total time managing care of this patient today: 35 minutes. Quality Stroke Does the patient have a stroke diagnosis?: No VTE Prior VTE?: No VTE Risk Level:: Medical - moderate - high VTE Device Contraindication: Treatment Not Indicated VTE Drug Contraindication: N/A - Med Ordered
[2023-11-18] MEDS: Acetaminophen 325 MG TABLET 650 MG PO (12:34)
--- NOTE | 2023-11-18 14:02 | PM.DS ---
DS: Providers Provider Date of Service: 11/18/23 Date of admission: 11/15/23 16:16 Date of discharge: 11/18/23 Primary care physician: Reji Patrick MD Consults: 11/18/23 13:32 Addiction Medicine Routine Consulting Provider: Addiction Covering Reason for consultation: hx crack cocaine use, SNF would like clarification/additional history/plan DS: Diagnosis Discharge Diagnosis (1) Acute UTI: Status: Acute (2) CR (acute kidney injury): Status: Acute (3) Pseudomonas urinary tract infection: Status: Acute (4) COPD exacerbation: Status: Acute (5) Sepsis: Status: Acute (6) Moderate protein-calorie malnutrition: Status: Acute (7) Hypokalemia: Status: Acute DS: Summary Hospital Course Hospital Course: From the history and physical by the admitting hospitalist, Fred Lance MD, 11/15/23: 68-year-old gentleman with past medical history significant for COPD, atrial fibrillation, alcohol use and failure to thrive recently discharged from [facility] after a 8 day stay for treatment of acute kidney injury, urinary retention, hypokalemia, hyponatremia and failure to thrive ,he had a Matthews catheter placed, CR was likely related to renal hypoperfusion and tubular injury renal ultrasound showed no obstruction, patient failed voiding trial, his renal function improved, had significant hyponatremia required ICU admission sodium improved with fluid restriction, patient was noted to have cognitive impairment, he scored 3/30 on [place] and was felt not to have capacity to make medical decision therefore healthcare proxy was invoked, during hospitalization patient noted to have no acute exacerbation of COPD, and in regard to atrial fibrillation, he was discharged on no rate control medications or anticoagulation due to history of alcohol use patient was subsequently discharged to rehab facility due to impaired safety, standing balance and transferred ability, patient was sent to [place] emergency room today from [facility] with complaints of shortness of breath of few days', associated with chronic nonproductive cough, no fevers, no chills, he also complained of chest heaviness that began several hours prior to presentation and improved on arrival to emergency room , workup in the emergency room showed normal troponin x2, BNP 198, albumin 3.9, creatinine 1.77 improved from discharge creatinine of 2.1, sodium 138, potassium 3.3, WBC elevated 16.4 stable hematocrit 38.7, chest CT showed no pneumonia showed chronic emphysema, patient urinalysis significantly positive with large blood and leukocyte esterase greater than 50 WBC and 4+ bacteria patient denies urinary symptoms of urgency and frequency he has very agitated not cooperative in providing detailed history and resisting examination patient will be admitted to [facility] with a diagnosis of UTI and sepsis due to tachypnea tachycardia and positive urinalysis. 68yo M with COPD, AF not on AC due to EtOH, and FTT who was recently discharged from [facility] to [facility] after admission for CR, hypoK, hypoNa, + urinary retention requiring Matthews catheter; HCP invoked for lack of capacity. This time he returned with dyspnea and was admitted for sepsis from UTI + hypoxia from COPD exacerbation. Hospital course by problem: sepsis due to Pseudomonas UTI - Urine culture grew quinolone-sensitive Pseudomonas aeurginosa. Changed IV ceftriaxone 11/14-11/16 to PO levofloxacin 11/16-11/30. Blood cultures negative. Urinary catheter removed and patient passed voiding trial. AHRF due to COPD exac - Weaned O2 as tolerated to 2L via nasal cannula. Changed IV methylprednisolone 11/14-11/17 to prednisone taper over 6 days. Treated with scheduled/prn nebs. Respiratory status improved. pAF - Started metoprolol succinate for rate control, though during this admission was in NSR. Not on AC due to hx fall/EtOH. CR - Continued to improve from prior admission. hypoK - Repleted moderate protein-calorie malnutrition - Started on supplements [facility] did not accept him back for LTC; he was transferred instead to [facility]. Time Attestation Discharge Coordination Time (in mins): 40 Quality: Safe Use of Opioids Does Pt have an Active Cancer Diagnosis on the Problem List?: No Quality: Stroke Does the patient have a stroke diagnosis?: No Physical Exam Vital Signs: Vital Signs: Last Vital Signs Temp 96.9 F 11/18/23 07:47 Pulse 115 H 11/18/23 13:49 Resp 16 11/18/23 13:49 BP 110/57 L 11/18/23 12:02 Pulse Ox 99 11/18/23 07:47 O2 Del Method Nasal Cannula 11/18/23 07:47 O2 Flow Rate 2 11/18/23 07:47 BMI result Body Mass Index 17.6 Gen: in no acute distress HEENT: sclera anicteric, moist mucus membranes Neck: supple Lungs: diminished Heart: regular rate and rhythm, no murmurs Abd: soft, non-tender, non-distended Ext: no edema Skin: warm/well-perfused Neuro: alert, no focal weakness Psych: impaired insight DS: Data Data Completed and Pending Completed studies during hospitalization [Text1]: Laboratory Results WBC 7.6 X10*3/uL (4.8-10.8) 11/18/23 06:02 RBC 3.83 X10*6/uL (4.60-5.80) L 11/18/23 06:02 Hgb 11.5 g/dl (14.0-18.0) L 11/18/23 06:02 Hct 34.6 % (42.0-52.0) L 11/18/23 06:02 MCV 90.3 fL (80.0-98.0) 11/18/23 06:02 MCH 30.0 pg (27.0-33.0) 11/18/23 06:02 MCHC 33.2 g/dl (31.0-36.0) 11/18/23 06:02 RDW 13.2 % (11.0-16.0) 11/18/23 06:02 Plt Count 358 X10*3/uL (160-400) 11/18/23 06:02 MPV 10.0 fL (9.4-12.4) 11/18/23 06:02 Immature Gran % (Auto) 0.5 % (0.0-0.4) H 11/17/23 05:37 Neut % (Auto) 89.1 % (45-73) H 11/17/23 05:37 Lymph % (Auto) 6.0 % (20-40) L 11/17/23 05:37 [place] % (Auto) 4.1 % (2-11) 11/17/23 05:37 Eos % (Auto) 0.0 % (0-4) 11/17/23 05:37 Baso % (Auto) 0.3 % (0-2) 11/17/23 05:37 Lymph # (Auto) 0.7 X10*3/uL (1.2-4.9) L 11/17/23 05:37 [place] # (Auto) 0.4 X10*3/uL (0.1-1.2) 11/17/23 05:37 Eos # (Auto) 0.0 X10*3/uL (0.0-0.4) 11/17/23 05:37 Baso # (Auto) 0.0 X10*3/uL (0.0-0.2) 11/17/23 05:37 Abs Immat Gran (auto) 0.05 X10*3/uL (0.00-0.03) H 11/17/23 05:37 Absolute Neuts (auto) 9.6 x10*3/uL (2.0-8.3) H 11/17/23 05:37 Absolute Nucleated RBC 0.000 X10*3/uL (0.0-0.012) 11/18/23 06:02 Nucleated RBC % (auto) 0.0 /100WBC (0.0-0.2) 11/18/23 06:02 Hold Purple Top SEE NOTE 11/17/23 05:37 PT 11.5 SEC (11.1-13.3) 11/15/23 09:48 INR 0.9 (0.9-1.1) 11/15/23 09:48 Sodium 137 mmol/L (135-145) 11/18/23 06:02 Potassium 4.3 mmol/L (3.3-5.1) 11/18/23 06:02 Chloride 98 mmol/L (96-108) 11/18/23 06:02 Carbon Dioxide 27 mmol/L (22-29) 11/18/23 06:02 Anion Gap 16 (12-20) 11/18/23 06:02 BUN 27 mg/dL (9-16) H 11/18/23 06:02 Creatinine 1.09 mg/dL (0.5-1.4) 11/18/23 06:02 Estim Creat Clear Calc 40.1 11/18/23 06:02 Estimated GFR > 60 11/18/23 06:02 Random Glucose 106 mg/dL (60-115) 11/18/23 06:02 Lactic Acid 1.5 mmol/L (0.5-2.0) 11/15/23 15:46 Calcium 9.1 mg/dL (8.4-10.2) 11/18/23 06:02 Magnesium 1.7 mg/dL (1.6-2.6) 11/15/23 09:48 Total Bilirubin 0.4 mg/dL (0.0-1.0) 11/15/23 09:48 AST 13 U/L (5-37) 11/15/23 09:48 ALT 10 U/L (0-40) 11/15/23 09:48 Alkaline Phosphatase 80 U/L (39-117) 11/15/23 09:48 Troponin I High Sens 9.1 ng/L (<3.5-35.0) 11/15/23 13:26 B-Natriuretic Peptide 198 pg/mL (<100) H 11/15/23 09:48 Total Protein 7.3 g/dL (6.5-8.0) 11/15/23 09:48 Albumin 3.9 g/dL (3.5-5.0) 11/15/23 09:48 Urine Color Yellow 11/15/23 10:32 Urine Appearance Cloudy 11/15/23 10:32 Urine pH 5.5 (5.0-9.0) 11/15/23 10:32 Ur Specific [place] 1.015 (1.005-1.025) 11/15/23 10:32 Urine Protein 30 (1+) mg/dL (Neg-Trace) H 11/15/23 10:32 Urine Glucose (UA) Negative mg/dL (Negative) 11/15/23 10:32 Urine Ketones Negative mg/dL (Negative) 11/15/23 10:32 Urine Blood Large (3+) (Negative) H 11/15/23 10:32 Urine Nitrite Negative (Negative) 11/15/23 10:32 Ur Leukocyte Esterase Large (3+) (Negative) H 11/15/23 10:32 Urine RBC >20 /HPF (0-2) H 11/15/23 10:32 Urine WBC >50 /HPF (0-5) H 11/15/23 10:32 Ur Squamous Epith Cells 0-2 /HPF (0-2) 11/15/23 10:32 Urine Bacteria 4+ (None Seen) 11/15/23 10:32 Hyaline Casts 0-2 /LPF (0-2) 11/15/23 10:32 Influenza Type A (PCR) NEGATIVE (Negative) 11/15/23 10:07 Influenza Type B (PCR) NEGATIVE (Negative) 11/15/23 10:07 RSV RNA Qual (PCR) NEGATIVE (Negative) 11/15/23 10:07 SARS-CoV-2 RNA (RT-PCR) NEGATIVE (Negative) 11/15/23 10:07 Impressions Chest X-Ray 11/15/23 10:15 IMPRESSION: Streaky opacities bilateral lung bases suggesting atelectasis. Chest CT 11/15/23 11:58 IMPRESSION: 1. No radiographic evidence of acute infiltrate pneumonia. 2. Stable subcentimeter lung nodules largest 8 mm partially solid nodule right upper lobe. According to the UPDATED 2017 Fleischner Society recommendations, the advised follow-up imaging for a single 6-8 mm solid nodule is follow-up CT at 6 to 12 months. In high-risk patients, subsequent CT follow-up at 18 to 24 months is recommended. In low-risk patients, subsequent CT follow-up at 18 to 24 months is optional. 2. Mild to moderate dia lobar pulmonary emphysema. 3. Coronary calcification. 4. Mild chronic stable interstitial lung disease at right lung base nonspecific. Labs on day of discharge: Discharge Plan Discharge Anticipated Discharge Date/Time: 11/18/23 11:10 Patient Disposition: er LTC Discharge Diagnosis: Pseudomonas UTI COPD exacerbation Referrals: [facility] [Outside] - 1 Week Kimberlee Chaudhry MD [Physician] - Discharge Medications: New ipratropium-albuterol 0.5 mg-3 mg(2.5 mg base)/3 mL Solution For Nebulization 3 ml inhalation RQ6H WHILE AWAKE Qty: 1 0RF metoprolol succinate 25 mg Tablet Extended Release 24 Hr 25 mg PO DAILY Qty: 1 0RF Protocol: Hold for SBP/HR < HOLD for SBP < : 90 HOLD for HR < : 60 levofloxacin 750 mg Tablet 750 mg PO Q48H Qty: 6 0RF prednisone 10 mg tablet See Rx Instructions .ROUTE .COMPLEX Qty: 12 0RF Rx Instructions: 3 tabs daily x 2 days, then 2 tabs daily x 2 days, then 1 tab daily x 2 days Continued acetaminophen [Tylenol] 325 mg Tablet 650 mg PO Q4H PRN (Reason: Fever Or Pain) tamsulosin 0.4 mg Capsule 0.4 mg PO BEDTIME Qty: 30 0RF finasteride 5 mg Tablet 5 mg PO DAILY Qty: 30 0RF magnesium hydroxide [Milk of Magnesia] 400 mg/5 mL Suspension 30 ml PO DAILY PRN (Reason: Constipation) bisacodyl 10 mg Suppository 10 mg CA DAILY PRN (Reason: Constipation) Fleet Enema 19-7 gram/118 mL Enema 118 ml CA DAILY PRN (Reason: Constipation) Discharge Orders: Discharge Order (Routine); Ordered 11/18/23 Ordered By: Tina Kessler Diet: Advance to usual diet Activity on Discharge: As tolerated Stand Alone Forms: Patient Portal Discharge page Print Language: Amharic Care Plan Goals: cure infection respiratory health Health Concerns: Pseudomonas UTI COPD exacerbation Plan of Treatment: levofloxacin 750 mg once every other day for 12 days [6 doses], start 11/19/23 prednisone 10 mg tabs, taper as follows: 30 mg (3 tabs) daily x 2 days, then 20 mg (2 tabs) daily x 2 days, then 10 mg (1 tab) daily x 2 days Please follow up with your primary care doctor within 1 week. Return to the hospital if you experience recurrent or worsening symptoms. Assessment: See Discharge Summary. Patient Instructions: COPD (Chronic Obstructive Pulmonary Disease) (ED), Urinary Tract Infection in Older Adults (ED)
--- NOTE | 2023-11-18 15:08 | MHC.RECOVRN ---
Briefly met with pt after Addiction Medicine consult placed for clarification of history of cocaine use via [facility]. Pt unable to recall last use, states it must have been in my hippie days. Pt denies current substance use, denies concern regarding substances. Pt denies questions for t/w. Discussed with CM.
--- NOTE | 2023-11-18 17:34 | PC.NURSE ---
Pt. report called to the receiving facility [facility], and spoke to the Nurse.
== END 2023-11-18 16:11 | DRG 871 ==
LOC: HO.ED 15:39 → HO.EDOVER 16:18 → HO.S3 19:29
PROVIDERS: Nurse Practitioner Family; Admitting Provider Hospitalist; Emergency Provider Emergency Medicine; PCP Family Medicine; Visit Provider Family Medicine
DX: A41.52 Sepsis due to Pseudomonas (principal); J96.01 Acute respiratory failure with hypoxia; N39.0 Urinary tract infection, site not specified; E44.0 Moderate protein-calorie malnutrition; Z68.1 Body mass index [BMI] 19.9 or less, adult; N17.9 Acute kidney failure, unspecified; J44.1 Chronic obstructive pulmonary disease with (acute) exacerbation; J43.9 Emphysema, unspecified; I48.0 Paroxysmal atrial fibrillation; E87.6 Hypokalemia; Z20.822 Contact with and (suspected) exposure to COVID-19; Z79.899 Other long term (current) drug therapy
CPT/HCPCS: 0241U; 36415; 71045; 71250; 80048; 80053; 81001; 83605; 83735; 83880; 84484; 85025; 85027; 85610; 87040; 87086; 87088; 87186; 93005; 94640; 97162; 99285; C1758; J0696; J1644; J2919; J3475

== ENCOUNTER → 2023-11-15 09:12 | Outpatient (BNV) | payer MEDICARE, MEDICAID, SELFPAY | PROVIDERS: Admitting Provider Hospitalist; Emergency Provider Emergency Medicine; PCP Family Medicine; Visit Provider Internal Medicine Cardiovascular Disease | DX: I49.1 Atrial premature depolarization (principal); I51.7 Cardiomegaly | CPT/HCPCS: 93010 ==

== ENCOUNTER → 2023-11-15 16:16 | Outpatient (BNV) | payer MEDICARE, MEDICAID, SELFPAY | PROVIDERS: Admitting Provider Hospitalist; Emergency Provider Emergency Medicine; PCP Family Medicine; Visit Provider Hospitalist | DX: R00.0 Tachycardia, unspecified (principal); N39.0 Urinary tract infection, site not specified | CPT/HCPCS: 99223; 99232; 99233; 99239 ==

== ENCOUNTER 2024-10-01 12:20 | Inpatient (IN) | payer MEDICARE, OTHER, SELFPAY ==
[2024-10-01] VITALS (12 sets, daily range): BP systolic 91–130; BP diastolic 53–76; PULSE 83–104; RESP 12–22; TEMP 36.2–37.5; O2SAT 88–97; BMI 16.5; BMI 17.7
--- NOTE | ~2024-10-01 | XR_ITS ---
EXAMINATION: XR CHEST 1 VIEW HISTORY: dyspnea COMPARISON: Comparison is made with the prior examination dated 11/15/2023. FINDINGS: A single AP portable view of the chest performed at 2:22 PM is submitted. The lungs are expanded and clear. There is no pleural effusion, pneumothorax, or pulmonary vascular congestion. The heart is normal in size. The aorta is calcified. There is degenerative disc disease of the spine. XR/XR chest 1V IMPRESSION: No acute cardiopulmonary abnormality. Electronically signed by: Renato Elias MD 10/01/2024 02:35 PM EDT
--- NOTE | 2024-10-01 12:32 | ED_ITS ---
HPI - General Adult General Chief complaint: Failure to Thrive Stated complaint: Diff Breathing Time Seen by Provider: 10/01/24 12:24 Source: patient Mode of arrival: EMS Limitations: no limitations History of Present Illness ED Provider: TAO Cruz HPI narrative: 69-year-old male with PMHx of Afib not on AC, alcohol use disorder, failure to thrive, COPD, presents to the ED by EMS due to his roommate calling 911 due to concerns over his health. Patient arrives in the ED cachectic, looking unwell, completely saturated in urine, incontinent of urine and stool. He states he has been experiencing 3 days of SOB and has been unable to walk, or get out of bed during this time due to weakness. He states his cough is accompanied by increased production of white phlegm. Patient states he is supposed to be on medications and home oxygen but has not had a PCP or completed follow up, therefore, has not had been taking any meds or using oxygen at home. He endorses drinking 3-4 beers per day, and drank 3 beers [employer] today. Denies chest pain, abdominal pain, nausea, vomiting. Onset (ago): day(s) (Three) Related Data Home Medications ?Medication ?Instructions ?Recorded ?Confirmed acetaminophen 325 mg tablet 650 mg PO Q4H PRN Fever Or Pain 11/02/23 11/15/23 (Tylenol) bisacodyl 10 mg rectal suppository 10 mg NJ DAILY PRN Constipation 11/15/23 11/15/23 magnesium hydroxide 400 mg/5 mL 30 ml PO DAILY PRN Constipation 11/15/23 11/15/23 oral suspension (Milk of Magnesia) sodium phosphates 19 gram-7 118 ml NJ DAILY PRN Constipation 11/15/23 11/15/23 gram/118 mL enema (Fleet Enema) Previous Rx's ?Medication ?Instructions ?Recorded finasteride 5 mg tablet 5 mg PO DAILY #30 tabs 11/10/23 tamsulosin 0.4 mg capsule 0.4 mg PO BEDTIME #30 caps 11/10/23 ipratropium 0.5 mg-albuterol 3 mg 3 ml inhalation RQ6H WHILE AWAKE 11/18/23 (2.5 mg base)/3 mL nebulization #1 mL soln levofloxacin 750 mg tablet 750 mg PO Q48H #6 tabs 11/18/23 metoprolol succinate 25 mg 25 mg PO DAILY #1 tab 11/18/23 tablet,extended release 24 hr prednisone 10 mg tablet See Rx Instructions .Route 11/18/23 .COMPLEX #12 tabs Allergies Allergy/AdvReac Type Severity Reaction Status Date / Time No Known Allergies Allergy Verified 10/01/24 13:05 Review of Systems 2 Review of Systems: As per HPI Yes all other systems are reviewed and are negative PMFSH Past Medical History Attestation statement: The following information was validated with the patient. Source: old records reviewed and nursing notes reviewed Medical History Cognitive impairment Encounter for assessment of decision-making capacity COPD (chronic obstructive pulmonary disease) Adult failure to thrive Pneumonia Asthma Alcohol dependence Social History Social History Household Members: None Household Members Other:: friends Housing: Assisted Do you presently have visiting nurse or other home services: No (snf) Alcohol intake: current Alcohol intake frequency: 3 or more drinks per day Alcohol type: beer Patient Tobacco Use Status: Former Tobacco user Tobacco use type: Cigarette Cigarette Packs Per Day: 1 Cigarettes Per Day: 20.0 Smoked in Last 30 Days: Yes Use of substances other than those prescribed or required for medical reasons: Unknown Substance Use Type: Crack/Cocaine Advance Directives: Yes Advance Directives on File: Yes Advance Directives Date on File: 11/06/23 service: No Physical Exam ED Vital Signs: Vital Signs - 24 hr 10/01/24 12:33 10/01/24 13:07 10/01/24 13:44 Temperature 99.5 F Pulse Rate 91 84 Respiratory Rate 22 H 19 Blood Pressure 130/76 Pulse Oximetry 94 94 Oxygen Delivery Method Room Air Room Air 10/01/24 14:47 Temperature Pulse Rate 84 Respiratory Rate 12 Blood Pressure Pulse Oximetry Oxygen Delivery Method BMI result Body Mass Index 16.5 Const General: cooperative, no acute distress and poor hygiene; No healthy appearing Nutritional Appearance: cachectic Orientation/consciousness: oriented to person, oriented to place, oriented to time and patient oriented x3 Limitations: no limitations HENMT Head: Yes normocephalic and Yes atraumatic Ears: external ears normal General nose exam: Normal external nose present Face and sinus: Yes face symmetric Mouth: oropharynx normal and moist mucous membranes Throat: Yes uvula midline Eyes Pupils: Equal, round and reactive pupils present Neck Neck: Yes normal visual inspection and Yes supple Resp Effort & Inspection: normal respiratory effort, able to speak in complete sentences, Actively coughing (White sputum production) Quality: wet, not labored, no nasal flaring, no respiratory distress, no stridor and no use of accessory muscles Auscultation: clear to auscultation bilaterally and diminished lung sounds bilateral Cardio Rate: regular rate Rhythm: regular rhythm Heart sounds: S1 normal heart sound present and S2 normal heart sound present GI Palpation (GI): Soft to palpation and nontender Auscultation: normoactive bowel sounds General: Yes no CVA tenderness Back/Spine/Pelvis Back: no CVA tenderness Skin Other: General skin exam: abnormal elasticity, decreased turgor and erythema (Right buttock right upper leg see photo) Neuro General: oriented to person, oriented to place, oriented to time, patient oriented x3, moves all extremities, no focal motor deficits and CN's II-XI intact bilaterally Cranial nerves: Yes Equal, round and reactive pupils present Cognition (Neuro): normal cognition Extrem General: Yes full ROM, Yes no pedal edema and Yes no calf tenderness Psych Mental Status: mental status grossly normal Affect: normal affect Thought process: Normal thought process present Course Course Course Narrative: Course 14:09- labs reveal sodium of 118, LR discontinued and started on NS for correction. Patient received 500mL of LR, nurse made aware to discontinue LR fluids and resume 500mL of NS. UA reveals 1+ urine blood, otherwise unremarkable. Reevaluation(s) Reevaluation #1: 1500-Spoke to the hospitalist. Due to the patient's sodium of less than 120 they do believe the patient should have an ICU consultation. I spoke to Dr. Dinero. He will accept the patient to ICU for admission. I reviewed previous notes. 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 Medications Administered Generic Name Dose Route Start Last Admin Trade Name Freq PRN Reason Stop Dose Admin Magnesium Sulfate 2 gm in 50 mls @ 25 mls/hr 10/01/24 14:06 10/01/24 14:19 Magnesium Sulfate/H2o IV 10/01/24 16:05 25 mls/hr ONCE ONE Administration Discontinued Medications Generic Name Dose Route Start Last Admin Trade Name Matilda PRN Reason Stop Dose Admin Albuterol Sulfate 2.5 mg/ 5 mg 10/01/24 14:36 10/01/24 14:44 Albuterol Sulfate 2.5 mg INHALE 10/01/24 14:37 5 mg ONCE ONE Administration Albuterol/Ipratropium 3 ml 10/01/24 13:02 10/01/24 15:18 Albuterol/Iprat 2.5/0.5mg 3 Ml Ampul.Neb INHALE 10/01/24 13:03 3 ml ONCE ONE Administration Lactated Ringer's 500 mls @ 500 mls/hr 10/01/24 13:15 10/01/24 13:56 Lr IV 10/01/24 14:29 Infused .Q1H VLADIMIR Infusion Sodium Chloride 500 mls @ 500 mls/hr 10/01/24 14:12 10/01/24 14:19 Ns IV 10/01/24 15:11 500 mls/hr .Q1H STA Administration Methylprednisolone Sodium Succinate 125 mg 10/01/24 14:06 10/01/24 14:18 Methylprednisolone Sod Succ 125 Mg Vial IVPUSH 10/01/24 14:07 125 mg ONCE ONE Administration Medical Decision Making Medical Decision Making MDM Narrative: 69-year-old male with PMHx of failure to thrive, COPD, presents to the ED by EMS due to his roommate calling 911 due to concerns over his health. Patient arrives in the ED cachectic, looking unwell, completely saturated in urine, incontinent of urine and stool. He states he has been experiencing 3 days of short of breath and has been unable to walk due to weakness. He states his cough is accompanied by increased production of white phlegm. Patient states he is supposed to be on medications and home oxygen but has not had a PCP or completed follow up and has not had been taking any meds or using oxygen at home. On physical exam patient is cachectic, looks chronically unwell, all clothing saturated in urine, incontinent of urine and stool. Blanchable erythema over right buttocks and coccyx, mild blanchable erythema over left buttocks. Pulmonary exam reveal diminished lung sounds bilaterally. Will obtain EKG, chest x-ray, labs, viral swabs, UA, ED bronch protocol, CIWA scale to assess for alcohol withdrawal At this time suspect failure to thrive, will rule out rhabdo, electrolyte abnormality, UTI, cardiac abnormality for cause weakness Differential Diagnosis Differential Diagnoses: The differential diagnosis associated with the presentation includes Failure to thrive Rhabdomyolysis Electrolyte abnormality UTI Viral illness Arrhythmia Admission/Observation Consideration of admission/observation: Escalation of care including admission/observation considered see course of care Consult Healthcare Provider Management of the patient was discussed with: Hospitalist and [employer] Controller see course of care Lab Data MDM Lab Attestation statement: I reviewed the patient's lab results. 10/01/24 13:21 10/01/24 13:21 Labs: Lab Results 10/01/24 10/01/24 10/01/24 Range/Units 13:13 13:21 13:22 WBC 7.5 (4.8-10.8) X10*3/uL RBC 4.92 D (4.60-5.80) X10*6/uL Hgb 14.3 D (14.0-18.0) g/dl Hct 39.4 L (42.0-52.0) % MCV 80.1 (80.0-98.0) fL MCH 29.1 (27.0-33.0) pg MCHC 36.3 H (31.0-36.0) g/dl RDW 12.6 (11.0-16.0) % Plt Count 272 (160-400) X10*3/uL MPV 8.0 L (9.4-12.4) fL Immature Gran % (Auto) 0.5 H (0.0-0.4) % Neut % (Auto) 67.8 (45-73) % Lymph % (Auto) 20.9 (20-40) % [place] % (Auto) 10.0 (2-11) % Eos % (Auto) 0.1 (0-4) % Baso % (Auto) 0.7 (0-2) % Lymph # (Auto) 1.6 (1.2-4.9) X10*3/uL [place] # (Auto) 0.8 (0.1-1.2) X10*3/uL Eos # (Auto) 0.0 (0.0-0.4) X10*3/uL Baso # (Auto) 0.1 (0.0-0.2) X10*3/uL Abs Immat Gran (auto) 0.04 H (0.00-0.03) X10*3/uL Absolute Neuts (auto) 5.1 (2.0-8.3) x10*3/uL Absolute Nucleated RBC 0.000 (0.0-0.012) X10*3/uL Nucleated RBC % (auto) 0.0 (0.0-0.2) /100WBC D-Dimer High Sensitivty NG/ML VBG pH (7.32-7.43) VBG pCO2 mmHg VBG pO2 mmHg VBG HCO3 (22-26) mmol/L VBG O2 Saturation % VBG Base Excess mmol/L Sodium 118 L* (135-145) mmol/L Potassium 4.3 (3.3-5.1) mmol/L Chloride 76 L D (96-108) mmol/L Carbon Dioxide 32 H (22-29) mmol/L Anion Gap 14 (12-20) BUN 7 L (9-16) mg/dL Creatinine 0.66 (0.5-1.4) mg/dL Estim Creat Clear Calc 61.4 Estimated GFR > 60 Random Glucose 86 (60-115) mg/dL Lactic Acid 1.6 (0.5-2.0) mmol/L Calcium 9.4 (8.4-10.2) mg/dL Magnesium 2.1 (1.6-2.6) mg/dL Total Bilirubin 1.0 (0.0-1.0) mg/dL AST 34 (5-37) U/L ALT 25 (0-40) U/L Alkaline Phosphatase 69 (39-117) U/L Total Creatine Kinase 91 (38-174) U/L Total Protein 7.3 (6.5-8.0) g/dL Albumin 4.3 (3.5-5.0) g/dL Urine Color Yellow Urine Appearance Clear Urine pH 6.5 (5.0-9.0) Ur Specific [place] <= 1.005 (1.005-1.025) Urine Protein Negative (Neg-Trace) mg/dL Urine Glucose (UA) Negative (Negative) mg/dL Urine Ketones Negative (Negative) mg/dL Urine Blood Small (1+) H (Negative) Urine Nitrite Negative (Negative) Ur Leukocyte Esterase Negative (Negative) Urine RBC 0-2 (0-2) /HPF Urine WBC 0-5 (0-5) /HPF Ur Squamous Epith Cells 0-2 (0-2) /HPF Urine Bacteria Trace (None Seen) Hyaline Casts 0-2 (0-2) /LPF Ethyl Alcohol < 10 mg/dL Influenza Type A (PCR) NEGATIVE (Negative) Influenza Type B (PCR) NEGATIVE (Negative) RSV RNA Qual (PCR) NEGATIVE (Negative) SARS-CoV-2 RNA (RT-PCR) NEGATIVE (Negative) 10/01/24 10/01/24 Range/Units 13:33 14:00 WBC (4.8-10.8) X10*3/uL RBC (4.60-5.80) X10*6/uL Hgb (14.0-18.0) g/dl Hct (42.0-52.0) % MCV (80.0-98.0) fL MCH (27.0-33.0) pg MCHC (31.0-36.0) g/dl RDW (11.0-16.0) % Plt Count (160-400) X10*3/uL MPV (9.4-12.4) fL Immature Gran % (Auto) (0.0-0.4) % Neut % (Auto) (45-73) % Lymph % (Auto) (20-40) % [place] % (Auto) (2-11) % Eos % (Auto) (0-4) % Baso % (Auto) (0-2) % Lymph # (Auto) (1.2-4.9) X10*3/uL [place] # (Auto) (0.1-1.2) X10*3/uL Eos # (Auto) (0.0-0.4) X10*3/uL Baso # (Auto) (0.0-0.2) X10*3/uL Abs Immat Gran (auto) (0.00-0.03) X10*3/uL Absolute Neuts (auto) (2.0-8.3) x10*3/uL Absolute Nucleated RBC (0.0-0.012) X10*3/uL Nucleated RBC % (auto) (0.0-0.2) /100WBC D-Dimer High Sensitivty < 150 NG/ML VBG pH 7.43 (7.32-7.43) VBG pCO2 58 mmHg VBG pO2 24 mmHg VBG HCO3 38 H (22-26) mmol/L VBG O2 Saturation < 30.0 % VBG Base Excess 11.4 mmol/L Sodium (135-145) mmol/L Potassium (3.3-5.1) mmol/L Chloride (96-108) mmol/L Carbon Dioxide (22-29) mmol/L Anion Gap (12-20) BUN (9-16) mg/dL Creatinine (0.5-1.4) mg/dL Estim Creat Clear Calc Estimated GFR Random Glucose (60-115) mg/dL Lactic Acid (0.5-2.0) mmol/L Calcium (8.4-10.2) mg/dL Magnesium (1.6-2.6) mg/dL Total Bilirubin (0.0-1.0) mg/dL AST (5-37) U/L ALT (0-40) U/L Alkaline Phosphatase (39-117) U/L Total Creatine Kinase (38-174) U/L Total Protein (6.5-8.0) g/dL Albumin (3.5-5.0) g/dL Urine Color Urine Appearance Urine pH (5.0-9.0) Ur Specific [place] (1.005-1.025) Urine Protein (Neg-Trace) mg/dL Urine Glucose (UA) (Negative) mg/dL Urine Ketones (Negative) mg/dL Urine Blood (Negative) Urine Nitrite (Negative) Ur Leukocyte Esterase (Negative) Urine RBC (0-2) /HPF Urine WBC (0-5) /HPF Ur Squamous Epith Cells (0-2) /HPF Urine Bacteria (None Seen) Hyaline Casts (0-2) /LPF Ethyl Alcohol mg/dL Influenza Type A (PCR) (Negative) Influenza Type B (PCR) (Negative) RSV RNA Qual (PCR) (Negative) SARS-CoV-2 RNA (RT-PCR) (Negative) Independent Interpretation I performed an independent interpretation of an: EKG and Plain X-Ray Interpretation: I independently viewed the chest x-ray and agree with the radiology report I independently viewed the EKG which shows normal sinus rhythm with a rate 89, normal NJ, normal QRS, normal QT Radiology Impression Discussion of test interpretation with radiology: I have reviewed the radiologist's reading. Radiologist Impression: [id number] [place] [address] XRay Report Signed Patient: Heriberto Cho MR#: [id number] : 1955 Acct:[id number] Age/Sex: 69 / M ADM Date: 10/01/24 Loc: HO.ED Attending Dr: Ordering Physician: Bere Cruz NP Date of Service: 10/01/24 Procedure(s): XR chest 1V Accession Number(s): [id number] cc: Physician,Unknown ; Bere Cruz NP~ EXAMINATION: XR CHEST 1 VIEW HISTORY: dyspnea COMPARISON: Comparison is made with the prior examination dated 11/15/2023. FINDINGS: A single AP portable view of the chest performed at 2:22 PM is submitted. The lungs are expanded and clear. There is no pleural effusion, pneumothorax, or pulmonary vascular congestion. The heart is normal in size. The aorta is calcified. There is degenerative disc disease of the spine. XR/XR chest 1V IMPRESSION: No acute cardiopulmonary abnormality. Electronically signed by: Renato Elias MD 10/01/2024 02:35 PM EDT RP Independent Historian Clinical information obtained from an independent historian. History obtained from or confirmed by: EMS External Record Review External record reviewed: Inpatient record, Office record and Outpatient record Critical Care Time Critical Care Time Critical Care Time: Yes Total Critical Care Time: 60 Attestation: direct patient care, patient reassessment, coordination of patient care, interpretation of data (laboratory data, pulse oximetry, arterial blood gases and chest xrays), review of patient's medical records, medical consultation and documentation of patient care. Discharge Plan Discharge Clinical Impression: Acute hyponatremia Patient Disposition: Admitted As Inpatient Print Language: [place]ar[place]uan
--- NOTE | 2024-10-01 12:32 | ECG_ITS ---
Test Reason : sob Blood Pressure : */* mmHG Vent. Rate : 89 BPM Atrial Rate : 89 BPM P-R Int : 122 ms QRS Dur : 70 ms QT Int : 348 ms P-R-T Axes : 81 78 82 degrees QTcB Int : 423 ms Normal sinus rhythm Right atrial enlargement Borderline ECG When compared with ECG of 15-Nov-2023 09:12, Premature atrial complexes are no longer Present Referred By: Bere Cruz Electronically Signed By: FRANCIS MERIDA MD
[2024-10-01 13:32] LABS: MANUAL DIFF FLAG NO
[2024-10-01] MEDS: Lactated Ringers 500 ML IV (13:32)
[2024-10-01 13:34] LABS: Venous Blood Gas Refer to POC result
[2024-10-01 13:34] LABS: Basophils Absolute Auto 0.1 X10*3/uL (0.0-0.2); Basophils Percent Auto 0.7 % (0-2); Eosinophils Percent Auto 0.1 % (0-4); Hematocrit 39.4 % (42.0-52.0); Hemoglobin 14.3 g/dl (14.0-18.0); Imm Gran Abs Auto 0.04 X10*3/uL (0.00-0.03); Imm Gran Pct Auto 0.5 % (0.0-0.4); Lymphocytes Absolute Auto 1.6 X10*3/uL (1.2-4.9); Lymphocytes Percent Auto 20.9 % (20-40); Mean Corpuscular HGB Conc 36.3 g/dl (31.0-36.0); Mean Corpuscular Hemoglobin 29.1 pg (27.0-33.0); Mean Corpuscular Volume 80.1 fL (80.0-98.0); Monocytes Absolute Auto 0.8 X10*3/uL (0.1-1.2); Neutrophils Absolute Auto 5.1 x10*3/uL (2.0-8.3); Neutrophils Percent Auto 67.8 % (45-73); Platelet Count 272 X10*3/uL (160-400); Red Blood Count 4.92 X10*6/uL (4.60-5.80); Red Cell Distribution Width 12.6 % (11.0-16.0); White Blood Count 7.5 X10*3/uL (4.8-10.8)
[2024-10-01 13:35] LABS: Appearance Urine Clear; Color Urine Yellow; Glucose Urine UA Negative (Negative); Leukocyte Esterase Urine Negative (Negative); Nitrite Urine Negative (Negative); PH 6.5 (5.0-9.0); Specific Gravity - Urine <= 1.005 (1.005-1.025); UMIC TRIGGER UACC YES; Urine Blood Small (1+) (Negative); Urine Ketones Negative (Negative); Urine Protein Negative (Neg-Trace)
[2024-10-01 13:36] LABS: VBG Base Excess 11.4 mmol/L; VBG HCO3 38 mmol/L (22-26); VBG O2 % Saturation < 30.0 %; VBG pCO2 58 mmHg; VBG pH 7.43 (7.32-7.43); VBG pO2 24 mmHg
--- NOTE | 2024-10-01 13:39 | PC.NURSE ---
Changed into hospital attire. Covered in old urine & feces on all extremities & clothing. Clothing placed into patient belongings bag. Pt admits to drinking 3 beers this morning, hasn't eaten or had other fluids today. Denies pain. Hx COPD. Hasn't followed up with a doctor in a long time . Malodorous with flies noted to be flying around him. Frail in appearance. 18g IV access established by this RN to left AC. Labs drawn and sent for analysis. Male purewick in place.
[2024-10-01 13:47] LABS: Bacteria Urine Trace (None Seen); Hyaline Casts Urine 0-2 /LPF (0-2); RBC Urine 0-2 /HPF (0-2); Squamous Epithelial Cell Urine 0-2 /HPF (0-2); WBC Urine 0-5 /HPF (0-5)
[2024-10-01 13:51] LABS: Lactic Acid 1.6 mmol/L (0.5-2.0)
[2024-10-01 13:52] LABS: Ethanol < 10 mg/dL
[2024-10-01 13:54] LABS: Alanine Aminotransferase 25 U/L (0-40); Albumin Level 4.3 g/dL (3.5-5.0); Alkaline Phosphatase 69 U/L (39-117); Anion Gap 14 (12-20); Aspartate Amino Transferase 34 U/L (5-37); Blood Urea Nitrogen 7 mg/dL (9-16); Calcium 9.4 mg/dL (8.4-10.2); Carbon Dioxide 32 mmol/L (22-29); Chloride 76 mmol/L (96-108); Creatinine Clr Calc Pharmacy 61.4; Estimated Glomerular Filt Rate > 60; Glucose Random 86 mg/dL (60-115); Magnesium 2.1 mg/dL (1.6-2.6); Potassium 4.3 mmol/L (3.3-5.1); Sodium 118 mmol/L (135-145); Total Protein 7.3 g/dL (6.5-8.0)
--- NOTE | 2024-10-01 13:56 | PC.NURSE ---
200 mL of Lactated Ringers infused. Instructed by provider (TAO Cruz) to stop LR and initiate Normal Saline 0.9% infusion for critical hyponatremia (119). LR infusion discontinued and documented in EMAR. Care ongoing by this RN.
[2024-10-01 14:17] LABS: D Dimer High Sensitivity < 150 NG/ML
[2024-10-01] MEDS: Magnesium Sulfate/H2O 2 GM/50 ML PIGGYBACK IV (14:19)
[2024-10-01] MEDS: 0.9 % Sodium Chloride 500 ML IV (14:19)
[2024-10-01 14:21] LABS: Influenza A PCR NEGATIVE (Negative); Influenza B PCR NEGATIVE (Negative); Resp Syncy Virus RNA Qual PCR NEGATIVE (Negative); SARS COV2 PCR INHOUSE NEGATIVE (Negative)
--- NOTE | 2024-10-01 14:30 | PC.NURSE ---
MylaCOUNTER STITCHER at bedside speaking with patient and assumes care of the patient at this time. Xray obtained, awaiting results. Magnesium 2gm infusion initiated. NS 500mL infusing as ordered. Solumedrol also given.
[2024-10-01] MEDS: Albuterol Sulfate 2.5 MG, Albuterol Sulfate (0.083%) 2.5 MG 5 MG INHALE (14:44)
[2024-10-01] MEDS: Albuterol/Iprat 2.5/0.5MG 3 ML AMPUL.NEB INHALE (15:18)
--- NOTE | 2024-10-01 15:28 | PM.CCHP ---
History of Present Illness Date of Service: 10/01/24 Chief Complaint: Malaise, hyponatremia 69-year-old gentleman with underlying AFib not on anticoagulation, alcohol dependence, failure to thrive, COPD presented complaining of weakness and dyspnea. On ER evaluation patient MSE needed, but alert and oriented with no neurologic symptoms with sodium of 118. Started on regular diet and admitted to intensive care unit for close monitoring. Review of Systems Constitutional: Constitutional: Denies daytime sleepiness, Denies excessive sweating, Denies fatigue, Denies fever(s), Denies lethargy, Reports malaise, Denies night sweats, Denies snoring and Reports weight loss Eyes: Eyes: Denies blurry vision and Denies itchy eyes ENT: Denies nasal congestion, Denies post nasal drip, Denies sinus pain, Denies sinus pressure and Denies other ( Thrush) Cardiovascular: Cardiovascular: Denies chest pain, Denies pedal edema, Denies dyspnea, Denies orthopnea and Denies paroxysmal nocturnal dyspnea Respiratory: Respiratory: Denies cough, Denies hemoptysis, Denies excessive phlegm production, Denies dyspnea, Denies snoring and Denies wheezing Gastrointestinal: Gastrointestinal: Denies abdominal pain and Denies heartburn Musculoskeletal: Musculoskeletal: Denies myalgias, Denies arthralgias and Denies joint swelling Integumentary/Breasts: Skin/Breast: Denies rash Neurologic: Denies memory loss and Denies seizure-like activity Psychiatric: Psychiatric: Denies abnormal sleep pattern, Denies anxiety and Denies memory loss Endocrine: Endocrine: Denies excessive sweating, Denies fatigue and Denies heat intolerance Hematologic/Lymphatic: Hematologic/Lymphatic: Denies easy bruising Allergic/Immunologic: Allergic/Immunologic: Denies itchy eyes, Denies seasonal rhinorrhea and Denies wheezing PMFSH Past Medical History Medical History Cognitive impairment Encounter for assessment of decision-making capacity COPD (chronic obstructive pulmonary disease) Adult failure to thrive Pneumonia Asthma Alcohol dependence Social History Social History Household Members: None Household Members Other:: friends Housing: Skilled Nursing Do you presently have visiting nurse or other home services: No (snf) Alcohol intake: current Alcohol intake frequency: 3 or more drinks per day Alcohol type: beer Patient Tobacco Use Status: Former Tobacco user Tobacco use type: Cigarette Cigarette Packs Per Day: 1 Cigarettes Per Day: 20.0 Smoked in Last 30 Days: Yes Use of substances other than those prescribed or required for medical reasons: Unknown Substance Use Type: Crack/Cocaine Advance Directives: Yes Advance Directives on File: Yes Advance Directives Date on File: 11/06/23 service: No Meds Allergies Allergy/AdvReac Type Severity Reaction Status Date / Time No Known Allergies Allergy Verified 10/01/24 13:05 Active Medications: Current Medications Heparin Sodium (Porcine) (Heparin Sodium,Porcine 5,000 Unit/Ml Vial) 5,000 unit SUBCUT Q8H VLADIMIR Magnesium Sulfate (Magnesium Sulfate/H2o) 2 gm in 50 mls @ 25 mls/hr IV ONCE ONE Stop: 10/01/24 16:05 Last Admin: 10/01/24 14:19 Dose: 25 mls/hr Home Medications ?Medication ?Instructions ?Recorded ?Confirmed ?Last Taken ?Type acetaminophen 325 mg tablet 650 mg PO Q4H PRN Fever Or Pain 11/02/23 11/15/23 Unknown History (Tylenol) bisacodyl 10 mg rectal suppository 10 mg HI DAILY PRN Constipation 11/15/23 11/15/23 Unknown History magnesium hydroxide 400 mg/5 mL 30 ml PO DAILY PRN Constipation 11/15/23 11/15/23 Unknown History oral suspension (Milk of Magnesia) sodium phosphates 19 gram-7 118 ml HI DAILY PRN Constipation 11/15/23 11/15/23 Unknown History gram/118 mL enema (Fleet Enema) Physical Exam Vital Signs: Vital Signs: Last Vital Signs Temp 99.5 F 10/01/24 12:33 Pulse 84 10/01/24 14:47 Resp 12 10/01/24 14:47 BP 130/76 10/01/24 12:33 Pulse Ox 94 10/01/24 13:44 O2 Del Method Room Air 10/01/24 13:44 BMI result Body Mass Index 16.5 Const: General: no acute distress, alert and awake Nutritional Appearance: malnourished Eyes: Sclerae: sclerae normal EOM: EOMs intact bilaterally Neck: Neck: Yes no lymphadenopathy, Yes trachea midline and Yes supple Resp: Effort & Inspection: normal respiratory effort and no respiratory distress Auscultation: clear to auscultation bilaterally Cardio: Rate: regular rate Rhythm: regular rhythm Heart sounds: no gallops, no murmurs and no rubs GI: Palpation (GI): Soft to palpation and Other GI palpation findings present ( Nontender) Auscultation: normal bowel sounds Extrem: General: Yes no pedal edema, No clubbing and No cyanosis Results Labs 10/01/24 13:21 10/01/24 13:21 Labs: Laboratory Results - last 24 hr 10/01/24 10/01/24 10/01/24 13:13 13:21 13:22 MCV 80.1 MCH 29.1 MCHC 36.3 H RDW 12.6 Plt Count 272 MPV 8.0 L Immature Gran % (Auto) 0.5 H Neut % (Auto) 67.8 Lymph % (Auto) 20.9 [place] % (Auto) 10.0 Eos % (Auto) 0.1 Baso % (Auto) 0.7 Lymph # (Auto) 1.6 [place] # (Auto) 0.8 Eos # (Auto) 0.0 Baso # (Auto) 0.1 Abs Immat Gran (auto) 0.04 H Absolute Neuts (auto) 5.1 Absolute Nucleated RBC 0.000 Nucleated RBC % (auto) 0.0 D-Dimer High Sensitivty VBG pH VBG pCO2 VBG pO2 VBG HCO3 VBG O2 Saturation VBG Base Excess Anion Gap 14 Estim Creat Clear Calc 61.4 Estimated GFR > 60 Random Glucose 86 Lactic Acid 1.6 Calcium 9.4 Magnesium 2.1 Total Bilirubin 1.0 AST 34 ALT 25 Alkaline Phosphatase 69 Total Creatine Kinase 91 Total Protein 7.3 Albumin 4.3 Urine Color Yellow Urine Appearance Clear Urine pH 6.5 Ur Specific [place] <= 1.005 Urine Protein Negative Urine Glucose (UA) Negative Urine Ketones Negative Urine Blood Small (1+) H Urine Nitrite Negative Ur Leukocyte Esterase Negative Urine RBC 0-2 Urine WBC 0-5 Ur Squamous Epith Cells 0-2 Urine Bacteria Trace Hyaline Casts 0-2 Ethyl Alcohol < 10 Influenza Type A (PCR) NEGATIVE Influenza Type B (PCR) NEGATIVE RSV RNA Qual (PCR) NEGATIVE SARS-CoV-2 RNA (RT-PCR) NEGATIVE 10/01/24 10/01/24 13:33 14:00 MCV MCH MCHC RDW Plt Count MPV Immature Gran % (Auto) Neut % (Auto) Lymph % (Auto) [place] % (Auto) Eos % (Auto) Baso % (Auto) Lymph # (Auto) [place] # (Auto) Eos # (Auto) Baso # (Auto) Abs Immat Gran (auto) Absolute Neuts (auto) Absolute Nucleated RBC Nucleated RBC % (auto) D-Dimer High Sensitivty < 150 VBG pH 7.43 VBG pCO2 58 VBG pO2 24 VBG HCO3 38 H VBG O2 Saturation < 30.0 VBG Base Excess 11.4 Anion Gap Estim Creat Clear Calc Estimated GFR Random Glucose Lactic Acid Calcium Magnesium Total Bilirubin AST ALT Alkaline Phosphatase Total Creatine Kinase Total Protein Albumin Urine Color Urine Appearance Urine pH Ur Specific [place] Urine Protein Urine Glucose (UA) Urine Ketones Urine Blood Urine Nitrite Ur Leukocyte Esterase Urine RBC Urine WBC Ur Squamous Epith Cells Urine Bacteria Hyaline Casts Ethyl Alcohol Influenza Type A (PCR) Influenza Type B (PCR) RSV RNA Qual (PCR) SARS-CoV-2 RNA (RT-PCR) Imaging Radiologist's Impressions: Impressions Chest X-Ray 10/01/24 14:25 IMPRESSION: No acute cardiopulmonary abnormality. Electronically signed by: Renato Elias MD 10/01/2024 02:35 PM EDT RP Assessment and Plan (1) Acute hyponatremia: Status: Acute (2) FTT (failure to thrive) in adult: Status: Acute (3) Moderate protein-calorie malnutrition: Status: Acute Plan Assessment: 69-year-old gentleman with underlying alcohol dependence admitted with failure to thrive and acute hyponatremia likely secondary to beer potomania Plan: Neuro: No acute issues. Cardiac: No acute issues. Pulmonary: No acute issues. Renal: Acute hyponatremia, likely secondary to beer potomania. Start regular diet. Monitor electrolytes level. Endo: No acute issues. GI: Protein calorie malnutrition. Manager Process Improvement evaluation. ID: No acute issues Heme/Onc: No acute issues. Psych: No acute issues. Miscellaneous: No acute issues. Prophylaxis: Heparin Diet: Regular
[2024-10-01 15:42] LABS: Phosphorus 3.5 mg/dL (2.7-4.5)
--- NOTE | 2024-10-01 15:44 | PHA.MEDREC ---
Addendum entered by Rigoberto Avalos [facility] 10/01/24 15:52: Med rec reviewed Original Note: Pharmacy Consult ? Medication Reconciliation Pharmacy has completed the medication reconciliation. Spoke to patient and he states he has been without his medications since April. Patient states he ran out his medications after he left SNF he ran out of refills and hasn't been able to see a doctor for follow up. left on most recent claims and will notify the Md. Last claims are for Finasteride 5 mg last filled 04/27/24 for 30 days , Ipratropium-albuterol 3 ml last filled 04/27/24 for 30 days, Metoprolol Succ 25 mg last filled 05/03/24 for 30 days and Tamsulosin 0.4 mg. ast filled 05/03/24 for 30 days.
--- NOTE | 2024-10-01 18:00 | HO.SKINPHOTO ---
Location: Coccyx Category: Pressure Injury Stage:I Right Hip
--- NOTE | 2024-10-01 18:02 | PC.NURSE ---
Pt. arrived to ICU from ED at approx 1630- Pt. A&O to self, place, and situation, disoriented to time. Forgetful at times but calm, cooperative, denies headache/dizziness. SR/St on tele, HR 90s-100s. Pt. on 2L NC, O2 goal >88% per MD. Pt. with loose moist cough. Regular diet, pt. tolerating meals. Male purewick in place, draining CYU. Q2 repositioning performed. Pt. updated on plan of care by this RN. Plan of care ongoing.
[2024-10-01] MEDS: Heparin Sodium,Porcine 5,000 UNIT/ML VIAL 5000 UNIT SUBCUT (20:22)
[2024-10-01 20:27] LABS: Anion Gap 13 (12-20); Blood Urea Nitrogen 17 mg/dL (9-16); Carbon Dioxide 28 mmol/L (22-29); Chloride 84 mmol/L (96-108); Creatinine Clr Calc Pharmacy 53.4; Estimated Glomerular Filt Rate > 60; Glucose Random 179 mg/dL (60-115); Potassium 4.1 mmol/L (3.3-5.1); Sodium 121 mmol/L (135-145)
[2024-10-01 20:33] LABS: Calcium 8.5 mg/dL (8.4-10.2)
[2024-10-02] VITALS (17 sets, daily range): BP systolic 92–160; BP diastolic 57–87; PULSE 74–112; RESP 10–20; TEMP 36.2–36.7; O2SAT 92–99; BMI 18.5
--- NOTE | 2024-10-02 03:12 | HE.ICUCC ---
ICU Critical Care Nursing Note Assumed care of patient at 1900. Patient A&Ox2 vague to time/place SR on telemetry LS diminished/ supplemental O2 2L oxymask, O2 sats 97% + hyperactive BS x 4 quadrants, St 1 to coccyx , foam dressing in place. Bruising to bilateral hips Male purewick draining CYU repositioning Q2H , patient asleep VSS
--- NOTE | 2024-10-02 03:32 | HE.ICUCC ---
ICU Critical Care Nursing Note Assumed care of patient Patient A&Ox2 vague to time/place SR on telemetry LS dim, supplemental O2 2L oxymask, O2 sats 97% Hyperactive BS St 1 to coccyx, foam dressing in place . Bruising to bilateral hips Male purewick draining CYU Repositioning Q2H, patient asleep VSS
[2024-10-02] MEDS: Heparin Sodium,Porcine 5,000 UNIT/ML VIAL 5000 UNIT SUBCUT ×3 (04:02→20:19)
[2024-10-02 05:04] LABS: MANUAL DIFF FLAG NO
[2024-10-02 05:06] LABS: Hematocrit 33.9 % (42.0-52.0); Imm Gran Abs Auto 0.01 X10*3/uL (0.00-0.03); Imm Gran Pct Auto 0.3 % (0.0-0.4); Lymphocytes Absolute Auto 0.5 X10*3/uL (1.2-4.9); Lymphocytes Percent Auto 11.9 % (20-40); Mean Corpuscular HGB Conc 35.4 g/dl (31.0-36.0); Mean Corpuscular Hemoglobin 28.6 pg (27.0-33.0); Mean Corpuscular Volume 80.9 fL (80.0-98.0); Mean Platelet Volume 9.1 fL (9.4-12.4); Monocytes Absolute Auto 0.3 X10*3/uL (0.1-1.2); Monocytes Percent Auto 7.3 % (2-11); Neutrophils Absolute Auto 3.1 x10*3/uL (2.0-8.3); Neutrophils Percent Auto 80.5 % (45-73); Platelet Count 287 X10*3/uL (160-400); Red Blood Count 4.19 X10*6/uL (4.60-5.80); Red Cell Distribution Width 12.8 % (11.0-16.0); White Blood Count 3.9 X10*3/uL (4.8-10.8)
[2024-10-02 05:24] LABS: Albumin Level 3.5 g/dL (3.5-5.0); Anion Gap 14 (12-20); Blood Urea Nitrogen 16 mg/dL (9-16); Calcium 8.2 mg/dL (8.4-10.2); Carbon Dioxide 26 mmol/L (22-29); Chloride 86 mmol/L (96-108); Creatinine Clr Calc Pharmacy 65.6; Estimated Glomerular Filt Rate > 60; Glucose Random 129 mg/dL (60-115); Magnesium 2.4 mg/dL (1.6-2.6); Phosphorus 3.7 mg/dL (2.7-4.5); Potassium 4.3 mmol/L (3.3-5.1); Sodium 122 mmol/L (135-145)
--- NOTE | 2024-10-02 09:42 | P.PNCC_ITS ---
Subjective Subjective Date of Service: 10/02/24 Interval History: 69-year-old gentleman with underlying AFib not on anticoagulation, alcohol dependence, failure to thrive, COPD presented complaining of weakness and dyspnea. On ER evaluation patient MSE needed, but alert and oriented with no neurologic symptoms with sodium of 118. Started on regular diet and admitted to intensive care unit for close monitoring. Patient was started on regular diet with slow improvement in his sodium, now at 122. No events overnight. Critical Care Time (minutes): 0 Physical Exam 2 Vital Signs: Vital Signs: Last Vital Signs Temp 97.1 F 10/02/24 08:00 Pulse 97 10/02/24 09:00 Resp 18 10/02/24 09:00 BP 104/59 L 10/02/24 09:00 Pulse Ox 93 10/02/24 09:00 O2 Del Method Oxymask 10/02/24 09:00 O2 Flow Rate 2 10/02/24 09:00 BMI result Body Mass Index 18.5 Const: General: no acute distress, alert and awake Nutritional Appearance: malnourished Eyes: Sclerae: sclerae normal EOM: EOMs intact bilaterally Neck: Neck: Yes no lymphadenopathy, Yes trachea midline and Yes supple Resp: Effort & Inspection: normal respiratory effort and no respiratory distress Auscultation: clear to auscultation bilaterally Cardio: Rate: regular rate Rhythm: regular rhythm Heart sounds: no gallops, no murmurs and no rubs GI: Palpation (GI): Soft to palpation and Other GI palpation findings present ( Nontender) Auscultation: normal bowel sounds Extrem: General: Yes no pedal edema, No clubbing and No cyanosis Objective Data Labs 10/02/24 04:51 10/02/24 04:51 Labs: Laboratory Results - last 24 hr 10/01/24 10/01/24 10/01/24 13:13 13:21 13:22 WBC 7.5 RBC 4.92 D Hgb 14.3 D Hct 39.4 L MCV 80.1 MCH 29.1 MCHC 36.3 H RDW 12.6 Plt Count 272 MPV 8.0 L Immature Gran % (Auto) 0.5 H Neut % (Auto) 67.8 Lymph % (Auto) 20.9 [place] % (Auto) 10.0 Eos % (Auto) 0.1 Baso % (Auto) 0.7 Lymph # (Auto) 1.6 [place] # (Auto) 0.8 Eos # (Auto) 0.0 Baso # (Auto) 0.1 Abs Immat Gran (auto) 0.04 H Absolute Neuts (auto) 5.1 Absolute Nucleated RBC 0.000 Nucleated RBC % (auto) 0.0 D-Dimer High Sensitivty VBG pH VBG pCO2 VBG pO2 VBG HCO3 VBG O2 Saturation VBG Base Excess Sodium 118 L* Potassium 4.3 Chloride 76 L D Carbon Dioxide 32 H Anion Gap 14 BUN 7 L Creatinine 0.66 Estim Creat Clear Calc 61.4 Estimated GFR > 60 Random Glucose 86 Lactic Acid 1.6 Calcium 9.4 Phosphorus 3.5 Magnesium 2.1 Total Bilirubin 1.0 AST 34 ALT 25 Alkaline Phosphatase 69 Total Creatine Kinase 91 Total Protein 7.3 Albumin 4.3 Urine Color Yellow Urine Appearance Clear Urine pH 6.5 Ur Specific [place] <= 1.005 Urine Protein Negative Urine Glucose (UA) Negative Urine Ketones Negative Urine Blood Small (1+) H Urine Nitrite Negative Ur Leukocyte Esterase Negative Urine RBC 0-2 Urine WBC 0-5 Ur Squamous Epith Cells 0-2 Urine Bacteria Trace Hyaline Casts 0-2 Ethyl Alcohol < 10 Influenza Type A (PCR) NEGATIVE Influenza Type B (PCR) NEGATIVE RSV RNA Qual (PCR) NEGATIVE SARS-CoV-2 RNA (RT-PCR) NEGATIVE 10/01/24 10/01/24 10/01/24 13:33 14:00 19:58 WBC RBC Hgb Hct MCV MCH MCHC RDW Plt Count MPV Immature Gran % (Auto) Neut % (Auto) Lymph % (Auto) [place] % (Auto) Eos % (Auto) Baso % (Auto) Lymph # (Auto) [place] # (Auto) Eos # (Auto) Baso # (Auto) Abs Immat Gran (auto) Absolute Neuts (auto) Absolute Nucleated RBC Nucleated RBC % (auto) D-Dimer High Sensitivty < 150 VBG pH 7.43 VBG pCO2 58 VBG pO2 24 VBG HCO3 38 H VBG O2 Saturation < 30.0 VBG Base Excess 11.4 Sodium 121 L Potassium 4.1 Chloride 84 L Carbon Dioxide 28 Anion Gap 13 BUN 17 H Creatinine 0.81 Estim Creat Clear Calc 53.4 Estimated GFR > 60 Random Glucose 179 H Lactic Acid Calcium 8.5 D Phosphorus Magnesium Total Bilirubin AST ALT Alkaline Phosphatase Total Creatine Kinase Total Protein Albumin Urine Color Urine Appearance Urine pH Ur Specific [place] Urine Protein Urine Glucose (UA) Urine Ketones Urine Blood Urine Nitrite Ur Leukocyte Esterase Urine RBC Urine WBC Ur Squamous Epith Cells Urine Bacteria Hyaline Casts Ethyl Alcohol Influenza Type A (PCR) Influenza Type B (PCR) RSV RNA Qual (PCR) SARS-CoV-2 RNA (RT-PCR) 10/02/24 04:51 WBC 3.9 L RBC 4.19 L Hgb 12.0 L Hct 33.9 L MCV 80.9 MCH 28.6 MCHC 35.4 RDW 12.8 Plt Count 287 MPV 9.1 L Immature Gran % (Auto) 0.3 Neut % (Auto) 80.5 H Lymph % (Auto) 11.9 L [place] % (Auto) 7.3 Eos % (Auto) 0.0 Baso % (Auto) 0.0 Lymph # (Auto) 0.5 L [place] # (Auto) 0.3 Eos # (Auto) 0.0 Baso # (Auto) 0.0 Abs Immat Gran (auto) 0.01 Absolute Neuts (auto) 3.1 Absolute Nucleated RBC 0.000 Nucleated RBC % (auto) 0.0 D-Dimer High Sensitivty VBG pH VBG pCO2 VBG pO2 VBG HCO3 VBG O2 Saturation VBG Base Excess Sodium 122 L Potassium 4.3 Chloride 86 L Carbon Dioxide 26 Anion Gap 14 BUN 16 Creatinine 0.66 Estim Creat Clear Calc 65.6 Estimated GFR > 60 Random Glucose 129 H Lactic Acid Calcium 8.2 L Phosphorus 3.7 Magnesium 2.4 Total Bilirubin AST ALT Alkaline Phosphatase Total Creatine Kinase Total Protein Albumin 3.5 Urine Color Urine Appearance Urine pH Ur Specific [place] Urine Protein Urine Glucose (UA) Urine Ketones Urine Blood Urine Nitrite Ur Leukocyte Esterase Urine RBC Urine WBC Ur Squamous Epith Cells Urine Bacteria Hyaline Casts Ethyl Alcohol Influenza Type A (PCR) Influenza Type B (PCR) RSV RNA Qual (PCR) SARS-CoV-2 RNA (RT-PCR) Progress Note: A&P Assessment and plan (1) FTT (failure to thrive) in adult: Status: Acute (2) Moderate protein-calorie malnutrition: Status: Acute (3) Acute hyponatremia: Status: Acute Plan Assessment: 69-year-old gentleman with underlying alcohol dependence admitted with failure to thrive and acute hyponatremia likely secondary to beer potomania Plan: Neuro: No acute issues. Cardiac: No acute issues. Pulmonary: No acute issues. Renal: Acute hyponatremia, likely secondary to beer potomania, improving appropriately with regular diet. Continue to monitor electrolytes level. Endo: No acute issues. GI: Protein calorie malnutrition. ID: No acute issues Heme/Onc: No acute issues. Psych: No acute issues. Miscellaneous: No acute issues. Prophylaxis: Heparin Diet: Regular Quality Stroke Does the patient have a stroke diagnosis?: No VTE Prior VTE?: No VTE Risk Level:: Medical - moderate - high VTE Device Contraindication: Treatment Not Indicated VTE Drug Contraindication: N/A - Med Ordered
--- NOTE | 2024-10-02 14:27 | PC.NURSE ---
Addendum entered by Smiley Herrera RN 10/02/24 17:01: Skin reassessed at 1702 per PA request, potential for stage I on coccyx, wound care consult already placed on previous floor, will include updated pictures in skin note. Foam dressing intact, airloss mattress ordered at initial assessment. continue Q2 turn and repo. Original Note: Pt arrived to s3 from ICU at approximately 14:15, at this time Pt alert to self and situation able to follow commands, confused on year and place. No tremors noted, neuro assessment intact. Pt LS dim in bases rhonic/wheezing noted throughout 94% on 2L NC, productive cough. Pt has blanchable redness to bilateral heels, no redness noted to coccyx (stage I reported in nurse to nurse report), foams in place, MASD noted to right hip and scrotum, triad applied. Positive pedal pulses, no edema noted. Purwick in place, abd soft non-tender +BS all 4 quads. All safety measures in place.
[2024-10-02] MEDS: Albuterol/Iprat 2.5/0.5MG 3 ML AMPUL.NEB INHALE ×2 (14:37→20:02)
--- NOTE | 2024-10-02 15:03 | PC.NURSE ---
assumed care of patient 0700 on 10/02/24 in late morning patient plan of care to transferred to [facility], RN to RN report given over the phone before transported. Patient A+Ox4, but forgetful and vague, Normal Sinus Rhythm (before disconnecting from monitor for transporter), on 2L nasal cannula, no bowel movement, bowels hyper, with condom cath in-place. skin as documented in shift assessment, moderately weak generally, but moving all extremities. patient has no complaints of symptoms or pain at time of transfer, patients questions answered before leaving ICU. patient ate lunch before leaving unit, and patients belongings with patient in bed for transport to [facility] (wallet and inhaler), contents of wallet as documented in worklist. Full bed bath done just before lunch, CHG wips and cloth wipes used, hair washed, cunningham trimmed. patient not showing signs of withdrawal throughout shift, scored on CIWA for disorientation to year and month this morning, but was able to correctly state date at around noon today. patient left care of this RN and transferred to [facility] at 14:10 on 10/02/24
--- NOTE | 2024-10-02 15:50 | P.EN_ITS ---
Event Note Date of Service: 10/02/24 Event Note: This is a 69 year old male with history of etoh abuse, COPD atrial fibrillation not on anticoagulation due to alcohol use recurrent hyponatremia because his roommate called 911 overt concerns regarding his health. Patient arrived in the emergency department saturated in urine and incontinent of urine and stool. He was reportedly unable to get out of bed for 3 days due to weakness. He had not been using oxygen or taking any medication. A drinks alcohol on a daily basis. Workup in the emergency department was significant for hyponatremia with a sodium of 118 and was thus admitted to the ICU for close electrolyte monitoring. His sodium levels increased to 122 today and he was downgraded to the medical floor. Hyponatremia sodium 118->122 has h/o SIADH hold duloxetine(unclear compliance) check urine studies, TSH, repeat BMP cortisol has been normal in past nephrology consult ETOH use disorder CIWA low at 2 Paroxysmal atrial fibrillation EKG NSR on admission Not on anticoagulation due to history of fall and alcohol use on metoprolol pt hasn't been taking, bp low, will hold for now Failure to thrive/moderate protein calorie malnutrition Previously healthcare proxy was invoked inpatient resided in short-term rehab - unclear of current status, we will discuss with sample case porter PT evaluation for safe disposition Add supplements to diet COPD prn DuoNebs BPH continue finasteride, tamsulosin on hold mood hold duloxetine Chronic anemia H/H above transfusion threshold DVT prophylaxis Time Spent With Patient Time: Total time managing care of this patient today ____ minutes.
[2024-10-02 16:57] LABS: Anion Gap 9 (12-20); Blood Urea Nitrogen 18 mg/dL (9-16); Calcium 8.8 mg/dL (8.4-10.2); Carbon Dioxide 34 mmol/L (22-29); Chloride 87 mmol/L (96-108); Creatinine Clr Calc Pharmacy 58.3; Estimated Glomerular Filt Rate > 60; Glucose Random 108 mg/dL (60-115); Potassium 3.6 mmol/L (3.3-5.1); Sodium 126 mmol/L (135-145)
--- NOTE | 2024-10-02 17:07 | HO.SKINPHOTO ---
Foam taken down, coccyx assessed, foam reapplied. Triad to scrotum and buttocks applied. Foams to bilateral heels blanchable redness noted. Q2 turn and reposition, airloss pump applied. Buttocks Coccyx Right hip Buttocks/ scrotum
[2024-10-02 17:36] LABS: Sodium Urine Random < 20.0 mmol/L
[2024-10-02 17:46] LABS: Osmolality Urine 450 mosm/kg (373-1093)
[2024-10-02 18:57] LABS: Thyroid Stimulating Hormone 1.08 uIU/mL (0.32-4.0)
[2024-10-02] MEDS: Acetaminophen 325 MG TABLET 650 MG PO (20:19)
[2024-10-03] VITALS (13 sets, daily range): BP systolic 91–141; BP diastolic 51–82; PULSE 73–101; RESP 16–20; TEMP 36.3–36.7; O2SAT 87–100
[2024-10-03] MEDS: Heparin Sodium,Porcine 5,000 UNIT/ML VIAL 5000 UNIT SUBCUT ×3 (04:39→19:43)
[2024-10-03 07:51] LABS: MANUAL DIFF FLAG NO
[2024-10-03] MEDS: Albuterol/Iprat 2.5/0.5MG 3 ML AMPUL.NEB INHALE ×3 (08:07→19:28)
[2024-10-03 08:08] LABS: Basophils Absolute Auto 0.1 X10*3/uL (0.0-0.2); Basophils Percent Auto 0.7 % (0-2); Eosinophils Percent Auto 0.5 % (0-4); Hematocrit 36.3 % (42.0-52.0); Hemoglobin 12.2 g/dl (14.0-18.0); Imm Gran Abs Auto 0.05 X10*3/uL (0.00-0.03); Imm Gran Pct Auto 0.6 % (0.0-0.4); Lymphocytes Absolute Auto 1.9 X10*3/uL (1.2-4.9); Mean Corpuscular HGB Conc 33.6 g/dl (31.0-36.0); Mean Corpuscular Hemoglobin 28.4 pg (27.0-33.0); Mean Corpuscular Volume 84.6 fL (80.0-98.0); Mean Platelet Volume 8.3 fL (9.4-12.4); Monocytes Absolute Auto 0.8 X10*3/uL (0.1-1.2); Monocytes Percent Auto 9.2 % (2-11); Neutrophils Absolute Auto 5.8 x10*3/uL (2.0-8.3); Platelet Count 258 X10*3/uL (160-400); Red Blood Count 4.29 X10*6/uL (4.60-5.80); Red Cell Distribution Width 13.2 % (11.0-16.0); White Blood Count 8.6 X10*3/uL (4.8-10.8)
[2024-10-03 08:11] LABS: Albumin Level 3.5 g/dL (3.5-5.0); Anion Gap 13 (12-20); Blood Urea Nitrogen 17 mg/dL (9-16); Calcium 8.5 mg/dL (8.4-10.2); Carbon Dioxide 32 mmol/L (22-29); Chloride 87 mmol/L (96-108); Creatinine Clr Calc Pharmacy 62.3; Estimated Glomerular Filt Rate > 60; Glucose Random 98 mg/dL (60-115); Magnesium 2.1 mg/dL (1.6-2.6); Potassium 3.7 mmol/L (3.3-5.1); Sodium 128 mmol/L (135-145)
[2024-10-03] MEDS: Finasteride 5 MG TABLET PO (08:59)
--- NOTE | 2024-10-03 09:26 | PC.NURSE ---
JULIO Montes made aware pt rhythm converted Afib with RVR briefly, converted back to ST 103. Pt asymptomatic time of incident, pt denies SOB, VS stable 97/65, RR 18, 95% on RA.
[2024-10-03] MEDS: Metoprolol Succinate ER 25 MG TAB.ER.24H PO (11:23)
--- NOTE | 2024-10-03 14:13 | P.PNIM_ITS ---
Subjective Subjective Date of Service: 10/03/24 Interval History: seen and examined this morning follow up for hyponatremia no complaints, wants to go home tolerating diet Review of Systems Review of Systems: Yes all other systems are reviewed and are negative Constitutional Constitutional: Denies chills and Denies fever(s) Cardiovascular Cardiovascular: Denies chest pain, Denies palpitations and Denies dyspnea Respiratory Respiratory: Denies cough and Denies dyspnea Endocrine Endocrine: Denies palpitations Physical Exam 2 Vital Signs: Vital Signs: Last Vital Signs Temp 97.7 F 10/03/24 11:42 Pulse 96 10/03/24 11:42 Resp 16 10/03/24 11:42 BP 107/59 L 10/03/24 11:42 Pulse Ox 94 10/03/24 11:42 O2 Del Method Nasal Cannula 10/03/24 11:42 O2 Flow Rate 2 10/03/24 11:42 BMI result Body Mass Index 18.5 Const: Other: thin, frail General: alert and awake Nutritional Appearance: average body habitus Resp: Effort & Inspection: normal respiratory effort, able to speak in complete sentences, no respiratory distress and no use of accessory muscles Cardio: Rate: regular rate GI: Inspection: No distended Palpation (GI): Soft to palpation Neuro: General: moves all extremities Objective Data Active Medications Acetaminophen (Acetaminophen 325 Mg Tablet) 650 mg PO Q6H PRN PRN Reason: Pain, Mild (Pain Scale 1-3) Last Admin: 10/02/24 20:19 Dose: 650 mg Documented By: CASTYAHAIRA Albuterol/Ipratropium (Albuterol/Iprat 2.5/0.5mg 3 Ml Ampul.Neb) 3 ml INHALE RQ6H WHILE AWAKE [facility] Last Admin: 10/03/24 08:07 Dose: 3 ml Documented By: ZULEMA Finasteride (Finasteride 5 Mg Tablet) 5 mg PO DAILY [facility] Last Admin: 10/03/24 08:59 Dose: 5 mg Documented By: BRENDA Heparin Sodium (Porcine) (Heparin Sodium,Porcine 5,000 Unit/Ml Vial) 5,000 unit SUBCUT Q8H [facility] Last Admin: 10/03/24 13:22 Dose: 5,000 unit Documented By: BRENDA Metoprolol Succinate (Metoprolol Succinate Er 25 Mg Tab.Er.24h) 25 mg PO DAILY [facility]; Protocol Last Admin: 10/03/24 11:23 Dose: 25 mg Documented By: BRENDA Labs 10/03/24 07:38 10/03/24 07:38 Labs: Laboratory Results - last 24 hr 10/02/24 10/02/24 10/02/24 16:29 16:56 16:57 MCV MCH MCHC RDW Plt Count MPV Immature Gran % (Auto) Neut % (Auto) Lymph % (Auto) [place] % (Auto) Eos % (Auto) Baso % (Auto) Lymph # (Auto) [place] # (Auto) Eos # (Auto) Baso # (Auto) Abs Immat Gran (auto) Absolute Neuts (auto) Absolute Nucleated RBC Nucleated RBC % (auto) Anion Gap 9 L Estim Creat Clear Calc 58.3 Estimated GFR > 60 Random Glucose 108 Calcium 8.8 D Magnesium Albumin TSH 1.08 Urine Osmolality 450 Ur Random Sodium < 20.0 10/03/24 07:38 MCV 84.6 MCH 28.4 MCHC 33.6 RDW 13.2 Plt Count 258 MPV 8.3 L Immature Gran % (Auto) 0.6 H Neut % (Auto) 67.0 Lymph % (Auto) 22.0 [place] % (Auto) 9.2 Eos % (Auto) 0.5 Baso % (Auto) 0.7 Lymph # (Auto) 1.9 [place] # (Auto) 0.8 Eos # (Auto) 0.0 Baso # (Auto) 0.1 Abs Immat Gran (auto) 0.05 H Absolute Neuts (auto) 5.8 Absolute Nucleated RBC 0.000 Nucleated RBC % (auto) 0.0 Anion Gap 13 Estim Creat Clear Calc 62.3 Estimated GFR > 60 Random Glucose 98 Calcium 8.5 Magnesium 2.1 Albumin 3.5 TSH Urine Osmolality Ur Random Sodium Microbiology Microbiology Results: Microbiology 10/01/24 13:21 Blood Culture - Preliminary Blood - Venous No growth after 24 hours. 10/01/24 13:22 Blood Culture - Preliminary Blood - Venous No growth after 24 hours. Assessment and Plan (1) Acute hyponatremia: Status: Acute (2) Moderate protein-calorie malnutrition: Status: Acute Plan This is a 69 year old male with history of etoh abuse, COPD atrial fibrillation not on anticoagulation due to alcohol use recurrent hyponatremia because his roommate called 911 overt concerns regarding his health. Patient arrived in the emergency department saturated in urine and incontinent of urine and stool. He was reportedly unable to get out of bed for 3 days due to weakness. He had not been using oxygen or taking any medication. A drinks alcohol on a daily basis. Workup in the emergency department was significant for hyponatremia with a sodium of 118 and was thus admitted to the ICU for close electrolyte monitoring. His sodium levels increased to 122 today and he was downgraded to the medical floor. Hyponatremia sodium gradually improving from 118->128 Likely due to beer potomania hold duloxetine. unclear compliance, has not filled medication since April nephrology consult ETOH use disorder CIWA low Paroxysmal atrial fibrillation EKG NSR on admission Has had few episodes of tachycardia, no clear AFib Not on anticoagulation due to history of fall and alcohol use Resume previous dose of metoprolol Failure to thrive Previously healthcare proxy was invoked inpatient resided in short-term rehab; rehab cleared him and he has been living with roommate Nahid who has been caring for him. Nahid has moved out to care for his mother. There are reportedly other roommates, CM aware, dispo tbd PT evaluation for safe disposition pending COPD No acute exacerbation Previously require 2 L of supplemental oxygen, reports he has an oxygen tank at home but does not use it prn DuoNebs BPH continue finasteride, tamsulosin on hold as patient has not been taking recently and BP soft mood hold duloxetine Chronic anemia H/H above transfusion threshold MASD to right hip/buttock/scrotum; stage I coccyx. POA Local wound care Moderate protein calorie malnutrition BMI 18.6 Dietary supplements added DVT prophylaxis-heparin Patient requires ongoing inpatient stay for management of hyponatremia requiring close monitoring of electrolytes, to PT evaluation, determination of safe disposition Quality Stroke Does the patient have a stroke diagnosis?: No VTE Prior VTE?: No VTE Risk Level:: Medical - moderate - high VTE Device Contraindication: Treatment Not Indicated VTE Drug Contraindication: N/A - Med Ordered
--- NOTE | 2024-10-03 14:26 | MHC.CM.PN ---
Addendum entered by Elsi Espinosa 10/03/24 14:30: CLEO: [phone] Original Note: CM MET WITH PT AND CALLED HIS FRIEND, APRYL [phone] PT LIVES WITH ROOMMATES; CLEO, BOB AND TABATHA MCKEON LIVED THERE, HOWEVER RECENTLY MOVED OUT TO CARE FOR HIS MOTHER MIKE REPORTS HE STILL VISITS PT EVERY 2-3 DAYS AND ORLY ALSO ASSISTS PT IN CARE PT AND MIKE AGREE, THERE IS FOOD IN THE HOME AND THE ROOMMATES ASSIST PT WITH GETTING MEALS, HOWEVER HE DECLINES TO EAT MUCH MIKE ASKS THAT PT BE SENT WITH A SCRIPT FOR ENSURE OR SIMILAR PRODUCT PT HAS NO PCP AND NO FORMAL SERVICES PT COMPLETED A NEW HCP TODAY NAMING MIKE AND ORLY HIS AGENTS IMM DELIVERED DCP TBD PENDING PT EVAL. HOME WITH SUPPORT VS STR TRANSPORT TBD: FRIEND VS BLS TO STR
[2024-10-04] VITALS (9 sets, daily range): BP systolic 100–153; BP diastolic 58–73; PULSE 73–102; RESP 16–18; TEMP 36.3–36.9; O2SAT 85–98; BMI 18.5
[2024-10-04] MEDS: Heparin Sodium,Porcine 5,000 UNIT/ML VIAL 5000 UNIT SUBCUT ×3 (03:37→20:27)
[2024-10-04] MEDS: Albuterol/Iprat 2.5/0.5MG 3 ML AMPUL.NEB INHALE ×4 (07:53→19:36)
[2024-10-04] MEDS: Metoprolol Succinate ER 25 MG TAB.ER.24H PO (08:21)
[2024-10-04] MEDS: Finasteride 5 MG TABLET PO (08:21)
[2024-10-04 09:41] LABS: Anion Gap 14 (12-20); Blood Urea Nitrogen 17 mg/dL (9-16); Calcium 8.9 mg/dL (8.4-10.2); Carbon Dioxide 33 mmol/L (22-29); Chloride 88 mmol/L (96-108); Creatinine Clr Calc Pharmacy 60.6; Estimated Glomerular Filt Rate > 60; Glucose Random 82 mg/dL (60-115); Potassium 3.4 mmol/L (3.3-5.1); Sodium 132 mmol/L (135-145)
--- NOTE | 2024-10-04 11:13 | P.CONNP_ITS ---
History of Present Illness Reason for Consult Consult date: 10/04/24 Chief Complaint Chief complaint: Hyponatremia History of Present Illness Narrative: 69 y/o male with a medical history of etoh abuse, COPD, afib, depression, recurrent hyponatremia. presented 10/01 with sodium of 118, roommate called ED after finding him unable to get out of bed, incontinent of urine/stool. 10/02 urine osm 450, urine sodium <20 patient reports he does not recall the few days before presenting to hospital, does noth think he ate or drank much states he normally drinks a few beers daily, for many years states he is feeling well today eating breakfast in bed serum sodium 132 today Review of Systems Constitutional: Reports no additional constitutional complaints Cardiovascular: Denies chest pain, Denies leg edema, Denies lightheadedness and Denies dyspnea Respiratory: Denies dyspnea Gastrointestinal: Denies abdominal pain, Denies diarrhea, Denies nausea and Denies vomiting Genitourinary: Denies hematuria, Denies oliguria, Denies dysuria and Denies flank pain Musculoskeletal: Denies back pain and Denies muscle cramps Skin/Breast: Denies rash PMFSH Past Medical History Medical History Cognitive impairment Encounter for assessment of decision-making capacity COPD (chronic obstructive pulmonary disease) Adult failure to thrive Pneumonia Asthma Alcohol dependence Social History Social History Household Members: Other Household Members Other:: Roomates Housing: House Do you presently have visiting nurse or other home services: No Alcohol intake: current Alcohol intake frequency: 3 or more drinks per day Alcohol type: beer Patient Tobacco Use Status: Former Tobacco user Tobacco use type: Cigarette Cigarette Packs Per Day: 1 Cigarettes Per Day: 20.0 Substance Use Type: Crack/Cocaine Advance Directives Date on File: 11/06/23 service: No Meds Allergies Allergy/AdvReac Type Severity Reaction Status Date / Time No Known Allergies Allergy Verified 10/01/24 13:05 Active Medications: Current Medications Acetaminophen (Acetaminophen 325 Mg Tablet) 650 mg PO Q6H PRN PRN Reason: Pain, Mild (Pain Scale 1-3) Last Admin: 10/02/24 20:19 Dose: 650 mg Albuterol/Ipratropium (Albuterol/Iprat 2.5/0.5mg 3 Ml Ampul.Neb) 3 ml INHALE RQ6H WHILE AWAKE [facility] Last Admin: 10/04/24 07:53 Dose: 3 ml Finasteride (Finasteride 5 Mg Tablet) 5 mg PO DAILY [facility] Last Admin: 10/04/24 08:21 Dose: 5 mg Heparin Sodium (Porcine) (Heparin Sodium,Porcine 5,000 Unit/Ml Vial) 5,000 unit SUBCUT Q8H [facility] Last Admin: 10/04/24 03:37 Dose: 5,000 unit Metoprolol Succinate (Metoprolol Succinate Er 25 Mg Tab.Er.24h) 25 mg PO DAILY [facility]; Protocol Last Admin: 10/04/24 08:21 Dose: 25 mg Home Medications ?Medication ?Instructions ?Recorded ?Confirmed ?Last Taken ?Type duloxetine 20 mg capsule,delayed 20 mg PO DAILY 10/01/24 10/01/24 04/22/24 History release Physical Exam Vital Signs: Last Vital Signs Temp 97.4 F 10/04/24 08:00 Pulse 89 10/04/24 08:00 Resp 16 10/04/24 08:00 BP 117/73 10/04/24 08:00 Pulse Ox 92 10/04/24 08:00 O2 Del Method Room Air 10/04/24 08:00 O2 Flow Rate 2 10/03/24 23:18 BMI result Body Mass Index 18.5 Const General: no acute distress, alert and awake Resp Effort & Inspection: normal respiratory effort and able to speak in complete sentences Auscultation: clear to auscultation bilaterally Cardio Rate: regular rate Heart sounds: S1 normal heart sound present and S2 normal heart sound present GI Palpation (GI): Soft to palpation and nontender General: Yes no CVA tenderness Back/Spine/Pelvis Back: no CVA tenderness Skin Rashes: no rashes Extrem Right upper extremity: no edema Results Lab Results 10/03/24 07:38 10/04/24 09:18 Lab results: Chemistry 10/01/24 10/01/24 10/02/24 13:21 19:58 04:51 Sodium 118 L* 121 L 122 L Potassium 4.3 4.1 4.3 Carbon Dioxide 32 H 28 26 BUN 7 L 17 H 16 Creatinine 0.66 0.81 0.66 Calcium 9.4 8.5 D 8.2 L Phosphorus 3.5 3.7 10/02/24 10/03/24 10/04/24 16:29 07:38 09:18 Sodium 126 L 128 L 132 L Potassium 3.6 3.7 3.4 Carbon Dioxide 34 H 32 H 33 H BUN 18 H 17 H 17 H Creatinine 0.78 0.73 0.75 Calcium 8.8 D 8.5 8.9 Phosphorus Hematology 10/01/24 10/02/24 10/03/24 13:21 04:51 07:38 WBC 7.5 3.9 L 8.6 Hgb 14.3 D 12.0 L 12.2 L Plt Count 272 287 258 Urinalysis 10/01/24 13:13 Urine Color Yellow Urine Appearance Clear Urine pH 6.5 Ur Specific [place] <= 1.005 Urine Protein Negative Urine Glucose (UA) Negative Urine Ketones Negative Urine Blood Small (1+) H Urine Nitrite Negative Ur Leukocyte Esterase Negative Urine RBC 0-2 Urine WBC 0-5 Ur Squamous Epith Cells 0-2 Hyaline Casts 0-2 Urine Studies 10/02/24 16:56 Urine Osmolality 450 Assessment and Plan (1) Acute hyponatremia: Status: Acute Plan Acute hyponatremia likely secondary to volume depletion- also may have had component of beer potomania initially on presentation normal urine osmolality and low urine sodium on 10/02 suggest hypovolemia stimulating ADH release, recommend 1L NS bolus may discontinue fluid restriction recommend cessation from alcohol will sign off, happy to follow up with any changes or concerns that arise. Discussed wtih Dr Sparrow. Procedures Date of Service Date of Service: 10/04/24
--- NOTE | 2024-10-04 12:21 | MHC.CLN ---
NUTRITION DIET=REGULAR. REPORTS THAT APPETITE IS IMPROVING. DISLIKES ENSURE SUPPLEMENT. WILL TRY MAGIC CUP BID (580 KCALS/18 G PROTEIN). SKIN WITH STAGE I TO COCCYX. QUALIFIES MODERATELY MALNOURISHED IN THE CONTEXT OF SOCIAL/BEHAVIORAL CIRCUMSTANCES. FOLLOW FOR PO INTAKE AND SKIN INTEGRITY. SEE CLINICAL NUTRITION ASSESSMENT 10/04/24.
[2024-10-05] VITALS (11 sets, daily range): BP systolic 90–136; BP diastolic 51–90; PULSE 87–116; RESP 17–20; TEMP 36.9–37.7; O2SAT 91–95
[2024-10-05] MEDS: ondansetron HCL 4 MG/2 ML VIAL IVPUSH (02:37)
[2024-10-05] MEDS: Heparin Sodium,Porcine 5,000 UNIT/ML VIAL 5000 UNIT SUBCUT ×3 (04:06→21:00)
[2024-10-05] MEDS: Lactated Ringers 1,000 ML 125 ML IVCONT ×2 (07:35→18:08)
[2024-10-05] MEDS: Finasteride 5 MG TABLET PO (09:34)
--- NOTE | 2024-10-05 10:39 | HO.PM.IMPN ---
Subjective Subjective Date of Service: 10/05/24 Interval History: seen and examined this morning follow up for hyponatremia no complaints, wants to go home tolerating diet Physical Exam Vital Signs: Vital Signs: Last Vital Signs Temp 99.6 F 10/05/24 08:00 Pulse 92 10/05/24 09:01 Resp 18 10/05/24 08:00 BP 97/59 L 10/05/24 09:01 Pulse Ox 92 10/05/24 08:00 O2 Del Method Nasal Cannula, Bi PAP 10/05/24 08:00 O2 Flow Rate 2 10/05/24 03:35 BMI result Body Mass Index 18.5 Const: Other: thin, frail General: alert and awake Nutritional Appearance: average body habitus Resp: Effort & Inspection: normal respiratory effort, able to speak in complete sentences, no respiratory distress and no use of accessory muscles Cardio: Rate: regular rate GI: Inspection: No distended Palpation (GI): Soft to palpation Neuro: General: moves all extremities Objective Data Active Medications Acetaminophen (Acetaminophen 325 Mg Tablet) 650 mg PO Q6H PRN PRN Reason: Pain, Mild (Pain Scale 1-3) Last Admin: 10/02/24 20:19 Dose: 650 mg Documented By: CASTYAHAIRA Albuterol/Ipratropium (Albuterol/Iprat 2.5/0.5mg 3 Ml Ampul.Neb) 3 ml INHALE RQ6H WHILE AWAKE [facility] Last Admin: 10/05/24 07:28 Dose: Not Given Documented By: DAVID Non-Admin Reason: RN request Finasteride (Finasteride 5 Mg Tablet) 5 mg PO DAILY [facility] Last Admin: 10/05/24 09:34 Dose: 5 mg Documented By: MICHAEL Heparin Sodium (Porcine) (Heparin Sodium,Porcine 5,000 Unit/Ml Vial) 5,000 unit SUBCUT Q8H [facility] Last Admin: 10/05/24 04:06 Dose: 5,000 unit Documented By: SPARKLE Lactated Ringer's (Lr) 1,000 mls @ 125 mls/hr IVCONT .Q8H [facility] Last Admin: 10/05/24 07:35 Dose: 125 mls/hr Documented By: MICHAEL Metoprolol Succinate (Metoprolol Succinate Er 25 Mg Tab.Er.24h) 25 mg PO DAILY [facility]; Protocol Last Admin: 10/05/24 07:48 Dose: Not Given Documented By: MICHAEL Non-Admin Reason: Decreased Blood Pressure Ondansetron HCl (Ondansetron Hcl 4 Mg/2 Ml Vial) 4 mg IVPUSH Q4H PRN PRN Reason: Nausea and Vomiting Last Admin: 10/05/24 02:37 Dose: 4 mg Documented By: SPARKLE Labs 10/03/24 07:38 10/04/24 09:18 Assessment and Plan (1) Acute hyponatremia: Status: Acute (2) Moderate protein-calorie malnutrition: Status: Acute Plan This is a 69 year old male with history of etoh abuse, COPD atrial fibrillation not on anticoagulation due to alcohol use recurrent hyponatremia because his roommate called 911 overt concerns regarding his health. Patient arrived in the emergency department saturated in urine and incontinent of urine and stool. He was reportedly unable to get out of bed for 3 days due to weakness. He had not been using oxygen or taking any medication. A drinks alcohol on a daily basis. Workup in the emergency department was significant for hyponatremia with a sodium of 118 and was thus admitted to the ICU for close electrolyte monitoring. His sodium levels increased to 122 today and he was downgraded to the medical floor. Hyponatremia-- sodium gradually improving from 118->128--132 today, likely beer potomania and SSRI, hold duloxetine ETOH use disorder CIWA low Paroxysmal atrial fibrillation EKG NSR on admission Has had few episodes of tachycardia, no clear AFib Not on anticoagulation due to history of fall and alcohol use metoprolol with parameters for BP Failure to thrive Previously healthcare proxy was invoked inpatient resided in short-term rehab; rehab cleared him and he has been living with roommate Nahid who has been caring for him. Nahid has moved out to care for his mother. There are reportedly other roommates, CM aware, dispo tbd PT evaluation recommend STR but he wants sot return home COPD No acute exacerbation Previously require 2 L of supplemental oxygen, reports he has an oxygen tank at home but does not use it prn DuoNebs, reassess need for home O2 BPH continue finasteride, tamsulosin on hold as patient has not been taking recently and BP soft mood hold duloxetine d/t hyponatremia Chronic anemia H/H above transfusion threshold MASD to right hip/buttock/scrotum; stage I coccyx. POA Local wound care Moderate protein calorie malnutrition BMI 18.6 Dietary supplements added DVT prophylaxis-heparin Patient requires ongoing inpatient stay for management of hyponatremia requiring close monitoring of electrolytes, to PT evaluation, determination of safe disposition Quality Stroke Does the patient have a stroke diagnosis?: No VTE Prior VTE?: No VTE Risk Level:: Medical - moderate - high VTE Device Contraindication: Treatment Not Indicated VTE Drug Contraindication: N/A - Med Ordered
--- NOTE | 2024-10-05 12:02 | MHC.CM.PN ---
IMM 10/05/24 Per MD rounds, Patient is ready to discharge today. PT recommendation is for STR. Patient has been accepted at [facility]. Patient would prefer to discharge to home with services. Patient does not qualify for home services, because he does not have a PCP. DC cancelled due to low BP and need for IV fluids. DP [facility] via BLS when medically cleared. The SNF has been notified of discharge cancellation.
[2024-10-05] MEDS: Albuterol/Iprat 2.5/0.5MG 3 ML AMPUL.NEB INHALE ×2 (14:44→19:22)
[2024-10-06] VITALS (7 sets, daily range): BP systolic 93–162; BP diastolic 52–92; PULSE 80–99; RESP 17–19; TEMP 36.3–37.2; O2SAT 93–98
[2024-10-06] MEDS: Lactated Ringers 1,000 ML 125 ML IVCONT ×2 (01:50→08:51)
[2024-10-06] MEDS: Albuterol/Iprat 2.5/0.5MG 3 ML AMPUL.NEB INHALE (08:45)
[2024-10-06] MEDS: Finasteride 5 MG TABLET PO (08:51)
[2024-10-06] MEDS: Metoprolol Succinate ER 25 MG TAB.ER.24H PO (08:51)
--- NOTE | 2024-10-06 10:42 | MHC.CM.PN ---
Addendum entered by Estela Reza 10/06/24 11:17: A < 30 days clause has been requested by the SNF. The request has been sent to MD. Original Note: IMM 10/05/24 Patient has been cleared for discharge today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
--- NOTE | 2024-10-06 11:29 | MHC.CLN ---
F/U DIET=REGULAR. DISLIKES ENSURE SUPPLEMENT. RECEIVING FORTIFIED ICE CREAM BID (580 KCALS/18 G PROTEIN). MOST RECENT PO INTAKE GOOD. SKIN WITH MACERATION TO BUTTOCKS AND RIGHT HIP; REDNESS TO BILATERAL HEELS. QUALIFIES MODERATELY MALNOURISHED IN THE CONTEXT OF SOCIAL/BEHAVIORAL CIRCUMSTANCES. FOLLOW FOR PO INTAKE AND SKIN INTEGRITY.
--- NOTE | 2024-10-06 12:02 | P.DS_ITS ---
DS: Providers Provider Date of Service: 10/06/24 Date of admission: 10/01/24 15:25 Date of discharge: 10/06/24 Primary care physician: None Physician Consults: 10/01/24 17:23 Consult to Wound Care Routine Reason for consultation: Pressure Injuries/Skin integrity concerns 10/02/24 15:47 Consult to Nephrology Routine Consulting Provider: [facility] Reason for consultation: hyponatremia Has provider been notified: No DS: Diagnosis Discharge Diagnosis (1) Acute hyponatremia: Status: Acute (2) Moderate protein-calorie malnutrition: Status: Acute DS: Summary Hospital Course Hospital Course: admission hpi Chief Complaint: Malaise, hyponatremia 69-year-old gentleman with underlying AFib not on anticoagulation, alcohol dependence, failure to thrive, COPD presented complaining of weakness and dyspnea. On ER evaluation patient MSE needed, but alert and oriented with no neurologic symptoms with sodium of 118. Started on regular diet and admitted to intensive care unit for close monitoring. hospital course: This is a 69 year old male with history of etoh abuse, COPD atrial fibrillation not on anticoagulation due to alcohol use recurrent hyponatremia because his roommate called 911 overt concerns regarding his health. Patient arrived in the emergency department saturated in urine and incontinent of urine and stool. He was reportedly unable to get out of bed for 3 days due to weakness. He had not been using oxygen or taking any medication. A drinks alcohol on a daily basis. Workup in the emergency department was significant for hyponatremia with a sodium of 118 and was thus admitted to the ICU for close electrolyte monitoring. His sodium levels increased to 122 today and he was downgraded to the medical floor. Hyponatremia: likely beer potomonia and SSRI related SIADH, initial sodium 122 and admitted to ICU and managed with fluid and water restriction. sodium gradually improving from 118->128--132 today. Hold stop Duloxetine indifinately ETOH use disorder--no sings of withdrwal, and low CIWAs Paroxysmal atrial fibrillation, EKG NSR on admission Not on anticoagulation due to history of fall and alcohol use metoprolol with parameters for BP Adult Failure to thrive Previously healthcare proxy was invoked inpatient resided in short-term rehab; rehab cleared him and he has been living with roommate Nahid who has been caring for him. Nahid has moved out to care for his mother. There are reportedly other roommates, CM aware. PT evaluation recommend STR, and he is agreable COPD No acute exacerbation Previously require 2 L of supplemental oxygen, reports he has an oxygen tank at home but does not use it prn DuoNebs, reassess need for home O2 BPH continue finasteride, tamsulosin on hold as patient has not been taking recently and BP soft mood hold duloxetine d/t hyponatremia Chronic anemia H/H above transfusion threshold MASD to right hip/buttock/scrotum; stage I coccyx. POA Local wound care Moderate protein calorie malnutrition, BMI 18.6 Dietary supplements added Time Attestation Discharge Coordination Time (in mins): 45 Quality: Safe Use of Opioids Does Pt have an Active Cancer Diagnosis on the Problem List?: No Quality: Stroke Does the patient have a stroke diagnosis?: No Physical Exam Vital Signs: Vital Signs: Last Vital Signs Temp 99.6 F 10/05/24 08:00 Pulse 92 10/05/24 09:01 Resp 18 10/05/24 08:00 BP 97/59 L 10/05/24 09:01 Pulse Ox 92 10/05/24 08:00 O2 Del Method Nasal Cannula, Bi PAP 10/05/24 08:00 O2 Flow Rate 2 10/05/24 03:35 BMI result Body Mass Index 18.5 Const: Other: General: AO X 3, no acute distress Resp: CTA bilateral CVS: S1,S2,RRR GI: +BS, NT, no distention Skin: No rash Neuro: motor grossly intact Psych: appropriate affect DS: Data Data Completed and Pending Completed studies during hospitalization [Text1]: Procedures Detoxification Services for Substance Abuse Treatment (07/19/23) Dilation of Left Ureter with Intraluminal Device, Via Natural or Artificial Opening Endoscopic (11/02/23) Fluoroscopy of Left Kidney, Ureter and Bladder (11/02/23) Labs on day of discharge: Preliminary micro results at discharge 10/01/24 13:21 Blood Culture - Preliminary Blood - Venous No growth after 48 hours. 10/01/24 13:22 Blood Culture - Preliminary Blood - Venous No growth after 48 hours. Discharge Plan Discharge Anticipated Discharge Date/Time: 10/06/24 12:02 Patient Disposition: er SNF Discharge Diagnosis: Hyponatremia, failure to thrive Referrals: [facility] [Outside] - 1 Week Physician,None [Primary Care Provider] - 1 Week Discharge Medications: Continued tamsulosin 0.4 mg Capsule 0.4 mg PO BEDTIME Qty: 30 0RF finasteride 5 mg Tablet 5 mg PO DAILY Qty: 30 0RF ipratropium-albuterol 0.5 mg-3 mg(2.5 mg base)/3 mL Solution For Nebulization 3 ml inhalation RQ6H WHILE AWAKE Qty: 1 0RF metoprolol succinate 25 mg Tablet Extended Release 24 Hr 25 mg PO DAILY Qty: 1 0RF Protocol: Hold for SBP/HR < HOLD for SBP < : 90 HOLD for HR < : 60 duloxetine 20 mg capsule,delayed release(DR/EC) 20 mg PO DAILY Discharge Orders: Discharge Order (Routine); Ordered 10/06/24 Ordered By: Kulwant Rothman Diet: Advance to usual diet Activity on Discharge: As tolerated Stand Alone Forms: Patient Portal Discharge page Print Language: Thai Care Plan Goals: recovery from hyponatremia, failure to thrive, weakness Health Concerns: hyponatremia alcohol use disorder failure to thrive protein calory malnutrition Plan of Treatment: avoid alcohol stop taking duloxetine follow up with hyor doctor in a week Assessment: see above Discharge Date/Time: 10/06/24 15:24
== END 2024-10-06 15:24 | disposition skilled nursing facility (03) | DRG 644 ==
LOC: HO.ED 15:25 → HO.EDOVER 15:30 → HO.ICU 15:39 → HO.S3 10-02 12:39
PROVIDERS: Physician Assistant Medical; Registered Nurse Emergency; Admitting Provider Internal Medicine Pulmonary Disease; Emergency Provider Emergency Medicine Emergency Medical Services; Visit Provider Internal Medicine
DX: E22.2 Syndrome of inappropriate secretion of antidiuretic hormone (principal); E44.0 Moderate protein-calorie malnutrition; R64 Cachexia; Z68.1 Body mass index [BMI] 19.9 or less, adult; L89.151 Pressure ulcer of sacral region, stage 1; F39 Unspecified mood [affective] disorder; I48.0 Paroxysmal atrial fibrillation; J44.9 Chronic obstructive pulmonary disease, unspecified; T43.225A Adverse effect of selective serotonin reuptake inhibitors, initial encounter; N40.0 Benign prostatic hyperplasia without lower urinary tract symptoms; F10.20 Alcohol dependence, uncomplicated; D64.9 Anemia, unspecified; L24.A9 Irritant contact dermatitis due friction or contact with other specified body fluids; Z91.148 Patient's other noncompliance with medication regimen for other reason; Z20.822 Contact with and (suspected) exposure to COVID-19; Z87.891 Personal history of nicotine dependence; Z79.899 Other long term (current) drug therapy
CPT/HCPCS: 0241U; 36415; 71045; 80048; 80053; 80307; 81001; 82040; 82550; 82803; 83605; 83735; 83935; 84100; 84300; 84443; 85025; 85379; 87040; 93005; 94640; 97162; 99285; J1644; J2405; J2919; J3475; J7120

== ENCOUNTER → 2024-10-01 12:32 | Outpatient (BNV) | payer MEDICARE, MEDICAID, SELFPAY | PROVIDERS: Emergency Provider Emergency Medicine Emergency Medical Services; Visit Provider Radiology Diagnostic Radiology | DX: R06.00 Dyspnea, unspecified (principal) | CPT/HCPCS: 71045 ==

== ENCOUNTER → 2024-10-01 12:32 | Outpatient (BNV) | payer MEDICARE, MEDICAID, SELFPAY | PROVIDERS: Admitting Provider Internal Medicine Pulmonary Disease; Emergency Provider Emergency Medicine Emergency Medical Services; Visit Provider Internal Medicine Cardiovascular Disease | DX: I51.7 Cardiomegaly (principal) | CPT/HCPCS: 93010 ==

== ENCOUNTER → 2024-10-01 15:25 | Outpatient (BNV) | payer MEDICARE, MEDICAID, SELFPAY | PROVIDERS: Admitting Provider Internal Medicine Pulmonary Disease; Emergency Provider Emergency Medicine Emergency Medical Services; Visit Provider Nurse Practitioner Family | DX: E87.1 Hypo-osmolality and hyponatremia (principal) | CPT/HCPCS: 99221 ==

== ENCOUNTER → 2024-10-01 15:25 | Outpatient (BNV) | payer MEDICARE, MEDICAID, SELFPAY | PROVIDERS: Admitting Provider Internal Medicine Pulmonary Disease; Emergency Provider Emergency Medicine Emergency Medical Services; Visit Provider Internal Medicine Pulmonary Disease | DX: E87.1 Hypo-osmolality and hyponatremia (principal); R62.7 Adult failure to thrive; E44.0 Moderate protein-calorie malnutrition | CPT/HCPCS: 99222; 99231 ==

== ENCOUNTER → 2024-10-01 15:25 | Outpatient (BNV) | payer MEDICARE, MEDICAID, SELFPAY | PROVIDERS: Admitting Provider Internal Medicine Pulmonary Disease; Emergency Provider Emergency Medicine Emergency Medical Services; Visit Provider Physician Assistant Medical | DX: E87.1 Hypo-osmolality and hyponatremia (principal); E44.0 Moderate protein-calorie malnutrition | CPT/HCPCS: 99232; 99239; 99499 ==